=== PATIENT | female | born 1995 | race Caucasian/White ===

== ENCOUNTER 2019-10-07 15:45 | Emergency (ER) | payer OTHER, SELFPAY ==
[2019-10-07 15:57] VITALS: BP 123/67; PULSE 62; RESP 16; TEMP 37.3; O2SAT 100
--- NOTE | 2019-10-07 16:44 | ED.URI ---
HPI - URI/Sore Throat General Chief Complaint: Upper Respiratory Infection Stated Complaint: white spots on tonsils Time Seen by Provider: 10/07/19 16:44 Source: patient and RN notes reviewed Mode of arrival: ambulatory Limitations: no limitations History of Present Illness HPI Narrative: 24-year-old female who presents to [facility] care with 2-day history of sore throat, neck glands painful and swollen, with white patches noted to tonsils today with painful swallowing.Patient states that coworker had strep about 10 days ago so has had exposure to strep. Patient states that she has had low grade fever,some bilateral ear pain, denies any cough or congestion. Patient states that her throat pain is sharp and is aggravated by swallowing, has been using [place] [employer] for her discomfort. MD elicited complaint: sore throat Onset (ago): day(s) (2) Consistency: progressively worsening Severity: moderate Pain scale (0-10): 6 Able to tolerate fluids by mouth: Yes Exacerbating factors: swallowing Relieving factors: nothing Context: sick contacts Associated symptoms: fever (low grade), sore throat and ear pain Treatments prior to arrival: other ([place] [employer]) Related Data Home Medications Medication Instructions Recorded Confirmed norgestimate-ethinyl estradiol 1 tablet PO DAILY 10/07/19 10/07/19 [[id number]] spironolactone 100 mg PO QAM 10/07/19 10/07/19 Allergies Allergy/AdvReac Type Severity Reaction Status Date / Time No Known Allergies Allergy Verified 10/07/19 16:16 Review of Systems Review of Systems: Narrative: CONSTITUTIONAL: Positive low grade fever, no chills, or sweats. EYES: Denies visual changes, redness, or discharge. ENT: Denies rhinorrhea, congestion, positive sore throat, and otalgia. CARDIOVASCULAR: Denies chest pain, palpitations, or edema. RESPIRATORY: Denies cough or dyspnea. GASTROINTESTINAL: Denies abdominal pain, nausea, vomiting, or diarrhea. GENITOURINARY: Denies dysuria or hematuria. SKIN: Denies rash or itching. MUSCULOSKELETAL: Denies back pain, joint pain, or myalgia. NEUROLOGIC: Denies headache, numbness, or weakness. PSYCHIATRIC: Denies anxiety or depression. All systems reviewed & are unremarkable except as noted in HPI and below [facility] Past Medical History Medical History (Updated 10/08/19 @ 00:00 by Carol Larson) Acne Surgical History Surgical History (Updated 10/07/19 @ 17:04 by Susanne Rodriguez NP) Hx of appendectomy Social History Social History (Updated 10/07/19 @ 17:04 by Susanne Rodriguez NP) Smoking status: Never smoker Alcohol intake: current Living arrangements: with family Gender identity (if verbalized by the patient): Female Comments At time of signature, agree with nursing past medical, surgical, social history. There is no relevant family history pertinent to the presenting complaint Exam Narrative: Exam Narrative: GENERAL: Ill-appearing, well-nourished, and in no acute distress. HEAD: Normocephalic, atraumatic. EYES: PERRLA and EOMI. ENT: Nares clear, no rhinorrhea or epistaxis. Mucous membranes moist. TMs normal with good light reflex throat red with white lesions on tonsils, tonsils red and swollen NECK: Supple. Lymphadenopathy CHEST: Clear to auscultation. No respiratory distress. SaO2 100% on room air HEART: Regular rate and rhythm. No murmur heard. Normal peripheral pulses. ABDOMEN: Soft, nontender, nondistended, normal active bowel sounds. EXTREMITIES: Normal range of motion. No edema. SKIN: Warm, dry, no rash. NEURO: No focal deficits. Alert and oriented x3. Course Vital Signs Vital signs: Vital Signs Temperature 37.3 C 10/07/19 15:57 Pulse Rate 62 10/07/19 15:57 Respiratory Rate 16 10/07/19 15:57 Blood Pressure 123/67 10/07/19 15:57 Pulse Oximetry 100 10/07/19 15:57 Temperature 37.3 C 10/07/19 15:57 Pulse Rate 62 10/07/19 15:57 Respiratory Rate 16 10/07/19 15:57 Blood Pressure 123/67 03
== END 2019-10-07 17:00 | disposition home or self-care (01) ==
PROVIDERS: Emergency Provider Registered Nurse; PCP Family Medicine
DX: J02.0 Streptococcal pharyngitis (principal)
CPT/HCPCS: 87880; 99203; G0463

== ENCOUNTER 2021-06-09 14:38 | Emergency (ER) | payer OTHER, SELFPAY ==
[2021-06-09 14:45] VITALS: BP 127/67; PULSE 73; RESP 18; TEMP 37.1; O2SAT 100
--- NOTE | 2021-06-09 14:46 | ED.URI ---
HPI - URI/Sore Throat General Chief Complaint: Upper Respiratory Infection Stated Complaint: drainage headaches ear pain Time Seen by Provider: 06/09/21 14:47 Source: patient and RN notes reviewed History of Present Illness HPI Narrative: Patient is a 25-year-old female who presents the urgent care with complaints of bilateral ear pain, drainage and headache. Patient states that her symptoms started approximately 4 days ago and denies of any fever, chills, nausea, vomiting. Patient has been Covid vaccinated and denies any recent exposures to any upper respiratory viruses. States that she has been using DayQuil and NyQuil with very mild symptom relief. No other acute complaints. No acute distress noted. Patient read the plan of care. Some parts of this dictation were generated by voice recognition software and may contain typographical and/or grammatical inaccuracies. Related Data Home Medications Medication Instructions Recorded Confirmed escitalopram oxalate 10 mg PO DAILY 06/09/21 06/09/21 norgestimate-ethinyl estradiol 1 tablet PO DAILY 06/09/21 06/09/21 [Sue] spironolactone 75 mg PO DAILY 06/09/21 06/09/21 Allergies Allergy/AdvReac Type Severity Reaction Status Date / Time No Known Allergies Allergy Verified 06/09/21 14:39 Review of Systems Review of Systems: CONSTITUTIONAL: Denies fever, chills, or sweats. EYES: Denies visual changes, redness, or discharge. ENT: Reports of postnasal drainage, sinus congestion, rhinorrhea and bilateral otalgia CARDIOVASCULAR: Denies chest pain, palpitations, or edema. RESPIRATORY: Denies cough or dyspnea. GASTROINTESTINAL: Denies abdominal pain, nausea, vomiting, or diarrhea. GENITOURINARY: Denies dysuria or hematuria. SKIN: Denies rash or itching. MUSCULOSKELETAL: Denies back pain, joint pain, or myalgia. NEUROLOGIC: Reports of headache All other systems reviewed are negative, except as documented in HPI. [facility] Past Medical History Medical History (Updated 06/09/21 @ 15:04 by CHAI Buenrostro) Acne Surgical History Surgical History (Updated 10/07/19 @ 17:04 by Susanne Rodriguez NP) Hx of appendectomy Social History Social History (Updated 10/07/19 @ 17:04 by Susanne Rodriguez NP) Smoking status: Never smoker Alcohol intake: current Gender identity (if verbalized by the patient): Female Comments At the time of my signature, I reviewed and agree with the nursing past medical, surgical, social, and family history. There is no relevant family history pertinent to the patient complaint. Exam Narrative: GENERAL: This is a well-nourished, well-developed patient, in no apparent distress. HEAD: normocephalic, atraumatic. EYES: PERRL. Sclera clear/white. Vision is grossly intact. EARS: External ears normal, auditory canals clear and without drainage, TMs normal without perforation. Hearing grossly intact. NOSE: External nose normal with no obvious nasal discharge, mild erythema noted bilateral nares with clear rhinorrhea. THROAT: Mucous membranes moist, posterior pharynx clear. Moderate postnasal drainage and slightly hoarse NECK: Neck supple, non-tender without lymphadenopathy, masses or thyromegaly. CARDIOVASCULAR: Regular rate and rhythm without murmurs, gallops, or rubs. RESPIRATORY: Clear to auscultation. Breath sounds equal bilaterally. No wheezes, rales, or rhonchi. SKIN: warm, intact with no suspicious lesions or rash, good texture and turgor. NEURO: awake, alert, and oriented to person, place and time. There were no obvious focal neurologic abnormalities. EXTREMITIES: No clubbing, cyanosis, or edema. Course Vital Signs Vital signs: Vital Signs Temperature 98.7 F 06/09/21 14:45 Pulse Rate 73 06/09/21 14:45 Respiratory Rate 18 06/09/21 14:45 Blood Pressure 127/67 06/09/21 14:45 Pulse Oximetry 100 06/09/21 14:45 Temperature 98.7 F 06/09/21 14:45 Pulse Rate 73 06/09/21 14:45 Respiratory Rate 18 06/09/21 14:4
== END 2021-06-09 15:05 | disposition home or self-care (01) ==
PROVIDERS: Emergency Provider Nurse Practitioner Family; PCP Family Medicine
DX: J00 Acute nasopharyngitis [common cold] (principal)
CPT/HCPCS: 99211; G0463

== ENCOUNTER 2022-07-12 21:20 | Emergency (ER) | payer OTHER, SELFPAY ==
--- NOTE | ~2022-07-12 | CT_ITS ---
EXAMINATION: CT brain wo con DATE: 07/12/2022 22:39 INDICATION: dizziness . TECHNIQUE: Computed tomography (CT) of the head was performed without intravenous contrast. The mA wa s adjusted according to patient size. Iterative reconstruction technique was employed. The dose-lengt h product was 605.33 mGy-cm. COMPARISON: None. FINDINGS: No acute intracranial hemorrhage or extra-axial fluid collection. No hydrocephalus, mass, or herniation. No acute ischemic infarct. Unremarkable dural venous sinus attenuation. No acute osseous abnormality. Air-fluid levels in the bilateral maxillary ethmoid and sphenoid sinuses, the remaining aerated space s are clear. IMPRESSION: No acute intracranial process. Paranasal sinus findings may represent acute sinusitis in the appropri ate clinical setting. Reviewed, dictated and finalized at location K. L[employer] OPERATOR IMPRESSION: No acute intracranial process. Paranasal sinus findings may represent acute sin usitis in the appropriate clinical setting.
--- NOTE | ~2022-07-12 | XR_ITS ---
EXAMINATION: XR chest 1V portable Exam Date/Time: 07/12/2022 21:50 BUNG REMOVER HISTORY: covid +, dizziness Comparison: None available. RESULT: Lines, tubes, and devices: None. Lungs and pleura: Clear. Cardiomediastinal silhouette: Normal. Other: No acute osseous or upper abdominal finding. IMPRESSION: No acute cardiopulmonary process. Reviewed, dictated and finalized at location K. REMOVER
[2022-07-12 21:23] VITALS: BP 135/83; PULSE 80; RESP 16; TEMP 36.3; O2SAT 100
--- NOTE | 2022-07-12 21:43 | ECG_ITS ---
Measurements Intervals [place] Rate: 69 P: 48 CA: 125 QRS: 61 QRSD: 86 T: 19 QT: 366 QTc: 392 Interpretive Statements SINUS RHYTHM POSSIBLE RIGHT VENTRICULAR CONDUCTION DELAY [RSR (QR) IN V1/V2] NO PREVIOUS ECG AVAILABLE FOR COMPARISON Electronically Signed On 07-13-2022 13:17:49 DRAMATIC COACH by Dee Dee Godoy M.D.
[2022-07-12 22:01] LABS: Add Urine Microscopic? YES; Appearance Urine Clear (Clear); Bilirubin Urine Negative (Negative); Blood Urine Negative (Negative); Color Urine Light Yellow (Yellow); Glucose Urine UA Negative (Negative); Ketones Urine Trace mg/dL (Negative); Leukocyte Esterase Ur 1+ LEU/UL (Negative); Nitrate Urine Negative (Negative); Protein Urine Negative (Negative); Specific Grav Ur 1.015 (1.001-1.035); Urobilinogen Urine 0.2 mg/dL (<2.0); pH Urine 6.5 (5.0-9.0)
[2022-07-12 22:02] VITALS: BP 125/72; PULSE 70
[2022-07-12 22:03] VITALS: BP 118/79; PULSE 69
[2022-07-12 22:04] VITALS: BP 113/81; PULSE 97
[2022-07-12 22:08] LABS: Bacteria Urine 4+ /hpf; Mucus Urine Few /lpf; Squamous Epithelial Cell Urine Many /hpf (Few); WBC Urine 16-20 /hpf
--- NOTE | 2022-07-12 22:09 | ED.DIZZY ---
HPI - Dizziness General Chief Complaint: Dizziness Stated Complaint: +COVID 07/09/22 dizziness Time Seen by Provider: 07/12/22 21:42 Source: patient Mode of arrival: ambulatory Limitations: no limitations History of Present Illness HPI Narrative: This is a 27 year old female that presents to the ER for dizziness ongoing since yesterday. Reports she feels like the room is spinning when she closes her eyes. Reports lightheadedness upon standing. She was diagnosed with COVID 3 days ago. Reports fever, cough, congestion, sore throat. Denies shortness of breath, vomiting, or diarrhea. Related Data Home Medications Medication Instructions Recorded Confirmed escitalopram oxalate 10 mg tablet 10 mg PO DAILY 06/09/21 06/09/21 norgestimate 0.25 mg-ethinyl 1 tablet PO DAILY 06/09/21 06/09/21 estradiol 35 mcg tablet (Sue) spironolactone 50 mg tablet 75 mg PO DAILY 06/09/21 06/09/21 Allergies Allergy/AdvReac Type Severity Reaction Status Date / Time No Known Allergies Allergy Verified 07/12/22 21:44 Review of Systems Review of Systems: CONSTITUTIONAL: Reports fever EYES: Denies redness, or discharge. ENT: Reports rhinorrhea, congestion, sore throat, and otalgia. CARDIOVASCULAR: Denies chest pain, or edema. RESPIRATORY: Reports cough. Denies dyspnea. GASTROINTESTINAL: Denies nausea, vomiting, or diarrhea. NEUROLOGIC: Denies headache, numbness, or weakness. All systems reviewed & are unremarkable except as noted in HPI and below PMFSH Past Medical History Medical History (Updated 07/12/22 @ 23:43 by Angi Felipe PA-C) Acne Surgical History Surgical History (Updated 10/07/19 @ 17:04 by Susanne Rodriguez NP) Hx of appendectomy Social History Social History (Updated 10/07/19 @ 17:04 by Susanne Rodriguez NP) Smoking status: Never smoker Alcohol intake: current Gender identity (if verbalized by the patient): Female Exam Narrative: GENERAL: Well-appearing, well-nourished, and in no acute distress. HEAD: Normocephalic, atraumatic. EYES: PERRLA and EOMI. ENT: Nares clear, no rhinorrhea or epistaxis. Mucous membranes moist. Oropharynx without tonsillar hypertrophy exudate or other lesions. Bilateral TMs pearly magana non-bulging NECK: Supple. No adenopathy or masses. CHEST: Clear to auscultation. No respiratory distress. No wheezes rales or rhonchi HEART: Regular rate and rhythm. No murmur heard. Normal peripheral pulses. EXTREMITIES: Normal range of motion. No edema. Strength equal in bilateral upper and lower extremities (5/5) SKIN: Warm, dry, no rash. NEURO: No focal deficits. Alert and oriented x3. CN II-XII grossly intact. Normal heel to prado PSYCH: Normal mood and affect Course Course Emergency Course: Patient updated on workup. Resting comfortably. Reports improvement in her symptoms Vital Signs Vital signs: Vital Signs Temperature 97.4 F L 07/12/22 21:23 Pulse Rate 80 07/12/22 21:23 Respiratory Rate 16 07/12/22 21:23 Blood Pressure 135/83 07/12/22 21:23 Pulse Oximetry 100 07/12/22 21:23 Temperature 98.2 F 07/12/22 23:21 Pulse Rate 60 07/12/22 23:21 Respiratory Rate 16 07/12/22 23:21 Blood Pressure 109/71 07/12/22 23:21 Pulse Oximetry 100 07/12/22 23:21 MDM - Dizziness MDM Narrative Medical decision making narrative: Patient presents to the ER for dizziness ongoing over the last couple of days patient is currently COVID-positive. She is afebrile and nontoxic-appearing. She is neurologically intact. She was orthostatic upon arrival. She reports improvement in her symptoms after a liter of IV fluids. CBC metabolic panel without concerning findings. UA with evidence of dehydration. Her bedside test was negative. She does have some white blood cells, but also appeared to be a contamination. This will be sent for culture. She does not have any symptoms currently. Chest x-ray without acute cardiopulmonary abnormality. CT scan of the br
[2022-07-12] MEDS: MECLIZINE HCL 25 MG TABLET PO (22:20)
[2022-07-12] MEDS: ONDANSETRON INJ 4 MG/2 ML VIAL IV PUSH (22:20)
[2022-07-12] MEDS: SODIUM CHLORIDE 0.9% IV 1,000 ML 999 ML IV CONT (22:20)
[2022-07-12 22:21] LABS: Basophils Absolute Auto 0.1 K/mm3 (0.0-0.1); Basophils Percent Auto 0.6 % (0.2-1.2); Eosinophils Absolute Auto 0.4 K/mm3 (0-0.3); Eosinophils Percent Auto 4.3 % (0-4.4); Hematocrit 41.9 % (37.0-47.0); Hemoglobin 13.7 g/dL (12.0-15.0); Immature Granulocyte Absolute 0.02 K/mm3 (0.00-0.031); Immature Granulocyte Percent A 0.2 % (0-0.5); Lymphocytes Absolute Auto 2.52 K/mm3 (0.9-3.2); Lymphocytes Percent Auto 27.9 % (18.3-44.2); Mean Corpuscular HGB Conc 32.7 g/dl (32-36); Mean Corpuscular Hemoglobin 29.1 pg (26-34); Mean Corpuscular Volume 89.1 fl (80-100); Mean Platelet Volume 10.5 fl (7.4-10.4); Monocytes Absolute Auto 1.1 K/mm3 (0.1-0.6); Monocytes Percent Auto 11.6 % (2.6-8.5); Neutrophils Percent Auto 55.4 % (45.5-73.1); Platelet Count Result 281 k/mm3 (150-375); Red Cell Distribution Width 12.5 % (11.5-14.5)
[2022-07-12 22:32] LABS: Alanine Aminotransferase 21 U/L (6-35); Albumin Level 4.5 g/dL (3.5-5.1); Alkaline Phosphatase 90 U/L (38-126); Anion Gap 9 mmol/L (8-16); Aspartate Amino Transferase 23 U/L (14-36); Bilirubin,Total 0.3 mg/dL (0.2-1.3); Blood Urea Nitrogen 5 mg/dL (7-17); Carbon Dioxide 27 mmol/L (22-30); Chloride 102 mmol/L (98-107); Estimated CRCL calculation 112 ml/min; Estimated Glomerular Filt Rate > 60; Glucose 113 mg/dL (65-110); Potassium 3.7 mmol/L (3.4-5.0); Sodium 138 mmol/L (137-145)
[2022-07-12 23:21] VITALS: BP 109/71; PULSE 60; RESP 16; TEMP 36.8; O2SAT 100
[2022-07-13 00:16] VITALS: BP 115/72; PULSE 68; RESP 16; TEMP 36.7; O2SAT 98
== END 2022-07-13 00:18 | disposition home or self-care (01) ==
PROVIDERS: Emergency Provider Physician Assistant; PCP Family Medicine
DX: U07.1 COVID-19 (principal); I95.1 Orthostatic hypotension; R42 Dizziness and giddiness; E86.0 Dehydration
CPT/HCPCS: 36415; 70450; 71045; 80053; 81001; 81025; 85025; 87086; 93005; 96361; 96374; 99284; A9270; J2405; J7030

== ENCOUNTER 2024-07-06 15:01 | Emergency (ER) | payer OTHER, SELFPAY ==
--- NOTE | 2024-07-06 15:09 | ED_ITS ---
HPI - URI/Sore Throat General Chief Complaint: Upper Respiratory Infection Stated Complaint: Congestion/Cough Time Seen by Provider: 07/06/24 15:46 Source: patient and RN notes reviewed Mode of arrival: ambulatory Limitations: no limitations History of Present Illness HPI Narrative: 28-year-old female presents concern for 4 day history of nasal congestion, cough, chest congestion, sinus pressure in pain. She is using Flonase and nasal rinses. She reports chronic sinus problems MD elicited complaint: cough and nasal congestion Related Data Home Medications ?Medication ?Instructions ?Recorded ?Confirmed ?Last Taken ?Type escitalopram oxalate 10 mg tablet 10 mg PO DAILY 06/09/21 06/09/21 Unknown History norgestimate 0.25 mg-ethinyl 1 tablet PO DAILY 06/09/21 06/09/21 Unknown History estradiol 35 mcg tablet (Use) spironolactone 50 mg tablet 75 mg PO DAILY 06/09/21 06/09/21 Unknown History Allergies Allergy/AdvReac Type Severity Reaction Status Date / Time No Known Allergies Allergy Verified 07/12/22 21:44 Review of Systems Review of Systems: CONSTITUTIONAL: Denies malaise, chills, sweats, or fever. EYES: Denies visual changes, redness, or discharge. ENT: Reports rhinorrhea, congestion, sinus pain, otalgia and sore throat. CARDIOVASCULAR: Denies chest pain, palpitations, or edema. RESPIRATORY: Reports cough and chest congestion. Denies dyspnea. GASTROINTESTINAL: Denies abdominal pain, nausea, vomiting, diarrhea SKIN: Denies rash or itching. MUSCULOSKELETAL: Reports myalgia. NEUROLOGIC: Denies headache. All systems reviewed & are unremarkable except as noted in HPI and below PMFSH Past Medical History Medical History (Updated 07/06/24 @ 15:56 by Gwen Johnson NP) Acne Surgical History Surgical History (Updated 10/07/19 @ 17:04 by Susanne Rodriguez NP) Hx of appendectomy Social History Social History (Updated 10/07/19 @ 17:04 by Susanne Rodriguez NP) Smoking status: Never smoker Alcohol intake: current Living arrangements: with family Gender identity (if verbalized by the patient): Female Comments At time of signature, agree with nursing past medical, surgical, social and family history. There is no relevant family history pertinent to the presenting complaint Exam Narrative: GENERAL: Well-appearing, well-nourished, and in no acute distress. HEAD: Normocephalic EYES: PERRLA, conjunctivae clear ENT: Nares clear, turbinates edematous and erythematous, clear discharge. Mucous membranes moist. TM pearly magana with dull light reflex bilaterally; no tragal tenderness. Oropharynx not erythematous without lesions. Tonsils not enlarged and without exudate, no drooling, no hoarseness, no trismus, uvula midline. NECK: Supple. No lymphadenopathy CHEST: Clear to auscultation, breath sounds equal. No wheezing, rhonchi, rales, or stridor. No respiratory distress, speaks in full sentences. HEART: Regular rate and rhythm. No murmur heard. SKIN: Warm, dry, no rash. NEURO: Alert and oriented x3. PSYCH: Normal mood and affect Course Course Emergency Course: Patient is aware of diagnosis, understands and agrees to treatment plan. Anticipatory guidance given. Patient agrees to follow-up as directed and is aware of reasons to seek care at the emergency department. Portions of this record may have been created with voice recognition software Level of Care: Express Care Visit Vital Signs Vital signs: Reviewed. MDM - URI/Sore Throat MDM Narrative Medical decision making narrative: Differential diagnosis considered: Heard virus, strep pharyngitis, allergic rhinitis, upper respiratory tract infection, sinusitis, rhinosinusitis, nasopharyngitis. viral pharyngitis, otitis media, otitis externa, pneumonia, bronchitis, viral cough syndrome, viral syndrome, and influenza. Exam findings show no acute concerns or changes; patient is non-toxic appearing and is in no distress. Patient is appropriate for outpatient treatment and follow-up. Lab Data Attestation: I reviewed the patient's lab results. Critical Care Time Critical Care Time Critical Care Time: No Discharge Plan Discharge Clinical Impression: Upper respiratory infection Patient Disposition: Home, Self-Care Condition: Stable Instructions: Upper Respiratory Infection (ED) Additional Instructions: Your COVID and flu tests are negative Viral illness may last between 7-21 days; antibiotics do not cure viral illness and are NOT recommended at this time. Recommend antihistamine such as Benadryl at night time and Zyrtec or Grisel during the day Also, recommend symptomatic treatment includes: rest, fluids, and increase humidity of the air at home. Recommend Acetaminophen as directed on the bottle to reduce fever, pain, headache. Avoid smoking/second-hand smoke. Please schedule a follow-up visit with your personal physician for further evaluation and treatment within 3-5days. Including recheck and discussion of your blood pressure. If your symptoms persist, change or worsen significantly before you can contact your personal physician then please, without delay, go to the emergency department for further evaluation. Patient Language: Luxembourger Prescriptions: No Action norgestimate-ethinyl estradiol [Sue] 0.25-35 mg-mcg tablet 1 tablet PO DAILY spironolactone 50 mg tablet 75 mg PO DAILY escitalopram oxalate 10 mg tablet 10 mg PO DAILY methylprednisolone [Medrol (Carlos)] 4 mg tablets,dose pack See Rx Instructions .ROUTE .COMPLEX Qty: 21 0RF Rx Instructions: orally per package directions fluticasone propionate [Flonase Allergy Relief] 50 mcg/actuation spray,suspension 2 spray NASAL DAILY Qty: 15.8 0RF Rx Instructions: administer into each nostril meclizine 25 mg tablet 25 mg PO BID PRN (Reason: dizziness) Qty: 10 0RF Follow-up/Referrals: Kalia,CHAI Segundo [Primary Care Provider] - Time of Disposition: 15:56
[2024-07-06 15:29] VITALS: BP 120/74; PULSE 90; RESP 16; TEMP 36.6; O2SAT 100
[2024-07-06 15:51] LABS: EDCOVIDSCREEN Negative (Negative); EDINFLUASCREEN Negative (Negative); EDINFLUBSCREEN Negative (Negative)
== END 2024-07-06 15:58 | disposition home or self-care (01) ==
PROVIDERS: Emergency Provider Nurse Practitioner; PCP Nurse Practitioner Family
DX: J06.9 Acute upper respiratory infection, unspecified (principal); Z20.822 Contact with and (suspected) exposure to COVID-19
CPT/HCPCS: 87426; 87804; 99212; G0463

== ENCOUNTER 2024-07-22 18:48 | Emergency (ER) | payer OTHER, SELFPAY ==
[2024-07-22 19:29] VITALS: BP 107/64; PULSE 99; RESP 17; TEMP 37.1; O2SAT 98
--- NOTE | 2024-07-22 22:04 | ED_ITS ---
HPI - URI/Sore Throat General Chief Complaint: Upper Respiratory Infection Stated Complaint: INFLUENZA B+ Time Seen by Provider: 07/22/24 21:47 Source: patient Mode of arrival: ambulatory Limitations: no limitations History of Present Illness HPI Narrative: This is a 29-year-old female who presents to the ED for chief complaint of cough, congestion and body aches after being diagnosed with flu 2 days ago. Patient states that she has had some chest pressure today which is why she came to the ER. Denies nausea, vomiting, diarrhea, urinary symptoms or shortness of breath. Related Data Home Medications ?Medication ?Instructions ?Recorded ?Confirmed ?Last Taken ?Type escitalopram oxalate 10 mg tablet 10 mg PO DAILY 06/09/21 06/09/21 Unknown History norgestimate 0.25 mg-ethinyl 1 tablet PO DAILY 06/09/21 06/09/21 Unknown History estradiol 35 mcg tablet (Sue) spironolactone 50 mg tablet 75 mg PO DAILY 06/09/21 06/09/21 Unknown History clonazepam 0.5 mg tablet mg 07/06/24 Unknown History levonorgestrel-ethinyl estradiol tablet 07/06/24 Unknown History 0.1 mg-20 mcg tablet (Vienva) phentermine 37.5 mg capsule mg 07/06/24 Unknown History Allergies Allergy/AdvReac Type Severity Reaction Status Date / Time No Known Allergies Allergy Verified 07/22/24 18:49 Review of Systems Review of Systems: All systems as dictated in HPI [facility] Past Medical History Medical History (Updated 07/23/24 @ 00:00 by Carol Larson) Acne Surgical History Surgical History (Updated 10/07/19 @ 17:04 by Susanne Rodriguez NP) Hx of appendectomy Social History Social History (Updated 10/07/19 @ 17:04 by Susanne Rodriguez NP) Smoking status: Never smoker Alcohol intake: current Living arrangements: with family Gender identity (if verbalized by the patient): Female Exam Narrative: GENERAL: Well-appearing, well-nourished, and in no acute distress. HEAD: Normocephalic, atraumatic. EYES: PERRLA and EOMI. ENT: Nares clear, no rhinorrhea or epistaxis. Mucous membranes moist. Oropharynx without tonsillar hypertrophy exudate or other lesions. NECK: Supple. No adenopathy or masses. CHEST: No respiratory distress. Clear to auscultation. No wheezes rales or rhonchi HEART: Regular rate and rhythm. No murmur heard. Normal peripheral pulses. ABDOMEN: Soft, nontender, nondistended, normal active bowel sounds. MSK: Normal range of motion. No edema. SKIN: Warm, dry, no rash. NEURO: Alert and oriented x4. No focal deficits. PSYCH: Normal mood and affect. Course Vital Signs Vital signs: Vital Signs Temperature 98.7 F 07/22/24 19:29 Pulse Rate 99 07/22/24 19:29 Respiratory Rate 17 07/22/24 19:29 Blood Pressure 107/64 07/22/24 19:29 Pulse Oximetry 98 07/22/24 19:29 Temperature 98.7 F 07/22/24 22:21 Pulse Rate 86 07/22/24 22:21 Respiratory Rate 16 07/22/24 22:21 Blood Pressure 120/76 07/22/24 22:21 Pulse Oximetry 98 07/22/24 22:21 MDM - URI/Sore Throat MDM Narrative Medical decision making narrative: This is a 29-year-old female who presents for chief complaint of flu-like symptoms after being diagnosed with flu 2 days ago. Vitals are normal. Exam remarkable for the above. No respiratory distress Offered EKG and chest x-ray for the patient's complaint of chest pressure but she is declining. She states that she feels well enough to go home at this point. Presentation consistent with flu-like symptoms with previous diagnosis of FLU B. Patient will be discharged in stable condition. Supportive measures discussed and return precautions given. Patient is understanding and agreeable with plan for discharge with PCP follow-up. Discharge Plan Discharge Clinical Impression: Upper respiratory infection Patient Disposition: Home, Self-Care Condition: Stable Instructions: Antibiotic Form Additional Instructions: Exam today is consistent with upper respiratory infection due to influenza. Please stay hydrated at home and use regular NSAIDs for fevers and pain. If you have any new or worsening symptoms please return to the ER for further evaluation. Patient Language: Japanese Prescriptions: No Action norgestimate-ethinyl estradiol [Sue] 0.25-35 mg-mcg tablet 1 tablet PO DAILY spironolactone 50 mg tablet 75 mg PO DAILY escitalopram oxalate 10 mg tablet 10 mg PO DAILY fluticasone propionate [Flonase Allergy Relief] 50 mcg/actuation spray,suspension 2 spray NASAL DAILY Qty: 15.8 0RF Rx Instructions: administer into each nostril levonorgestrel-ethinyl estrad [Vienva] 0.1-20 mg-mcg tablet clonazepam 0.5 mg tablet phentermine 37.5 mg capsule methylprednisolone [Medrol (Carlos)] 4 mg tablets,dose pack See Rx Instructions .ROUTE .COMPLEX Qty: 21 0RF Rx Instructions: orally per package directions meclizine 25 mg tablet 25 mg PO BID PRN (Reason: dizziness) Qty: 10 0RF Follow-up/Referrals: Kalia,CHAI Segundo [Primary Care Provider] - Time of Disposition: 22:16
[2024-07-22 22:21] VITALS: BP 120/76; PULSE 86; RESP 16; TEMP 37.1; O2SAT 98
--- OUTSIDE RECORDS SUMMARY | 2024-07-29 05:43 | XMS_ITS | Clinical Summary ---
Author Organization [facility] Office Building [address] Address [address] [place] [address] Care Team Providers Care Director Biostatistics Name Role Phone [place], Stuart BOONE Unavailable [phone] Patricia Bowden MD Unavailable [phone] Alison Syed MD Unavailable [phone] Christopher Cadet MD Unavailable Eboni Motta NP Primary Care Provider [phone] Allergies No known active allergies Medications spironolactone (ALDACTONE) 50 mg tablet Take 1 tablet (50 mg total) by mouth every morning 1 Active Aviane 0.1-20 mg-mcg per tablet Take 1 tablet by mouth every morning 3 Active fluticasone propionate (FLONASE) 50 mcg/actuation nasal spray Administer 1 spray into each nostril as needed for rhinitis Active budesonide (PULMICORT) 0.5 mg/2 mL nebulizer solutionIndica tions:MY USE UP TO TWO TIMES PER DAY IF HAVING A FLAIR UP, USE WITH MAYTE MED OR EQUIVALENT SALINE RINSE Administer 2 mL (0.5 mg total) into each nostril daily Rinse mouth with water after use. Do not swallow. 12 mL 3 4 Active cetirizine (ZyrTEC) 10 mg tablet Take 1 tablet (10 mg total) by mouth daily Active PARoxetine (PAXIL) 20 mg tablet Take 1 tablet (20 mg total) by mouth every morning 90 tablet 2 4 02/16/20 25 Active temazepam (RESTORIL) 15 mg capsuleIndicat ions:Insomnia Take 1 capsule (15 mg total) by mouth nightly as needed for sleep 30 capsule 1 4 09/15/19 25 Active phentermine 37.5 mg capsule Take 1 capsule (37.5 mg total) by mouth every morning 30 capsule 2 4 09/15/19 25 Active acetaminophen- codeine (TYLENOL with CODEINE #3) 300-30 mg per tabletIndicati ons:Pain Take 1 tablet by mouth every 6 (six) hours as needed (cough/ body aches) 15 tablet 5 10/23/19 25 Active levocetirizine (XYZAL) 5 mg tablet Take 1 tablet (5 mg total) by mouth every evening 07/16/20 24 Discontinu ed(Therapy completed) riboflavin, vitamin B2, 400 mg tabletIndicati ons:migraines Take 400 mg by mouth daily 90 tablet 4 07/16/20 24 Discontinu ed(Therapy completed) phentermine 37.5 mg capsule Take 1 capsule (37.5 mg total) by mouth every morning 30 capsule 1 4 07/16/20 24 Discontinu ed(Reorder ) clonazePAM (KlonoPIN) 0.5 mg tabletIndicati ons:Panic attacks Take 1 tablet (0.5 mg total) by mouth nightly as needed for anxiety 30 tablet 1 4 07/16/20 24 Discontinu ed(Alterna te therapy) phentermine 37.5 mg capsule Take 1 capsule (37.5 mg total) by mouth every morning 30 capsule 1 4 07/16/20 24 Discontinu ed(Reorder ) methylPREDNISo lone (MEDROL DOSEPACK) 4 mg DosepackIndica tions:Influenz a B Take as directed on package. 21 tablet 5 07/26/19 25 Active Problems Problem Noted Date Diagnosed Date Influenza 07/27/2024 Assessment & Plan (07/27/2024 12:46 PM AUTOMOTIVE WHOLESALE PARTS ADVISOR): Flu: Positive for influenza at . Chest x-ray reviewed and was negative for pneumonia. Discussed home care including rest, increasing fluids and Tylenol/motrin for fever. Illness should resolve within 5-7 days or sooner. If it does not, then pt is to return or call at that time for further guidance. Otherwise, f/u prn Allergic rhinitis 07/16/2024 Allergic rhinitis due to animal hair and dander 07/16/2024 Allergic rhinitis due to pollen 07/16/2024 Chronic allergic conjunctivitis 07/16/2024 Vitamin D deficiency 07/16/2024 Insomnia due to other mental disorder 07/16/2024 Assessment & Plan (07/16/2024 8:05 AM AUTOMOTIVE WHOLESALE PARTS ADVISOR): Has difficulty falling asleep. Feels restless has trouble shutting off her mind. Clonazepam is no longer working for her. Will try switching to temazepam 15 mg at bedtime as needed. Chronic maxillary sinusitis 10/30/2023 Chronic ethmoidal sinusitis 10/30/2023 Hypertrophy of nasal turbinates 10/30/2023 Sleep disorder 06/16/2023 Assessment & Plan (06/26/2023 8:27 PM AUTOMOTIVE WHOLESALE PARTS ADVISOR): Referred to Sleep medicine for further evaluation. Panic attacks 10/29/2021 Assessment & Plan (05/21/2024 8:19 AM AUTOMOTIVE WHOLESALE PARTS ADVISOR): Improved. Continue Paxil. Continue clonazepam p.r.n.. May follow up in 6 months Assessment & Plan (03/01/2024 11:07 AM CDT): Stable on current medication. Continue clonazepam as ordered. May follow up in 6 months Assessment & Plan (06/26/2023 8:27 PM AUTOMOTIVE WHOLESALE PARTS ADVISOR): Improved on clonazepam, continue. Assessment & Plan (10/29/2021 9:29 AM CDT): Trial of clonazepam. Use as directed. Short follow-up recommended. Hirsutism 03/29/2021 Assessment & Plan (04/13/2022 11:42 AM CDT): Stable on ocp and hirsutism. Assessment & Plan (06/29/2021 11:49 AM AUTOMOTIVE WHOLESALE PARTS ADVISOR): No change after the 3m of ocn and sprinolactone To talk to derm about increasing to bid. Assessment & Plan (03/29/2021 4:11 PM CDT): The patient is mildly distressed by her hirsutism she has not noticed a difference with her current contraception. She has not been on spironolactone for long enough for it to make a difference. We discussed that it can take up to 6 months for her to notice a change with it. She is only on once daily dosing and was encouraged to call her practice physician to see if she could be increased to twice daily dosing. We discussed the effects of estrogen on sex hormone binding globulin and because of this she is going to be increased to a 35 mcg pill. She is asked to follow-up in 3 months. Use was reviewed. We discussed the use of Vaniqa. She will decide if she wants to pick the prescription up or not. We discussed that for the cares that have already turned coarsened dark that spironolactone oral contraceptives and the vaniqa will not cause the coarse hair to return to normal and she make have to consider electrolyte losses, other forms of permanent hair removal, or intermittent hair removal treatments. She will go for free and total testosterone and TSH. I will hold on ultrasound at this time. Contraceptive management 03/29/2021 Assessment & Plan (03/29/2021 4:12 PM CDT): The patient was changed to Ortho Cyclen. 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 See the above. Episodic tension-type headache, not intractable 03/24/2021 Assessment & Plan (03/24/2021 7:17 PM CDT): Trial of muscle relaxer at night. May use OTC pain reliever of choice. Myalgia 03/24/2021 Assessment & Plan (03/24/2021 7:18 PM CDT): Recommended heating pads prn, also, prescribed a trial of muscle relaxers. Generalized anxiety disorder 02/22/2021 Assessment & Plan (03/01/2024 11:09 AM CDT): Concerned about generalized weight gain. We did talk about diet and exercise in changes in metabolism we age. Although she is doing well on Lexapro concerned about weight gain related with Lexapro. Will try changing her to Paxil. Will decrease Lexapro to 10 mg and start Paxil 10 mg and the following week discontinue Lexapro and start Paxil 20 mg once daily. I would like her to follow-up in 6 weeks for med check. She may message me in the interim for any problems or concerns with medication changes Assessment & Plan (06/26/2023 8:27 PM AUTOMOTIVE WHOLESALE PARTS ADVISOR): Clinically improved, continue current prescription medications, Escitalopram. Assessment & Plan (10/07/2022 11:13 AM CDT): -chronic, stable -continue on lexapro 20 mg daily -discussed with patient that episodes of sweating may be due to this medication. advised her to alert the office if this becomes bothersome. Assessment & Plan (12/10/2021 9:39 AM CDT): Clinically improved, continue current prescription medications. Assessment & Plan (10/29/2021 9:28 AM CDT): Increase lexapro 10 mg Up to 20 mg daily. Assessment & Plan (07/02/2021 4:36 PM AUTOMOTIVE WHOLESALE PARTS ADVISOR): Stable. Cont. Current prescription medications. Assessment & Plan (03/24/2021 7:17 PM CDT): Recommended decreasing Lexapro since she's been having headaches, patient would like to remain on the 10 mg daily at this time. Anxiety is improving. Assessment & Plan (02/22/2021 2:29 PM CDT): New start on Lexapro 10 mg once a day. Encouraged counseling. Will follow. Go to nearest emergency room if you feel you will be a harm to herself or to others. Eczema 06/26/2020 Dysmenorrhea 08/16/2019 History of appendectomy 07/25/2019 Assessment & Plan (07/25/2019 11:22 AM AUTOMOTIVE WHOLESALE PARTS ADVISOR): Diet as tolerated. Okay to return to work with light duty. No heavy lifting greater than 20 lb for 4 weeks. No submerging incisions for 4 weeks. Please call for any further questions or concerns. Encounter for control pills maintenance Assessment & Plan (04/13/2022 11:42 AM CDT): Doing well on pills Will stay on for now I dont think it is responsible for the weight gain as she has been on it for so long I dont think changing to kale would benefit her hirsutism as she is already on spironolactone. Assessment & Plan (06/29/2021 11:47 AM AUTOMOTIVE WHOLESALE PARTS ADVISOR): Doing well. Will continue on with ocn Overweight with body mass in dex (BMI) of 28 to 28.9 in adult 06/25/2019 Assessment & Plan (07/16/2024 8:06 AM AUTOMOTIVE WHOLESALE PARTS ADVISOR): BMI has dropped from 32-28. She is having success with phentermine. Will continue it with refills for another 3 months and have her follow-up in 3 months Assessment & Plan (05/21/2024 8:19 AM AUTOMOTIVE WHOLESALE PARTS ADVISOR): I discussed the risks and benefits of starting phentermine for weight loss. I discussed the short-term use of 3-4, up to 6 months of phentermine with patient. I discussed this is an aide to use in conjunction with diet changes and exercise. I discussed possible side effects. I will have patient follow-up in 1 month for recheck on blood pressure and weight patient was agreeable and voiced understanding of plan of care and follow-up Assessment & Plan (03/01/2024 11:07 AM CDT): BMI Follow-up includes: nutrition counseling and exercise counseling. Assessment & Plan (10/07/2022 7:11 AM CDT): HPI: Condition is stable goal BMI <30 A&P: Healthy, high-protein, lower carbohydrate, lower fat lifestyle and exercise for 150min/week recommended Resolved Problems Problem Noted Date Diagnosed Date Resolved Date Acute recurrent frontal sinusitis 03/14/2023 06/16/2023 Assessment & Plan (03/14/2023 1:22 PM CDT): Rxs given, increase water intake. May use OTC cough and cold medications of choice prn symptoms. Abnormal weight gain 04/10/2022 023 Assessment & Plan (04/13/2022 11:43 AM CDT): She is exercising. To do food diary I recommend 3957-6795 calories I suspect with the hirsutism she will benefit from a low carb diet. Assessment & Plan (04/10/2022 6:08 PM CDT): Recommended lowering her Lexapro from 20 mg every day down to 10 mg daily. Patient declined. She states that her symptoms are much better on the 20 mg. Also, encouraged her to discuss OCPs and potential weight gain with her BOTTLE TESTER. Patient stated that she will. Well woman exam 03/29/2021 06/16/2023 Assessment & Plan (04/13/2022 11:42 AM CDT): Pap done. RTO 12m. I will send the results to the portal. If she has not heard in a week, to call the office. Assessment & Plan (03/29/2021 4:13 PM CDT): Pap smear was done today, The patient was asked to come back for repeat in 1 year. Gardasil was discussed she will think about it. Multivitamin use was encouraged. Thyroid disorder screening 03/29/2021 1 08/17/2022 Assessment & Plan (03/29/2021 4:13 PM CDT): See hirsutism Acute nonintractable headache 08/16/2019 06/26/2020 Assessment & Plan (08/16/2019 6:03 PM AUTOMOTIVE WHOLESALE PARTS ADVISOR): Ibuprofen 600mg qid prn pain. Consider nasal saline rinses for possible sinusitis. Encounters Date Type Department Care Team Description 07/24/2024 8:00 PM AUTOMOTIVE WHOLESALE PARTS ADVISOR - 07/24/2024 11:59 PM AUTOMOTIVE WHOLESALE PARTS ADVISOR Hospital Encounter [address] [address] Influenza B Discharge Disposition: Discharge to home or self care 07/24/2024 4:00 PM AUTOMOTIVE WHOLESALE PARTS ADVISOR Office Visit [facility] at [address] [phone] Eboni Motta NP Influenza (Primary Dx) 07/24/2024 3:30 PM AUTOMOTIVE WHOLESALE PARTS ADVISOR Lab [facility] Outpatient Lab at [address] [phone] Overweight with body mass index (BMI) of 28 to 28.9 in adult (Primary Dx) 07/24/2024 3:30 PM AUTOMOTIVE WHOLESALE PARTS ADVISOR Ancillary Procedure [facility] Imaging at [address] [phone] Influenza B 07/24/2024 Orders Only [facility] at [address] [phone] Eboni Motta NP Influenza B (Primary Dx) 07/20/2024 7:15 PM AUTOMOTIVE WHOLESALE PARTS ADVISOR Office Visit [facility] at [address] [phone] Jennifer Michael NP Cough, unspecified type (Primary Dx); Influenza B 07/19/2024 Telephone [facility] [address] [facility] [address] [place] [phone] Bhavin Dominguez MD 07/16/2024 7:30 AM AUTOMOTIVE WHOLESALE PARTS ADVISOR Office Visit [facility] at [address] [phone] Eboni Motta NP Overweight with body mass index (BMI) of 28 to 28.9 in adult (Primary Dx); Insomnia due to other mental disorder; Sleep disorder 05/21/2024 7:30 AM AUTOMOTIVE WHOLESALE PARTS ADVISOR Office Visit [facility] Primary Care at [address] [phone] Eboni Motta NP Class 1 obesity due to excess calories without serious comorbidity with body mass index (BMI) of 31.0 to 31.9 in adult (Primary Dx); Panic attacks from Last 3 Months Immunizations Name Administration Dates Next Due DTaP, Unspecified 02/27/2003, 9,01/07/1998,1997 ,1997 Hep B Vaccine 01/19/2022,12/22/2021 Hep B, Unspecified 07/03/1998,1997, 997 HiB 10/02/1998,01/07/1998,1997 ,1997 IPV 02/27/2003 Influenza, Unspecified 03/01/2024(Deferr ed: Patient Refused),06/16/2023(Deferred: Patient Refused),10/07/2022(Deferred: Patient Refused),06/16/2022(Deferred: Patient Refused),04/16/2022(Deferred: Patient Refused),06/25/2019(Deferred: Patient Refused),04/16/2018(Deferred: Patient Refused) MMR 04/24/2002,04/24/2002,10/02/1998 Meningococcal Conjugate (Menveo) 10/20/2014,08/0 08/2011 OPV 01/08/1999,1997,1997 Tdap 05/18/2018,04/30/2008 Surgical History Surgery Date Site/Laterality Comments APPENDECTOMY 07/17/2019 SINUS SURGERY 11/29/2023 Medical History Medical History Date Comments Allergic seasonal Anxiety 2019 Family History Medical History Relation Name Comments Hypertension Father Branden Jansen Hypertension Maternal Grandfather Cancer Paternal Grandfather Tigre Hypertension Paternal Grandfather Tigre Liver cancer Paternal Grandfather Tigre Hypertension Paternal Grandmother Relation Name Status Comments Father Branden Jansen Maternal Grandfather Paternal Grandfather Tigre Paternal Grandmother Social History Tobacco Use Types Packs/Day Years Used Date Smoking Tobacco: Never Passive Smoke Exposure: Past Smokeless Tobacco: Never Comments:Mother smoke growin g up Passive Exposure Comments:mother smoker Alcohol Use Standard Drinks/Week Comments Yes 0 (1 standard drink = 0.6 oz pur e alcohol) Humiliation, Afraid, Rape, and Kick questionnair e Answer Date Recorded Within the last year, have y ou been afraid of your partner or ex-partner? No 04/13/2022 Within the last year, have y ou been humiliated or emotionally abused in other ways by your partner or ex-partner? No Within the last year, have y ou been kicked, hit, slapped, or otherwise physically hurt by your partner or ex-partner? No 04/13/2022 Within the last year, have y ou been raped or forced to have any kind of sexual activity by your partner or ex-partner? No 04/13/2022 AUDIT-C Answer Date Recorded Q1: How often do you have a drink containing alc ohol? 2-4 times a month 04/05/2024 Q2: How many drinks containi ng alcohol do you have on a typical day when you are drinking? 1 or 2 04/05/2024 Q3: How often do you have si x or more drinks on one occasion? Never 04/05/2024 PHQ-2 Answer Date Recorded PHQ-2 Total Score (If total score is 3 or more points, staff should administer the PHQ-9) 0 05/21/2024 Personal Safety Answer Date Recorded Have you ever been in or are you currently in a harmful physical or emotional relationship or is someone making you feel afraid or unsafe? Denies 11/29/2023 Comments No Sex and Gender Information Value Date Recorded Sex Assigned at Not on file 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 AUTOMOTIVE WHOLESALE PARTS ADVISOR Gender Identity Not on file Sexual Orientation Not on file Obstetrics History Last Filed Vital Signs Vital Sign Reading Time Taken Comments Blood Pressure 96/76 07/24/2024 3:56 PM AUTOMOTIVE WHOLESALE PARTS ADVISOR Pulse 94 07/24/2024 3:56 PM AUTOMOTIVE WHOLESALE PARTS ADVISOR Temperature 36.6 ??C (97.8 ??F) 07/24/2024 3:56 PM CS T Respiratory Rate 16 07/24/2024 3:56 PM AUTOMOTIVE WHOLESALE PARTS ADVISOR Oxygen Saturation 97% 07/24/2024 3:56 PM AUTOMOTIVE WHOLESALE PARTS ADVISOR Inhaled Oxygen Concentration - - Weight 69.9 kg (154 lb 3.2 oz) 07/24/2024 3:56 P M AUTOMOTIVE WHOLESALE PARTS ADVISOR Height 157.5 cm (5' 2 ) 07/24/2024 3:56 PM AUTOMOTIVE WHOLESALE PARTS ADVISOR Body Mass Index 28.2 07/24/2024 3:56 PM AUTOMOTIVE WHOLESALE PARTS ADVISOR Plan of Treatment Health Maintenance Due Date Last Done Comments Covid-19 Vaccine ( season) 2024 06/02/2021, 11/03/2020, 10/13/2020 Regular Well Visit/Exam 18-64 06/16/2024 06/16/2023, 04/13/2022, 04/08/2022, Additional history exists Influenza Vaccine (#1) 2025 Postp oned from 03/17/2024 (Patient declined, but will receive in the future) Depression Screening 05/21/2025 05/21/2024, 03/01/2024, 06/16/2023, Additional history exists Cervical Cancer Screening 04/13/2027 04/13/2022, DTaP/Tdap/Td Vaccine (8 - Td or Tdap) 05/18/2028 05/18/2018, 04/30/2008, 02/27/2003, Additional history exists Hepatitis C Screening Completed 06/26/2020 HPV Vaccines Aged Out No longer eligi ble based on patient's age to complete this topic Pneumococcal vaccine <65 Aged Out No longer eligible based on patient's age to complete this topic Varicella Vaccines Discontinued Procedures Procedure Name Priority Date/Time Associated Diagnosis Comments XR CHEST PA LATERAL 2 VIEWS Schedule GALDINO, Read GALDINO (Appt Today, Awaiting Results) 07/24/2024 3:25 PM AUTOMOTIVE WHOLESALE PARTS ADVISOR Influenza B EGFR Routine 07/24/2024 12:00 PM AUTOMOTIVE WHOLESALE PARTS ADVISOR Influenza B DIFFERENTIAL AUTO Routine 07/24/2024 12: 00 PM AUTOMOTIVE WHOLESALE PARTS ADVISOR Influenza B COMPREHENSIVE METABOLIC PANEL Routine 07/24/2024 12:00 PM AUTOMOTIVE WHOLESALE PARTS ADVISOR Influenza B CBC WITH AUTO DIFFERENTIAL Routine 07/24/2024 12:00 PM AUTOMOTIVE WHOLESALE PARTS ADVISOR Influenza B POC INFLUENZA A/B, COVID-19 ANTIGEN Routine 07/20/2024 7:36 PM AUTOMOTIVE WHOLESALE PARTS ADVISOR Cough, unspecified type PAP WITH REFLEX TO HIGH RISK HPV Routine 04/13/2022 11:57 AM CDT Well woman exam HEPATITIS C ANTIBODY Routine 06/26/2020 12:37 PM AUTOMOTIVE WHOLESALE PARTS ADVISOR Encounter for hepatitis C screening test for low risk patient from Last 3 Months or Most Recently Relevant to Health Maintenance Results * XR Chest Pa Lateral 2 Views (07/24/2024 3:25 PM AUTOMOTIVE WHOLESALE PARTS ADVISOR) Anatomical Region Laterality Modality Body, Chest N/A Digital Radiogra phy 07/24/2024 3:38 PM AUTOMOTIVE WHOLESALE PARTS ADVISOR Narrative 07/24/2024 3:39 PM AUTOMOTIVE WHOLESALE PARTS ADVISOR EXAM DESCRIPTION: XR CHEST PA LATERAL 2 VIEWS REASON FOR STUDY: ?? Pt complains of cough x 4 days. No asthma,copd,cancer,heart disease. No smoking or chest surgery. Pt unable to remove piercings. ? TECHNIQUE: 2 ??radiographic view(s) of the chest. COMPARISON: None FINDINGS: LUNGS: ??No focal opacity, pleural effusion, or pneumothorax. ?? HEART/MEDIASTINUM: ??Cardiac silhouette normal in size. Mediastinal and hilar contours appear normal. LINES/TUBES: ??None. BONES: ??No acute osseous abnormality. IMPRESSION: No acute cardiopulmonary abnormality. THIS IS AN ELECTRONICALLY VERIFIED FINAL REPORT 07/24/2024 3:39 PM - Electronically signed by ??Wesley Marks M.D. KT D: ??07/24/2024 3:39 PM T: Report ID: [id number] Reading Location: ??[id number] Procedure Note Wesley Marks MD - 07/24/2024 EXAM DESCRIPTION: XR CHEST PA LATERAL 2 VIEWS REASON FOR STUDY: Pt complains of cough x 4 days. No asthma,copd,cancer,heart disease. No smoking or chest surgery. Pt unable to remove piercings. TECHNIQUE: 2 radiographic view(s) of the chest. COMPARISON: None FINDINGS: LUNGS: No focal opacity, pleural effusion, or pneumothorax. HEART/MEDIASTINUM: Cardiac silhouette normal in size. Mediastinal andhilar contours appear normal. LINES/TUBES: None. BONES: No acute osseous abnormality. IMPRESSION: No acute cardiopulmonary abnormality. THIS IS AN ELECTRONICALLY VERIFIED FINAL REPORT 07/24/2024 3:39 PM - Electronically signed by Wesley Marks M.D. KT T: Report ID: [id number] Reading Location: [place] [id number] Eboni Motta PROPRIETARY TRADER IMG XR PROCEDURES Final Result * eGFR (07/24/2024 12:00 PM AUTOMOTIVE WHOLESALE PARTS ADVISOR) eGFR >90 >=60 mL/min/1. 73 m2 Comment: Interpretive Data Reference Interval Normal ?>/= 90 mL/min/1.73m2 Mildly decreased* ? 60 - 89 mL/min/1.73m2 Mildly to moderately decreased ?45 - 59 mL/min/1.73m2 Moderately to severely decreased ??30 - 44 mL/min/1.73m2 Severely decreased ?15 - 29 mL/min/1.73m2 Kidney Failure ?< 15 ??mL/min/1.73m2 *Relative to young adult level Estimated glomerular filtration rate is determined by the 2020 CKD-EPI equation recommended by the National Kid[employer] Foundation (A Unifying Approach to GFR Estimation: Recommendations of the NKF-ASK Task Force on Reassessing the Inclusion of Race in Diagnosing Kidney Disease, JASN 2020). The CKD-EPI equation should not be used for patients with unstable renal function and has not been validated in children and those over 70. Current interpretive data was last reviewed 2021. Blood 07/24/2024 12:0 0 PM AUTOMOTIVE WHOLESALE PARTS ADVISOR 07/24/2024 8:49 PM AUTOMOTIVE WHOLESALE PARTS ADVISOR us Eboni Motta NP LAB BLOOD ORDERABLES Final Resul t [facility] [id number] [place] [address] * Differential, auto (07/24/2024 12:00 PM AUTOMOTIVE WHOLESALE PARTS ADVISOR) Neutrophil abs 3.9 1.5 - 6.5 K/cumm Imm gran abs 0.0 0.0 - 0.1 K/cumm [facility] Lymphocyte abs 1.5 0.8 - 3.3 K/cumm [facility] Monocyte abs 0.6 0.2 - 0.8 K/cumm [facility] Eosinophil abs 0.0 0.0 - 0.5 K/cumm [facility] Basophil abs 0.0 0.0 - 0.1 K/cumm [facility] Neutrophil pct 64.8 % [facility] Comment: Interpretive Data Percent cell count reference ranges are not reported, since discordance with absolute values may lead to misinterpretation of CBC data. Current Interpretive Data was last revised on 2017. Imm gran pct 0.2 % [facility] Comment: Interpretive Data Percent cell count reference ranges are not reported, since discordance with absolute values may lead to misinterpretation of CBC data. Current Interpretive Data was last revised on 2017. Lymphocyte pct 24.3 % [facility] Comment: Interpretive Data Percent cell count reference ranges are not reported, since discordance with absolute values may lead to misinterpretation of CBC data. Current Interpretive Data was last revised on 2017. Monocyte pct 9.7 % [facility] Comment: Interpretive Data Percent cell count reference ranges are not reported, since discordance with absolute values may lead to misinterpretation of CBC data. Current Interpretive Data was last revised on 2017. Eosinophil pct 0.7 % [facility] Comment: Interpretive Data Percent cell count reference ranges are not reported, since discordance with absolute values may lead to misinterpretation of CBC data. Current Interpretive Data was last revised on 2017. Basophil pct 0.3 % [facility] Comment: Interpretive Data Percent cell count reference ranges are not reported, since discordance with absolute values may lead to misinterpretation of CBC data. Current Interpretive Data was last revised on 2017. Blood 07/24/2024 12:0 0 PM AUTOMOTIVE WHOLESALE PARTS ADVISOR 07/24/2024 8:33 PM AUTOMOTIVE WHOLESALE PARTS ADVISOR Eboni Motta NP LAB BLOOD ORDERABLES Final Resul t Performing Organization Address City/[facility] Co de Phone Number NIXON [address] [place] [address] * (ABNORMAL) CBC with auto differential (07/24/2024 12:00 PM AUTOMOTIVE WHOLESALE PARTS ADVISOR) WBC 6.1 3.8 - 9.9 K/cumm Hgb 13.8 11.9 - 15.5 g/dL [facility] Hct 44.2 35.6 - 45.5 % [facility] Plt 255 150 - 400 K/cumm [facility] CH MPV 11.9 9.1 - 12.3 fL CERNER RBC 4.97 3.90 - 5.20 M/cumm [facility] MCV 88.9 81.3 - 96.4 fL [facility] CH MCH 27.8 27.1 - 33.3 pg [facility] CH MCHC 31.2(L) 32.3 - 35.7 g/dL [facility] CH RDW CV 12.9 11.1 - 14.9 % [facility] CH RDW SD 42.4 35.7 - 48.1 fL [facility] NRBC abs 0.00 0.00 - 0.01 K/cumm [facility] Blood 07/24/2024 12:0 0 PM AUTOMOTIVE WHOLESALE PARTS ADVISOR 07/24/2024 8:33 PM AUTOMOTIVE WHOLESALE PARTS ADVISOR us Eboni Motta NP LAB BLOOD ORDERABLES Final Resul t Performing Organization Address City/[facility]/ZIP Co de Phone Number NIXON [address] Department [place], [place] [id number] * (ABNORMAL) Comprehensive metabolic panel (07/24/2024 12:00 PM AUTOMOTIVE WHOLESALE PARTS ADVISOR) Sodium 134(L) 135 - 145 mmol/L Potassium, pl 3.9 3.3 - 4.9 mmol/L [facility] Chloride 94(L) 97 - 110 mmol/L [facility] CO2 26 22 - 32 mmol/L [facility] Anion gap 14 2 - 15 mmol/L [facility] BUN 3(L) 6 - 25 mg/dL [facility] Creatinine 0.74 0.60 - 1.10 mg/dL [facility] Glucose 118 70 - 199 mg/dL [facility] Comment: Interpretive Data Fasting glucose >/= 126 mg/dl is diagnostic for diabetes. ?? Fasting is defined as no caloric intake for at least 8 hours. Fasting glucose between 100 mg/dl to 125 mg/dl is diagnostic of prediabetes. In a patient with classic symptoms of hyperglycemia or hyperglycemic crisis, a random glucose >/= 200 mg/dl is diagnostic for diabetes. In the absence of unequivocal hyperglycemia, results should be confirmed by repeat testing. The classification and Diagnosis of Diabetes Diabetes Care 2021; 46: S19-S40. Current interpretive data was last revised 2022. Calcium 9.5 8.5 - 10.3 mg/dL [facility] Bilirubin, total 0.3 0.1 - 1.2 mg/dL [facility] Protein, pl 7.9 6.5 - 8.5 g/dL [facility] Albumin 4.3 3.5 - 5.0 g/dL [facility] Alk phos 100 40 - 130 Units/L [facility] ALT 26 7 - 45 Units/L [facility] AST 36 10 - 45 Units/L [facility] Blood 07/24/2024 12:0 0 PM AUTOMOTIVE WHOLESALE PARTS ADVISOR 07/24/2024 8:33 PM AUTOMOTIVE WHOLESALE PARTS ADVISOR us Eboni Motta NP LAB BLOOD ORDERABLES Final Resul t [facility] [address] [address] [place] [address] * (ABNORMAL) POC Influenza A/B, COVID-19 antigen (07/20/2024 7:36 PM AUTOMOTIVE WHOLESALE PARTS ADVISOR) Influenza A Ag, POC Negative Negative [facility] EDW Influenza B Ag, POC Positive(A) Negative [facility] COVID-19 Ag POC Presumptive Negative Presumptive Negative, Invalid [facility] ED[facility] Nasal 07/20/2024 7:36 PM AUTOMOTIVE WHOLESALE PARTS ADVISOR Jennifer Michael PROPRIETARY TRADER POINT OF CARE TEST ORDERAB LES Final Result [facility] CC EDW [address] * Pap with reflex to High Risk HPV (04/13/2022 11:57 AM CDT) Clinical indication Comment [facility] - 01 Comment: NEGATIVE FOR INTRAEPITHELIAL LESION OR MALIGNANCY. CELLULAR CHANGES ASSOCIATED WITH INFLAMMATION ARE PRESENT. Specimen adequacy: Comment [facility] - 01 Comment: Satisfactory for evaluation. ??Endocervical and/or squamous metaplastic cells (endocervical component) are present. Clinician provided ICD10 Comment [facility] - 01 Comment:Z01.419 Performed by Comment [facility] - 01 Comment:Daniel Smart [facility] Area Operations Director (ASCP) . . [facility] - 01 Note: Comment [facility] - 01 Comment: The Pap smear is a screening test designed to aid in the detection of premalignant and malignant conditions of the uterine cervix. ??It is not a diagnostic procedure and should not be used as the sole means of detecting cervical cancer. ??Both false-positive and false-negative reports do occur. Test methodology Comment [facility] - 01 Comment: This liquid based ThinPrep(R) pap test was screened with the use of an image guided system. . Comment [facility] - 01 Comment: The HPV DNA reflex criteria were not met with this specimen result therefore, no HPV testing was performed. Thin prep 04/13/2022 11:5 7 AM CDT 04/15/2022 Narrative [facility] - 04/20/2022 9:12 AM CDT Performed at: ??01 - [facility] ??[id number] Social Media Sr Strategy Manager: Alison Faith MD, Phone: ??[phone] Specimen Comment: No. of containers..01 ThinPrep Vial us Alison Syed MD LAB CYTOLOGY ORDERA BLES Final Result [facility] - 01 * Hepatitis C antibody (06/26/2020 12:37 PM AUTOMOTIVE WHOLESALE PARTS ADVISOR) Hep C Ab Nonreactive Nonreactive [facility] (PORTAL) Comment: Interpretive Data Nonreactive: Antibodies to HCV not detected. Does NOT exclude the possibility of recent exposure to HCV. Equivocal: Equivocal for HCV antibodies. Supplemental molecular testing will be automatically performed to determine infection status in accordance with current CDC screening recommendations. ?? Reactive: Positive for HCV antibodies. ??This may represent current or past HCV infection. Supplemental molecular testing will be automatically performed to determine ??current infection status in accordance with current CDC screening recommendations. Interpretive data was last revised on 2019. Testing performed by: [facility], [address] [place] [address]., [id number] Blood specimen (specimen) 06/26/2020 12:37 PM AUTOMOTIVE WHOLESALE PARTS ADVISOR 06/26/2020 3:57 PM AUTOMOTIVE WHOLESALE PARTS ADVISOR us Shari Coley DO LAB MICROBIOLOGY - GENERAL ORDERABLES Final Result Performing Organization Address City/[facility] Co de Phone Number NIXON [facility] (PORTAL) [facility] Department [place] [address] from Last 3 Months or Most Recently Relevant [place] [address] [facility] CHO[facility] PLUS [facility] PL[facility] Advance Directives For more information, please contact: [phone] * Full Code (Latest Code Status on File) Date Activated Date Inactivated Comments 07/17/2019 5:31 PM 07/18/2019 12:16 AM Care Teams Director Biostatistics Relationship Specialty Start Date End Date Eboni Motta NP [address] [place] [address] PCP - General Family Medicine 03/01/24 Stuart Li PA Physician Senior Clinical Sas Programmer Physician Senior Clinical Sas Programmer 06/25/19 Patricia Bowden MD [address] [place] [address] Referring Physician Dermatology 06/26/20 Alison Syed MD [address] [place] [address] Consulting Physician Obstetrics and Gynecology 07/02/21 Christopher Cadet MD [address] [place] [address] Consulting Physician General Surgery 07/02/21
--- OUTSIDE RECORDS SUMMARY | 2024-07-29 05:43 | XMS_ITS | Encounter Summary ---
Author Organization [facility] Healthcare Address [address] [place] [address] Care Team Providers Care Staffing Director Name Role Phone Stuart Li Unavailable [phone] Patricia Bowden MD Unavailable [phone] Alison Syed MD Unavailable [phone] Christopher Cadet MD Unavailable Eboni Motta NP Primary Care Provider [phone] Reason for Visit * Reason Comments Establish Care Pt is here to est ca re. Encounter Details Date Type Department Care Team (Late st Contact Info) Description 03/01/2024 10:30 AM CDT Office Visit [facility] Medical [facility] Primary Care at [address] [address] Eboni Motta NP [address] [place] [address] [address] [place] [address] Generalized anxiety disorder (Primary Dx); Class 1 obesity due to excess calories without serious comorbidity with body mass index (BMI) of 30.0 to 30.9 in adult; Panic attacks; Weight gain; Lipid screening; Screening for deficiency anemia Social History Tobacco Use Types Packs/Day Years Used Date Smoking Tobacco: Never Passive Smoke Exposure: Past Smokeless Tobacco: Never Comments:None Passive Exposure Comments:mother smoker Alcohol Use Standard [...] containing alc ohol? 2-4 times a month 12/15/2023 Q2: How many drinks containi ng alcohol do you have on a typical day when you are drinking? 1 or 2 12/15/2023 Q3: How often do you have si x or more drinks on one occasion? Never 12/15/2023 PHQ-2 Answer Date Recorded PHQ-2 Total Score (If total score is 3 or more points, staff should administer the PHQ-9) 0 03/01/2024 Personal Safety Answer Date Recorded Have you ever been in or are you currently in a harmful physical or emotional relationship or is someone making you feel afraid or unsafe? 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 Gender Identity Not on file Sexual Orientation Not on file documented as of this encounter Last Filed Vital Signs Vital Sign Reading Time Taken Comments Blood Pressure 124/78 03/01/2024 10:26 AM CDT Pulse 80 03/01/2024 10:26 AM CDT Temperature 36.8 ??C (98.2 ??F) 03/01/2024 10:26 AM C DT Respiratory Rate - - Oxygen Saturation 98% 03/01/2024 10:26 AM CDT Inhaled Oxygen Concentration - - Weight 76.7 kg (169 lb 3.2 oz) 03/01/2024 10:26 AM CDT Height 157.5 cm (5' 2 ) 03/01/2024 10:26 AM CDT Body Mass Index 30.95 03/01/2024 10:26 AM CDT documented in this encounter Patient Instructions * Patient Instructions* Eboni Motta NP - 03/01/2024 10:30 AM CDT My medical imaging director and I are thankful you have trusted us with your care, and hope that you received EXCELLENT care ! Please do not hesitate to call if you have any questions or concerns at documented in this encounter Ordered Prescriptions Prescription Sig Dispense Quantity Refills Last Filled Start Date End Date clonazePAM (KlonoPIN) 0.5 mg tabletIndications: Panic attacks Take 1 tablet (0.5 mg total) by mouth nightly as needed for anxiety 30 tablet 03/01/2024 4 PARoxetine (PAXIL) 20 mg tablet Take 0.5 tablets (10 mg total) by mouth every morning for 7 days, THEN 1 tablet (20 mg total) every morning. While decreasing lexapro to 10mg daily, then stop lexapro while increasing paroxetine to 20mg daily. 30 tablet 2 03/01/2024 4 documented in this encounter Progress Notes * Eboni Motta NP - 03/01/2024 10:30 AM CDT Images from the original note were not included. Chief Complaint Patient presents with [facility] Care Pt is here to est care. Assessment/Plan Diagnoses and all orders for this visit: Generalized anxiety disorder (Primary) Assessment & Plan: Concerned about generalized weight gain. We did [...] any problems or concerns with medication changes Class 1 obesity due to excess calories without serious comorbidity with body mass index (BMI) of 30.0 to 30.9 in adult Assessment & Plan: BMI Follow-up includes: nutrition counseling and exercise counseling. Panic attacks Assessment & Plan: Stable on current medication. Continue clonazepam as ordered. May follow up in 6 months Orders: - clonazePAM (KlonoPIN) 0.5 mg tablet; Take 1 tablet (0.5 mg total) by mouth nightly as needed for anxiety - CBC with auto differential; Future - Thyroid Function [place]; Future Weight gain - Hemoglobin A1c; Future - CBC with auto differential; Future - Comprehensive metabolic panel; Future Lipid screening - Lipid panel; Future Screening for deficiency anemia - CBC with auto differential; Future Other orders - PARoxetine (PAXIL) 20 mg tablet; Take 0.5 tablets (10 mg total) by mouth every morning for 7 days, THEN 1 tablet (20 mg total) every morning. While decreasing lexapro to 10mg daily, then stop lexapro while increasing paroxetine to 20mg daily. Return in about 6 weeks (around 04/12/2024) for Recheck. History of Presenting Illness HPI Subjective: Wendy Jansen is a 28 y.o. female. Patient is being seen today for [facility] Care ([facility] ) . Hx anxiety/ depression: she has been on lexapro for 2-3 years. She had not been on anything before that. She was having chest discomfort, neck pain. She started lexapro after that. Taking clonazepam as needed. Takes about 5 times/week. Dermatology - treats for facial hair - on spironolactone Concerned about weight gain - she thinks it just keeps going on. Doesn't think that she eats any different. Wt Readings from Last 12 Encounters: 03/01/24 76.7 kg (169 lb 3.2 oz) 12/25/23 73 kg (161 lb) 12/16/23 73 kg (161 lb) 12/15/23 74.8 kg (165 lb) 11/29/23 75.2 kg (165 lb 12.6 oz) 11/24/23 74.8 kg (165 lb) 10/20/23 74.8 kg (165 lb) 09/07/23 74.8 kg (165 lb) 09/01/23 75.3 kg (166 lb 0.1 oz) 06/16/23 75.3 kg (166 lb 1.6 oz) 03/14/23 72.6 kg (160 lb) 12/02/22 70.5 kg (155 lb 6.4 oz) Review of Systems Constitutional: Positive for unexpected weight change. Negative for activity change, fatigue and fever. HENT: Negative for congestion, ear pain, postnasal drip, sinus pressure, sore throat and trouble swallowing. Eyes: Negative for redness and visual disturbance. Respiratory: Negative for cough, chest tightness, shortness of breath and wheezing. Cardiovascular: Negative for chest pain, palpitations and leg swelling. Gastrointestinal: Negative for abdominal pain, constipation, diarrhea, nausea and vomiting. Genitourinary: Negative. Musculoskeletal: Negative for back pain and myalgias. Skin: Negative for rash and wound. Neurological: Negative for syncope and headaches. Psychiatric/Behavioral: Negative. Physical Exam Constitutional: General: She is not in acute distress. Appearance: She is well-developed. HENT: Head: Normocephalic. Right Ear: Tympanic membrane, ear canal and external ear normal. Left Ear: Tympanic membrane, ear canal and external ear normal. Mouth/Throat: Pharynx: No oropharyngeal exudate or posterior oropharyngeal erythema. Eyes: Conjunctiva/sclera: Conjunctivae normal. Neck: Thyroid: No thyromegaly. Trachea: No tracheal deviation. Cardiovascular: Rate and Rhythm: Normal rate and regular rhythm. Heart sounds: Normal heart sounds. No murmur heard. No friction rub. Pulmonary: Effort: Pulmonary effort is normal. No respiratory distress. Breath sounds: Normal breath sounds. No wheezing or rales. Musculoskeletal: Cervical back: Neck supple. Right lower leg: No edema. Left lower leg: No edema. Lymphadenopathy: Cervical: No cervical adenopathy. Skin: General: Skin is warm and dry. Neurological: Mental Status: She is alert and oriented to person, place, and time. Psychiatric: Mood and Affect: Mood normal. Behavior: Behavior normal. Thought Content: Thought content normal. Judgment: Judgment normal. Current Outpatient Medications: Aviane 0.1-20 mg-mcg per tablet, Take 1 tablet by mouth every morning, Disp: , Rfl: fluticasone propionate (FLONASE) 50 mcg/actuation nasal spray, Administer 1 spray into each nostrilas needed for rhinitis, Disp: , Rfl: levocetirizine (XYZAL) 5 mg tablet, Take 1 tablet (5 mg total) by mouth every evening, Disp: , Rfl: spironolactone (ALDACTONE) 50 mg tablet, Take 1 tablet (50 mg total) by mouth every morning, Disp: , Rfl: clonazePAM (KlonoPIN) 0.5 mg tablet, Take 1 tablet (0.5 mg total) by mouth nightly as needed for anxiety, Disp: 30 tablet, Rfl: 0 PARoxetine (PAXIL) 20 mg tablet, Take 0.5 tablets (10 mg total) by mouth every morning for 7 days, THEN 1 tablet (20 mg total) every morning. While decreasing lexapro to 10mg daily, then stop lexaprowhile increasing paroxetine to 20mg daily., Disp: 30 tablet, Rfl: 2 BP 124/78 (BP Location: Right arm, Patient Position: Sitting) Pulse 80 Temp 36.8 ??C (98.2 ??F)(Oral) Ht 157.5 cm (5' 2 ) Wt 76.7 kg (169 lb 3.2 oz) SpO2 98% BMI 30.95 kg/m?? Eboni Motta NP documented in this encounter Miscellaneous Notes * Assessment & Plan Note - Eboni Motta NP - 03/01/2024 11:09 AM CDTAssociated Problem(s): Generalized anxiety disorder Concerned about generalized weight gain. We did [...] any problems or concerns with medication changes * Assessment & Plan Note - Eboni Motta NP - 03/01/2024 11:07 AM CDTAssociated Problem(s): Panic attacks Stable on current medication. Continue clonazepam as ordered. May follow up in 6 months * Assessment & Plan Note - Eboni Motta NP - 03/01/2024 11:07 AM CDTAssociated Problem(s): Overweight with body mass index (BMI) of 28 to 28.9 in adult BMI Follow-up includes: nutrition counseling and exercise counseling. documented in this encounter Plan of Treatment Scheduled Orders Name Type Priority Associated Diagnoses Orde r Schedule Hemoglobin A1c Lab Routine Weight gain Expected: 03/01/2024, Expires: 03/01/2025 CBC with auto differential Lab Routine Panic attacks Weight gain Screening for deficiency anemia Expected: 03/01/2024, Expires: 03/01/2025 Comprehensive metabolic panel Lab Routine Weight gain Expected: 03/01/2024, Expires: 03/01/2025 Lipid panel Lab Routine Lipid screening Expected: 03/01/2024, Expires: 03/01/2025 Thyroid Function [place] Lab Routine Panic attacks Expected: 03/01/2024, Expires: 03/01/2025 documented as of this encounter Visit Diagnoses Diagnosis Generalized anxiety disorder- Primary Class 1 obesity due to excess calories without serious comorbidity with body mass index (BMI) of 30.0 to 30.9 in adult Panic attacks Panic disorder without agoraphobia Weight gain Other symptoms concerning nutrition, metabolism, and development Lipid screening Screening for lipoid disorders Screening for deficiency anemia Screening for other and unspecified deficiency anemia documented in this encounter Discontinued Medications Medication Sig Discontinue Reason Start Date End Da te cetirizine (ZyrTEC) 10 mg tablet Take 1 tablet (10 mg total) by mouth daily Therapy completed 12/15/2023 03/01/2024 escitalopram (LEXAPRO) 20 mg tabletIndications:Panic attacks,Generalized anxiety disorder Take 1 tablet (20 mg total) by mouth every morning 02/20/2024 03/01/2024 clonazePAM (KlonoPIN) 0.5 mg tabletIndications:Panic attacks Take 1 tablet (0.5 mg total) by mouth nightly as needed for anxiety Reorder 02/20/2024 03/01/2024 documented as of this encounter Historical Medications * This list may reflect changes made after this encounter. levocetirizine (XYZAL) 5 mg tablet Take 1 tablet (5 mg total) by mouth every evening 07/16/2024 added in this encounter Care Teams Staffing Director Relationship Specialty Start Date End Date Eboni Motta NP [address] [place] [address] PCP - General Family Medicine 03/01/24 Stuart Li PA Physician Baseball Glove Shaper Physician Baseball Glove Shaper 06/25/19 Patricia Bowden MD [address] [place] [address] Referring Physician Dermatology 06/26/20 Alison Syed MD [address] [place] [address] Consulting Physician Obstetrics and Gynecology 07/02/21 Christopher Cadet MD [address] [place] [address] Consulting Physician General Surgery 07/02/21 documented as of this encounter
--- OUTSIDE RECORDS SUMMARY | 2024-07-29 05:43 | XMS_ITS | Encounter Summary ---
Author Organization [facility] Healthcare Address [address] [place] [address] Care Team Providers Care Schedule Hanger Name Role Phone Brijesh Shari Woody DO Primary Care Provider [phone] Stuart Li Unavailable [phone] Patricia Bowden MD Unavailable [phone] Alison Syed MD Unavailable [phone] Christopher Cadet MD Unavailable Reason for Visit * Reason Onset Date Comments appt request 02/21/2024 Encounter Details Date Type Department Care Team (Late st Contact Info) Description 02/21/2024 Telephone [facility] Medical Group Primary Care at [address] [address] Seymour Dior appt request Social History Tobacco Use Types Packs/Day Years [...] points, staff should administer the PHQ-9) 0 06/16/2023 Personal Safety Answer Date Recorded Have you ever been in or are you currently in a harmful physical or emotional relationship or is someone making you feel afraid or unsafe? 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 Please transfer to Seymour Ramirez. Thank you documented in this encounter Plan of Treatment Not on file documented as of this encounter Visit Diagnoses Not on filedocumented in this encounter Care Teams Schedule Hanger Relationship Specialty Start Date End Date Shari Coley DO PCP - General Family Medicine 06/25/19 02/29/24 Stuart Li PA Physician Chief Of Pediatric Urology Physician Chief Of Pediatric Urology 06/25/19 Patricia Bowden MD [address] [place] [address] Referring Physician Dermatology 06/26/20 Alison Syed MD [address] [place] [address] Consulting Physician Obstetrics and Gynecology 07/02/21 Christopher Cadet MD [address] [place] [address] Consulting Physician General Surgery 07/02/21 documented as of this encounter
--- OUTSIDE RECORDS SUMMARY | 2024-07-29 05:43 | XMS_ITS | Clinical Summary ---
Author Organization [facility] Address [address] [facility] [place] [address] Care Team Providers Care Chartered Accountant Name Role Phone Yari Grove MD Primary Care Provider [phone] Source Comments [facility],non-owned Affiliates and Associated Physician Practices is amultiple site organization consisting of ambulatory clinics and hospital sitesin [place], [place], [place] and [place]. This disclosure is being madepursuant to the Care Everywhere program and may not contain all information available regarding this patient. Last updated 18.[facility] Allergies No known active allergies Medications Be aware that medications may not be up to date on this document. Always verify current medications with the patient. No known medications Active Problems Problem Noted Date Diagnosed Date Seasonal allergies 05/08/2016 Social History Tobacco Use Types Packs/Day Years Used Date Smoking Tobacco: Never Assessed Sex and Gender Information Value Date Recorded Sex Assigned at Not on file Gender Identity Not on file Sexual Orientation Not on file Last Filed Vital Signs Vital Sign Reading Time Taken Comments Blood Pressure 104/62 05/08/2016 3:14 PM CDT Pulse 64 05/08/2016 3:14 PM CDT Temperature 37 ??C (98.6 ??F) 05/08/2016 3:14 PM CDT Respiratory Rate 18 05/08/2016 3:14 PM CDT Oxygen Saturation 99% 05/08/2016 3:14 PM CDT Inhaled Oxygen Concentration - - Weight 63.5 kg (140 lb) 05/08/2016 3:14 PM CDT Height 158.8 cm (5' 2.5 ) 05/08/2016 3:14 PM CDT Body Mass Index 25.2 05/08/2016 3:14 PM CDT Plan of Treatment Health Maintenance Due Date Last Done Comments PAP SMEAR 1997 HIV SCREENING 2012 HEPATITIS C SCREENING 07/03/2015 DTAP/TDAP/TD VACCINES (1 - Tdap) 2016 HEPATITIS B VACCINE (1 of 3 - 19+ 3-dose series) 2016 COVID-19 VACCINE (1 - 2023-2 5 season) 2024 INFLUENZA VACCINE (#1) 2024 DEPRESSION SCREENING 07/17/2024 ZOSTER VACCINE (1 of 2) 2047 HIB VACCINE Aged Out No longer eligi ble based on patient's age to complete this topic HPV VACCINE Aged Out No longer eligi ble based on patient's age to complete this topic MENINGOCOCCAL (Group B) VACCINE Aged Out No longer eligible based on patient's age to complete this topic MENINGOCOCCAL VACCINE Aged Out No phil ping eligible based on patient's age to complete this topic PNEUMOCOCCAL VACCINE Aged Out No long er eligible based on patient's age to complete this topic Care Teams Chartered Accountant Relationship Specialty Start Date End Date Yari Grove MD [address] [id number] PCP - General Pediatrics 05/08/16
--- OUTSIDE RECORDS SUMMARY | 2024-07-29 05:43 | XMS_ITS | Encounter Summary ---
Author Organization [facility] Healthcare Address [address] [place] [address] Care Team Providers Care Supervisor Dock Name Role Phone [place], Stuart BOONE Unavailable [phone] Patricia Bowden MD Unavailable [phone] Alison Syed MD Unavailable [phone] Christopher Cadet MD Unavailable Eboni Motta NP Primary Care Provider [phone] Encounter Details Date Type Department Care Team (Late st Contact Info) Description 03/22/2024 Telephone [facility] - [facility] [address] [phone] Bhavin Dominguez MD [address] [address] Social History Tobacco Use Types Packs/Day Years [...] on file 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 Gender Identity Not on file Sexual Orientation Not on file documented as of this encounter Miscellaneous Notes * Telephone Encounter - Anastacia Jansen RN - 03/26/2024 8:22 AM CDT See prior note documented in this encounter Plan of Treatment Not on file documented as of this encounter Visit Diagnoses Not on filedocumented in this encounter Care Teams Supervisor Dock Relationship Specialty Start Date End Date Eboni Motta NP [address] [place] [address] PCP - General Family Medicine 03/01/24 Stuart Li PA Physician District [address] Justice Physician [address] Court Justice 06/25/19 Patricia Bowden MD [address] [place] [address] Referring Physician Dermatology 06/26/20 Alison Syed MD [address] [place] [address] Consulting Physician Obstetrics and Gynecology 07/02/21 Christopher Cadet MD [address] [place] [address] Consulting Physician General Surgery 07/02/21 documented as of this encounter
--- OUTSIDE RECORDS SUMMARY | 2024-07-29 05:43 | XMS_ITS | Encounter Summary ---
Author Organization [facility] Healthcare Address [address] [place] [address] Care Team Providers Care Process Supervisor Name Role Phone Shari Coley Primary Care Provider [phone] Stuart Li Unavailable [phone] Patricia Bowden MD Unavailable [phone] Alison Syed MD Unavailable [phone] Christopher Cadet MD Unavailable Encounter Details Date Type Department Care Team (Late st Contact Info) Description 12/29/2023 Orders Only [facility] - [facility] [address] [facility] [address] [place] [phone] Bhavin Dominguez MD [address] [address] Social History Tobacco Use Types [...] on file 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 Gender Identity Not on file Sexual Orientation Not on file documented as of this encounter Ordered Prescriptions Prescription Sig Dispense Quantity Refills Last Filled Start Date End Date azelastine (ASTELIN) 137 mcg (0.1 %) nasal spray Administer 1 spray into each nostril 2 (two) times a day Use in each nostril as directed 30 mL 2 12/29/2023 documented in this encounter Plan of Treatment Not on file documented as of this encounter Visit Diagnoses Not on filedocumented in this encounter Care Teams Process Supervisor Relationship Specialty Start Date End Date Shari Coley DO PCP - General Family Medicine 06/25/19 02/29/24 Stuart Li PA Physician Crimper Assembler Physician Crimper Assembler 06/25/19 Patricia Bowden MD [address] [place] [address] Referring Physician Dermatology 06/26/20 Alison Syed MD [address] [place] [address] Consulting Physician Obstetrics and Gynecology 07/02/21 Christopher Cadet MD [address] [place] [address] Consulting Physician General Surgery 07/02/21 documented as of this encounter
--- OUTSIDE RECORDS SUMMARY | 2024-07-29 05:43 | XMS_ITS | Encounter Summary ---
Author Organization [facility] Healthcare Address [address] [place] [address] Care Team Providers Care Immigration Consultant Name Role Phone [place], Stuart BOONE Unavailable [phone] Patricia Bowden MD Unavailable [phone] Alison Syed MD Unavailable [phone] Christopher Cadet MD Unavailable Eboni Motta NP Primary Care Provider [phone] Encounter Details Date Type Department Care Team (Late st Contact Info) Description 03/26/2024 Orders Only [facility] Medical Group ENT Specialists - [facility] [address] [facility] [address] [place] [phone] Bhavin Dominguez MD [address] [facility] [address], [place] [address] Social History Tobacco Use Types Packs/Day [...] on file 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 Gender Identity Not on file Sexual Orientation Not on file documented as of this encounter Ordered Prescriptions Prescription Sig Dispense Quantity Refills Last Filled Start Date End Date methylPREDNISolone (MEDROL DOSEPACK) 4 mg Dosepack Take as directed on package 1 packet 03/26/2024 4 documented in this encounter Plan of Treatment Not on file documented as of this encounter Visit Diagnoses Not on filedocumented in this encounter Care Teams Immigration Consultant Relationship Specialty Start Date End Date Eboni Motta NP [address] [place] [address] PCP - General Family Medicine 03/01/24 Stuart Li PA Physician Pigment Weigher Physician Pigment Weigher 06/25/19 Patricia Bowden MD [address] [email or web address] [address] Referring Physician Dermatology 06/26/20 Alison Syed MD [address] [place] [address] Consulting Physician Obstetrics and Gynecology 07/02/21 Christopher Cadet MD [address] [place] [address] Consulting Physician General Surgery 07/02/21 documented as of this encounter
--- OUTSIDE RECORDS SUMMARY | 2024-07-29 05:43 | XMS_ITS | Encounter Summary ---
Author Organization [facility] Address [address] [place] [address] Care Team Providers Care Dictating Machine Transcriber Name Role Phone Yari Grove MD Primary Care Provider [phone] Reason for Visit * Reason Comments Sore Throat Fever CHILLS LOSS OF APPET ITE Ear Pain Encounter Details Date Type Department Care Team (Late st Contact Info) Description 05/08/2016 2:45 PM CDT Office Visit [facility] AT [address] [address] Acute pharyngitis, unspecified etiology (Primary Dx) Social History Tobacco Use Types Packs/Day Years [...] Mass Index 25.2 05/08/2016 3:14 PM CDT Body Mass Index Percentile 81.43% 05/08/2016 3:1 4 PM CDT Growth Chart: [facility] (Girls, 2- 20 Years) documented in this encounter Patient Instructions * Patient Instructions* Jeni Man, FASHION CONSULTANT-CAR CLEANER - 05/08/2016 3:35 PM CDT Pharyngitis in Children WHAT YOU NEED TO KNOW: Pharyngitis is swelling or infection of the tissues and structures in your child's pharynx (throat). It is also called sore throat. DISCHARGE INSTRUCTIONS: Seek care immediately if: ?? Your child suddenly has trouble breathing or turns blue. ?? Your child has swelling or pain in his jaw. ?? Your child has voice changes, or it is hard to understand his speech. ?? Your child has a stiff neck. ?? Your child is urinating less than usual or has fewer diapers than usual. ?? Your child has increased weakness or fatigue. ?? Your child has pain on one side of his throat that is much worse than the other side. Contact your child's healthcare provider if: ?? Your child has throat pain, trouble swallowing, fever, or other symptoms that are not getting better or are getting worse. ?? Your child has a rash on his body. He may also have reddish cheeks and a red, swollen tongue. ?? Your child has new ear pain, headaches, or pain around his eyes. ?? Your child pauses in his breathing when he sleeps. ?? You have questions or concerns about your child's condition or care. Follow up with your child's healthcare provider as directed: Write down your questions so you remember to ask them during your visits. Manage your child's pharyngitis: ?? Have your child rest as much as possible. ?? Give your child plenty of liquids so he does not get dehydrated. Give him liquids that are easy to swallow and will soothe his throat. ?? Soothe your child's throat. If your child can gargle, give him ?? of a teaspoon of salt mixed with 1 cup of warm water to gargle. If your child is 12 years or older, give him throat lozenges to help decrease his throat pain. ?? Use a cool mist humidifier to increase air moisture in your home. This may make it easier for your child to breathe and help decrease his cough. Help prevent the spread of pharyngitis: Wash your hands and your child's hands often. Keep your child away from other people while he is still contagious. Ask your child's healthcare provider how long your child is contagious. Do not let your child share food or drinks. Do not let your child share toys or pacifiers. Wash these items with soap and hot water. When to return to school or daycare: Your child may return to daycare or school when his symptoms go away. ?? 2016 [employer]. Information is for End User's use only and may not be sold, redistributed or otherwise used for commercial purposes. All illustrations and images included in CareNotes?? are the copyrighted property of [employer] or [employer]. The above information is an forestry fire aid only. It is not intended as medical advice for individual conditions or treatments. Talk to your doctor, nurse or pharmacist before following any medical regimen to see if it is safe and effective for you. documented in this encounter Progress Notes * Jeni Man APRN-CNP - 05/12/2016 2:28 PM CDTSpoke with Father- made aware of results. Father reported new symptoms. Instructed to have her return to clinic or f/u with PCP for further evaluation. * Jeni Man APRN-CNP - 05/08/2016 3:25 PM CDT Office Visit, Established Patient, [id number] HISTORY: (1-3 elements) CC & HPI: Wendy Jansen is a 20 y.o. female established patient, here for: Chief Complaint Patient presents with ??? Sore Throat ??? Fever CHILLS LOSS OF APPETITE ??? Ear Pain General The history is provided by the patient. This is a new problem. The current episode started 2 days ago. The problem occurs constantly. The pain is at a severity of 7/10. The pain is moderate. Body Location: throat.Associated symptoms include headaches. Associated symptoms comments: Fever Chills Loss of appetite Body aches Ear pain- with yawning and chewing. The symptoms are aggravated by coughing, sneezing and swallowing. The symptoms are relieved by NSAIDs. The treatment provided mild relief. I have reviewed the medications listed in the patient's chart. Review of Systems (1 required) Review of Systems Constitutional: Positive for chills, fever and malaise/fatigue. HENT: Positive for ear pain and sore throat. Respiratory: Negative. Cardiovascular: Negative. Neurological: Positive for headaches. PFSH, other pertinent history: No past medical history on file. I have reviewed the allergies listed in the patient's chart. EXAM (6 elements from any single system exam or 6 or more elements from a multisystem exam) BP 104/62 (BP SITE: LEFT ARM, BP POSITION: SITTING, BP CUFF SIZE: Adult) Pulse 64 Temp 98.6 ??F (Oral) Resp 18 Wt 63.5 kg (140 lb) SpO2 99% BMI 25.2 kg/m2 FiO2: Physical Exam Constitutional: She is oriented to person, place, and time and well-developed, well-nourished, and in no distress. Vital signs are normal. HENT: Right Ear: Tympanic membrane and ear canal normal. Left Ear: Tympanic membrane and ear canal normal. Nose: Nose normal. Mouth/Throat: Uvula is midline. Posterior oropharyngeal erythema present. No oropharyngeal exudate or posterior oropharyngeal edema. Cardiovascular: Normal rate, regular rhythm and normal heart sounds. Pulmonary/Chest: Effort normal and breath sounds normal. Cough noted Lymphadenopathy: Head (right side): No submental and no submandibular adenopathy present. Head (left side): No submental and no submandibular adenopathy present. She has no cervical adenopathy. Neurological: She is oriented to person, place, and time. ASSESSMENT: 1. Acute pharyngitis, unspecified etiology PLAN: Orders Placed This Encounter ??? CULTURE STREP GROUP A ??? STREP A SCREEN - POINT OF CARE (AMB) STL Instructed warm salt water gargles, chloraseptic throat spray, cepachol lozenges. Ibuprofen or tylenol for fever and or pain as instructed on package. Will call when throat culture results are received typically takes 3 days to result. Return to office in PRN. Patient instructed to call with any concerns or problems. documented in this encounter Plan of Treatment Not on file documented as of this encounter Procedures Procedure Name Priority Date/Time Associated Diagnosis Comments CULTURE STREP GROUP A Routine 05/08/2016 3:30 PM CDT Acute pharyngitis, unspecified etiology STREP A SCREEN - POINT OF CARE (AMB) STL Routine 05/08/2016 Acute pharyngitis, unspecified etiology documented in this encounter Results * CULTURE STREP GROUP A (05/08/2016 3:30 PM CDT) Beta-Strep Culture, Group A Only Negative [facility] INSURANCE BILL Microbiology ENTIRE THROAT (SURFACE REGION OF NECK) / Unknown 05/08/2016 3:30 PM CDT 05/09/2016 10:55 PM CDT Narrative Resulting Agency Comment [facility] [address] [facility] ??[facility] [id number] [facility] - MICROBIOL OGY ORDERABLES [facility] INSURANCE BILL [address] [place] [address] * STREP A SCREEN - POINT OF CARE (AMB) STL (05/08/2016) Strep A Rapid POCT Negative Negative Strep A Internal Control Present Lot # [id number] Expiration Date [id number] Throat ENTIRE THROAT (SURFACE REGION OF NECK) / Unknown 05/08/2016 [facility] - POINT OF CARE ORDERABLES documented in this encounter Visit Diagnoses Diagnosis Acute pharyngitis, unspecified etiology- Primary documented in this encounter Care Teams Dictating Machine Transcriber Relationship Specialty Start Date End Date Yari Grove MD [address] [place] [phone] PCP - General Pediatrics 05/08/16 documented as of this encounter
--- OUTSIDE RECORDS SUMMARY | 2024-07-29 05:43 | XMS_ITS | Encounter Summary ---
Author Organization [facility] Address [address] [place] [address] Care Team Providers Care Workers Compensation Claims Examiner Name Role Phone Yari Grove MD Primary Care Provider [phone] Reason for Visit * Reason Onset Date Comments Follow-up 05/10/2016 Encounter Details Date Type Department Care Team (Late st Contact Info) Description 05/10/2016 Telephone [facility] AT [address] [phone] [facility] Follow-up Social History Tobacco Use Types Packs/Day Years Used Date Smoking Tobacco: Never Assessed Sex and Gender Information Value Date Recorded Sex Assigned at Not on file Gender Identity Not on file Sexual Orientation Not on file documented as of this encounter Plan of Treatment Not on file documented as of this encounter Visit Diagnoses Not on filedocumented in this encounter Care Teams Workers Compensation Claims Examiner Relationship Specialty Start Date End Date Yari Grove MD [address] [facility] [address] [place] [phone] PCP - General Pediatrics 05/08/16 documented as of this encounter
--- OUTSIDE RECORDS SUMMARY | 2024-07-29 05:43 | XMS_ITS | Patient Health Record ---
Author Organization [facility] Address [address] [place] [id number] Care Team Providers Care Operation Agent Name Role Phone Kalia Eboni Primary Care Provider Marga Maurer Unavailable [phone] Allergies No Known Allergies Reason For Referral No Information Medications Medication SIG (Take, Route, Frequency, Duration) Notes Start Date End Date Status Azelastine HCl 137 MCG/SPRAY 2 sprays in each nostril Nasally Twice a day for 30 days 05/28/2024 Active Nasal Washes N/A as directed intranasally 05/28/20 24 Active Vienva 0.1-20 MG-MCG TAKE 1 TABLET BY MO UTH EVERY DAY Oral for 84 Days Active clonazePAM 0.5 MG TAKE 1 TABLET BY CELE TH NIGHTLY NEEDED FOR ANXIETY Oral for 30 Days Active Phentermine HCl 37.5 MG TAKE 1 CAPSULE B Y MOUTH EVERY MORNING Oral for 30 Days Active ZyrTEC Allergy 10 MG 1 tablet Orally Onc e a day Active PARoxetine HCl 20 MG TAKE 1 TABLET BY MO UTH EVERY DAY IN THE MORNING Oral for 90 Days Active Flonase Allergy Relief 50 MCG/ACT 1 spray in each nostril Nasally Twice a day Active Montelukast Sodium 10 MG 1 tablet Orally Once a day for 30 days 05/28/2024 Active Spironolactone 50 MG TAKE 3 TABLETS BY M OUTH EVERY DAY Oral for 30 Days Active Social History Tobacco Use: Social History Observation Description Date Details (start date - stop date) Never Smoker NA - NA Smoking Smart Form: Question Answer Notes Are you a: never smoker Problems Problem Type SNOMED Code ICD Code Onset Dates Problem Status W/U Status Risk Notes Problem Vitamin D deficiency (90324048) Vitamin D deficiency, unspecified (E55.9) Active confirmed Problem Chronic allergic conjunctivitis (85802348) Other chronic allergic conjunctivitis (H10.45) Active confirmed Problem Allergic rhinitis caused by pollen (disorder) (74251220) Allergic rhinitis due to pollen (J30.1) Active confirmed Problem Allergic rhinitis (56467935) Other allergic rhinitis (J30.89) Active confirmed Problem Chronic sinusitis (03503542) Chronic sinusitis, unspecified (J32.9) Active confirmed Problem Allergic rhinitis caused by animal hair and dander (533985507931584) Allergic rhinitis due to animal (cat) (dog) hair and dander (J30.81) Active confirmed Vital Signs Oximetry 99 % 05/28/2024 Blood pressure diastolic 80 mm Hg 05/28/2024 Height 63 in 05/28/2024 Blood pressure systolic 128 mm Hg 05/28/2024 Weight 148.9 lbs 05/28/2024 BMI 26.37 kg/m2 05/28/2024 Encounters Encounter Location Date Provider Diagnosis [facility] [address] [address] 05/28/2024 Marga Singleton Allergic rhinitis du e to pollen J30.1 ; Allergic rhinitis due to animal (cat) (dog) hair and dander J30.81 ; Other allergic rhinitis J30.89 ; Other chronic allergic conjunctivitis H10.45 ; Dermatitis due to ingested food L27.2 ; Chronic sinusitis, unspecified J32.9 ; Vitamin D deficiency, unspecified E55.9 and Elevated blood-pressure reading, without diagnosis of hypertension R03.0 Assessments Encounter Date Diagnosis (ICD Code) Assessment Notes Treatment Notes Treatment Clinical Notes Section Notes 05/28/2024 Allergic rhinitis due to pollen (ICD-10 - J30.1) Given the history and symptoms, skin testing was performed to common aeroallergens to determine atopic status. Wendy clearly suffers from atopic disease based upon our skin testing and clinical history. Accordingly, we have introduced a new, aggressive medication regimen, discussed nasal washes and allergy-specific avoidance measures. We also discussed adjunctive therapies including subcutaneous, specific allergen immunotherapy as relates to the treatment and prevention of atopic disease. She is currently considering the risks, benefits and alternatives to this care. Risks: bleeding, infection, allergic reaction, anaphylaxis; Benefits: reduced need for medications, improved symptoms, disease modification. Alternatives: watch/wait, change medication regimen, improve allergy avoidance measures. - Intradermal testing deferred by Wendy today. Consider ImmunoCaps, however Wendy would like to hold off at this time. - Wendy is interested in trial of LTRA, BBW discussed. - Follow-up in 1 month for interval evaluation and management 05/28/2024 Allergic rhinitis due to animal (cat) (dog) hair and dander (ICD-10 - J30.81) Follow allergen avoidance, meds and consider SCIT as an adjunctive treatment to current regimen 05/28/2024 Other allergic rhinitis (ICD-10 - J30.89) Follow allergen avoidance, meds and consider SCIT as an adjunctive treatment to current regimen 05/28/2024 Other chronic allergic conjunctivitis (ICD-10 - H10.45) Given ocular signs and symptoms I encouraged allergy avoidance measures and meds as above. 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 Only in rare cases does OAS evolve into food anaphylaxis, so carrying EAI device generally not necessary. - As in her case, the cooked, extensively peeled/washed and/or processed forms of these foods can be eaten without symptoms. There are numerous case reports of improvement in OAS symptoms in patients undergoing immunotherapy to the cross-reactive pollens. 05/28/2024 Chronic sinusitis, unspecified (ICD-10 - J32.9) Wendy reports > 8 sinus infections in the last 12 months requiring antibiotics meeting JMF criteria for modified PIDD work-up. - Discussed obtaining work-up today, however Wendy would like to hold off at this time. 05/28/2024 Vitamin D deficiency, unspecified (ICD-10 - E55.9) Consider if modified PIDD work-up is obtained 05/28/2024 Elevated blood-pressure reading, without diagnosis of hypertension (ICD-10 - R03.0) BP elevated today without symptoms of urgency or emergency. Continue serial checks and follow-up with PCP Plan Of Treatment No Information Insurance Providers Payer Name Payer Address Payer Phone Subscriber Number Group Number Insured Name Patient Relationship to Insured Coverage Start Date Coverage End Date [facility] [address] [place] [address] [id number] Wendy Jansen Self - patient is the insured 4 Medical (General) History Medical History History ICD Code Anxiety disorder, unspecified F41.9 Acne, unspecified L70.9 Chronic sinusitis, unspecified J32.9 Surgical History Surgery Date(Month/Year) Sinus surgery 12/04/2023 Appendectomy 07/17/2019
--- OUTSIDE RECORDS SUMMARY | 2024-07-29 05:43 | XMS_ITS | Encounter Summary ---
Author Organization [facility] Healthcare Address [address] [place] [address] Care Team Providers Care Ham Rolling Machine Operator Name Role Phone Stuart Li Unavailable [phone]- [phone] Patricia Bowden MD Unavailable [phone] Alison Syed MD Unavailable [phone] Christopher Cadet MD Unavailable Eboni Motta NP Primary Care Provider [phone] Reason for Visit * Reason Comments Health Maintenance 6 wk f/u on medicati on for anxiety, rescheduled from 04/12/24.Paroxetine- Patient is having weight gain with it. Encounter Details Date Type Department Care Team (Late st Contact Info) Description 05/21/2024 7:30 AM BARREL FILLER Office Visit [facility] Primary Care at [address] [address] Eboni Motta NP [address] [place] [address] [address] [place], [place] [id number] Class 1 obesity due to excess calories without serious comorbidity with body mass index (BMI) of 31.0 to 31.9 in adult (Primary Dx); Panic attacks Social History Tobacco Use Types Packs/Day Years [...] on file 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 BARREL FILLER Gender Identity Not on file Sexual Orientation Not on file documented as of this encounter Last Filed Vital Signs Vital Sign Reading Time Taken Comments Blood Pressure 110/70 05/21/2024 7:35 AM BARREL FILLER Pulse 94 05/21/2024 7:35 AM BARREL FILLER Temperature 36.6 ??C (97.9 ??F) 05/21/2024 7:35 AM CS T Respiratory Rate 16 05/21/2024 7:35 AM BARREL FILLER Oxygen Saturation 96% 05/21/2024 7:35 AM BARREL FILLER Inhaled Oxygen Concentration - - Weight 78.2 kg (172 lb 8 oz) 05/21/2024 7:35 AM BARREL FILLER Height 157.5 cm (5' 2 ) 05/21/2024 7:35 AM BARREL FILLER Body Mass Index 31.55 05/21/2024 7:35 AM BARREL FILLER documented in this encounter Patient Instructions * Patient Instructions* Eboni Motta NP - 05/21/2024 7:30 AM BARREL FILLER My emergency medicine medical director and I are thankful you have trusted us with your care, and hope that you received EXCELLENT care ! Please do not hesitate to call if you have any questions or concerns at [facility] documented in this encounter Ordered Prescriptions Prescription Sig Dispense Quantity Refills Last Filled Start Date End Date PARoxetine (PAXIL) 20 mg tablet Take 1 tablet (20 mg total) by mouth every morning 90 tablet 2 05/21/2024 5 clonazePAM (KlonoPIN) 0.5 mg tabletIndications: Panic attacks Take 1 tablet (0.5 mg total) by mouth nightly as needed for anxiety 30 tablet 1 05/21/2024 4 phentermine 37.5 mg capsule Take 1 capsule (37.5 mg total) by mouth every morning 30 capsule 1 05/21/2024 4 documented in this encounter Progress Notes * Eboni Motta NP - 05/21/2024 7:30 AM CST Images from the original note were not included. Chief Complaint Patient presents with Health Maintenance 6 wk f/u on medication for anxiety, rescheduled from 04/12/24. Paroxetine- Patient is having weight gain with it. Assessment/Plan Diagnoses and all orders for this visit: Class 1 obesity due to excess calories without serious comorbidity with body mass index (BMI) of 31.0 to 31.9 in adult (Primary) Assessment & Plan: I discussed the risks and benefits of [...] understanding of plan of care and follow-up Panic attacks Assessment & Plan: Improved. Continue Paxil. Continue clonazepam p.r.n.. May follow up in 6 months Orders: - clonazePAM (KlonoPIN) 0.5 mg tablet; Take 1 tablet (0.5 mg total) by mouth nightly as needed for anxiety Other orders - PARoxetine (PAXIL) 20 mg tablet; Take 1 tablet (20 mg total) by mouth every morning - phentermine 37.5 mg capsule; Take 1 capsule (37.5 mg total) by mouth every morning Return 1-2 weight check phentermine. History of Presenting Illness HPI Subjective: Wendy Jansen is a 28 y.o. female. Patient is being seen today for Health Maintenance (6 wk f/u on medication for anxiety, rescheduled from 04/12/24./Paroxetine- Patient is having weight gain withit. ) . States that mood carreon she is feeling better. Doing well with it. Not having as many sweats. She is still concerned about weight gain. She is eating well. She exercises regularly. She is using the clonazepam. Has used it about 4 times/week. Review of Systems Constitutional: Negative for activity change, fatigue and fever. [...] She is not in acute distress. Appearance: Normal appearance. She is well-developed. Cardiovascular: Rate and Rhythm: Normal rate and regular rhythm. Heart sounds: No murmur heard. Pulmonary: Effort: Pulmonary effort is normal. No respiratory distress. Breath sounds: Normal breath sounds. No wheezing. Skin: General: Skin is warm and dry. Neurological: Mental Status: She is alert and oriented to person, place, and time. Psychiatric: Mood and Affect: Mood normal. Behavior: Behavior normal. Thought Content: Thought content normal. Judgment: Judgment normal. Current Outpatient Medications: Aviane 0.1-20 mg-mcg per tablet, Take 1 tablet by mouth every morning, Disp: , Rfl: budesonide (PULMICORT) 0.5 mg/2 mL nebulizer solution, Administer 2 mL (0.5 mg total) into each nostril daily Rinse mouth with water after use. Do not swallow., Disp: 12 mL, Rfl: 3 cetirizine (ZyrTEC) 10 mg tablet, Take 1 tablet (10 mg total) by mouth daily, Disp: , Rfl: fluticasone propionate (FLONASE) 50 mcg/actuation nasal spray, Administer 1 spray into each nostrilas needed for rhinitis, Disp: , Rfl: levocetirizine (XYZAL) 5 mg tablet, Take 1 tablet (5 mg total) by mouth every evening, Disp: , Rfl: riboflavin, vitamin B2, 400 mg tablet, Take 400 mg by mouth daily, Disp: 90 tablet, Rfl: 0 spironolactone (ALDACTONE) 50 mg tablet, Take 1 tablet (50 mg total) by mouth every morning, Disp: , Rfl: clonazePAM (KlonoPIN) 0.5 mg tablet, Take 1 tablet (0.5 mg total) by mouth nightly as needed for anxiety, Disp: 30 tablet, Rfl: 1 PARoxetine (PAXIL) 20 mg tablet, Take 1 tablet (20 mg total) by mouth every morning, Disp: 90 tablet, Rfl: 2 phentermine 37.5 mg capsule, Take 1 capsule (37.5 mg total) by mouth every morning, Disp: 30 capsule, Rfl: 1 BP 110/70 (BP Location: Right arm, Patient Position: Sitting) Pulse 94 Temp 36.6 ??C (97.9 ??F)(Temporal) Resp 16 Ht 157.5 cm (5' 2 ) Wt 78.2 kg (172 lb 8 oz) SpO2 96% BMI 31.55 kg/m?? Eboni Motta NP [facility] documented in this encounter Miscellaneous Notes * Assessment & Plan Note - Eboni Motta NP - 05/21/2024 8:19 AM CSTAssociated Problem(s): Overweight with body mass index (BMI) of 28 to 28.9 in adult I discussed the risks and benefits of [...] understanding of plan of care and follow-up [facility] * Assessment & Plan Note - Eboni Motta NP - 05/21/2024 8:19 AM CSTAssociated Problem(s): Panic attacks Improved. Continue Paxil. Continue clonazepam p.r.n.. May follow up in 6 months [facility] documented in this encounter Plan of Treatment Not on file documented as of this encounter Visit Diagnoses Diagnosis Class 1 obesity due to excess calories without serious comorbidity with body mass index (BMI) of 31.0 to 31.9 in adult- Primary Panic attacks Panic disorder without agoraphobia documented in this encounter Discontinued Medications Medication Sig Discontinue Reason Start Date End Da te PARoxetine (PAXIL) 20 mg tablet Take 0.5 tablets (10 mg total) by mouth every morning for 7 days, THEN 1 tablet (20 mg total) every morning. While decreasing lexapro to 10mg daily, then stop lexapro while increasing paroxetine to 20mg daily. Reorder 04/12/2024 05/21/2024 clonazePAM (KlonoPIN) 0.5 mg tabletIndications:Farheen c attacks Take 1 tablet (0.5 mg total) by mouth nightly as needed for anxiety Reorder 04/12/2024 05/21/2024 documented as of this encounter Historical Medications * This list may reflect changes made after this encounter. cetirizine (ZyrTEC) 10 mg tablet Take 1 tablet (10 mg total) by mouth daily added in this encounter Care Teams Ham Rolling Machine Operator Relationship Specialty Start Date End Date Eboni Motta NP [address] [place] [address] PCP - General Family Medicine 03/01/24 Stuart Li PA Physician Fleet Administrator Physician Fleet Administrator 06/25/19 Patricia Bowden MD [address] [place] [address] Referring Physician Dermatology 06/26/20 Alison Syed MD [address] [place] [address] Consulting Physician Obstetrics and Gynecology 07/02/21 Christopher Cadet MD [address] [place] [address] Consulting Physician General Surgery 07/02/21 documented as of this encounter
--- OUTSIDE RECORDS SUMMARY | 2024-07-29 05:43 | XMS_ITS | Referral Summary ---
Author Organization [email or web address] Address [address] [facility] [place] [address] Care Team Providers Care Detective Homicide Squad Name Role Phone Yari Grove MD Primary Care Provider [phone] Source Comments [facility],non-owned Affiliates and Associated Physician Practices is amultiple site organization consisting of ambulatory clinics and hospital sitesin [place], [place], [place] and [place]. This disclosure is being madepursuant to the Care Everywhere program and may not contain all information available regarding this patient. Last updated 18.[email or web address] Allergies No known active allergies Medications Be [...] 05/08/2016 3:14 PM CDT Plan of Treatment Not on file Care Teams Detective Homicide Squad Relationship Specialty Start Date End Date Yari Grove MD [address] [id number] PCP - General Pediatrics 05/08/16
--- OUTSIDE RECORDS SUMMARY | 2024-07-29 05:43 | XMS_ITS | Patient Health Summary ---
Author Organization [facility] Address [address] [facility] [place] [address] Care Team Providers Care Professional Employer Consultant Name Role Phone Yari Grove MD Primary Care Provider [phone] Note from [facility],non-owned Affiliates and Associated Physician Practices is amultiple site organization consisting of ambulatory clinics and hospital sitesin [place], [place], [place] and [place]. This disclosure is being madepursuant to the Care Everywhere program and may not contain all information available regarding this patient. Last updated 18.[facility] Allergies No known active allergies Medications Be [...] Mass Index 25.2 05/08/2016 3:14 PM CDT Procedures * CULTURE STREP GROUP A(Performed 05/08/2016) Performed for Acute pharyngitis, unspecified etiology * STREP A SCREEN - POINT OF CARE (AMB) STL(Performed 05/08/2016) Performed for Acute pharyngitis, unspecified etiology Results * CULTURE STREP GROUP A (05/08/2016 3:30 PM CDT) Beta-Strep Culture, Group A Only Negative [facility] INSURANCE BILL Microbiology ENTIRE THROAT (SURFACE REGION OF NECK) / Unknown 05/08/2016 3:30 PM CDT 05/09/2016 10:55 PM CDT Narrative Resulting Agency Comment [facility] [address] [facility] [id number] Jeni Emiiocchi CLASSIFICATION CONTROL CLERK-LACE AND TEXTILES RESTORER LAB - MICROBIOL OGY ORDERABLES [facility] INSURANCE BILL [address] [place] [address] * STREP A SCREEN - POINT OF CARE (AMB) STL (05/08/2016) Strep A Rapid POCT Negative Negative Strep A Internal Control Present Lot # [id number] Expiration Date [id number] Throat ENTIRE THROAT (SURFACE REGION OF NECK) / Unknown 05/08/2016 Jeni Biciocchi CLASSIFICATION CONTROL CLERK-LACE AND TEXTILES RESTORER LAB - POINT OF CARE ORDERABLES Care Teams Professional Employer Consultant Relationship Specialty Start Date End Date Yari Grove MD [address] [place] [id number] PCP - General Pediatrics 05/08/16
--- OUTSIDE RECORDS SUMMARY | 2024-07-29 05:43 | XMS_ITS | Encounter Summary ---
Author Organization [facility] Healthcare Address [address] [place] [address] Care Team Providers Care Credit Or Loans Officer Name Role Phone ColeyShari Primary Care Provider [phone] Stuart Li Unavailable [phone] Patricia Bowden MD Unavailable [phone] Alison Syed MD Unavailable + [phone] Christopher Cadet MD Unavailable Encounter Details Date Type Department Care Team (Late st Contact Info) Description 02/20/2024 Orders Only [facility] Primary Care at [place] [address] [place] [address] Eboni Motta NP [address] [facility] [address] [place] [address] Panic attacks; Generalized anxiety disorder Social History Tobacco Use Types Packs/Day Years [...] on file 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 OTOLARYNGOLOGIST Gender Identity Not on file Sexual Orientation Not on file documented as of this encounter Ordered Prescriptions Prescription Sig Dispense Quantity Refills Last Filled Start Date End Date escitalopram (LEXAPRO) 20 mg tabletIndications: Panic attacks,Generalize d anxiety disorder Take 1 tablet (20 mg total) by mouth every morning 30 tablet 02/20/2024 4 clonazePAM (KlonoPIN) 0.5 mg tabletIndications: Panic attacks Take 1 tablet (0.5 mg total) by mouth nightly as needed for anxiety 30 tablet 02/20/2024 4 documented in this encounter Plan of Treatment Not on file documented as of this encounter Visit Diagnoses Diagnosis Panic attacks Panic disorder without agoraphobia Generalized anxiety disorder documented in this encounter Discontinued Medications Medication Sig Discontinue Reason Start Date End Da te acetaminophen (TYLENOL) 500 mg tabletIndications:Pain Take 2 tablets (1,000 mg total) by mouth every 6 (six) hours as needed for pain 11/29/2023 02/20/2024 azelastine (ASTELIN) 137 mcg (0.1 %) nasal spray Administer 1 spray into each nostril 2 (two) times a day Use in each nostril as directed 12/29/2023 02/20/2024 oxyCODONE (ROXICODONE) 5 mg immediate release tabletIndications:Pain Take 1 tablet (5 mg total) by mouth every 4 (four) hours as needed for pain 11/29/2023 02/20/2024 ibuprofen (ADVIL,MOTRIN) 400 mg tablet Take 1 tablet (400 mg total) by mouth every 6 (six) hours as needed for pain 11/29/2023 02/20/2024 escitalopram (LEXAPRO) 20 mg tabletIndications:Gene ralized anxiety disorder,Panic attacks Take 1 tablet (20 mg total) by mouth every morning Reorder 06/16/2023 02/20/2024 clonazePAM (KlonoPIN) 0.5 mg tabletIndications:Farheen c attacks Take 1 tablet (0.5 mg total) by mouth nightly as needed for anxiety Reorder 06/16/2023 02/20/2024 documented as of this encounter Care Teams Credit Or Loans Officer Relationship Specialty Start Date End Date Vibha Coleye DO Bong PCP - General Family Medicine 06/25/19 02/29/24 Stuart Li PA Physician Digital Content Manager Physician Digital Content Manager 06/25/19 Patricia Bowden MD [address] [place] [address] Referring Physician Dermatology 06/26/20 Alison Syed MD [address] [place] [address] Consulting Physician Obstetrics and Gynecology 07/02/21 Christopher Cadet MD [address] [place] [address] Consulting Physician General Surgery 07/02/21 documented as of this encounter
--- OUTSIDE RECORDS SUMMARY | 2024-07-29 05:43 | XMS_ITS | Encounter Summary ---
Author Organization [facility] Healthcare Address [address] [place] [address] Care Team Providers Care Lockstitch Waistline Joiner Name Role Phone CornishStuart Unavailable [phone]- [phone] Patricia Bowden MD Unavailable [phone] Alison Syed MD Unavailable [phone] Christopher Cadet MD Unavailable Eboni Motta NP Primary Care Provider [phone] Reason for Visit * Reason Comments Follow-up Weight check Encounter Details Date Type Department Care Team (Late st Contact Info) Description 07/16/2024 7:30 AM INSTRUMENT MECHANIC WE[employer] SYSTEM Office Visit [facility] Group Primary Care at [place] [id number] [place] [address] Eboni Motta NP [address] [place] [address] [address] [place] [address] Overweight with body mass index (BMI) of 28 to 28.9 in adult (Primary Dx); Insomnia due to other mental disorder; Sleep disorder Social History Tobacco Use Types Packs/Day [...] on file 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 [employer]UMENT [employer] Gender Identity Not on file Sexual Orientation Not on file documented as of this encounter Last Filed Vital Signs Vital Sign Reading Time Taken Comments Blood Pressure 110/72 07/16/2024 7:31 AM INSTRUMENT MECH[employer]IC [employer] Pulse 80 07/16/2024 7:31 AM IN[employer]UMENT MECH[employer]IC [employer] SYSTEM Temperature 36.3 ??C (97.4 ??F) 07/16/2024 7:31 AM CS T Respiratory Rate 16 07/16/2024 7:31 AM INSTRUMENT [employer]CH[employer]IC [employer] Oxygen Saturation 98% 07/16/2024 7:31 AM IN[employer]UMENT [employer] Inhaled Oxygen Concentration - - Weight 71.1 kg (156 lb 11.2 oz) 07/16/2024 7:31 AM IN[employer]UMENT MECH[employer]IC [employer] SYSTEM Height 157.5 cm (5' 2 ) 07/16/2024 7:31 AM IN[employer]UMENT MECH[employer] Body Mass Index 28.66 07/16/2024 7:31 AM IN[employer]UMENT MECH[employer]IC [employer] documented in this encounter Patient Instructions * Patient Instructions* Eboni Motta NP - 07/16/2024 7:30 AM INSTRUMENT MECH[employer]IC [employer] SYSTEM My medical operations supervisor and I are thankful you have trusted us with your care, and hope that you received EXCELLENT care ! Please do not hesitate to call if you have any questions or concerns at [employer] documented in this encounter Ordered Prescriptions Prescription Sig Dispense Quantity Refills Last Filled Start Date End Date phentermine 37.5 mg capsule Take 1 capsule (37.5 mg total) by mouth every morning 30 capsule 2 07/16/2024 5 temazepam (RESTORIL) 15 mg capsuleIndications :Insomnia Take 1 capsule (15 mg total) by mouth nightly as needed for sleep 30 capsule 1 07/16/2024 5 phentermine 37.5 mg capsule Take 1 capsule (37.5 mg total) by mouth every morning 30 capsule 1 07/16/2024 4 documented in this encounter Progress Notes * Eboni Motta NP - 07/16/2024 7:30 AM CST Images from the original note were not included. Chief Complaint Patient presents with Follow-up Weight check HPI Patient presents for weight loss education. Today we discussed the diet plan they chose and evaluated how successful they have been so far. If applicable they will either change or continue their current diet plan. Success so far: she has noticed not eating as much, she has been down in her weight overall, she feels she is doing well on it. Challenges so far: holidays are tempting with baking and cookies, she feels like she is up a couplepounds Goals for going forward: wants to try to push through holiday season. BP 110/72 (BP Location: Right arm, Patient Position: Sitting) Pulse 80 Temp 36.3 ??C (97.4 ??F)(Temporal) Resp 16 Ht 157.5 cm (5' 2 ) Wt 71.1 kg (156 lb 11.2 oz) SpO2 98% BMI 28.66 kg/m?? Wt Readings from Last 3 Encounters: 07/16/24 71.1 kg (156 lb 11.2 oz) 05/21/24 78.2 kg (172 lb 8 oz) 04/05/24 76.7 kg (169 lb) Weight Change: Weight loss: 16 pounds Diet: decreased portions, less sweets , Medication: phentermine , and Activity: works two jobs, doesn't regularly exercise No side effects Concerns: Continues to have trouble sleeping. She had been put on clonazepam by previous provider. She takes up to 2 at night and still having trouble sleeping. This is not changed since she has started phentermine. This was still a problem prior to starting phentermine. Diagnoses and all orders for this visit: Overweight with body mass index (BMI) of 28 to 28.9 in adult (Primary) Assessment & Plan: BMI has dropped from 32-28. She is having success with phentermine. Will continue it with refills for another 3 months and have her follow-up in 3 months Insomnia due to other mental disorder Assessment & Plan: Has difficulty falling asleep. Feels restless has trouble shutting off her mind. Clonazepam is no longer working for her. Will try switching to temazepam 15 mg at bedtime as needed. Sleep disorder Other orders - temazepam (RESTORIL) 15 mg capsule; Take 1 capsule (15 mg total) by mouth nightly as needed for sleep - phentermine 37.5 mg capsule; Take 1 capsule (37.5 mg total) by mouth every morning Eboni Motta NP [employer] documented in this encounter Miscellaneous Notes * Assessment & Plan Note - Eboni Motta NP - 07/16/2024 8:06 AM CSTAssociated Problem(s): Overweight with body mass index (BMI) of 28 to 28.9 in adult BMI has dropped from 32-28. She is having success with phentermine. Will continue it with refills for another 3 months and have her follow-up in 3 months [employer] * Assessment & Plan Note - Eboni Motta NP - 07/16/2024 8:05 AM CSTAssociated Problem(s): Insomnia due to other mental disorder Has difficulty falling asleep. Feels restless has trouble shutting off her mind. Clonazepam is no longer working for her. Will try switching to temazepam 15 mg at bedtime as needed. [employer] documented in this encounter Plan of Treatment Not on file documented as of this encounter Visit Diagnoses Diagnosis Overweight with body mass index (BMI) of 28 to 28.9 in adult- Primary Insomnia due to other mental disorder Sleep disorder Unspecified sleep disturbance documented in this encounter Discontinued Medications Medication Sig Discontinue Reason Start Date End Da te levocetirizine (XYZAL) 5 mg tablet Take 1 tablet (5 mg total) by mouth every evening Therapy completed 07/16/2024 riboflavin, vitamin B2, 400 mg tabletIndications:migrai mamie Take 400 mg by mouth daily Therapy completed 05/15/2024 07/16/2024 clonazePAM (KlonoPIN) 0.5 mg tabletIndications:Panic attacks Take 1 tablet (0.5 mg total) by mouth nightly as needed for anxiety Alternate therapy 05/21/2024 07/16/2024 phentermine 37.5 mg capsule Take 1 capsule (37.5 mg total) by mouth every morning Reorder 05/21/2024 07/16/2024 phentermine 37.5 mg capsule Take 1 capsule (37.5 mg total) by mouth every morning Reorder 07/16/2024 07/16/2024 documented as of this encounter Care Teams Lockstitch Waistline Joiner Relationship Specialty Start Date End Date Eboni Motta NP [address] [place] [address] PCP - General Family Medicine 03/01/24 Stuart Li PA Physician Specimen Accessioner Physician Specimen Accessioner 06/25/19 Patricia Bowden MD [address] [place] [address] Referring Physician Dermatology 06/26/20 Alison Syed MD [address] [place] [address] Consulting Physician Obstetrics and Gynecology 07/02/21 Christopher Cadet MD [address] [place] [address] Consulting Physician General Surgery 07/02/21 documented as of this encounter
--- OUTSIDE RECORDS SUMMARY | 2024-07-29 05:43 | XMS_ITS | Referral Summary ---
Author Organization [facility] Medical Office Building B Address [address] [place] [address] Care Team Providers Care Freelance Web Designer Name Role Phone Rush, Stuart BOONE Unavailable [phone]- [phone] Patricia Bowden MD Unavailable [phone] Alison Syed MD Unavailable [phone] Christopher Cadet MD Unavailable Eboni Motta NP Primary Care Provider [phone] Encounters Date Type Department Care Team Description 07/24/2024 8:00 PM CLINICAL REHAB SPECIALIST - 07/24/2024 11:59 PM CLINICAL REHAB SPECIALIST Hospital Encounter [address] [address] Influenza B Discharge Disposition: Discharge to home or self care 07/24/2024 3:30 PM CLINICAL REHAB SPECIALIST Lab [facility] Outpatient Lab at [address] [address] Overweight with body mass index (BMI) of 28 to 28.9 in adult (Primary Dx) 07/24/2024 3:30 PM CLINICAL REHAB SPECIALIST Ancillary Procedure [facility] Imaging at [address] [address] Influenza B 07/24/2024 4:00 PM CLINICAL REHAB SPECIALIST Office Visit [facility] Group Primary Care at [address] [address] Eboni Motta NP Influenza (Primary Dx) 07/24/2024 Orders Only [facility] Primary Care at [address] [phone] Eboni Motta NP Influenza B (Primary Dx) 07/20/2024 7:15 PM CLINICAL REHAB SPECIALIST Office Visit [facility] Care at [address] [phone] Jennifer Michael NP Cough, unspecified type (Primary Dx); Influenza B 07/19/2024 Telephone [facility] - [address] [address] Bhavin Dominguez MD 07/16/2024 7:30 AM CLINICAL REHAB SPECIALIST Office Visit [facility] Primary Care at [address] [phone] Eboni Motta NP Overweight with body mass index (BMI) of 28 to 28.9 in adult (Primary Dx); Insomnia due to other mental disorder; Sleep disorder 05/21/2024 7:30 AM CLINICAL REHAB SPECIALIST Office Visit [facility] Care at [address] [phone] Eboni Motta NP Class 1 obesity due to excess calories without serious comorbidity with body mass index (BMI) of 31.0 to 31.9 in adult (Primary Dx); Panic attacks from Last 3 Months Allergies No known active allergies Medications spironolactone [...] 07/27/2024 Assessment & Plan (07/27/2024 12:46 PM CLINICAL REHAB SPECIALIST): Flu: Positive for influenza at . Chest [...] 07/16/2024 Assessment & Plan (07/16/2024 8:05 AM CLINICAL REHAB SPECIALIST): Has difficulty falling asleep. Feels restless has trouble shutting off her mind. Clonazepam is no longer working for her. Will try switching to temazepam 15 mg at bedtime as needed. Chronic maxillary sinusitis 10/30/2023 Chronic ethmoidal sinusitis 10/30/2023 Hypertrophy of nasal turbinates 10/30/2023 Sleep disorder 06/16/2023 Assessment & Plan (06/26/2023 8:27 PM CLINICAL REHAB SPECIALIST): Referred to Sleep medicine for further evaluation. Panic attacks 10/29/2021 Assessment & Plan (05/21/2024 8:19 AM CLINICAL REHAB SPECIALIST): Improved. Continue Paxil. Continue clonazepam p.r.n.. May follow up in 6 months Assessment & Plan (03/01/2024 11:07 AM CDT): Stable on current medication. Continue clonazepam as ordered. May follow up in 6 months Assessment & Plan (06/26/2023 8:27 PM CLINICAL REHAB SPECIALIST): Improved on clonazepam, continue. Assessment & Plan (10/29/2021 9:29 AM CDT): Trial of clonazepam. Use as directed. Short follow-up recommended. Hirsutism 03/29/2021 Assessment & Plan (04/13/2022 11:42 AM CDT): Stable on ocp and hirsutism. Assessment & Plan (06/29/2021 11:49 AM CLINICAL REHAB SPECIALIST): No change after the 3m of ocn [...] dosing and was encouraged to call her industrial engineer to see if she could be increased [...] finish out her current pills and then chart changer use was reviewed. See the above. Episodic [...] changes Assessment & Plan (06/26/2023 8:27 PM CLINICAL REHAB SPECIALIST): Clinically improved, continue current prescription medications, Escitalopram. [...] daily. Assessment & Plan (07/02/2021 4:36 PM CLINICAL REHAB SPECIALIST): Stable. Cont. Current prescription medications. Assessment & [...] 07/25/2019 Assessment & Plan (07/25/2019 11:22 AM CLINICAL REHAB SPECIALIST): Diet as tolerated. Okay to return to [...] spironolactone. Assessment & Plan (06/29/2021 11:47 AM CLINICAL REHAB SPECIALIST): Doing well. Will continue on with ocn Overweight with body mass in dex (BMI) of 28 to 28.9 in adult 06/25/2019 Assessment & Plan (07/16/2024 8:06 AM CLINICAL REHAB SPECIALIST): BMI has dropped from 32-28. She is having success with phentermine. Will continue it with refills for another 3 months and have her follow-up in 3 months Assessment & Plan (05/21/2024 8:19 AM CLINICAL REHAB SPECIALIST): I discussed the risks and benefits of [...] exercising. To do food diary I recommend 2295-5615 calories I suspect with the hirsutism she will benefit from a low carb diet. Assessment & Plan (04/10/2022 6:08 PM CDT): Recommended lowering her Lexapro from 20 mg every day down to 10 mg daily. Patient declined. She states that her symptoms are much better on the 20 mg. Also, encouraged her to discuss OCPs and potential weight gain with her RETORT FURNACE OPERATOR. Patient stated that she will. Well woman [...] 06/26/2020 Assessment & Plan (08/16/2019 6:03 PM CLINICAL REHAB SPECIALIST): Ibuprofen 600mg qid prn pain. Consider nasal saline rinses for possible sinusitis. Immunizations Name Administration Dates Next Due DTaP, Unspecified 02/27/2003, 9,01/07/1998,1997 ,1997 Hep B Vaccine 01/19/2022,12/22/2021 Hep B, Unspecified 07/03/1998,1997, 997 HiB 10/02/1998,01/07/1998,1997 ,1997 IPV 02/27/2003 Influenza, Unspecified 03/01/2024(Deferr ed: Patient Refused),06/16/2023(Deferred: Patient Refused),10/07/2022(Deferred: Patient Refused),06/16/2022(Deferred: Patient Refused),04/16/2022(Deferred: Patient Refused),06/25/2019(Deferred: Patient Refused),04/16/2018(Deferred: Patient Refused) MMR 04/24/2002,04/24/2002,10/02/1998 Meningococcal Conjugate (Menveo) 10/20/2014,0808/2011 OPV 01/08/1999,1997,1997 Tdap 05/18/2018,04/30/2008 Social History Tobacco Use Types Packs/Day Years [...] on file 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 CLINICAL REHAB SPECIALIST Gender Identity Not on file Sexual Orientation Not on file Last Filed Vital Signs Vital Sign Reading Time Taken Comments Blood Pressure 96/76 07/24/2024 3:56 PM CLINICAL REHAB SPECIALIST Pulse 94 07/24/2024 3:56 PM CLINICAL REHAB SPECIALIST Temperature 36.6 ??C (97.8 ??F) 07/24/2024 3:56 PM CS T Respiratory Rate 16 07/24/2024 3:56 PM CLINICAL REHAB SPECIALIST Oxygen Saturation 97% 07/24/2024 3:56 PM CLINICAL REHAB SPECIALIST Inhaled Oxygen Concentration - - Weight 69.9 kg (154 lb 3.2 oz) 07/24/2024 3:56 P M CLINICAL REHAB SPECIALIST Height 157.5 cm (5' 2 ) 07/24/2024 3:56 PM CLINICAL REHAB SPECIALIST Body Mass Index 28.2 07/24/2024 3:56 PM CLINICAL REHAB SPECIALIST Plan of Treatment Not on file Procedures Procedure Name Priority Date/Time Associated Diagnosis Comments XR CHEST PA LATERAL 2 VIEWS Schedule GALDINO, Read GALDINO (Appt Today, Awaiting Results) 07/24/2024 3:25 PM CLINICAL REHAB SPECIALIST Influenza B EGFR Routine 07/24/2024 12:00 PM CLINICAL REHAB SPECIALIST Influenza B DIFFERENTIAL AUTO Routine 07/24/2024 12: 00 PM CLINICAL REHAB SPECIALIST Influenza B COMPREHENSIVE METABOLIC PANEL Routine 07/24/2024 12:00 PM CLINICAL REHAB SPECIALIST Influenza B CBC WITH AUTO DIFFERENTIAL Routine 07/24/2024 12:00 PM CLINICAL REHAB SPECIALIST Influenza B POC INFLUENZA A/B, COVID-19 ANTIGEN Routine 07/20/2024 7:36 PM CLINICAL REHAB SPECIALIST Cough, unspecified type PAP WITH REFLEX TO HIGH RISK HPV Routine 04/13/2022 11:57 AM CDT Well woman exam HEPATITIS C ANTIBODY Routine 06/26/2020 12:37 PM CLINICAL REHAB SPECIALIST Encounter for hepatitis C screening test for low risk patient from Last 3 Months or Most Recently Relevant to Health Maintenance Results * XR Chest Pa Lateral 2 Views (07/24/2024 3:25 PM CLINICAL REHAB SPECIALIST) Anatomical Region Laterality Modality Body, Chest N/A Digital Radiogra phy 07/24/2024 3:38 PM CLINICAL REHAB SPECIALIST Narrative 07/24/2024 3:39 PM CLINICAL REHAB SPECIALIST EXAM DESCRIPTION: XR CHEST PA LATERAL 2 [...] D: ??07/24/2024 3:39 PM T: Report ID: [id number] Reading Location: ??[id number] Procedure Note Wesley Marks MD - 07/24/2024 [...] Wesley Marks M.D. KT T: Report ID: [id number] Reading Location: [place] [address] Eboni Motta NP IM XR PROCEDURES Final Result * eGFR (07/24/2024 12:00 PM CLINICAL REHAB SPECIALIST) eGFR >90 >=60 mL/min/1. 73 m2 Comment: [...] reviewed 2021. Blood 07/24/2024 12:0 0 PM CLINICAL REHAB SPECIALIST 07/24/2024 8:49 PM CLINICAL REHAB SPECIALIST Eboni Motta NP LAB BLOOD ORDERABLES Final Resul t [facility] [address] [address] Department [place] [address] * Differential, auto (07/24/2024 12:00 PM CLINICAL REHAB SPECIALIST) Neutrophil abs 3.9 1.5 - 6.5 K/cumm Imm gran abs 0.0 0.0 - 0.1 K/cumm [facility] Lymphocyte abs 1.5 0.8 - 3.3 K/cumm [facility] Monocyte abs 0.6 0.2 - 0.8 K/cumm [facility] Eosinophil abs 0.0 0.0 - 0.5 K/cumm [facility] Basophil abs 0.0 0.0 - 0.1 K/cumm [facility] Neutrophil pct 64.8 % [facility] Comment: Interpretive Data Percent cell count reference ranges are not reported, since discordance with absolute values may lead to misinterpretation of CBC data. Current Interpretive Data was last revised on 2017. Imm gran pct 0.2 % [facility] Comment: Interpretive Data Percent cell count reference ranges are not reported, since discordance with absolute values may lead to misinterpretation of CBC data. Current Interpretive Data was last revised on 2017. Lymphocyte pct 24.3 % [facility] Comment: Interpretive Data Percent cell count reference ranges are not reported, since discordance with absolute values may lead to misinterpretation of CBC data. Current Interpretive Data was last revised on 2017. Monocyte pct 9.7 % [facility] Comment: Interpretive Data Percent cell count reference ranges are not reported, since discordance with absolute values may lead to misinterpretation of CBC data. Current Interpretive Data was last revised on 2017. Eosinophil pct 0.7 % [facility] Comment: Interpretive Data Percent cell count reference ranges are not reported, since discordance with absolute values may lead to misinterpretation of CBC data. Current Interpretive Data was last revised on 2017. Basophil pct 0.3 % [facility] Comment: Interpretive Data Percent cell count reference ranges are not reported, since discordance with absolute values may lead to misinterpretation of CBC data. Current Interpretive Data was last revised on 2017. Blood 07/24/2024 12:0 0 PM CLINICAL REHAB SPECIALIST 07/24/2024 8:33 PM CLINICAL REHAB SPECIALIST Eboni Motta NP LAB BLOOD ORDERABLES Final Resul t [facility] [address] [address] Department [place] [address] * (ABNORMAL) CBC with auto differential (07/24/2024 12:00 PM CLINICAL REHAB SPECIALIST) WBC 6.1 3.8 - 9.9 K/cumm Hgb 13.8 11.9 - 15.5 g/dL [facility] Hct 44.2 35.6 - 45.5 % [facility] Plt 255 150 - 400 K/cumm [facility] MPV 11.9 9.1 - 12.3 fL [facility] RBC 4.97 3.90 - 5.20 M/cumm [facility] MCV 88.9 81.3 - 96.4 fL [facility] MCH 27.8 27.1 - 33.3 pg [facility] MCHC 31.2(L) 32.3 - 35.7 g/dL [facility] RDW CV 12.9 11.1 - 14.9 % [facility] RDW SD 42.4 35.7 - 48.1 fL [facility] NRBC abs 0.00 0.00 - 0.01 K/cumm [facility] Blood 07/24/2024 12:0 0 PM CLINICAL REHAB SPECIALIST 07/24/2024 8:33 PM CLINICAL REHAB SPECIALIST us Eboni Motta NP LAB [place]LOOD [place] [address] [address] Department [place] [address] * (ABNORMAL) Comprehensive metabolic panel (07/24/2024 12:00 PM CLINICAL REHAB SPECIALIST) Sodium 134(L) 135 - 145 mmol/L Potassium, [...] [facility] Blood 07/24/2024 12:0 0 PM CLINICAL REHAB SPECIALIST 07/24/2024 8:33 PM CLINICAL REHAB SPECIALIST Eboni Motta BUILDING CONSTRUCTION IRONWORKER LAB BLOOD ORDERABLES Final Resul t Performing Organization Address City/[facility]/ZIP Co de Phone Number [facility] [address] Department [place] [address] * (ABNORMAL) POC Influenza A/B, COVID-19 antigen (07/20/2024 7:36 PM CLINICAL REHAB SPECIALIST) Influenza A Ag, POC Negative Negative [facility] [place] [facility] Influenza B Ag, POC Positive(A) Negative [facility] [place] [facility] COVID-19 Ag POC Presumptive Negative Presumptive Negative, Invalid [facility] [place] [facility] Nasal 07/20/2024 7:36 PM CLINICAL REHAB SPECIALIST Jennifer Michael NP POINT OF CARE TEST ORDERAB LES Final Result Performing Organization Address [facility] Co de Phone Number [facility] [address] [place] [address] * Pap with reflex to High Risk [...] by Comment [facility] - 01 Comment:Daniel Smart [facility] Warp Dyeing Tender (ASCP) . . [facility] - 01 Note: [...] 9:12 AM CDT Performed at: ??01 - [facility] [address] ??[id number] [employer] Supervisor: Alison Faith MD, Phone: ??[phone] Specimen Comment: No. of containers..01 ThinPrep Vial us Alison Syed MD LAB CYTOLOGY ORDERA BLES Final Result [facility] - 01 * Hepatitis C antibody (06/26/2020 12:37 PM CLINICAL REHAB SPECIALIST) Hep C Ab Nonreactive Nonreactive [facility] ([place]) Comment: Interpretive Data Nonreactive: Antibodies to HCV [...] last revised on 2019. Testing performed by: [facility], [address] [place] [address]., [id number] Blood specimen (specimen) 06/26/2020 12:37 PM CLINICAL REHAB SPECIALIST 06/26/2020 3:57 PM CLINICAL REHAB SPECIALIST us Shari Coley DO LAB MICROBIOLOGY - GENERAL ORDERABLES Final Result [facility] ([place]) 1 [facility] Department [place] [address] from Last 3 Months or Most Recently Relevant to Health Maintenance Insurance [facility] CHOICE PLUS [facility] CHOICE PLUS Advance Directives For more information, please contact: [phone] * Full Code (Latest Code Status on File) Date Activated Date Inactivated Comments 07/17/2019 5:31 PM 07/18/2019 12:16 AM Care Teams Freelance Web Designer Relationship Specialty Start Date End Date Eboni Motta NP [address] [place] [address] PCP - General Family Medicine 03/01/24 Stuart Li PA Physician Towel Weaver Physician Towel Weaver 06/25/19 Patricia Bowden MD [address] [place] [address] Referring Physician Dermatology 06/26/20 Alison Syed MD [address] [facility] [address] [place] [address] Consulting Physician Obstetrics and Gynecology 07/02/21 Christopher Cadet MD [address] [facility] [address] [place] [address] Consulting Physician General Surgery 07/02/21
--- OUTSIDE RECORDS SUMMARY | 2024-07-29 05:43 | XMS_ITS | Encounter Summary ---
Author Organization [facility] Healthcare Address [address] [place] [address] Care Team Providers Care Brooch Maker Novelty Name Role Phone [place], Stuart BOONE Unavailable [phone] Patricia Bowden MD Unavailable Alison Syed MD Unavailable [phone] Christopher Cadet MD Unavailable Eboni Motta NP Primary Care Provider [phone] Encounter Details Date Type Department Care Team (Late st Contact Info) Description 07/19/2024 Telephone [facility] - [facility] [address] [id number] Bhavin Dominguez MD [address] [address] Social History Tobacco Use Types [...] on file 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 CONCRETE TILE MACHINE OPERATOR Gender Identity Not on file Sexual Orientation Not on file documented as of this encounter Miscellaneous Notes * Telephone Encounter - Anastacia Jansen RN - 07/19/2024 4:11 PM CONCRETE TILE MACHINE OPERATOR Call from patient with chest heaviness and cough and feels mucus but can't bring it up . Dr Dominguez notified and recommends PCP or urgent care to evaluate for bronchitis. RETE TILE MACHINE OPERATOR documented in this encounter Plan of Treatment Not on file documented as of this encounter Visit Diagnoses Not on filedocumented in this encounter Care Teams Brooch Maker Novelty Relationship Specialty Start Date End Date Eboni Motta NP [address] [place] [address] PCP - General Family Medicine 03/01/24 Stuart Li PA Physician Supervisor Abattoir Physician Supervisor Abattoir 06/25/19 Patricia Bowden MD [address] [place] [id number] Referring Physician Dermatology 06/26/20 Alison Syed MD [address] [place] [address] Consulting Physician Obstetrics and Gynecology 07/02/21 Christopher Cadet MD [address] [place] [address] Consulting Physician General Surgery 07/02/21 documented as of this encounter
--- OUTSIDE RECORDS SUMMARY | 2024-07-29 05:43 | XMS_ITS | Encounter Summary ---
Author Organization [facility] Healthcare Address [address] [place] [address] Care Team Providers Care Manager It Security Name Role Phone [place], Stuart BOONE Unavailable [phone] Patricia Bowden MD Unavailable [phone] Alison Syed MD Unavailable [phone] Christopher Cadet MD Unavailable Eboni Motta NP Primary Care Provider [phone] Reason for Visit * Reason Comments Sinusitis Encounter Details Date Type Department Care Team (Late st Contact Info) Description 04/05/2024 11:40 AM CDT Office Visit [facility] - [facility] [address] [facility] [address] [place] [phone] Bhavin Dominguez MD [address] [address] Chronic maxillary sinusitis (Primary Dx); Chronic ethmoidal sinusitis Social History Tobacco Use Types Packs/Day Years [...] on file 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 [facility] Gender Identity Not on file Sexual Orientation Not on file documented as of this encounter Last Filed Vital Signs Vital Sign Reading Time Taken Comments Blood Pressure - - Pulse - - Temperature - - Respiratory Rate - - Oxygen Saturation - - Inhaled Oxygen Concentration - - Weight 76.7 kg (169 lb) 04/05/2024 11:43 AM CDT Height 157.5 cm (5' 2 ) 04/05/2024 11:43 AM CDT Body Mass Index 30.91 04/05/2024 11:43 AM CDT documented in this encounter Patient Instructions * Patient Instructions* Bhavin Dominguez MD - 04/05/2024 11:40 AM CDT - stop flonase - start budesonide saline rinses - can consider magnesium and B2 (400mg/day each) if migraines persist documented in this encounter Ordered Prescriptions Prescription Sig Dispense Quantity Refills Last Filled Start Date End Date budesonide (PULMICORT) 0.5 mg/2 mL nebulizer solutionIndication s:MY USE UP TO TWO TIMES PER DAY IF HAVING A FLAIR UP, USE WITH MAYTE MED OR EQUIVALENT SALINE RINSE Administer 2 mL (0.5 mg total) into each nostril daily Rinse mouth with water after use. Do not swallow. 12 mL 3 04/05/2024 documented in this encounter Progress Notes * Bhavin Dominguez MD - 04/05/2024 11:40 AM CDT Images from the original note were not included. Otolaryngology - Head & Neck Surgery Clinic Note Subjective/Objective Patient ID: Wendy Jansen is a 28 y.o. female. Consultation requested by Eboni Motta NP, for evaluation of Sinusitis Chief Complaint Sinusitis Interval (04/05/2024) Wendy Jansen returns in follow-up. Since her last visit, she had two sinus flares, one treated with augmentin and more recently with a Medrol dosepak. Symptoms were green drainage and frontal headache. Symptoms currently much improved, still some mild headache. Using flonase and saline rinses. Interval (12/15/2023) Wendy Jansen returns in follow-up. Since her last visit, she is recovering well. Minimal pain, no bleeding. She is using rinses. Interval (10/20/2023) Wendy Jansen returns in follow-up. Since her last visit, she completed a course of Augmentin. Has been using saline irrigation, Flonase, Astelin. Still having sinus symptoms although somewhat better since antibiotics. History of Present Illness (09/01/2023) Wendy Jansen is a 28 y.o. female with history of hay fever who presents with chronic sinonasal symptoms. Symptoms have been present since she developed COVID in 2021. Reports congestion, sneezing, nasal drainage, dry nose, ear pressure with nose blowing, sinus headache. Some bloody noise with sneezing. She is having sinus infections treated with antibiotics 3 to 4 times a year. Things improvewhen she is on the antibiotics but never fully go away and then symptoms return. Symptoms are worsein the spring and fall. She is using Zyrtec and Flonase as needed, NeilMed Sinus Rinse a few times a week. Past Medical History: Diagnosis Date Allergic seasonal Anxiety 2019 Past Surgical History: Procedure Laterality Date APPENDECTOMY 07/17/2019 SINUS SURGERY 11/29/2023 Current Outpatient Medications: Aviane 0.1-20 mg-mcg per tablet, Take 1 tablet by mouth every morning, Disp: , Rfl: budesonide (PULMICORT) 0.5 mg/2 mL nebulizer solution, Administer 2 mL (0.5 mg total) into each nostril daily Rinse mouth with water after use. Do not swallow., Disp: 12 mL, Rfl: 3 clonazePAM (KlonoPIN) 0.5 mg tablet, Take 1 tablet (0.5 mg total) by mouth nightly as needed for anxiety, Disp: 30 tablet, Rfl: 0 fluticasone propionate (FLONASE) 50 mcg/actuation nasal spray, Administer 1 spray into each nostrilas needed for rhinitis, Disp: , Rfl: levocetirizine (XYZAL) 5 mg tablet, Take 1 tablet (5 mg total) by mouth every evening, Disp: , Rfl: PARoxetine (PAXIL) 20 mg tablet, Take 0.5 tablets (10 mg total) by mouth every morning for 7 days, THEN 1 tablet (20 mg total) every morning. While decreasing lexapro to 10mg daily, then stop lexaprowhile increasing paroxetine to 20mg daily., Disp: 30 tablet, Rfl: 2 spironolactone (ALDACTONE) 50 mg tablet, Take 1 tablet (50 mg total) by mouth every morning, Disp: , Rfl: No Known Allergies Social History Tobacco Use Smoking status: Never Passive exposure: Past (mother smoker) Smokeless tobacco: Never Tobacco comments: Mother smoke growing up Substance and Sexual Activity Drug use: Yes Types: Alcohol Sexual activity: Yes Partners: Male control/protection: Other Alcohol Use: Not At Risk (04/05/2024) AUDIT-C Frequency of Alcohol Consumption: 2-4 times a month Average Number of Drinks: 1 or 2 Frequency of Binge Drinking: Never Physical Exam: Vitals: 04/05/24 1143 Weight: 76.7 kg (169 lb) Height: 157.5 cm (5' 2 ) Appearance: The patient is well-developed, well-nourished in no acute distress. The patient is alert and oriented to time, person, and place with appropriate mood and affect. Ears: Auricles well formed, mastoids soft and nontender without erythema bilaterally. Head and face: No obvious scars or lesions, no sinus tenderness to palpation Skin: without obvious lesions Eyes: EOMI, vision grossly intact, no nystagmus Nose: No external deformity. Clear to anterior rhinoscopy. Septum midline. Oral Cavity: Normal dentition, no mucosal lesions of the lip, tongue, buccal surfaces, or floor of mouth. Tongue protrudes midline. Oropharynx: Normal mucosa of the oropharynx, hard and soft palates, posterior oropharynx. Tonsils non-obstructing Neck: Trachea midline. No thyromegaly or lymphadenopathy. Salivary glands are normal to palpation. Cardiovascular: No extremity edema. Respiratory: Breathing comfortably on room air without audible stridor or wheeze. Normal chest symmetry, excursion, and respiratory effort. Neurologic: CN 2-12 intact including normal facial movement and sensation. Relevant labs reviewed: Lab Results Component Value Date WBC 11.3 (H) 06/16/2023 HGB 13.5 06/16/2023 HCT 41.0 06/16/2023 MCV 88.0 06/16/2023 LABPLAT 317 06/16/2023 Chemistry Lab Results Component Value Date SODIUM 138 11/24/2023 POTASSIUM 3.8 11/24/2023 CHLORIDE 100 11/24/2023 CO2 25 11/24/2023 ANIONGAP 13 11/24/2023 BUNSER 7 11/24/2023 CREATININE 0.63 11/24/2023 GLUCOSE 112 11/24/2023 CALCIUM 9.8 11/24/2023 BILITOT 0.4 06/16/2023 ALBUMIN 4.3 06/16/2023 GFRNAA >90 11/24/2023 ALKPHOS 88 06/16/2023 AST 25 06/16/2023 ALT 10 06/16/2023 Lab Results Component Value Date TSH 0.71 06/16/2023 External records reviewed: Reviewed outside records documenting PCP note Imaging independently interpreted by me: Audiologic testing independently interpreted by me: Procedure: Nasal Endoscopy (CPT 43861): Indications: Due to inadequate visualization on anterior rhinoscopy, rigid nasal endoscopy was undertaken. Description: Topical nasal decongestant and anesthesia was applied, a 30 degree 4mm rigid nasal endoscope was introduced into the right and left nasal cavity. The nasal valve areas were examined for abnormalities or collapse. The inferior and middle turbinates were evaluated. The middle and superior meatuses, the sphenoethmoid recesses, and the nasopharynx wereand inspected for mucopurulence and polyps. Findings: Nasal mucosa is normal Intranasal mucous is thin and clear. Nasal septum is midline. Inferior turbinates are normal. Bilateral middle meatus clear with patent maxillary antrostomies and anterior ethmoidectomies, normal mucosa Spheno-ethmoid recess clear . Nasopharynx is widely patent The endoscope was removed and the patient tolerated the procedure well. Assessment/Plan Diagnoses and all orders for this visit: Chronic maxillary sinusitis (Primary) Chronic ethmoidal sinusitis Other orders - budesonide (PULMICORT) 0.5 mg/2 mL nebulizer solution; Administer 2 mL (0.5 mg total) into each nostril daily Rinse mouth with water after use. Do not swallow. In summary, this is a 28 y.o. female with chronic chronic sinusitis and recurrent sinus infections s/p bilateral functional endoscopic sinus surgery with maxillary antrostomy, anterior ethmoidectomy,Stealth navigation guidance, and turbinate reduction on 11/29/23. Has recovered well but has had two sinus exacerbations since surgery, treated with augmentin and most recently Medrol dosepack. Currently doing better and endoscopy today is clear with appropriate healing and patent sinuses. Will transition from flonase and plain saline rinses to budesonide irrigations to hopefully achieve fewer sinus flares. Follow up 6 months Patient Instructions - stop flonase - start budesonide saline rinses - can consider magnesium and B2 (400mg/day each) if migraines persist Return in about 6 months (around 10/03/2024). Bhavin Dominguez MD Division of Otolaryngology, [facility] Office: documented in this encounter Plan of Treatment Not on file documented as of this encounter Visit Diagnoses Diagnosis Chronic maxillary sinusitis- Primary Chronic ethmoidal sinusitis documented in this encounter Care Teams Manager It Security Relationship Specialty Start Date End Date Eboni Motta NP [address] [place] [address] PCP - General Family Medicine 03/01/24 Stuart Li PA Physician Gym Attendant Physician Gym Attendant 06/25/19 Patricia Bowden MD [address] [place] [address] Referring Physician Dermatology 06/26/20 Alison Syed MD [address] [place] [address] Consulting Physician Obstetrics and Gynecology 07/02/21 Christopher Cadet MD [address] [place] [address] Consulting Physician General Surgery 07/02/21 documented as of this encounter
--- OUTSIDE RECORDS SUMMARY | 2024-07-29 05:43 | XMS_ITS | Encounter Summary ---
Author Organization [facility] Address [address] [place] [address] Care Team Providers Care Hedge Trimmer Name Role Phone [place], Stuart BOONE Unavailable [phone] Patricia Bowden MD Unavailable [phone] Alison Syed MD Unavailable [phone] Christopher Cadet MD Unavailable Eboni Motta NP Primary Care Provider [phone] Reason for Visit * Reason Comments Cough Started a couple day s ago. Jai 07/06/24 for URI Azamk.Green/yellow mucus. Congestion Vertigo Encounter Details Date Type Department Care Team (Late st Contact Info) Description 07/20/2024 7:15 PM KERSEY DEPARTMENT SUPERVISOR Office Visit [facility] at [address] [address] Jennifer Michael NP [address] [place] [address] [address] [place] [address] Cough, unspecified type (Primary Dx); Influenza B Social History Tobacco Use Types Packs/Day Years [...] on file 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 KERSEY DEPARTMENT SUPERVISOR Gender Identity Not on file Sexual Orientation Not on file documented as of this encounter Last Filed Vital Signs Vital Sign Reading Time Taken Comments Blood Pressure 116/80 07/20/2024 7:24 PM KERSEY DEPARTMENT SUPERVISOR Pulse 82 07/20/2024 7:24 PM KERSEY DEPARTMENT SUPERVISOR Temperature 36.8 ??C (98.3 ??F) 07/20/2024 7:24 PM CS T Respiratory Rate 20 07/20/2024 7:24 PM KERSEY DEPARTMENT SUPERVISOR Oxygen Saturation 98% 07/20/2024 7:24 PM KERSEY DEPARTMENT SUPERVISOR Inhaled Oxygen Concentration - - Weight 70.8 kg (156 lb) 07/20/2024 7:24 PM KERSEY DEPARTMENT SUPERVISOR Height 157.5 cm (5' 2 ) 07/20/2024 7:24 PM KERSEY DEPARTMENT SUPERVISOR Body Mass Index 28.53 07/20/2024 7:24 PM KERSEY DEPARTMENT SUPERVISOR documented in this encounter Patient Instructions * Patient Instructions* Jennifer Michael, HEALTH CENTER ASSOCIATE - 07/20/2024 7:15 PM KERSEY DEPARTMENT SUPERVISOR If you have no improvement or worsening of your symptoms, please follow up with your Primary Care Provider, Convenient Care and or Emergency Room. I strive to provide you with EXCELLENT service. You may receive a survey after your visit today. If you cannot rate your experience as EXCELLENT, please let us know how we can improve and better meet your needs. Thank you for choosing [facility]! It was my pleasure to see you today, I hope you feel better soon! Jennifer Michael BANK VAULT ATTENDANT Influenza ?? Supportive care is the focus of care with influenza-make sure to stay well- hydrated and treat symptoms with over the counter medications for symptom relief. ?? Take guaifenesin expectorants, i.e. Maximum Strength Mucinex, Robitussin, or store brand for chest congestion. ?? For cough, dextromethorphan (Delsym syrup, Robitussin cough capsules or store brand). Dextromethorphan is considered safe for and breast feeding women. ?? Antihistamine, i.e. Claritin, Zyrtec or Benadryl for nasal drainage, per package directions. ?? Increase oral fluids to at least 2 liters (2 quarts) of non-caffeinated, non- alcoholic beveragesdaily ?? Increase rest, monitor temperature ?? May alternate acetaminophen (Tylenol) and ibuprofen (Motrin or Advil) with food every 4-6 hours for fever, body aches, headache or sore throat. Do not exceed maximum daily dose per package instructions ?? May use hard candy, throat lozenges, Chloraseptic spray or warm salt water gargles to soothe throat ?? Activity as tolerated, Avoid crowds and large groups ?? Avoid spreading germs by washing hands frequently and covering mouth when coughing ?? People with influenza are contagious 1 day before symptoms begin and up to 7 days after getting sick Influenza Follow-up ?? Follow up with the clinic, primary care provider(Eboni Motta, HEALTH CENTER ASSOCIATE) or urgent care if symptoms become more severe. ?? If you begin to feel better, then feel significantly worse, see your primary care provider or [facility] urgent care / ER ?? Call 911 or have someone take you to ER/Urgent Care if any difficulty with breathing or shortness of breath, if you develop high fevers that do not respond to ibuprofen (Advil / Motrin) or acetaminophen (Tylenol) , if you have a hard time awakening or staying awake or become lethargic or confused, or if you develop new stiffness in your neck. If you need to be excused from more than 3 days off from work, please follow-up with your PCP. EY DEPARTMENT SUPERVISOR * Attachments The following attachments cannot be sent through Care Everywhere. * Influenza (AfterCare(R) Instructions(ER/ED)) (Prydeinig) documented in this encounter Ordered Prescriptions Prescription Sig Dispense Quantity Refills Last Filled Start Date End Date methylPREDNISolone (MEDROL DOSEPACK) 4 mg DosepackIndication s:Influenza B Take as directed on package. 21 tablet 07/20/2024 documented in this encounter Progress Notes * Jennifer Michael NP - 07/20/2024 7:15 PM CST Images from the original note were not included. Subjective/Objective Patient ID: Wendy Jansen is a 29 y.o. female. Chief Complaint Cough (Started a couple days ago. /[facility] 07/06/24 for URI Zpak./Green/yellow mucus. ), Congestion, and Vertigo 29-year-old female patient presents today with complaints of cough, congestion, vertigo times 2-3 days. Patient reports that she also had similar symptoms on 07/06 and was treated with azithromycin due to a URI at [place] urgent care. Reports she believes it worsened on Monday. Denies shortness ofbreath. Cough Review of Systems Respiratory: Positive for cough. All other systems reviewed and are negative. Physical Exam Vitals reviewed. Constitutional: Appearance: Normal appearance. She is normal weight. She is not ill-appearing. HENT: Head: Normocephalic. Right Ear: Tympanic membrane, ear canal and external ear normal. No middle ear effusion. Tympanic membrane is not erythematous. Left Ear: Ear canal and external ear normal. A middle ear effusion (serous) is present. Tympanic membrane is not erythematous. Nose: Nose normal. Mouth/Throat: Mouth: Mucous membranes are moist. Pharynx: Oropharynx is clear. Eyes: Pupils: Pupils are equal, round, and reactive to light. Cardiovascular: Rate and Rhythm: Normal rate and regular rhythm. Pulses: Normal pulses. Heart sounds: Normal heart sounds. Pulmonary: Effort: Pulmonary effort is normal. Breath sounds: Normal breath sounds. No rhonchi. Musculoskeletal: General: Normal range of motion. Cervical back: Normal range of motion. Skin: General: Skin is warm and dry. Capillary Refill: Capillary refill takes less than 2 seconds. Neurological: General: No focal deficit present. Mental Status: She is alert and oriented to person, place, and time. Mental status is at baseline. Psychiatric: Mood and Affect: Mood normal. Behavior: Behavior normal. Thought Content: Thought content normal. Judgment: Judgment normal. Vitals: 07/20/241923 BP: 116/80 Pulse: 82 Resp: 20 Temp: 36.8 ??C (98.3 ??F) TempSrc: Oral SpO2: 98% Weight: 70.8 kg (156 lb) Height: 157.5 cm (5' 2 ) No results found. Past Medical History: Diagnosis Date ??? Allergic seasonal ??? Anxiety 2020 Current Outpatient Medications: ??? Aviane 0.1-20 mg-mcg per tablet, Take 1 tablet by mouth every morning, Disp: , Rfl: ??? budesonide (PULMICORT) 0.5 mg/2 mL nebulizer solution, Administer 2 mL (0.5 mg total) into eachnostril daily Rinse mouth with water after use. Do not swallow., Disp: 12 mL, Rfl: 3 ??? cetirizine (ZyrTEC) 10 mg tablet, Take 1 tablet (10 mg total) by mouth daily, Disp: , Rfl: ??? fluticasone propionate (FLONASE) 50 mcg/actuation nasal spray, Administer 1 spray into each nostril as needed for rhinitis, Disp: , Rfl: ??? PARoxetine (PAXIL) 20 mg tablet, Take 1 tablet (20 mg total) by mouth every morning, Disp: 90 tablet, Rfl: 2 ??? phentermine 37.5 mg capsule, Take 1 capsule (37.5 mg total) by mouth every morning, Disp: 30 capsule, Rfl: 2 ??? spironolactone (ALDACTONE) 50 mg tablet, Take 1 tablet (50 mg total) by mouth every morning, Disp: , Rfl: ??? temazepam (RESTORIL) 15 mg capsule, Take 1 capsule (15 mg total) by mouth nightly as needed paulineleep, Disp: 30 capsule, Rfl: 1 ??? methylPREDNISolone (MEDROL DOSEPACK) 4 mg Dosepack, Take as directed on package., Disp: 21 tablet, Rfl: 0 No Known Allergies Social History Tobacco Use ??? Smoking status: Never Passive exposure: Past (mother smoker) ??? Smokeless tobacco: Never ??? Tobacco comments: Mother smoke growing up Substance and Sexual Activity ??? Drug use: Yes Types: Alcohol ??? Sexual activity: Yes Partners: Male control/protection: Other Alcohol Use: Not At Risk (04/05/2024) AUDIT-C ??? Frequency of Alcohol Consumption: 2-4 times a month ??? Average Number of Drinks: 1 or 2 ??? Frequency of Binge Drinking: Never Past Surgical History: Procedure Laterality Date ??? APPENDECTOMY 07/17/2019 ??? SINUS SURGERY 11/29/2023 Procedures Assessment/Plan Recent Results (from the past 4 hours) POC Influenza A/B, COVID-19 antigen Collection Time: 07/20/24 7:36 PM Result Value Ref Range Influenza A Ag, POC Negative Negative Influenza B Ag, POC Positive (A) Negative COVID-19 Ag POC Presumptive Negative Presumptive Negative, Invalid Diagnoses and all orders for this visit: Cough, unspecified type (Primary) - POC Influenza A/B, COVID-19 antigen Influenza B - XR Chest Pa Lateral 2 Views; Future - methylPREDNISolone (MEDROL DOSEPACK) 4 mg Dosepack; Take as directed on package. Plan: Patient's lung sounds are clear. Patient does have a moderate amount of serous fluid to the left TM, right TM is within normal limits. Neither of her ears are infected upon physical exam. We will prescribe patient Medrol Dosepak for both the fluid on her ears along with chest congestion. Discussed with patient suspect that her cough and worsening of symptoms is likely related to her influenza B positive results today. Patient declined Tessalon Perles. Discussed with patient if she is having continued symptoms, recommend x-rays an outpatient on Monday. Patient's lung sounds are clear. No obvious pneumonia upon physical exam. Disposition Treatment plan including expectations, follow up, and return precautions discussed with patient/parent, verbalizes understanding. Medication dosage, use, and potential adverse reactions discussed with patient/parent. Advised to follow up with PCP if symptoms do not resolve as expected or sooner if condition worsens. Signs/symptoms warranting ER evaluation reviewed. Patient and/or guardian was given an opportunity to ask questions, questions answered. Jennifer Michael NP EY DEPARTMENT SUPERVISOR documented in this encounter Plan of Treatment Not on file documented as of this encounter Procedures Procedure Name Priority Date/Time Associated Diagnosis Comments POC INFLUENZA A/B, COVID-19 ANTIGEN Routine 07/20/2024 7:36 PM KERSEY DEPARTMENT SUPERVISOR Cough, unspecified type documented in this encounter Results * (ABNORMAL) POC Influenza A/B, COVID-19 antigen (07/20/2024 7:36 PM KERSEY DEPARTMENT SUPERVISOR) Influenza A Ag, POC Negative Negative [facility] [place] [facility] Influenza B Ag, POC Positive(A) Negative [facility] [place] [facility] COVID-19 Ag POC Presumptive Negative Presumptive Negative, Invalid [facility] [place] [facility] Nasal 07/20/2024 7:36 PM KERSEY DEPARTMENT SUPERVISOR Jennifer Michael HEALTH CENTER ASSOCIATE POINT OF CARE TEST ORDERAB LES Final Result Performing Organization Address City/State/[facility] Co de Phone Number [facility] [address] [place] [address] documented in this encounter Visit Diagnoses Diagnosis Cough, unspecified type- Primary Influenza B Influenza with other respiratory manifestations documented in this encounter Additional Health Concerns Infection Onset Date Last Indicated Resolved Time COVID: Suspected 07/20/2024 07/20/2024 07/20/2024 7:38 PM KERSEY DEPARTMENT SUPERVISOR documented as of this encounter Care Teams Hedge Trimmer Relationship Specialty Start Date End Date Eboni Motta NP [address] [place] [address] PCP - General Family Medicine 03/01/24 Stuart Li PA Physician Industrial Hygiene Engineer Physician Industrial Hygiene Engineer 06/25/19 Patricia Bowden MD [address] [place], [place] [id number] Referring Physician Dermatology 06/26/20 Alison Syed MD [address] [place] [address] Consulting Physician Obstetrics and Gynecology 07/02/21 Christopher Cadet MD [address] [place] [address] Consulting Physician General Surgery 07/02/21 documented as of this encounter
--- OUTSIDE RECORDS SUMMARY | 2024-07-29 05:44 | XMS_ITS | Encounter Summary ---
Author Organization [facility] Address [address] [place] [address] Care Team Providers Care Automation Test Developer Name Role Phone Shari Coley Primary Care Provider [phone] Stuart Li Unavailable [phone] Patricia Bowden MD Unavailable [phone] Alison Syed MD Unavailable [phone] Christopher Cadet MD Unavailable Encounter Details Date Type Department Care Team (Late st Contact Info) Description 09/12/[address] [facility] [address] [address] Bhavin Dominguez MD [address] [address] Social History Tobacco Use Types Packs/Day Years Used Date Smoking Tobacco: Never Smokeless Tobacco: Never Comments:None Alcohol Use Standard Drinks/Week Comments Yes 0 [...] by your partner or ex-partner? 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 Gender Identity Not on file Sexual Orientation Not on file documented as of this encounter Plan of Treatment Not on file documented as of this encounter Visit Diagnoses Not on filedocumented in this encounter Additional Health Concerns Infection Onset Date Last Indicated Resolved Time COVID19 09/07/2023 09/07/2023 09/17/2023 3:05 AM HADOOP INFRASTRUCTURE ARCHITECT documented as of this encounter Care Teams Automation Test Developer Relationship Specialty Start Date End Date Shari Coley DO PCP - General Family Medicine 06/25/19 02/29/24 Stuart Li PA Physician Substitute Nurse Physician Substitute Nurse 06/25/19 Patricia Bowden MD [address] [place] [address] Referring Physician Dermatology 06/26/20 Alison Syed MD [address] [place] [address] Consulting Physician Obstetrics and Gynecology 07/02/21 Christopher Cadet MD [address] [place] [address] Consulting Physician General Surgery 07/02/21 documented as of this encounter
--- OUTSIDE RECORDS SUMMARY | 2024-07-29 05:44 | XMS_ITS | Encounter Summary ---
Author Organization [facility] Healthcare Address [address] [place] [address] Care Team Providers Care Financial Reporting Director Name Role Phone Shari Coley Primary Care Provider [phone] Stuart Li Unavailable [phone] Patricia Bowden MD Unavailable [phone] Alison Syed MD Unavailable [phone] Christopher Cadet MD Unavailable Reason for Visit * Reason Comments Sinusitis Encounter Details Date Type Department Care Team (Late st Contact Info) Description 10/20/2023 11:40 AM CDT Office Visit [facility] - [facility] [address] [facility] [address] [place] [phone] Bhavin Dominguez MD [address] [address] Chronic maxillary sinusitis (Primary Dx); Chronic ethmoidal sinusitis; Hypertrophy of nasal turbinates Social History Tobacco Use Types Packs/Day Years [...] you have a drink containing alc ohol? Monthly or less 10/20/2023 Q2: How many drinks containi ng alcohol do you have on a typical day when you are drinking? 1 or 2 10/20/2023 Q3: How often do you have si x or more drinks on one occasion? 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 Gender Identity Not on file Sexual Orientation Not on file documented as of this encounter Last Filed Vital Signs Vital Sign Reading Time Taken Comments Blood Pressure - - Pulse - - Temperature - - Respiratory Rate - - Oxygen Saturation - - Inhaled Oxygen Concentration - - Weight 74.8 kg (165 lb) 10/20/2023 11:18 AM CDT Height 157.5 cm (5' 2.01 ) 10/20/2023 11:18 AM C DT Body Mass Index 30.17 10/20/2023 11:18 AM CDT documented in this encounter Patient Instructions * Patient Instructions* Anastacia Jansen RN - 10/20/2023 11:40 AM CDT - continue nasal saline rinses, flonase, azelastine - recommend sinus surgery (maxillary antrostomy, anterior ethmoidectomy, turbinate reduction) - call when you are ready to schedule, otherwise follow up in 3 months. Sinus Surgery Reasons for Sinus Surgery: This procedure is done when you have either chronic sinusitis or recurrent acute sinus infections and medications are not helping. Sinus surgery may also be done for a mass or growth in the sinuses such as polyps. There are a total of eight sinuses (four on each side). The Procedure Itself: The procedure is done under general anesthesia. The natural openings of the affected sinuses are found with a camera and enlarged. If any abnormal tissue is found in the sinuses, it is removed. The procedure can vary in length from one to three hours, depending on how much work needs to be done. What to expect after surgery: Most patients need pain medications for the first three to four days. You may feel congested, like you have a sinus infection, during your recovery. Nasal bleeding is expected for the first 24 hours. You need to keep your head elevated during this time including sleeping with your head elevated. You need to use an ice pack on and off your nose for the first 24 hours. You also should use ice chips, popsicles or ice cream along the roof of your mouth. Both of these techniques will keep the blood vessels to the nose constricted and minimize bleeding. If you are having bleeding, you will use afrin nasal spray (provided on day of surgery) as needed up to every thirty minutes until the bleeding has stopped. You will need to begin using a sinus rinse to wash out any blood clots and prevent crusting from occurring. This is also to rinse away the dissolvable packing material in the sinuses. Start this the day after surgery and use it twice daily for the next month. You should avoid blowing your nose or doing any heavy lifting for at least one week after surgery. During your second postoperative visit (3 weeks after surgery), I will debride your sinuses of any residual crusting or sinus packing that has not dissolved. Risks of Surgery: - Because the sinuses are from the eyes and brain by only a thin sheet of bone, damage toeither structure is possible. The risk of damaging the eyes and vision, or creating a leak of fluidfrom around the brain (a cerebrospinal fluid, or CSF, leak) is small. If a fluid leak occurs, it will be repaired to decrease the chance of someday developing meningitis. - The risks of anesthesia are small, but will be explained to you by an anesthesiologist on the dayof surgery. I acknowledge having received and read this information and having the opportunity to have my questions answered. documented in this encounter Progress Notes * Bhavin Dominguez MD - 10/20/2023 11:40 AM CDT Images from the original note were not included. Otolaryngology - Head & Neck Surgery Clinic Note Subjective/Objective Patient ID: Wendy Jansen is a 28 y.o. female. Consultation requested by Bhavin Dominguez MD, for evaluation of Sinusitis Chief Complaint Sinusitis Interval (10/20/2023) Wendy Jansen returns in follow-up. [...] Surgical History: Procedure Laterality Date APPENDECTOMY 07/17/2019 Current Outpatient Medications: amoxicillin-clavulanate (Augmentin) 875-125 mg per tablet, Take by mouth 2 (two) times a day for 10days, Disp: 20 tablet, Rfl: 0 Aviane 0.1-20 mg-mcg per tablet, Take 1 tablet by mouth daily, Disp: , Rfl: azelastine (ASTELIN) 137 mcg (0.1 %) nasal spray, Administer 2 sprays into each nostril 2 (two) times a day Use in each nostril as directed, Disp: 30 mL, Rfl: 3 cetirizine (ZyrTEC) 10 mg tablet, Take 1 tablet (10 mg total) by mouth daily, Disp: , Rfl: clonazePAM (KlonoPIN) 0.5 mg tablet, Take 1 tablet (0.5 mg total) by mouth nightly as needed for anxiety, Disp: 30 tablet, Rfl: 5 escitalopram (LEXAPRO) 20 mg tablet, Take 1 tablet (20 mg total) by mouth every morning, Disp: 90 tablet, Rfl: 3 fluticasone propionate (FLONASE) 50 mcg/actuation nasal spray, Administer 1 spray into each nostrildaily, Disp: , Rfl: fluticasone propionate (FLONASE) 50 mcg/actuation nasal spray, Administer 2 sprays into each nostril daily, Disp: 1 each, Rfl: 3 spironolactone (ALDACTONE) 50 mg tablet, , Disp: , Rfl: sod nkuhx-[id number]-vpxcvy bottle 2,300-700 mg kit, Administer 2 sprays into each nostril 2 (two) times a day, Disp: 1 kit, Rfl: 2 No Known Allergies Social History Tobacco Use Smoking status: Never Passive exposure: Past (mother smoker) Smokeless tobacco: Never Tobacco comments: None Substance and Sexual Activity Drug use: Never Sexual activity: Yes Partners: Male control/protection: Other Comment: Pill Alcohol Use: Not At Risk (10/20/2023) AUDIT-C Frequency of Alcohol Consumption: Monthly or less Average Number of Drinks: 1 or 2 Frequency of Binge Drinking: Never Physical Exam: Vitals: 10/20/23 1118 Weight: 74.8 kg (165 lb) Height: 157.5 cm (5' 2.01 ) Appearance: The patient is well-developed, well-nourished in no acute distress. The patient is alert and oriented to time, person, and place with appropriate mood and affect. Ears: Auricles well formed, mastoids soft and nontender without erythema bilaterally. Otoscopic and/or microscope reveals: Right: External auditory canal: patent without cerumen Tympanic Membrane: intact, translucent Middle ear: aerated Left: External auditory canal: patent without cerumen Tympanic Membrane: intact, translucent Middle ear: aerated Head and face: No obvious scars or [...] Lab Results Component Value Date SODIUM 138 06/16/2023 POTASSIUM 4.1 06/16/2023 CHLORIDE 101 06/16/2023 CO2 25 06/16/2023 ANIONGAP 12 06/16/2023 BUNSER 6 06/16/2023 CREATININE 0.68 06/16/2023 GLUCOSE 89 06/16/2023 CALCIUM 9.9 06/16/2023 BILITOT 0.4 06/16/2023 ALBUMIN 4.3 06/16/2023 GFRNAA 124 06/16/2023 ALKPHOS 88 06/16/2023 AST 25 06/16/2023 ALT 10 06/16/2023 Lab Results Component Value Date TSH 0.71 06/16/2023 External records reviewed: Reviewed outside records documenting PCP note Imaging independently interpreted by me: CT Sinus 10/14/23 - Moderate opacification of the bilateral maxillary sinuses with some left sided frothy Secretions. Opacification of right frontal and bilateral anterior ethmoidal air cells Audiologic testing independently interpreted by me: Procedure: Nasal Endoscopy (from prior 09/01/23): Indications: Due to inadequate visualization on anterior rhinoscopy, flexible nasal endoscopy was undertaken. Description: Topical nasal decongestant and anesthesia was applied, a flexible endoscope was introduced into the right and left nasal cavity. The nasal valve areas were examined for abnormalities or collapse. The inferior and middle turbinates were evaluated. The middle and superior meatuses, the sphenoethmoid recesses, and the nasopharynx wereand inspected for mucopurulence and polyps. Findings: Nasal mucosa is edematous. Intranasal mucous is clear and thick. Nasal septum is midline. Inferior turbinates are swollen. Bilateral middle meatus clear Spheno-ethmoid recess clear . Nasopharynx is widely patent The endoscope was removed and the patient tolerated the procedure well. Assessment/Plan Diagnoses and all orders for this visit: Chronic maxillary sinusitis (Primary) Chronic ethmoidal sinusitis Hypertrophy of nasal turbinates In summary, this is a 28 y.o. female with chronic chronic sinusitis and recurrent sinus infections. Symptoms have been refractory nasal regimen with saline irrigation, Flonase, Astelin as well as oral antibiotics. Sinus CT demonstrates opacification of the bilateral maxillary and anterior ethmoid s inuses. We discussed surgery which would comprise bilateral functional endoscopic sinus surgery with maxillary antrostomy, anterior ethmoidectomy, Stealth navigation guidance, and turbinate reduction vs further medical management. All risks benefits and alternatives were discussed with risks including but not limited to CSF leak, double vision, blindness, loss of smell, bleeding, tooth numbness, septal perforation, and 'empty nose syndrome.' She would like to take some time to consider options and will call when she is ready to schedule surgery. Otherwise plan to continue nasal regimen and follow up in 3 months. Patient Instructions - continue nasal saline rinses, flonase, azelastine - recommend sinus surgery (maxillary antrostomy, anterior ethmoidectomy, turbinate reduction) - call when you are ready to schedule, otherwise follow up in 3 months Return in about 3 months (around 01/19/2024). Bhavin Dominguez MD Division of Otolaryngology, [facility] Office: documented in this encounter Plan of Treatment Not on file documented as of this encounter Visit Diagnoses Diagnosis Chronic maxillary sinusitis- Primary Chronic ethmoidal sinusitis Hypertrophy of nasal turbinates documented in this encounter Additional Health Concerns Infection Onset Date Last Indicated Resolved Time COVID: Recovered Comment:Added based on recent COVID infection. 09/17/2023 10/12/2023 12/16/2023 3:05 AM C DT documented as of this encounter Care Teams Financial Reporting Director Relationship Specialty Start Date End Date Shari Coley DO PCP - General Family Medicine 06/25/19 02/29/24 Stuart Li PA Physician Computer Salesperson Retail Physician Computer Salesperson Retail 06/25/19 Patricia Bowden MD [address] [place] [address] Referring Physician Dermatology 06/26/20 Alison Syed MD [address] [place] [address] Consulting Physician Obstetrics and Gynecology 07/02/21 Christopher Cadet MD [address] [place] [address] Consulting Physician General Surgery 07/02/21 documented as of this encounter
--- OUTSIDE RECORDS SUMMARY | 2024-07-29 05:44 | XMS_ITS | Encounter Summary ---
Author Organization [facility] Healthcare Address [address] [place] [address] Care Team Providers Care Lithographers Printer Name Role Phone Shari Coley DO Primary Care Provider [phone] Stuart Li Unavailable [phone] Patricia Bowden MD Unavailable [phone] Alison Syed MD Unavailable [phone] Christopher Cadet MD Unavailable Reason for Visit * Reason Onset Date Comments Referral Request 08/28/2023 Encounter Details Date Type Department Care Team (Late st Contact Info) Description 08/28/2023 Telephone [facility] Primary Care at [address] [place] [address] Shari Coley DO [address] [address] Referral Request Social History Tobacco Use Types Packs/Day Years Used Date Smoking Tobacco: Never Smokeless Tobacco: Never Alcohol Use Standard Drinks/Week Comments Yes 0 [...] on file 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 ING BALL GRADER * Telephone Encounter - Myrna Winn - 08/28/2023 1:54 PM CST Referral Provider Name (if patient is seeing a nurse practitioner or physician dental laboratory assistant, list the LINOLEUM LAYER HELPER/PA, but also their collaborating doctor): Bhavin Dominguez M.D Specialty: PATTI/Otolaryngology Address: [address], Zip: [place] [address] Diagnosis Code/Symptom/Reason Patient is being seen: Sinus issues- Date of Appointment: to be determined NPI#: [id number] Tax ID#: [id number] Is insurance in chart up to date? No Additional Comments: Patient called and state doctor referred her to an ENT- patient found listed doctor and prefers to see listed doctor. Patient insurance is incorrect but she does not have insurance information available currently. Does message need to be routed? Yes-Action Needed ING BALL GRADER documented in this encounter Plan of Treatment Not on file documented as of this encounter Visit Diagnoses Not on filedocumented in this encounter Care Teams Lithographers Printer Relationship Specialty Start Date End Date Shari Coley PCP - General Family Medicine 06/25/19 02/29/24 Stuart Li PA Physician Dietetic Intern Physician Dietetic Intern 06/25/19 Patricia Bowden MD [address] [place] [address] Referring Physician Dermatology 06/26/20 Alison Syed MD [address] [place] [address] Consulting Physician Obstetrics and Gynecology 07/02/21 Christopher Cadet MD [address] [place] [address] Consulting Physician General Surgery 07/02/21 documented as of this encounter
--- OUTSIDE RECORDS SUMMARY | 2024-07-29 05:44 | XMS_ITS | Encounter Summary ---
Author Organization [facility] Address [address] [place] [address] Care Team Providers Care Machine Operator Transplanter Name Role Phone Shari Coley Primary Care Provider [phone]- [phone] Stuart Li Unavailable [phone]- [phone] Patricia Bowden MD Unavailable [phone] Alison Syed MD Unavailable [phone] Christopher Cadet MD Unavailable Encounter Details Date Type Department Care Team (Latest Contact Info) Description 11/24/2023 1:45 PM CDT Pre-Admission Testing [facility] Pre Anesthesia Testing [facility] [place] [address] Preoperative examination (Primary Dx) Anesthesia Record Procedure Summary Procedure Name Responsible Anesthesiologist Anesthesia Start Time Anesthesia Stop Time STEALTH Guided Endoscopoic Bilateral Maxillary Antrostomy, Anterior Ethmoidectomy (Face) Justyn Isaac MD 11/29/23 0840 11/29/23 0958 Events Date Time Event Comment 11/29/2023 0726 0840 An Start 0840 In Room 0840 An Start Data 0844 An Induction The patient was reevaluated immediately before moderate or deep sedation use and before anesthesia induction. 0845 An LMA 0846 Anesthesia Ready 0847 Proc Start 0931 Local injected by surgeon 0940 Local injected by surgeon 0942 Local injected by surgeon 0947 Proc Fin 0951 Airway Removed 0951 an stop data 0952 Out of Room 0958 An Stop 0958 Handoff to RN I completed my handoff to the receiving nurse during which we: 1. Patient identified 2. Responsible provider identified 3. Pertinent medical history reviewed 4. Procedure type and surgical course discussed 5. Intraoperative anesthetic management and any significant issues discussed 6. Expectations and concerns for postop period discussed 7. Questions solicited from receiving nurse 8. Patient disposition at the time of handoff: PACU 1241 Release from care Meds * Agents No agents on file. * Blood No blood administrations on file. Lines, Drains, and Airways Type Details Placement Removal Peripheral IV Placement Date: 11/29/23; Placement Time: 737; Catheter Size: 20 G; Orientation: Left, Posterior; Location: Hand; Site Prep: Chlorhexidine; Technique: Anatomical landmarks; Inserted by: austin; Insertion Attempts: 1; Patient Tolerance: Tolerated well; Removal Date: 11/29/23; Removal Time: 12111/29/[address] RN 11/29/23 1214 by Shay Ojeda RN RETIRED Surgical Site 11/29/23; 0939; Bilateral; Nose; 06/18/24 (Retired LDA, Removed/Completed by [employer] with LDA Utility); 1213 (Retired LDA, Removed/Completed by [employer] with LDA Utility) 11/29/23 0939 by Luisana Mike RN 06/18/24 1213 by Discharge Provider, Automatic documented in this encounter Social History Tobacco Use Types Packs/Day Years [...] containing alc ohol? 2-4 times a month 11/24/2023 Q2: How many drinks containi ng alcohol do you have on a typical day when you are drinking? 1 or 2 11/24/2023 Q3: How often do you have si x or more drinks on one occasion? Never 11/24/2023 PHQ-2 Answer Date Recorded PHQ-2 Total Score (If total score is 3 or more points, staff should administer the PHQ-9) 0 06/16/2023 Personal Safety Answer Date Recorded Have you ever been in or are you currently in a harmful physical or emotional relationship or is someone making you feel afraid or unsafe? 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 Gender Identity Not on file Sexual Orientation Not on file documented as of this encounter Last Filed Vital Signs Vital Sign Reading Time Taken Comments Blood Pressure 118/71 11/24/2023 1:45 PM CDT Pulse 62 11/24/2023 1:45 PM CDT Temperature - - Respiratory Rate - - Oxygen Saturation 100% 11/24/2023 1:45 PM CDT Inhaled Oxygen Concentration - - Weight 74.8 kg (165 lb) 11/24/2023 1:40 PM CDT Height 157.5 cm (5' 2 ) 11/24/2023 1:40 PM CDT Body Mass Index 30.18 11/24/2023 1:40 PM CDT documented in this encounter Miscellaneous Notes * Perioperative Nursing Note - Maggie Obregon RN - 11/24/2023 1:45 PM CDT Reviewed current visitor policy of only two visitors in pre-op/surgical waiting room with patient. Visiting restrictions when patient is inpatient is up to nurse's discretion on the floor. Patient verbalized understanding. Patient informed of the need for a ride home by someone they know, as well as someone to stay with them for 24 hours after surgery. EPIc medications were verbalized and reviewed with patient. * Pre-Procedure Instructions - Tika Richardson NP - 11/24/2023 1:45 PM CDT PREOPERATIVE FASTING GUIDELINES: LIQUIDS ONLY: (Gatorade, Powerade and H2O) Surgery Date: 11/29/2023 The above time is a tentative surgery time. You will receive a phone call the day prior to surgery with instructions and exact time of surgery. ? The day before surgery YOU MAY NOT EAT ANYTHING AFTER MIDNIGHT ? You may continue to drink only these liquids (Gatorade/Powerade, and water) until 3 hours prior to surgery. No tea, no coffee or milk products. ? Drink a 16 oz Gatorade or Powerade 3 hours prior to surgery (not G2 or Powerade Zero). After thisdrink DO NOT DRINK ANYTHING ELSE. ? STOP DRINKING LIQUIDS 3 HOURS PRIOR TO SURGERY. ? I will take these medications the morning of surgery: has a current medication list which includes the following prescription(s): clonazepam, escitalopram Hold your Spironolactone day of surgery. ? Blood Thinners: My surgeon will tell me if I need to change these medications before surgery. If I haven???t been told what to do with these, I will call my surgeon to find out: Coumadin/Jantoven (warfarin), Pradaxa (dabigatran), Xarelto (rivaroxaban), Plavix (clopidogrel), Effient (prasugrel), Ticlid (ticlopidine), Pletal (cilostazol), Eliquis and Aspirin. ? IF I AM taking a DIURETIC (hydrochlorothiazide/HCTZ, chlorthalidone, hydrodiuril, bumetanide, furosemide, spironolactone): I will NOT take it on the morning of surgery. ? STOP these medications 7 days before surgery: - Excedrin, Motrin/Advil (ibuprofen), Aleve (naproxen), Celebrex (celecoxib), lndocin (indomethacin), and Mobic (meloxicam). - Vitamin E, fish oil, herbal medicines, and diet pills. ? It is ok to continue: Tylenol (Acetaminophen), Vit D, vit C, vit B12, calcium, zinc, iron, magnesium, potassium. ? IF I AM A DIABETIC: I will only take Metformin in the morning of surgery. If I have an insulin pump, I will continue the pump at the basal rate. ? If I use inhalers or have a CPAP machine I will bring them with me to the hospital. ? NO: Jewelry (including body piercings), make up, hair pins, or contact lenses will be brought with me. I will also leave valuables and money at home or with family. ? I WILL BRING: Photo ID card, health insurance card, advance directive, or durable power of trust and estates attorney (if I have one) with me. I will also bring glasses with case, dentures, hearing aids, and comfortable clothes to go home in. ? FOR OUTPATIENT SURGERY: I know I cannot have my surgery if I do not have someone to drive me homeand stay with me for 24 hours. I cannot take a cab or bus home, and cannot stay at a hotel alone after surgery. ? I WILL FOLLOW: bowel prep if directed by my surgeon and preoperative skin preparation as directed. ? I WILL CONTACT: my surgeon if there are any changes in my medical condition, infections, or new medications are started before my surgery. ? Enter the Main Entrance of the hospital and take the first right turn for the [facility]. Go to the 2nd floor and report to the surgery area. NO SMOKING after midnight the night before surgery. IMPORTANT: If there is any questions, please call Tika [phone], documented in this encounter Plan of Treatment Not on file documented as of this encounter Procedures Procedure Name Priority Date/Time Associated Diagnosis Comments EGFR Routine 11/24/2023 2:17 PM CDT Preoperative examination BASIC METABOLIC PANEL Routine 11/24/2023 2:17 PM CDT Preoperative examination documented in this encounter Results * eGFR (11/24/2023 2:17 PM CDT) eGFR >90 >=60 mL/min/1. 73 m2 Comment: [...] interpretive data was last reviewed 2021. Blood 11/24/2023 2:17 PM CDT 11/24/2023 2:17 PM CDT Tika Richardson NP LAB BLOOD ORDERABLES Fin al Result [facility] [address] [place] [address] * Basic metabolic panel (11/24/2023 2:17 PM CDT) Sodium 138 135 - 145 mmol/L Potassium, pl 3.8 3.3 - 4.9 mmol/L [facility] Chloride 100 97 - 110 mmol/L [facility] CO2 25 22 - 32 mmol/L [facility] Anion gap 13 2 - 15 mmol/L [facility] BUN 7 6 - 25 mg/dL [facility] Creatinine 0.63 0.60 - 1.10 mg/dL [facility] Glucose 112 70 - 199 mg/dL [facility] Comment: Interpretive Data Fasting glucose >/= 126 [...] classification and Diagnosis of Diabetes Diabetes Care 202; 46: S19-S40. Current interpretive data was last revised 2022. Calcium 9.8 8.5 - 10.3 mg/dL [facility] Blood 11/24/2023 2:17 PM CDT 11/24/2023 2:17 PM CDT us Tika Richardson NP LAB BLOOD ORDERABLES Fin al Result [facility] [address] [place] [address] documented in this encounter Visit Diagnoses Diagnosis Preoperative examination- Primary Unspecified pre-operative examination documented in this encounter Discontinued Medications Medication Sig Discontinue Reason Start Date End Da te fluticasone propionate (FLONASE) 50 mcg/actuation nasal spray Administer 1 spray into each nostril daily Error 11/24/2023 azelastine (ASTELIN) 137 mcg (0.1 %) nasal spray Administer 2 sprays into each nostril 2 (two) times a day Use in each nostril as directed Error 09/01/2023 11/24/2023 sod ovden-qqsimw-okxobl bottle 2,300-700 mg kit Administer 2 sprays into each nostril 2 (two) times a day Error 09/13/2023 11/24/2023 fluticasone propionate (FLONASE) 50 mcg/actuation nasal spray Administer 2 sprays into each nostril daily Error 09/01/2023 11/24/2023 documented as of this encounter Historical Medications * This list may reflect changes made after this encounter. fluticasone propionate (FLONASE) 50 mcg/actuation nasal spray Administer 1 spray into each nostril as needed for rhinitis added in this encounter Additional Health Concerns Infection Onset Date Last Indicated Resolved Time COVID: Recovered Comment:Added based on recent COVID infection. 09/17/2023 10/12/2023 12/16/2023 3:05 AM C DT documented as of this encounter Care Teams Machine Operator Transplanter Relationship Specialty Start Date End Date Shari Coley DO PCP - General Family Medicine 06/25/19 02/29/24 Stuart Li PA Physician Svp Digital Ad Sales Physician Svp Digital Ad Sales 06/25/19 Patricia Bowden MD [address] [place] [address] Referring Physician Dermatology 06/26/20 Alison Syed MD [address] [place] [address] Consulting Physician Obstetrics and Gynecology 07/02/21 Christopher Cadet MD [address] [place] [address] Consulting Physician General Surgery 07/02/21 documented as of this encounter
--- OUTSIDE RECORDS SUMMARY | 2024-07-29 05:44 | XMS_ITS | Encounter Summary ---
Author Organization [facility] Healthcare Address [address] [place] [address] Care Team Providers Care Grab Operator Name Role Phone Shari Coley Primary Care Provider [phone]- [phone] Stuart Li Unavailable [phone]- [phone] Patricia Bowden MD Unavailable [phone] Alison Syed MD Unavailable [phone] Christopher Cadet MD Unavailable Encounter Details Date Type Department Care Team (Late st Contact Info) Description 09/13/2023 Orders Only [facility] Medical Group ENT Specialists - [facility] [address] [address] Bhavin Dominguez MD [address] [address] Social History Tobacco Use Types [...] on file 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 Gender Identity Not on file Sexual Orientation Not on file documented as of this encounter Ordered Prescriptions Prescription Sig Dispense Quantity Refills Last Filled Start Date End Date sod kooux-sjkegi-jcxes z bottle 2,300-700 mg kit Administer 2 sprays into each nostril 2 (two) times a day 1 kit 2 09/13/2023 4 documented in this encounter Plan of Treatment Not on file documented as of this encounter Visit Diagnoses Not on filedocumented in this encounter Additional Health Concerns Infection Onset Date Last Indicated Resolved Time COVID19 09/07/2023 09/07/2023 09/17/2023 3:05 AM EXCELLENCE SPECIALIST documented as of this encounter Care Teams Grab Operator Relationship Specialty Start Date End Date Shari Coley DO PCP - General Family Medicine 06/25/19 02/29/24 Stuart Li PA Physician Shot Peening Operator Physician Shot Peening Operator 06/25/19 Patricia Bowden MD [address] [place] [address] Referring Physician Dermatology 06/26/20 Alison Syed MD [address] [place] [address] Consulting Physician Obstetrics and Gynecology 07/02/21 Christopher Cadet MD [address] [place] [address] Consulting Physician General Surgery 07/02/21 documented as of this encounter
--- OUTSIDE RECORDS SUMMARY | 2024-07-29 05:44 | XMS_ITS | Encounter Summary ---
Author Organization [facility] Healthcare Address [address] [place] [address] Care Team Providers Care Sports Journalist Name Role Phone Shari Coley Primary Care Provider +1- [phone] Stuart Li Unavailable [phone]- [phone] Patricia Bowden MD Unavailable [phone] Alison Syed MD Unavailable [phone] Christopher Cadet MD Unavailable Encounter Details Date Type Department Care Team (Late st Contact Info) Description 10/12/2023 Orders Only [facility] Medical Group [facility] Specialists - [facility] [address] [address] Bhavin Dominguez MD [address] [address] Social History Tobacco Use Types [...] on file 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 Gender Identity Not on file Sexual Orientation Not on file documented as of this encounter Ordered Prescriptions Prescription Sig Dispense Quantity Refills Last Filled Start Date End Date amoxicillin-clavula yovanny (Augmentin) 875-125 mg per tablet Take by mouth 2 (two) times a day for 10 days 20 tablet 10/12/2023 10/22/2023 documented in this encounter Plan of Treatment Not on file documented as of this encounter Visit Diagnoses Not on filedocumented in this encounter Additional Health Concerns Infection Onset Date Last Indicated Resolved Time COVID: Recovered Comment:Added based on recent COVID infection. 09/17/2023 10/12/2023 12/16/2023 3:05 AM C DT documented as of this encounter Care Teams Sports Journalist Relationship Specialty Start Date End Date Shari Coley DO PCP - General Family Medicine 06/25/19 02/29/24 Stuart Li PA Physician Net Coordinator Physician Net Coordinator 06/25/19 Patricia Bowden MD [address] [place] [address] Referring Physician Dermatology 06/26/20 Alison Syed MD [address] [place] [address] Consulting Physician Obstetrics and Gynecology 07/02/21 Christopher Cadet MD [address] [place] [address] Consulting Physician General Surgery 07/02/21 documented as of this encounter
--- OUTSIDE RECORDS SUMMARY | 2024-07-29 05:44 | XMS_ITS | Encounter Summary ---
Author Organization [facility] Healthcare Address [address] [place] [address] Care Team Providers Care Automation Control Technician Name Role Phone Shari Coley DO Primary Care Provider [phone]- [phone] Stuart Li Unavailable [phone]- [phone] Patricia Bowden MD Unavailable [phone] Alison Syed MD Unavailable [phone] Christopher Cadet MD Unavailable Reason for Referral * Consultation (Routine) - Authorized Specialty Diagnoses / Procedures Referred By Contneisha t Referred To Contact Otolaryngology Diagnoses Acute sinusitis, recurrence not specified, unspecified location Shari Coley DO Phone: tel: fax: Tonya Pandey MD [address] [address] Phone: tel: fax: Referral ID Status Reason Start Date Expiration Date Visits Requested Visits Authorized [id number] Authorized Specialty Services Required 08/29/2023 09/27/2024 1 4 Question Answer Please select the performing region: [facility] Medical Group [[id number]] Please select the performing department: [id number] [[id number]] To provider: TONYA PANDEY [[id number]] # of visits: 1 [place] Encounter Details Date Type Department Care Team (Late st Contact Info) Description 08/29/2023 Orders Only [facility] Medical Group Primary Care at [address] [place] [address] Shari Coley DO [address] [place] [address] Acute sinusitis, recurrence not specified, unspecified location (Primary Dx) Social History Tobacco Use Types [...] on file 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 Gender Identity Not on file Sexual Orientation Not on file documented as of this encounter Plan of Treatment Scheduled Referrals Name Type Priority Associated Diagnoses Orde r Schedule Ambulatory referral to ENT Outpatient Referral Routine Acute sinusitis, recurrence not specified, unspecified location Expected: 08/29/2023 (Approximate), Expires: 08/29/2024 documented as of this encounter Visit Diagnoses Diagnosis Acute sinusitis, recurrence not specified, unspecified location- Primary documented in this encounter Care Teams Automation Control Technician Relationship Specialty Start Date End Date Shari Coley DO PCP - General Family Medicine 06/25/19 02/29/24 Stuart Li PA Physician Cigarette Making Machine Hopper Feeder Physician Cigarette Making Machine Hopper Feeder 06/25/19 Patricia Bowden MD [address] [place] [address] Referring Physician Dermatology 06/26/20 Alison Syed MD [address] [place] [address] Consulting Physician Obstetrics and Gynecology 07/02/21 Christopher Cadet MD [address] [place] [address] Consulting Physician General Surgery 07/02/21 documented as of this encounter
--- OUTSIDE RECORDS SUMMARY | 2024-07-29 05:44 | XMS_ITS | Encounter Summary ---
Author Organization [facility] Group Address [address] [place] [address] Care Team Providers Care Instrument Adjuster Name Role Phone Shari Coley DO Primary Care Provider [phone]- [phone] Stuart Li Unavailable [phone] Patricia Bowden MD Unavailable [phone] Alison Syed MD Unavailable [phone] Christopher Cadet MD Unavailable Encounter Details Date Type Department Care Team (Late st Contact Info) Description 03/22/2023 Telephone [facility] Medical Group Primary Care at [address] [place] [address] Shari Coley DO [address] [address] Social History Tobacco Use Types Packs/Day Years [...] points, staff should administer the PHQ-9) 0 03/14/2023 Comments No Sex and Gender Information Value Date Recorded Sex Assigned at Not on file 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 documented in this encounter Plan of Treatment Not on file documented as of this encounter Visit Diagnoses Not on filedocumented in this encounter Care Teams Instrument Adjuster Relationship Specialty Start Date End Date Shari Coley DO PCP - General Family Medicine 06/25/19 02/29/24 Stuart Li PA Physician Assortment Planner Physician Assortment Planner 06/25/19 Patricia Bowden MD [address] [place] [address] Referring Physician Dermatology 06/26/20 Alison Syed MD [address] [place] [address] Consulting Physician Obstetrics and Gynecology 07/02/21 Christopher Cadet MD [address] [place] [address] Consulting Physician General Surgery 07/02/21 documented as of this encounter
--- OUTSIDE RECORDS SUMMARY | 2024-07-29 05:44 | XMS_ITS | Encounter Summary ---
Author Organization [facility] Healthcare Address [address] [place] [address] Care Team Providers Care Diesel Dinkey Operator Name Role Phone Shari Coley DO Primary Care Provider +1- [phone] Stuart Li Unavailable [phone]- [phone] Patricia Bowden MD Unavailable [phone] Alison Syed MD Unavailable [phone] Christopher Cadet MD Unavailable Encounter Details Date Type Department Care Team (Late st Contact Info) Description 06/16/2023 Telephone [facility] Medical Group Primary Care at [address] [place] [address] Shari Coley DO [address] [facility] [address] [address] Social History Tobacco Use Types [...] staff should administer the PHQ-9) 0 06/16/2023 Comments No Sex and Gender Information Value Date Recorded Sex Assigned at Not on file 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 Pt should be contacted to schedule. OARD TEACHER * Telephone Encounter - Aisha Cheek - 06/16/2023 2:14 PM CST Provider Referral Request Requesting Provider: dr coley Specialty: sleep medicine Specialty Provider/ desired region: [facility] Diagnosis/Reason for referral: sleep disorder Additional information: OARD TEACHER documented in this encounter Plan of Treatment Not on file documented as of this encounter Visit Diagnoses Not on filedocumented in this encounter Care Teams Diesel Dinkey Operator Relationship Specialty Start Date End Date Shari Coley DO PCP - General Family Medicine 06/25/19 02/29/24 Stuart Li PA Physician Field Observer Physician Field Observer 06/25/19 Patricia Bowden MD [address] [place] [address] Referring Physician Dermatology 06/26/20 Alison Syed MD [address] [place] [address] Consulting Physician Obstetrics and Gynecology 07/02/21 Christopher Cadet MD [address] [place] [address] Consulting Physician General Surgery 07/02/21 documented as of this encounter
--- OUTSIDE RECORDS SUMMARY | 2024-07-29 05:44 | XMS_ITS | Encounter Summary ---
Author Organization [facility] Healthcare Address [address] [place] [address] Care Team Providers Care Equal Opportunity Specialist Name Role Phone BrijeshShari Primary Care Provider [phone] Stuart Li Unavailable [phone]- [phone] Patricia Bowden MD Unavailable [phone] Alison Syed MD Unavailable [phone] Christopher Cadet MD Unavailable Encounter Details Date Type Department Care Team (Late st Contact Info) Description 11/09/2023 Telephone [facility] Pre Anesthesia Testing [address] [place] [address] Darlin Javier Social History Tobacco Use Types Packs/Day Years [...] on file 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 09/17/2023 10/12/2023 12/16/2023 3:05 AM C DT documented as of this encounter Care Teams Equal Opportunity Specialist Relationship Specialty Start Date End Date Shari Coley DO PCP - General Family Medicine 06/25/19 02/29/24 Stuart Li PA Physician Building Code Administrator Physician Building Code Administrator 06/25/19 Patricia Bowden MD [address] [place] [address] Referring Physician Dermatology 06/26/20 Alison Syed MD [address] [place] [address] Consulting Physician Obstetrics and Gynecology 07/02/21 Christopher Cadet MD [address] [place] [address] Consulting Physician General Surgery 07/02/21 documented as of this encounter
--- OUTSIDE RECORDS SUMMARY | 2024-07-29 05:44 | XMS_ITS | Encounter Summary ---
Author Organization [facility] Address [address] [place] [address] Care Team Providers Care Fourth Hand Name Role Phone BrijeshShari Woody Primary Care Provider [phone] Stuart Li Unavailable [phone] Patricia Bowden MD Unavailable Alison Syed MD Unavailable [phone] Christopher Cadet MD Unavailable Encounter Details Date Type Department Care Team (Late st Contact Info) Description 06/16/2023 1:40 PM OPTOMETRIST PRESIDENT/PRACTICE OWNER Lab [address] Annual physical exam; Screening for blood or protein in urine; Screening for thyroid disorder; Encounter for lipid screening for cardiovascular disease; Encounter for screening examination for impaired glucose regulation and diabetes mellitus; Encounter for screening for other digestive system disorders; Screening for deficiency anemia Social History Tobacco [...] on file 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 OPTOMETRIST PRESIDENT/PRACTICE OWNER Gender Identity Not on file Sexual Orientation Not on file documented as of this encounter Plan of Treatment Not on file documented as of this encounter Procedures Procedure Name Priority Date/Time Associated Diagnosis Comments EGFR Routine 06/16/2023 1:40 PM OPTOMETRIST PRESIDENT/PRACTICE OWNER Annual physical exam Encounter for screening for other digestive system disorders DIFFERENTIAL AUTO Routine 06/16/2023 1:4 0 PM OPTOMETRIST PRESIDENT/PRACTICE OWNER Annual physical exam Screening for deficiency anemia THYROID FUNCTION CASCADE Routine 06/16/2023 1:40 PM OPTOMETRIST PRESIDENT/PRACTICE OWNER Annual physical exam Screening for thyroid disorder URINALYSIS AND REFLEX TO MICROSCOPIC AND CULTURE Routine 06/16/2023 1:40 PM OPTOMETRIST PRESIDENT/PRACTICE OWNER Annual physical exam Screening for blood or protein in urine CBC WITH AUTO DIFFERENTIAL Routine 06/16/2023 1:40 PM OPTOMETRIST PRESIDENT/PRACTICE OWNER Annual physical exam Screening for deficiency anemia HEMOGLOBIN A1C Routine 06/16/2023 1:40 PM OPTOMETRIST PRESIDENT/PRACTICE OWNER Annual physical exam Encounter for screening examination for impaired glucose regulation and diabetes mellitus LIPID PANEL Routine 06/16/2023 1:40 PM OPTOMETRIST PRESIDENT/PRACTICE OWNER Annual physical exam Encounter for lipid screening for cardiovascular disease COMPREHENSIVE METABOLIC PANEL Routine 06/16/2023 1:40 PM OPTOMETRIST PRESIDENT/PRACTICE OWNER Annual physical exam Encounter for screening for other digestive system disorders documented in this encounter Results * eGFR (06/16/2023 1:40 PM OPTOMETRIST PRESIDENT/PRACTICE OWNER) eGFR 124 mL/min/1. 73 m2 [facility]ON GUTIERRE[facility] ([place]) Comment: Interpretive Data Reference Interval Normal ?>/= [...] interpretive data was last reviewed 2021. Blood 06/16/2023 1:40 PM OPTOMETRIST PRESIDENT/PRACTICE OWNER 06/16/2023 3:46 PM OPTOMETRIST PRESIDENT/PRACTICE OWNER us Shari Coley DO LAB BLOOD ORDERABLES Final Result [facility] ([place]) 1 [facility] Department of Laboratories [place], [place] [id number] * (ABNORMAL) Differential, auto (06/16/2023 1:40 PM OPTOMETRIST PRESIDENT/PRACTICE OWNER) Neutrophil abs 7.9(H) 1.7 - 6.5 K/cumm [facility] ([place]) Imm gran abs 0.0 0.0 - 0.1 K/cumm [facility] ([place]) Lymphocyte abs 2.4 0.8 - 3.3 K/cumm [facility] ([place]) Monocyte abs 0.6 0.2 - 0.8 K/cumm [facility] ([place]) Eosinophil abs 0.3 0.0 - 0.5 K/cumm [facility] ([place]) Basophil abs 0.1 0.0 - 0.1 K/cumm [facility] ([place]) Neutrophil pct 69.9 % [facility] ([place]) Comment: Interpretive Data Percent cell count reference ranges are not reported, since discordance with absolute values may lead to misinterpretation of CBC data. Current Interpretive Data was last revised on 2017. Imm gran pct 0.4 % [facility] ([place]) Comment: Interpretive Data Percent cell count reference ranges are not reported, since discordance with absolute values may lead to misinterpretation of CBC data. Current Interpretive Data was last revised on 2017. Lymphocyte pct 21.1 % [facility] ([place]) Comment: Interpretive Data Percent cell count reference ranges are not reported, since discordance with absolute values may lead to misinterpretation of CBC data. Current Interpretive Data was last revised on 2017. Monocyte pct 5.3 % [facility] ([place]) Comment: Interpretive Data Percent cell count reference ranges are not reported, since discordance with absolute values may lead to misinterpretation of CBC data. Current Interpretive Data was last revised on 2017. Eosinophil pct 2.5 % [facility] ([place]) Comment: Interpretive Data Percent cell count reference ranges are not reported, since discordance with absolute values may lead to misinterpretation of CBC data. Current Interpretive Data was last revised on 2017. Basophil pct 0.8 % [facility] ([place]) Comment: Interpretive Data Percent cell count reference ranges are not reported, since discordance with absolute values may lead to misinterpretation of CBC data. Current Interpretive Data was last revised on 2017. Blood 06/16/2023 1:40 PM OPTOMETRIST PRESIDENT/PRACTICE OWNER 06/16/2023 3:46 PM OPTOMETRIST PRESIDENT/PRACTICE OWNER us Shari Coley DO LAB BLOOD ORDERABLES Final Result [facility] ([place]) 1 [facility] Department [place] [address] * (ABNORMAL) CBC with auto differential (06/16/2023 1:40 PM OPTOMETRIST PRESIDENT/PRACTICE OWNER) WBC 11.3(H) 3.8 - 9.9 K/cumm [facility] ([place]) Hgb 13.5 11.9 - 15.5 g/dL [facility] ([place]) Comment: Interpretive Data A reference range for this assay has not been established for patients with an unknown legal sex. Please refer to the laboratory test catalog for established sex-specific reference intervals. Current interpretive data was last revised on 2023. Hct 41.0 35.6 - 45.5 % [facility] ([place]) Comment: Interpretive Data A reference range for this assay has not been established for patients with an unknown legal sex. Please refer to the laboratory test catalog for established sex-specific reference intervals. Current interpretive data was last revised on 2023. Plt 317 150 - 400 K/cumm [facility] ([place]) MPV 11.5 9.1 - 12.3 fL [facility] ([place]) RBC 4.66 3.90 - 5.20 M/cumm [facility] ([place]) Comment: Interpretive Data A reference range for this assay has not been established for patients with an unknown legal sex. Please refer to the laboratory test catalog for established sex-specific reference intervals. Current interpretive data was last revised on 2023. MCV 88.0 81.3 - 96.4 fL [facility] ([place]) MCH 29.0 27.1 - 33.3 pg [facility] ([place]) MCHC 32.9 32.3 - 35.7 g/dL [facility] ([place]) RDW CV 12.2 11.1 - 14.9 % [facility] ([place]) RDW SD 39.7 35.7 - 48.1 fL [facility] ([place]) NRBC abs 0.00 0.00 - 0.01 K/cumm [facility] ([place]) Blood 06/16/2023 1:40 PM OPTOMETRIST PRESIDENT/PRACTICE OWNER 06/16/2023 3:46 PM OPTOMETRIST PRESIDENT/PRACTICE OWNER us Shari Coley DO LAB BLOOD ORDERABLES Final Result [facility] ([place]) 1 [facility] Department [place] [address] * Comprehensive metabolic panel (06/16/2023 1:40 PM OPTOMETRIST PRESIDENT/PRACTICE OWNER) Sodium 138 135 - 145 mmol/L [facility] ([place]) Potassium, pl 4.1 3.3 - 4.9 mmol/L [facility] ([place]) Chloride 101 97 - 110 mmol/L [facility] ([place]) CO2 25 22 - 32 mmol/L [facility] ([place]) Anion gap 12 2 - 15 mmol/L [facility] ([place]) BUN 6 6 - 25 mg/dL [facility] ([place]) Creatinine 0.68 0.60 - 1.10 mg/dL [facility] ([place]) Glucose 89 70 - 199 mg/dL [facility] ([place]) Comment: Interpretive Data Fasting glucose >/= 126 [...] interpretive data was last revised 2022. Calcium 9.9 8.5 - 10.3 mg/dL [facility] ([place]) Bilirubin, total 0.4 0.1 - 1.2 mg/dL [facility] ([place]) Protein, pl 7.5 6.5 - 8.5 g/dL [facility] ([place]) Albumin 4.3 3.5 - 5.0 g/dL [facility] ([place]) Alk phos 88 40 - 130 Units/L [facility] ([place]) ALT 10 7 - 45 Units/L [facility] ([place]) AST 25 10 - 45 Units/L [facility] ([place]) Blood 06/16/2023 1:40 PM OPTOMETRIST PRESIDENT/PRACTICE OWNER 06/16/2023 3:46 PM OPTOMETRIST PRESIDENT/PRACTICE OWNER us Shari Coley DO LAB BLOOD ORDERABLES Final Result Performing Organization Address [facility] Co de Phone Number N[facility]ON GUTIERREZ ([place]) 1 [facility] [employer] [place] [address] * Hemoglobin A1c (06/16/2023 1:40 PM OPTOMETRIST PRESIDENT/PRACTICE OWNER) Hgb A1C 5.4 4.0 - 5.6 % [facility] ([place]) Estimated Average Glucose 108 mg/dL [facility] ([place]) Comment: The ADA recommends reporting an estimated Average Glucose (eAG) with all Hemoglobin A1c results using the equation derived from a study of 507 normal and diabetic adults. ??Minority populations were underrepresented and children were not included. ?? (Diabetes Care 31:5930-6353, 2008). ??The eAG is not equivalent to a fasting glucose. Blood 06/16/2023 1:40 PM OPTOMETRIST PRESIDENT/PRACTICE OWNER 06/16/2023 3:46 PM OPTOMETRIST PRESIDENT/PRACTICE OWNER Shari Woody Brijesh DO LAB BLOOD ORDERABLES Final Result Performing Organization Address [facility] Co de Phone Number N[facility]ON GUT[facility]RE[facility] ([place]) 1 [facility] [place] [address] * (ABNORMAL) Lipid panel (06/16/2023 1:40 PM OPTOMETRIST PRESIDENT/PRACTICE OWNER) Pathologist [facility] Cholesterol 199 30 - 199 mg/dL [facility] ([place]) Comment: Interpretive Data Ages < or = 19 years ??Acceptable: ? <170 mg/dL ??Borderline high: ??170-199 mg/dL ??High: ? >or= 200 mg/dL Ages > or = 20 years ??Desirable: ?<200 mg/dL ??Borderline high: ??200-239 mg/dL ??High: ? >or= 240 mg/dL Literature References: 1. Expert Panel on Integrated Guidelines for Cardiovascular Health and Risk Reduction in Children and Adolescents. Pediatrics 2011;128:S213 2. NCEP Expert Panel. Circulation 2004;110:227 Current Interpretive Data was last revised on 2018. Triglycerides 182(H) <=149 mg/dL [facility] ([place]) Comment: Interpretive Data Ages < or = 9 years ??Acceptable: ? <75 mg/dL ??Borderline high: ??75-99 mg/dL ??High: ? >or= 100 mg/dL Ages 10 to 20 years ??Acceptable: ? <90 mg/dL ??Borderline high: ??90-129 mg/dL ??High: ? >or= 130 mg/dL Ages > or = 20 years ??Desirable: ?<150 mg/dL ??Borderline high: ??150-199 mg/dL ??High: ? 200-499 mg/dL ?Very high: ?? >or= 499 mg/dL Literature References: 1. Expert Panel on Integrated Guidelines for Cardiovascular Health and Risk Reduction in Children and Adolescents. Pediatrics 2011;128:S213 2. NCEP Expert Panel. Circulation 2004;110:227 Current Interpretive Data was last revised on 2018. HDL 46 >=40 mg/dL [facility] GUT[facility] ([place]) Comment: Interpretive Data Ages < or = 19 years ??Acceptable: ? >45 mg/dL ??Borderline low: ?? 40-45 mg/dL ??Low: ? <40 mg/dL Ages > or = 20 years ??Desirable: ?>or= 60 mg/dL ??Low: ? <40 mg/dL Literature References: 1. Expert Panel on Integrated Guidelines for Cardiovascular Health and Risk Reduction in Children and Adolescents. Pediatrics 2011;128:S213 2. NCEP Expert Panel. Circulation 2004;110:227 Current Interpretive Data was last revised on 2018. LDL, calculated 117 <=129 mg/dL [facility] ([place]) Comment: Interpretive Data Ages < or = 19 years ??Acceptable: ? <110 mg/dL ??Borderline high: ??110-129 mg/dL ??High: ?>or= 130 mg/dL Ages > or = 20 years ??Optimal: ? <100 mg/dL ??Near optimal: ?100-129 mg/dL ??Borderline high: ?? 130-159 mg/dL ??High: ?>160 mg/dL Literature References: 1. Expert Panel on Integrated Guidelines for Cardiovascular Health and Risk Reduction in Children and Adolescents. Pediatrics 2011;128:S213 2. NCEP Expert Panel. Circulation 2004;110:227 Current Interpretive Data was last revised on 2018. Non-HDL Cholesterol 153 mg/dL NIXON CALLES) Comment: Interpretive Data Ages < or = 19 years ??Acceptable: ?<120 mg/dL ??Borderline high: ??120-144 mg/dL ??High: ?>145 mg/dL Ages > or = 20 years ??When triglycerides are >200 mg/dL, Non-HDL cholesterol is a secondary target of ? therapy with treatment goals that are 30 mg/dL greater than the LDL cholesterol target. ? Literature References: 1. Expert Panel on Integrated Guidelines for Cardiovascular Health and Risk Reduction in Children and Adolescents. Pediatrics 2011;128:S213 2. NCEP Expert Panel. Circulation 2004;110:227 Current Interpretive Data was last revised on 2018. Chol/HDL ratio 4 EMILE[facility] GUT[facility] ([place]) Blood 06/16/2023 1:40 PM OPTOMETRIST PRESIDENT/PRACTICE OWNER 06/16/2023 3:46 PM OPTOMETRIST PRESIDENT/PRACTICE OWNER us Shari Coley DO LAB BLOOD ORDERABLES Final Result NIXON CALLES) 1 [facility] Department of Laboratories [place], [place] [address] * TSH reflex to free T4 (06/16/2023 1:40 PM OPTOMETRIST PRESIDENT/PRACTICE OWNER) TSH 0.71 0.30 - 4.20 mcIUnit/mL [facility] ([place]) Blood 06/16/2023 1:40 PM OPTOMETRIST PRESIDENT/PRACTICE OWNER 06/16/2023 3:46 PM OPTOMETRIST PRESIDENT/PRACTICE OWNER us Shari Coley DO LAB BLOOD ORDERABLES Final Result Performing Organization Address [facility]/ZIP Co de Phone Number [facility] ([place]) 1 [facility] Department [place] [address] * (ABNORMAL) Urinalysis reflex to microscopic and culture Urine, clean voided (06/16/2023 1:40 PM OPTOMETRIST PRESIDENT/PRACTICE OWNER) Color, ur Yellow Yellow [facility] ([place]) Clarity, ur Clear Clear [facility] ([place]) Specific gravity, ur 1.026 1.003 - 1.030 [facility] ([place]) pH, urine 5.5 [facility] ([place]) Comment: Interpretive Data ? Urine pH is affected by diet, medications, systemic acid-base disturbances, and renal tubular function. ??pH may affect urinary stone formation. ??For example, urine pH below 6.0 may help reduce the tendency for calcium phosphate stones and pH greater than 6.0 may reduce the tendency for uric acid stone formation. Source: [facility] [employer] Current Interpretive Data was last revised on 2017 Protein, ur ql Trace Negative [facility] ([place]) Glucose, ur ql Negative Negative [facility] ([place]) Ketones, ur 1+(A) Negative [facility] ([place]) Bilirubin, ur Negative Negative [facility] ([place]) Blood, ur Negative Negative [facility] ([place]) Urobilinogen, ur <2.0 <2.0 mg/dL [facility] ([place]) Nitrite, ur Negative Negative [facility] ([place]) Leukocyte esterase, ur Negative Negative [facility] ([place]) UA reflex comment Reflex conditions for microscopic UA and culture not met. [facility] ([place]) Urine, clean voided 06/16/2023 1:40 PM OPTOMETRIST PRESIDENT/PRACTICE OWNER 06/16/2023 3:48 PM OPTOMETRIST PRESIDENT/PRACTICE OWNER us Shari Coley DO LAB MICROBIOLOGY - GENERAL ORDERABLES Final Result [facility] ([place]) 1 [facility] Department [place] [address] documented in this encounter Visit Diagnoses Diagnosis Annual physical exam Routine general medical examination at a health care facility Screening for blood or protein in urine Screening for unspecified condition Screening for thyroid disorder Encounter for lipid screening for cardiovascular disease Encounter for screening examination for impaired glucose regulation and diabetes mellitus Encounter for screening for other digestive system disorders Screening for deficiency anemia Screening for other and unspecified deficiency anemia documented in this encounter Care Teams Fourth Hand Relationship Specialty Start Date End Date Brijesh Shari DO Bong PCP - General Family Medicine 06/25/19 02/29/24 Stuart Li PA Physician Master Esthetician Physician Master Esthetician 06/25/19 Patricia Bowden MD [address] [place] [address] Referring Physician Dermatology 06/26/20 Alison Syed MD [address] [place] [address] Consulting Physician Obstetrics and Gynecology 07/02/21 Christopher Cadet MD [address] [place] [address] Consulting Physician General Surgery 07/02/21 documented as of this encounter
--- OUTSIDE RECORDS SUMMARY | 2024-07-29 05:44 | XMS_ITS | Encounter Summary ---
Author Organization [facility] Healthcare Address [address] [place] [address] Care Team Providers Care Purchase Order Checker Name Role Phone Shari Coley Primary Care Provider [phone] Stuart Li Unavailable [phone] Patricia Bowden MD Unavailable [phone] Alison Syed MD Unavailable [phone] Christopher Cadet MD Unavailable Reason for Visit * Reason Comments Urinary Symptom Pt c/o urine odor an d burning with urination that started today. Recently finished ABX tx for UTI. 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 Gender Identity Not on file Sexual Orientation Not on file documented as of this encounter Last Filed Vital Signs Vital Sign Reading Time Taken Comments Blood Pressure 110/70 12/25/2023 6:04 PM CDT Pulse 62 12/25/2023 6:04 PM CDT Temperature 36.9 ??C (98.5 ??F) 12/25/2023 6:04 PM CD T Respiratory Rate 18 12/25/2023 6:04 PM CDT Oxygen Saturation 96% 12/25/2023 6:04 PM CDT Inhaled Oxygen Concentration - - Weight 73 kg (161 lb) 12/25/2023 6:04 PM CDT Height 157.5 cm (5' 2 ) 12/25/2023 6:04 PM CDT Body Mass Index 29.45 12/25/2023 6:04 PM CDT documented in this encounter Progress Notes * Vianney Lomeli NP - 12/25/2023 6:15 PM CDT Images from the original note were not included. Subjective/Objective Patient ID: Wendy Jansen is a 28 y.o. female. Chief Complaint Urinary Symptom (Pt c/o urine odor and burning with urination that started today. Recently finishedABX tx for UTI. She was swimming recently and took a tub bath yesterday) Pt presents to [facility] UTI This is a recurrent problem. The current episode started today. The problem occurs every urination.The problem has been unchanged. The quality of the pain is described as burning. The pain is mild. There has been no fever. She is Sexually active. Pertinent negatives include no chills, flank pain, frequency, hematuria, nausea, urgency or vomiting. Patient was seen in convenient care on December 16, 2023 for acute cystitis and started on Macrobid. Culture was positive for Proteus mirabilis and was resistant to Macrobid- patient switched on December 17 to cephalexin b.i.d. for 5 days which she did complete as ordered. Patient declines any concern for STIs. Patient denies any vaginal symptoms Review of Systems Constitutional: Negative for chills, diaphoresis, fatigue and fever. Respiratory: Negative. Cardiovascular: Negative. Gastrointestinal: Negative for abdominal pain, constipation, diarrhea, nausea and vomiting. Genitourinary: Positive for dysuria. Negative for difficulty urinating, flank pain, frequency, hematuria, urgency, vaginal bleeding and vaginal discharge. Musculoskeletal: Negative for back pain. Neurological: Negative for dizziness and headaches. Physical Exam Vitals and nursing note reviewed. Constitutional: General: She is awake. She is not in acute distress. Appearance: Normal appearance. She is not ill-appearing. HENT: Head: Normocephalic and atraumatic. Cardiovascular: Rate and Rhythm: Normal rate and regular rhythm. Heart sounds: Normal heart sounds. Pulmonary: Effort: Pulmonary effort is normal. Breath sounds: Normal breath sounds. Abdominal: General: Bowel sounds are normal. Palpations: Abdomen is soft. Tenderness: There is no abdominal tenderness. There is no right CVA tenderness, left CVA tenderness, guarding or rebound. Neurological: Mental Status: She is alert and oriented to person, place, and time. Gait: Gait is intact. Gait normal. Psychiatric: Mood and Affect: Mood normal. Behavior: Behavior normal. Behavior is cooperative. Vitals: 12/25/23 1804 BP: 110/70 Pulse: 62 Resp: 18 Temp: 36.9 ??C (98.5 ??F) SpO2: 96% Weight: 73 kg (161 lb) Height: 157.5 cm (5' 2 ) No results found. Past Medical History: Diagnosis Date Allergic seasonal Anxiety 2019 Patient Active Problem List Diagnosis Encounter for control pills maintenance Class 1 obesity due to excess calories without serious comorbidity with body mass index (BMI) of 30.0 to 30.9 in adult History of appendectomy Dysmenorrhea Eczema Generalized anxiety disorder Episodic tension-type headache, not intractable Myalgia Hirsutism Contraceptive management Panic attacks Sleep disorder Chronic maxillary sinusitis Chronic ethmoidal sinusitis Hypertrophy of nasal turbinates Current Outpatient Medications: acetaminophen (TYLENOL) 500 mg tablet, Take 2 tablets (1,000 mg total) by mouth every 6 (six) hoursas needed for pain, Disp: 30 tablet, Rfl: 0 Aviane 0.1-20 mg-mcg per tablet, Take 1 tablet by mouth every morning, Disp: , Rfl: cetirizine (ZyrTEC) 10 mg tablet, Take 1 tablet (10 mg total) by mouth daily, Disp: 90 tablet, Rfl:0 clonazePAM (KlonoPIN) 0.5 mg tablet, Take 1 tablet (0.5 mg total) by mouth nightly as needed for anxiety, Disp: 30 tablet, Rfl: 5 escitalopram (LEXAPRO) 20 mg tablet, Take 1 tablet (20 mg total) by mouth every morning, Disp: 90 tablet, Rfl: 3 spironolactone (ALDACTONE) 50 mg tablet, Take 1 tablet (50 mg total) by mouth every morning, Disp: , Rfl: fluticasone propionate (FLONASE) 50 mcg/actuation nasal spray, Administer 1 spray into each nostrilas needed for rhinitis (Patient not taking: Reported on 12/16/2023), Disp: , Rfl: ibuprofen (ADVIL,MOTRIN) 400 mg tablet, Take 1 tablet (400 mg total) by mouth every 6 (six) hours as needed for pain (Patient not taking: Reported on 12/16/2023), Disp: 30 tablet, Rfl: 0 oxyCODONE (ROXICODONE) 5 mg immediate release tablet, Take 1 tablet (5 mg total) by mouth every 4 (four) hours as needed for pain (Patient not taking: Reported on 12/15/2023), Disp: 15 tablet, Rfl: 0 No Known Allergies Social History Tobacco Use Smoking status: Never Passive exposure: Past (mother smoker) Smokeless tobacco: Never Tobacco comments: None Substance and Sexual Activity Drug use: Yes Types: Alcohol Sexual activity: Yes Partners: Male control/protection: Other Alcohol Use: Not At Risk (12/15/2023) AUDIT-C Frequency of Alcohol Consumption: 2-4 times a month Average Number of Drinks: 1 or 2 Frequency of Binge Drinking: Never Past Surgical History: Procedure Laterality Date APPENDECTOMY 07/17/2019 SINUS SURGERY 11/29/2023 Assessment/Plan Diagnoses and all orders for this visit: Dysuria (Primary) - POCT urinalysis dipstick - Urine culture Urine, clean voided; Future Recent Results (from the past 4 hour(s)) POCT urinalysis dipstick Collection Time: 12/25/23 6:15 PM Result Value Ref Range Color, Urine, POC Yellow Clarity, ur, POC Cloudy (A) Clear Glucose, ur, POC Negative Negative MG/DL Bilirubin, ur, POC Negative Negative, Small, Moderate, Large Ketones, ur, POC Negative Negative Specific [place], POC 1.030 1.003 - 1.030 Blood, ur, POC Negative Negative pH, ur, POC 6.0 5.0 - 8.0 Protein, ur, POC Negative Negative Urobilinogen, urine, POC 0.2 0.2 - 1.0 mg/dL Nitrite, ur, POC Negative Negative Leukocytes, ur, POC Trace (A) Negative Lot Number 0 -discussed with patient that we will wait to start on antibiotics until we obtain culture results. Due to patient being on Macrobid and cephalexin within the past 2 weeks. Patient states understanding and agrees to plan of care. Patient to increase water throughout the day avoid caffeine and alcohol. Patient Education: -We will notify you of urine culture results -Push fluids, especially water. This also helps prevent future infections. -Urinate when you feel the urge. Do not hold your urine. Urinate as soon as you feel you have to. -Cranberry juice has been shown to promote healing, use at your discretion. -Make sure to always wipe from front to back after urinating. -If you are sexually active make sure to urinate Before AND after sex to help prevent bladder infections. -Avoid intercourse until your symptoms are resolved for one week. -Do not drink alcohol, caffeine, and citrus juices. These can irritate your bladder and increase your symptoms. Seek care (go to Urgent Care or ER) immediately if: ?? You are urinating very little or not at all. ?? You are vomiting. ?? You have a high fever with shaking chills. ?? You have side or back pain that gets worse. ??Contact your primary care doctor or WORLD RENOWNED CHEF AND RESTAURANT OWNER if: ?? You have a fever. ?? You have white or yellow discharge from your vagina. Disposition Treatment plan including expectations, follow up, and return precautions discussed with patient/parent, verbalizes understanding. Medication dosage, use, and potential adverse reactions discussed with patient/parent. Advised to follow up with PCP if symptoms do not resolve as expected or sooner if condition worsens. Signs/symptoms warranting ER evaluation reviewed. Patient and/or guardian was given an opportunity to ask questions, questions answered. Vianney Lomeli NP This office note has been partially dictated using [employer] software, and as a result portions of the record may have been created with this software. Occasional wrong-word or '[id number]' substitutions may have occurred due to the inherent limitations of voice recognition software. Read the chartcarefully and recognize, using context, where substitutions have occurred. documented in this encounter Plan of Treatment Not on file documented as of this encounter Procedures Procedure Name Priority Date/Time Associated Diagnosis Comments POCT URINALYSIS DIPSTICK Routine 12/25/2023 6:15 PM CDT Dysuria documented in this encounter Results * (ABNORMAL) Urine culture Urine, clean voided (12/25/2023 6:16 PM CDT) Report Final Report: Greater than or equal to 100,000 colonies/mL of Proteus mirabilis Plus growth of clinically insignificant bacterial lonnie. (.) Comment:Testing performed by : [facility], [address] [facility] [place]., [address] Organism PROTEUS MIRABILIS [place] Organism PLUS GROWTH OF CLINICALLY INSIGNIFICANT LONNIE. [place] Urine, clean voided 12/25/2023 6:16 PM CDT 12/26/2023 4:48 AM CDT Narrative [facility] HERNANDEZ - 12/28/2023 5:57 PM CDT Testing performed by [facility] ([phone]) Organism Antibiotic Method Susceptibility Proteus mirabilis Ampicillin INTERPRETATION Susceptible Proteus mirabilis Cefazolin INTERPRETATION Susceptible Proteus mirabilis Nitrofurantoin INTERPRETATION Resistant Proteus mirabilis Gentamicin INTERPRETATION Susceptible Proteus mirabilis Trimethoprim with Sulfamethoxazole I NTERPRETATION Susceptible Proteus mirabilis Meropenem INTERPRETATION Susceptible Proteus mirabilis Cefepime INTERPRETATION Susceptible Proteus mirabilis Ciprofloxacin INTERPRETATION Susceptible Proteus mirabilis Ceftazidime INTERPRETATION Susceptible Proteus mirabilis Ceftriaxone INTERPRETATION Susceptible Proteus mirabilis Piperacillin/Tazobactam INTERPRETATI ON Susceptible Proteus mirabilis Cephalexin INTERPRETATION Susceptible Proteus mirabilis Cefuroxime-axetil INTERPRETATION Susceptible Proteus mirabilis Cefdinir INTERPRETATION Susceptible us Vianney Lomeli NP LAB MICROBIOLOGY - [facility] Final Result [place] [address] [address] [place] [address] * (ABNORMAL) POCT urinalysis dipstick (12/25/2023 6:15 PM CDT) Color, Urine, POC Yellow Clarity, ur, POC Cloudy(A) Clear Glucose, ur, POC Negative Negative MG/DL Bilirubin, ur, POC Negative Negative, Small, Moderate, Large Ketones, ur, POC Negative Negative Specific [place], POC 1.030 1.003 - 1.030 Blood, ur, POC Negative Negative pH, ur, POC 6.0 5.0 - 8.0 Protein, ur, POC Negative Negative Urobilinogen, urine, POC 0.2 0.2 - 1.0 mg/dL Nitrite, ur, POC Negative Negative Leukocytes, ur, POC Trace(A) Negative Lot Number 0 Urine 12/25/2023 6:15 PM CDT us Vianney Lomeli SALESFORCE BUSINESS ANALYST POINT OF CARE TEST ORDERABLES F inal Result documented in this encounter Visit Diagnoses Diagnosis Dysuria- Primary Dysuria documented in this encounter Care Teams Purchase Order Checker Relationship Specialty Start Date End Date Shari Coley PCP - General Family Medicine 06/25/19 02/29/24 Stuart Li PA Physician External Relations Manager Physician External Relations Manager 06/25/19 Patricia Bowden MD [address] [place] [address] Referring Physician Dermatology 06/26/20 Alison Syed MD [address] [place] [address] Consulting Physician Obstetrics and Gynecology 07/02/21 Christopher Cadet MD [address] [place] [address] Consulting Physician General Surgery 07/02/21 documented as of this encounter
--- OUTSIDE RECORDS SUMMARY | 2024-07-29 05:44 | XMS_ITS | Encounter Summary ---
Author Organization [facility] Healthcare Address [address] [place] [address] Care Team Providers Care Director Ship Name Role Phone Shari Coley Primary Care Provider [phone] Stuart Li Unavailable [phone] Patricia Bowden MD Unavailable [phone] Alison Syed MD Unavailable [phone] Christopher Cadet MD Unavailable Reason for Referral * MRI/CAT/PET Scan (Routine) - Closed Specialty Diagnoses / Procedures Referred By Contac t Referred To Contact Radiology Diagnoses Acute sinusitis, recurrence not specified, unspecified location Procedures CT Sinus Stealth WO Contrast Bhavin Dominguez MD [address] [address] Phone: tel: fax: [address] [address] Referral ID Status Reason Start Date Expiration Date Visits Re quested Visits Authorized [id number] Closed 10/12/2023 11/10/2024 1 1 Encounter Details Date Type Department Care Team (Late st Contact Info) Description 10/12/2023 Orders Only [facility] - [address] [address] Bhavin Dominguez MD [address] [address] Acute sinusitis, recurrence not specified, unspecified location [...] on file 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 CT SINUS STEALTH WO CONTRAST REASON FOR STUDY: Chronic sinus infections and congestion for several months ?? Currently with an infection and on antibiotics. ??No prior surgeries ?? TECHNIQUE: Noncontrast scanning through the paranasal sinuses using bone algorithm. ??Reconstructed MPR images reviewed. ??All images stored on PACS. ?? Automated exposure control was used as a dose optimization technique for this examination. COMPARISON: ??No prior studies are available for comparison at time of this dictation. FINDINGS: SINUSES: ?? Frontal sinus: ??Mild opacification of the right frontal sinus near the infundibulum. ??At least partial opacification of the ostium and frontal recess . ??A right Agger Nasi cell narrows the right frontal outflow tract. ??No significant opacification of the left frontal sinus noting partial opacification of the left recess and prominent ethmoid bulla narrowing the left outflow tract. Ethmoid sinus: ??Moderate opacification of kvdms-emwsaiu-ztoj-left anterior ethmoidal air cells. ??Mild mucosal thickening of posterior ethmoid air cells. Maxillary sinus: ??Moderate opacification of the right maxillary sinus with frothy secretions. ??Mild opacification of the left maxillary sinus with frothy secretions. ??Mild polypoid thickening along the floor of the bilateral maxillary sinuses are nonspecific but may represent small mucous retention cysts. The bilateral maxillary sinus ostium and infundibulum appear patent with kjqf-jwkzkye-rqqx-right narrowing. ??Partial opacification of the left hiatus semilunaris. ??Prominent bulla ethmoidalis. ??Uncinate process is unremarkable. ?? Unremarkable middle turbinates. ??Hypertrophy of the inferior turbinates. Sphenoid sinus: ??Trace mucosal thickening of the right sphenoid sinus. ??The left sphenoid is clear. ??Pneumatization of the bilateral anterior clinoid. ?? Sellar type of pneumatization. Noted cribriform plate asymmetry with type 3 ??Keros on the right and type 2 on the left. ??There ??is bilateral ??pneumatized supraorbital anterior ethmoid air cells superior to the anterior ethmoidal notch. No evidence of significant lamina papyracea dehiscence. No evidence of a andrei bullosa. No evidence of an Onodi air cell. No evidence of a significant Iris cell. The sphenoid septum does not insert on the carotid canals. Thinned osseous covering of the inferior aspect of the right optic canal. No evidence of hyperdense secretions, or osseous remodeling to suggest chronic fungal sinusitis. NASAL CAVITY: ?? Midline nasal septum. BONES: ?? No fracture or bone lesion. ORBITS: ?? Unremarkable with no mass or inflammatory changes. TMJS: ?? Normal. MASTOIDS: ?? Well-aerated. ??IACs symmetric, grossly normal. BRAIN: ?? Limited view. No acute findings. OTHER: ?? No other significant finding. ?? IMPRESSION: Moderate opacification of the bilateral maxillary sinuses with frothy secretions which may represent acute sinusitis in the appropriate clinical setting. Opacification of right frontal and bilateral anterior ethmoidal air cells as described above. Anatomic variants as described above. THIS IS AN ELECTRONICALLY VERIFIED FINAL REPORT 10/16/2023 10:35 AM - Electronically signed by ??Donnell Nogueira M.D. MM: MM D: ??10/16/2023 10:35 AM T: ??10/16/2023 10:35 AM Report ID: [id number] Reading Location: ??[id number] Procedure Note Donnell Nogueira MD - 10/16/2023 EXAM DESCRIPTION: CT SINUS STEALTH WO CONTRAST REASON FOR STUDY: Chronic sinus infections and congestion for severalmonths Currently with an infection and on antibiotics. No prior surgeries TECHNIQUE: Noncontrast scanning through the paranasal sinuses using bone algorithm. Reconstructed MPR images reviewed. All images stored on PACS. Automated exposure control was used as a dose optimization technique forthis examination. COMPARISON: No prior studies are available for comparison at time of this dictation. FINDINGS: SINUSES: Frontal sinus: Mild opacification of the right frontal sinus near the infundibulum. At least partial opacification of the ostium and frontalrecess . A right Agger Nasi cell narrows the right frontal outflow tract. No significant opacification of the left frontal sinus noting partial opacification of the left recess and prominent ethmoid bulla narrowing the left outflow tract. Ethmoid sinus: Moderate opacification of mcscj-zvmrtol-yavb-left anterior ethmoidal air cells. Mild mucosal thickening of posterior ethmoid aircells. Maxillary sinus: Moderate opacification of the right maxillary sinus with frothy secretions. Mild opacification of the left maxillary sinus withfrothy secretions. Mild polypoid thickening along the floor of the bilateral maxillary sinuses are nonspecific but may represent small mucous retention cysts. The bilateral maxillary sinus ostium and infundibulum appear patent with kmhd-yohicid-dlbz-right narrowing. Partial opacification of the lefthiatus semilunaris. Prominent bulla ethmoidalis. Uncinate process isunremarkable. Unremarkable middle turbinates. Hypertrophy of the inferior turbinates. Sphenoid sinus: Trace mucosal thickening of the right sphenoid sinus.The left sphenoid is clear. Pneumatization of the bilateral anterior clinoid. Sellar type of pneumatization. Noted cribriform plate asymmetry with type 3 Keros on the right and type2 on the left. There is bilateral pneumatized supraorbital anterior ethmoidair cells superior to the anterior ethmoidal notch. No evidence of significant lamina papyracea dehiscence. No evidence of a andrei bullosa. No evidence of an Onodi air cell. No evidence of a significant Iris cell. The sphenoid septum does not insert on the carotid canals. Thinned osseous covering of the inferior aspect of the right opticcanal. No evidence of hyperdense secretions, or osseous remodeling to suggestchronic fungal sinusitis. NASAL CAVITY: Midline nasal septum. BONES: No fracture or bone lesion. ORBITS: Unremarkable with no mass or inflammatory changes. TMJS: Normal. MASTOIDS: Well-aerated. IACs symmetric, grossly normal. BRAIN: Limited view. No acute findings. OTHER: No other significant finding. IMPRESSION: Moderate opacification of the bilateral maxillary sinuses with frothy secretions which may represent acute sinusitis in the appropriate clinical setting. Opacification of right frontal and bilateral anterior ethmoidal air cellsas described above. Anatomic variants as described above. THIS IS AN ELECTRONICALLY VERIFIED FINAL REPORT 10/16/2023 10:35 AM - Electronically signed by Donnell Nogueira M.D. MM: MM Report ID: [id number] Reading Location: [id number] Bhavin Dominguez MD IM CT PROCEDURES Final Result documented in this encounter Visit Diagnoses Diagnosis Acute sinusitis, recurrence not specified, unspecified location- Primary Acute sinusitis, recurrence not specified, unspecified location documented in this encounter Additional Health Concerns Infection Onset Date Last Indicated Resolved Time COVID: Recovered Comment:Added based on recent COVID infection. 09/17/2023 10/12/202312/1512/16/2023 3:05 AM C DT documented as of this encounter Care Teams Director Ship Relationship Specialty Start Date End Date Shari Coley DO PCP - General Family Medicine 06/25/19 02/29/24 Stuart Li PA Physician Pillar Worker Physician Pillar Worker 06/25/19 Patricia Bowden MD [address] [place] [address] Referring Physician Dermatology 06/26/20 Alison Syed MD [address] [place] [address] Consulting Physician Obstetrics and Gynecology 07/02/21 Christopher Cadet MD [address] [place] [address] Consulting Physician General Surgery 07/02/21 documented as of this encounter
--- OUTSIDE RECORDS SUMMARY | 2024-07-29 05:44 | XMS_ITS | Encounter Summary ---
Author Organization [facility] Healthcare Address [address] [place] [address] Care Team Providers Care Copper Plater Name Role Phone BrijeshShari Primary Care Provider [phone] Stuart Li Unavailable [phone]- [phone] Patricia Bowden MD Unavailable [phone] Alison Syed MD Unavailable [phone] Christopher Cadet MD Unavailable Reason for Referral * MRI/CAT/PET Scan (Routine) - Closed Specialty Diagnoses / Procedures Referred By Tuanac t Referred To Contact Radiology Diagnoses Acute sinusitis, recurrence not specified, unspecified location Procedures CT Sinus Stealth WO Contrast Bhavin Dominguez MD [address] [address] Phone: tel: fax: [address] [phone] Referral ID Status Reason Start Date Expiration Date Visits Re quested Visits Authorized [id number] Closed 10/12/2023 11/10/2024 1 1 Reason for Visit * MRI/CAT/PET Scan (Routine) - Closed Specialty Diagnoses / Procedures Referred By Verenice t Referred To Contact Radiology Diagnoses Acute sinusitis, recurrence not specified, unspecified location Procedures CT Sinus Stealth WO Contrast Bhavin Dominguez MD [address] [address] Phone: tel: fax: [address] [phone] Referral ID Status Reason Start Date Expiration Date Visits Re quested Visits Authorized [id number] Closed 10/12/2023 11/10/2024 1 1 Encounter Details Date Type Department Care Team (Latest Contact Info) Description 10/14/2023 11:56 AM CDT - 10/14/2023 11:59 PM CDT Hospital Encounter 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 Gender Identity Not on file Sexual Orientation Not on file documented as of this encounter Medications at Time of Discharge Aviane 0.1-20 mg-mcg per tablet Take 1 tablet by mouth every morning 11/06/2022 spironolactone (ALDACTONE) 50 mg tablet Take 1 tablet (50 mg total) by mouth every morning 06/09/2021 amoxicillin-clav ulanate (Augmentin) 875-125 mg per tablet Take by mouth 2 (two) times a day for 10 days 20 tablet 10/12/2023 4 azelastine (ASTELIN) 137 mcg (0.1 %) nasal spray Administer 2 sprays into each nostril 2 (two) times a day Use in each nostril as directed 30 mL 3 09/01/2023 4 cetirizine (ZyrTEC) 10 mg tablet Take 1 tablet (10 mg total) by mouth as needed 4 clonazePAM (KlonoPIN) 0.5 mg tabletIndication s:Panic attacks Take 1 tablet (0.5 mg total) by mouth nightly as needed for anxiety 30 tablet 5 06/16/2023 4 escitalopram (LEXAPRO) 20 mg tabletIndication s:Generalized anxiety disorder,Panic attacks Take 1 tablet (20 mg total) by mouth every morning 90 tablet 3 06/16/2023 4 fluticasone propionate (FLONASE) 50 mcg/actuation nasal spray Administer 1 spray into each nostril daily 4 fluticasone propionate (FLONASE) 50 mcg/actuation nasal spray Administer 2 sprays into each nostril daily 1 each 3 09/01/2023 4 sod hcxng-juipzk-hnd eez bottle 2,300-700 mg kit Administer 2 sprays into each nostril 2 (two) times a day 1 kit 2 09/13/2023 4 documented as of this encounter Discharge Disposition Disposition Code Departure Means Destination Discharge to home or self care documented in this encounter Plan of Treatment Not on file documented as of this encounter Procedures Procedure Name Priority Date/Time Associated Diagnosis Comments CT SINUS STEALTH WO CONTRAST Schedule Routine, Read Routine (OP Routine) 10/14/2023 12:26 PM CDT Acute sinusitis, recurrence not specified, unspecified location documented in this encounter Results * CT Sinus Stealth [...] outflow tract. Ethmoid sinus: ??Moderate opacification of mwtyj-ufrkeqv-uaer-left anterior ethmoidal air cells. ??Mild mucosal thickening [...] sinus ostium and infundibulum appear patent with vedj-hsvwmeu-ddpy-right narrowing. ??Partial opacification of the left hiatus [...] AM T: ??10/16/2023 10:35 AM Report ID: [id number] Reading Location: ??[id number] Procedure Note Donnell Nogueira MD - 10/16/2023 [...] outflow tract. Ethmoid sinus: Moderate opacification of lejhs-mzqidep-fdeo-left anterior ethmoidal air cells. Mild mucosal thickening of posterior ethmoid aircells. Maxillary sinus: Moderate opacification of the right maxillary sinus with frothy secretions. Mild opacification of the left maxillary sinus withfrothy secretions. Mild polypoid thickening along the floor of the bilateral maxillary sinuses are nonspecific but may represent small mucous retention cysts. The bilateral maxillary sinus ostium and infundibulum appear patent with lnvx-lwdubja-ybgt-right narrowing. Partial opacification of the lefthiatus semilunaris. [...] Electronically signed by Donnell Nogueira M.D. MM: [id number] Report ID: [id number] Reading Location: [id number] Bhavin Dominguez MD IMG CT PROCEDURES Final Result documented in this encounter Visit Diagnoses Diagnosis Acute sinusitis, recurrence not specified, unspecified location documented in this encounter Additional Health Concerns Infection Onset Date Last Indicated Resolved Time COVID: Recovered Comment:Added based on recent COVID infection. 09/17/2023 10/12/2023 12/16/2023 3:05 AM C DT documented as of this encounter Care Teams Copper Plater Relationship Specialty Start Date End Date Shari Coley DO PCP - General Family Medicine 06/25/19 02/29/24 Stuart Li PA Physician Glue Maker Physician Glue Maker 06/25/19 Patricia Bowden MD [address] [place] [address] Referring Physician Dermatology 06/26/20 Alison Syed MD [address] [place] [address] Consulting Physician Obstetrics and Gynecology 07/02/21 Christopher Cadet MD [address] [place] [address] Consulting Physician General Surgery 07/02/21 documented as of this encounter
--- OUTSIDE RECORDS SUMMARY | 2024-07-29 05:44 | XMS_ITS | Encounter Summary ---
Author Organization [facility] Healthcare Address [address] [place] [address] Care Team Providers Care Cruise Agent Name Role Phone BrijeshShari Primary Care Provider [phone] Stuart Li Unavailable [phone] Patricia Bowden MD Unavailable [phone] Alison Syed MD Unavailable [phone] Christopher Cadet MD Unavailable Encounter Details Date Type Department Care Team (Late st Contact Info) Description 12/18/2023 Orders Only [facility] [place] [address] [place] [address] Vianney Lomeli NP [address] [facility] [address] [place] [address] Social History Tobacco Use Types Packs/Day Years [...] on file 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 Gender Identity Not on file Sexual Orientation Not on file documented as of this encounter Ordered Prescriptions Prescription Sig Dispense Quantity Refills Last Filled Start Date End Date cephalexin (KEFLEX) 500 mg capsule Take 1 capsule (500 mg total) by mouth 2 (two) times a day for 5 days 10 capsule 12/18/2023 documented in this encounter Plan of Treatment Not on file documented as of this encounter Visit Diagnoses Not on filedocumented in this encounter Discontinued Medications Medication Sig Discontinue Reason Start Date End Da te nitrofurantoin monohydrate (MACROBID) 100 mg capsuleIndications:Acute cystitis with hematuria Take 1 capsule (100 mg total) by mouth 2 (two) times a day for 5 days Take with food Other 12/16/2023 12/18/2023 documented as of this encounter Care Teams Cruise Agent Relationship Specialty Start Date End Date Shari Coley DO PCP - General Family Medicine 06/25/19 02/29/24 Stuart Li PA Physician Website Project Manager Physician Website Project Manager 06/25/19 Patricia Bowden MD [address] [place] [address] Referring Physician Dermatology 06/26/20 Alison Syed MD [address] [place] [address] Consulting Physician Obstetrics and Gynecology 07/02/21 Christopher Cadet MD [address] [place] [address] Consulting Physician General Surgery 07/02/21 documented as of this encounter
--- OUTSIDE RECORDS SUMMARY | 2024-07-29 05:44 | XMS_ITS | Encounter Summary ---
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 09/17/2023 10/12/2023 12/16/2023 3:05 AM C DT documented as of this encounter Care Teams Typing Secretary Relationship Specialty Start Date End Date Shari Coley DO PCP - General Family Medicine 06/25/19 02/29/24 Stuart Li PA Physician Baseball Winder Physician Baseball Winder 06/25/19 Patricia Bowden MD [address] [place] [address] Referring Physician Dermatology 06/26/20 Alison Syed MD [address] [place] [address] Consulting Physician Obstetrics and Gynecology 07/02/21 Christopher Cadet MD [address] [place] [address] Consulting Physician General Surgery 07/02/21 documented as of this encounter
--- OUTSIDE RECORDS SUMMARY | 2024-07-29 05:44 | XMS_ITS | Encounter Summary ---
Author Organization [facility] Healthcare Address [address] [place] [address] Care Team Providers Care Dietary Worker Name Role Phone ColeyShari Primary Care Provider [phone]- [phone] Stuart Li Unavailable [phone]- [phone] Patricia Bowden MD Unavailable [phone] Alison Syed MD Unavailable [phone] Christopher Cadet MD Unavailable Encounter Details Date Type Department Care Team (Late st Contact Info) Description 12/28/2023 Orders Only [facility] Medical Group [facility] [place] [address] [place] [address] Melanie Winchester, AIR DEODORIZER SERVICER [address] [facility] [address] [place] [address] Acute cystitis without hematuria (Primary Dx) Social History Tobacco Use Types [...] on file 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 Gender Identity Not on file Sexual Orientation Not on file documented as of this encounter Ordered Prescriptions Prescription Sig Dispense Quantity Refills Last Filled Start Date End Date cefdinir (OMNICEF) 300 mg capsuleIndications :Acute cystitis without hematuria Take 1 capsule (300 mg total) by mouth 2 (two) times a day for 5 days 10 capsule 12/28/2023 documented in this encounter Plan of Treatment Not on file documented as of this encounter Visit Diagnoses Diagnosis Acute cystitis without hematuria- Primary documented in this encounter Care Teams Dietary Worker Relationship Specialty Start Date End Date Shari Coley DO PCP - General Family Medicine 06/25/19 02/29/24 Stuart Li PA Physician Tonsorial Artist Physician Tonsorial Artist 06/25/19 Patricia Bowden MD [address] [place] [address] Referring Physician Dermatology 06/26/20 Alison Syed MD [address] [place] [address] Consulting Physician Obstetrics and Gynecology 07/02/21 Christopher Cadet MD [address] [place] [address] Consulting Physician General Surgery 07/02/21 documented as of this encounter
--- OUTSIDE RECORDS SUMMARY | 2024-07-29 05:44 | XMS_ITS | Encounter Summary ---
Author Organization [facility] Healthcare Address [address] [place] [address] Care Team Providers Care Logging Worker Name Role Phone BrijeshShari Primary Care Provider [phone] Stuart Li Unavailable [phone] Patricia Bowden MD Unavailable [phone] Alison Syed MD Unavailable [phone] Christopher Cadet MD Unavailable Reason for Visit * Auth/Cert (Routine) Specialty Diagnoses / Procedures Referred By Verenice t Referred To Contact Diagnoses Chronic maxillary sinusitis Chronic ethmoidal sinusitis Hypertrophy of nasal turbinates Chronic maxillary sinusitis [J32.0] Chronic ethmoidal sinusitis [J32.2] Hypertrophy of nasal turbinates [J34.3] Procedures CO NASAL/SINUS ENDOSCOPY W/MAXILLARY ANTROSTOMY CO NSL/SINUS NDSC MAX ANTROST W/RMVL TISS MAX SINUS CO NASAL/SINUS NDSC W/PARTIAL ETHMOIDECTOMY CO STRTCTC CPTR ASSTD PX EXTRADURAL CRANIAL CO SUBMUCOUS RESCJ INFERIOR TURBINATE PRTL/COMPL CO NASAL/SINUS NDSC SURG W/BX POLYPC/DBRDMT SPX STEALTH Guided Endoscopoic Bilateral Maxillary Antrostomy, Anterior Ethmoidectomy Bilateral Inferior Turbinate Reductions Referral ID Status Reason Start Date Expiration Date Visits Re quested Visits Authorized [id number] 1 1 Encounter Details Date Type Department Care Team (Latest Contact Info) Description 11/29/2023 6:22 AM CDT - 11/29/2023 12:57 PM CDT Hospital Encounter [facility] Operating Room [address] [place] [address] Bhavin Dominguez MD [address] [facility] [address] [place] [address] Chronic maxillary sinusitis; Chronic ethmoidal sinusitis; Hypertrophy of nasal turbinates Discharge Disposition: Discharge to home or self [...] on file 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 Gender Identity Not on file Sexual Orientation Not on file documented as of this encounter Last Filed Vital Signs Vital Sign Reading Time Taken Comments Blood Pressure 118/67 11/29/2023 12:10 PM CDT Pulse 87 11/29/2023 12:10 PM CDT Temperature 36.8 ??C (98.2 ??F) 11/29/2023 9:55 AM CD T Respiratory Rate 21 11/29/2023 12:1 0 PM CDT Oxygen Saturation 97% 11/29/2023 12: 10 PM CDT Inhaled Oxygen Concentration - - Weight 75.2 kg (165 lb 12.6 oz) 11/29/2023 7:36 AM CDT Height 157.5 cm (5' 2 ) 11/29/2023 7:36 AM CDT Body Mass Index 30.32 11/29/2023 7:36 AM CDT documented in this encounter Discharge Instructions * Discharge Instructions* Bhavin Dominguez MD - 11/29/2023 9:48 AM CDT AFTER SURGERY INSTRUCTIONS Sinus Surgery PAIN: Mild to moderate pain is expected and should improve over the next few days. For significant pain, use the prescribed pain medicines, but if only light pain use Tylenol. DO NOT use Aspirin, Pedro, Ecotrin, or other aspirin products. Throat discomfort from intubation is common after general anesthesia and should resolve within a few days. Ice, throat lozenges or gargles may soothe this discomfort. DIET: Regular diet as tolerated. Drink plenty of fluids. ACTIVITY: Light activity (rest at home, watch TV, read books, etc) for the first few days. Mild nose bleeding for 3-5 days is expected and therefore school / work is usually avoided for about one week. Do NOT perform heavy activity, contact sports, or lift heavy objects (over 10 lbs) for the coupleweeks after surgery. These activities may result in nose bleeding. Plane travel is usually allowed after your first post-op visit. NASAL: Start nasal irrigations after surgery using: NeilMed Sinus Rinse??? 4-6 rinses per day for the next few weeks. Your nose may feel congested due to blood, crust, and mucus. Do NOT blow your nose, instead use the rinses to clean the nose. Sinus Rinse is [id number] and available in most stores ([employer] / [employer], etc). Mild nose bleeding (or blood to the throat) for the first few days is to be expected. Numbness of the palate and upper teeth is typical and will improve in days to weeks. You may resume prior nasal sprays. POST-OP VISIT: The first visit is usually 7-10 days after surgery. At this time, Dr. Dominguez will clean your nasal cavity by removing dried blood and mucus crusting (called endoscopic debridement) topromote healing, prevent bacterial infection, and relieve congestion. It is suggested to take your pain pills 30 minutes before the procedure. The more you used the Sinus Rinse irrigations, the less debridement will be needed in the clinic. Contact the office ([phone]) if . . . Fever over 102o F orally (<102 is frequent for the first few days after the surgery) Persistent nausea and vomiting (or blood in the vomit) Inability to take fluids or excessive weakness Severe pain not relieved by prescribed pain medicines Difficulty breathing, shortness of breath, or severe bleeding, call 911 or go to the ER Instructions for sinus irrigation Purpose is to clean the lining of the nose and sinuses, to wash out thick mucus, allergens and microorganisms, which helps decrease inflammation. It can help with postnasal drainage. The [employer] kit is available OTC at the drugstore, with a reusable bottle and packets of salt. Usewith distilled or bottled water. Instructions: 1. Make 240cc of saline in the [employer] bottle using the salt packets and distilled water 2. While in the shower or over the sink, tilt your head forward to a comfortable level. Put the tipof the sinus rinse bottle in your nostril and aim it towards the crown or top of your head. Breathethrough your mouth. Gently squeeze the bottle to flush out your nose. The fluid will circulate in through one nostril and come out the other nostril, or out of your mouth. Try not to swallow large quantities and spit it out instead. 3. Perform 2 times daily. Use prior to any medicated sprays There are also instructions in the kit, and helpful videos on the [employer] website. [employer] video: https://www.[employer].com/watch?v=DYZDeiOVJx0 documented in this encounter Medications at Time of Discharge Aviane 0.1-20 mg-mcg per tablet Take 1 tablet by mouth every morning 11/06/2022 fluticasone propionate (FLONASE) 50 mcg/actuation nasal spray Administer 1 spray into each nostril as needed for rhinitis spironolactone (ALDACTONE) 50 mg tablet Take 1 tablet (50 mg total) by mouth every morning 06/09/2021 acetaminophen (TYLENOL) 500 mg tabletIndication s:Pain Take 2 tablets (1,000 mg total) by mouth every 6 (six) hours as needed for pain 30 tablet 11/29/2023 4 cetirizine (ZyrTEC) 10 mg tablet Take [...] every morning 90 tablet 3 06/16/2023 4 ibuprofen (ADVIL,MOTRIN) 400 mg tablet Take 1 tablet (400 mg total) by mouth every 6 (six) hours as needed for pain 30 tablet 11/29/2023 4 oxyCODONE (ROXICODONE) 5 mg immediate release tabletIndication s:Pain Take 1 tablet (5 mg total) by mouth every 4 (four) hours as needed for pain 15 tablet 11/29/2023 4 documented as of this encounter Ordered Prescriptions Prescription Sig Dispense Quantity Refills Last Filled Start Date End Date oxyCODONE (ROXICODONE) 5 mg immediate release tabletIndications: Pain Take 1 tablet (5 mg total) by mouth every 4 (four) hours as needed for pain 15 tablet 11/29/2023 4 ibuprofen (ADVIL,MOTRIN) 400 mg tablet Take 1 tablet (400 mg total) by mouth every 6 (six) hours as needed for pain 30 tablet 11/29/2023 4 acetaminophen (TYLENOL) 500 mg tabletIndications: Pain Take 2 tablets (1,000 mg total) by mouth every 6 (six) hours as needed for pain 30 tablet 11/29/2023 4 documented in this encounter Discharge Disposition Disposition Code Departure Means Destination Comment s Discharge to home or self care documented in this encounter H&P Notes * Bhavin Dominguez MD - 11/29/2023 8:02 AM CDT I have reviewed the H&P, examined the patient, and endorse the findings as written. Plan of Care : Based on the above findings, I consider Wendy Chacon to be an acceptable risk for : Procedure(s): STEALTH Guided Endoscopoic Bilateral Maxillary Antrostomy, Anterior Ethmoidectomy Bilateral Inferior Turbinate Reductions Source Note - Justyn Isaac MD - 11/24/2023 2:54 PM CDT Images from the original note were not included. Anesthesia Evaluation Wendy Chacon is a 28 y.o. female who presents today for pre surgical evaluation of STEALTH Guided Endoscopoic Bilateral Maxillary Antrostomy, Anterior Ethmoidectomy, Bilateral Inferior Turbinate Reductions by Bhavin Dominguez MD STEALTH Guided Endoscopoic Bilateral Maxillary Antrostomy, Anterior Ethmoidectomy (Face) Bilateral Inferior Turbinate Reductions (Bilateral: Nose) Pre-Op Diagnosis Codes: * Chronic maxillary sinusitis [J32.0] * Chronic ethmoidal sinusitis [J32.2] * Hypertrophy of nasal turbinates [J34.3] HISTORY Past Medical History Information obtained from: patient and chart. Information obtained during: In Person Neurological + Psychiatric history - anxiety Cardiovascular Cardiac system: negative Respiratory Respiratory system: negative Hepatic / Heme Hepatic/Heme system: negative Gastrointestinal GI system: negative Renal / Renal/ system: negative Musculoskeletal/Pain Musculoskeletal/Pain system: negative Endocrine / Other + Obesity (BMI >30) Pertinent negatives: diabetes mellitus and thyroid disease Functional Capacity Functional capacity: 6-10 METs Review of Systems Pertinent negatives: SOB; recent cold/flu; fever; chest pain; palpitations and chipped/loose teeth Comments: Has piercing's in nose, ears, belly button and nipples. Patient Active Problem List Diagnosis Date Noted Chronic maxillary sinusitis 10/30/2023 Chronic ethmoidal sinusitis 10/30/2023 Hypertrophy of nasal turbinates 10/30/2023 Sleep disorder 06/16/2023 Panic attacks 10/29/2021 Hirsutism 03/29/2021 Contraceptive management 03/29/2021 Episodic tension-type headache, not intractable 03/24/2021 Myalgia 03/24/2021 Generalized anxiety disorder 02/22/2021 Eczema 06/26/2020 Dysmenorrhea 08/16/2019 History of appendectomy 07/25/2019 Encounter for control pills maintenance 06/25/2019 Class 1 obesity due to excess calories without serious comorbidity with body mass index (BMI) of 30.0 to 30.9 in adult 06/25/2019 Past Medical History: Diagnosis Date Allergic seasonal Anxiety 2019 Past Surgical History: Procedure Laterality Date APPENDECTOMY 07/17/2019 OB History No obstetric history on file. No Known Allergies Med List Status: Nurse Complete Set By: Maggie Obregon RN at 11/24/2023 1:43 PM Taking? Last Dose Start Date End Date Nixon Cummings 0.1-20 mg-mcg per tablet 11/24/2023 11/06/22 -- Lenora Alicea MD cetirizine (ZyrTEC) 10 mg tablet Past Week -- -- Lenora Alicea MD clonazePAM (KlonoPIN) 0.5 mg tablet Past Week 06/16/23 -- Shari Coley, DO Take 1 tablet (0.5 mg total) by mouth nightly as needed for anxiety escitalopram (LEXAPRO) 20 mg tablet 11/24/2023 06/16/23 06/15/24 Shari Coley, DO Take 1 tablet (20 mg total) by mouth every morning fluticasone propionate (FLONASE) 50 mcg/actuation nasal spray Past Week -- -- Lenora Alicea MD spironolactone (ALDACTONE) 50 mg tablet 11/24/2023 06/09/21 -- Lenora Alicea, MD -- Patient taking differently: -- Current Outpatient Medications: Aviane 0.1-20 mg-mcg per tablet cetirizine (ZyrTEC) 10 mg tablet clonazePAM (KlonoPIN) 0.5 mg tablet escitalopram (LEXAPRO) 20 mg tablet fluticasone propionate (FLONASE) 50 mcg/actuation nasal spray spironolactone (ALDACTONE) 50 mg tablet Social History Tobacco Use Smoking Status Never Passive exposure: Past (mother smoker) Smokeless Tobacco Never Tobacco Comments None Alcohol Use: Not At Risk (11/24/2023) AUDIT-C Frequency of Alcohol Consumption: 2-4 times a month Average Number of Drinks: 1 or 2 Frequency of Binge Drinking: Never Substance and Sexual Activity Drug Use Yes Types: Alcohol Family History Problem Relation Age of Onset Hypertension Father Hypertension Maternal Grandfather Hypertension Paternal Grandmother Liver cancer Paternal Grandfather Cancer Paternal Grandfather Hypertension Paternal Grandfather PAT Physical Exam Airway Exam: Mallampati: II Cervical ROM: FROM TM distance: >4 Cardiovascular Exam: Rate: regular Rhythm: regular Pulmonary Exam: LCTA, bilat EENT Exam: trachea midline Dental Exam: Appears intact Skin Exam: Skin is warm. Abdominal exam: Abdomen is soft. Bowel sounds are present. Current state: Patient's current state is cooperative. Vitals: 11/24/23 1345 BP: 118/71 Pulse: 62 SpO2: 100% PT: No results found for requested labs within last 30 days. INR: No results found for requested labs within last 30 days. APTT: No results found for requested labs within last 30 days. Hgb A1C: No results found for requested labs within last 30 days. CBC RBC: No results found for requested labs within last 30 days. RDW: No results found for requested labs within last 30 days. MCHC: No results found for requested labs within last 30 days. MCH: No results found for requested labs within last 30 days. MCV: No results found for requested labs within last 30 days. Hct: No results found for requested labs within last 30 days. Hgb: No results found for requested labs within last 30 days. WBC: No results found for requested labs within last 30 days. MPV: No results found for requested labs within last 30 days. Platelets: No results found for requested labs within last 30 days. RDW CV: No results found for requested labs within last 30 days. RDW Sd: No results found for requested labs within last 30 days. BMP Glucose: 11/24/2023: 112 mg/dL Calcium: 11/24/2023: 9.8 mg/dL Sodium: 11/24/2023: 138 mmol/L Potassium: 11/24/2023: 3.8 mmol/L CO2: 11/24/2023: 25 mmol/L Chloride: 11/24/2023: 100 mmol/L BUN: 11/24/2023: 7 mg/dL Creatinine: 11/24/2023: 0.63 mg/dL STOP-Bang Total Score: 0 Ribeiro Activity Status Index Score: 39.5 CBC Lab Results Component Value Date WBC 11.3 (H) 06/16/2023 RBC 4.66 06/16/2023 HGB 13.5 06/16/2023 HCT 41.0 06/16/2023 LABPLAT 317 06/16/2023 MCV 88.0 06/16/2023 MCH 29.0 06/16/2023 MCHC 32.9 06/16/2023 MPV 11.5 06/16/2023 hgbA1C Lab Results Component Value Date HGBA1C 5.4 06/16/2023 Type&Screen No results found for: ABORH , IDCOOMB , ABID BMP Lab Results Component Value Date SODIUM 138 11/24/2023 POTASSIUM 3.8 11/24/2023 CHLORIDE 100 11/24/2023 CO2 25 11/24/2023 ANIONGAP 13 11/24/2023 BUNSER 7 11/24/2023 CREATININE 0.63 11/24/2023 GFRNAA >90 11/24/2023 CALCIUM 9.8 11/24/2023 CMP Lab Results Component Value Date SODIUM 138 11/24/2023 POTASSIUM 3.8 11/24/2023 CHLORIDE 100 11/24/2023 CO2 25 11/24/2023 BUNSER 7 11/24/2023 CREATININE 0.63 11/24/2023 ALBUMIN 4.3 06/16/2023 ALKPHOS 88 06/16/2023 AST 25 06/16/2023 ALT 10 06/16/2023 CALCIUM 9.8 11/24/2023 Coagulation and platelet No results found for: PT , INR , APTT Labs reviewed and results within anesthesia guidelines This is a 28 y.o. female with no clinical risk factors per ACC/AHA guidelines with moderate functional capacity presents for a(n) low risk procedure. DOS instructions reviewed with patient. Nutritional screening normal, no prescription for supplements given. Patient was offered second provider in room during exam, patient declined. SEC evaluation complete. DOS Physical Exam Medical history, medications, and allergies reviewed. Attestation: This PAT evaluation 11/29/2023. Airway Exam: Mallampati: II Cervical ROM: FROM TM distance: >4 Cardiovascular Exam: Rate: regular Rhythm: regular Pulmonary Exam: (Non-labored breathing) EENT Exam: trachea midline Dental Exam: Otherwise appears intact Anesthesia Plan ASA 2 My patient is approved for the Anesthesia Controlled Medication protocol when under care of a FUNNEL COATER Planned anesthesia: General Team communication plan: LMA Induction: Induction: intravenous. Postoperative Plan: No postoperative mechanical ventilation intended. Patient's planned disposition post procedure is Outpatient. Informed Consent: Discussed plan with FUNNEL COATER. Anesthesia plan and risks discussed with patient. Consent and Attending signature: I and/or my designee have discussed the anesthesia plan, benefits, possible alternatives, parental presence at time of induction (if indicated), and clinically relevant risks that may include dental injury, unintentional awareness, and/or other complications. The patient and/or parent/legal guardian understand, and agree to proceed. All questions answered. documented in this encounter Miscellaneous Notes * Op Note - Bhavin Dominguez MD - 11/29/2023 8:30 AM CDT [facility] Operative Report SURGEON: Bhavin Dominguez MD ART DIRECTOR: N/a DATE OF SURGERY : 11/29/2023 PREOPERATIVE DIAGNOSIS: Pre-op Diagnosis * Chronic maxillary sinusitis [J32.0] * Chronic ethmoidal sinusitis [J32.2] * Hypertrophy of nasal turbinates [J34.3] POSTOPERATIVE DIAGNOSIS: Post-op Diagnosis * Chronic maxillary sinusitis [J32.0] * Chronic ethmoidal sinusitis [J32.2] * Hypertrophy of nasal turbinates [J34.3] PROCEDURE: STEALTH Guided Endoscopoic Bilateral Maxillary Antrostomy, Anterior Ethmoidectomy, Bilateral Inferior Turbinate Reductions (B) ANESTHESIA: GENERAL, Anesthesiologist: Justyn Isaac MD FUNNEL COATER: Wendy Modi CRNA; Rebeca Olmos CRNA INTRAOPERATIVE FINDINGS: Mucosal edema, narrowed/obstructed outflow tracts, no purulence or polyps JUSTIFICATION FOR PROCEDURE: Wendy Chacon is a 28 y.o. female with a history and exam consistent with chronic sinusitis. We extensively discussed her medical conditions and multiple treatment options, including the risks, benefits, and alternatives of surgery. After answering all the questions, consent was signed. There was an understanding of the potential issues and risks involved with surgery, which include: All risks benefits and alternatives were discussed with risks including but not limited to CSF leak, double vision, blindness, loss of smell, bleeding, tooth numbness, septal perforation, and 'empty nose syndrome.' Patient elects to proceed. DESCRIPTION OF PROCEDURE: The patient was brought to the operating room, transferred to the OR table, and identified by name [Wendy Chacon] and ID tag [[id number]; :1995]. Anesthesia was induced without apparent complication. Her eyes and pressure points were protected in the standard fashion. The table and patient were positioned for the surgery. The surgical site was prepared and draped in the standard fashion. Prior to incision, time out was performed and all present were in agreement. I applied topical epinephrine-soaked pledgets into each nasal cavity. STEALTH navigation: I began by setting up the [employer] navigation system. The correct patient and imaging was confirmed. Accuracy confirmed to be better than 2mm and the position of known bony landmarks was confirmed. Navigation was used throughout the case to confirm position of the skull base and orbital wall. Inferior turbinate reduction with outfracture, bilateral: The head of the right inferior turbinate was infiltrated with local anesthetic and then a stab incision was made. Blunt dissection was performed submucosally to the tail of the inferior turbinate with a Gonzales elevator. The inferior turbinate microdebrider blade was then used to debride tissue submucosally from within the inferior turbinate. The inferior turbinate was out-fractured and lateralized with a [place] elevator and Afrin pledgets were placed after hemostasis was confirmed. The identicalprocedure was repeated on the left side. RIGHT maxillary sinusotomy without tissue removal. Uncinate was completely resected. The maxillary sinus was entered through the maxillary natural os. A wide maxillary antrostomy was performed which included the natural os. Findings as described above. LEFT maxillary sinusotomy without tissue removal. Uncinate was completely resected. The maxillary sinus was entered through the maxillary natural os. A wide maxillary antrostomy was performed which included the natural os. RIGHT anterior ethmoidectomy. The ethmoid sinuses were entered through the ethmoid bulla. We removed septations of the ethmoid air cells. Care was taken to not disrupt the lamina papyracea (laterally), fovea ethmoidalis (superiorly), or middle/superior turbinate attachment to skull base (medially) during the dissection. Inferior portion of the middle turbinate was excised and stump was cauterized. LEFT anterior ethmoidectomy. The ethmoid sinuses were entered through the ethmoid bulla. We removedseptations of the ethmoid air cells. Care was taken to not disrupt the lamina papyracea (laterally), fovea ethmoidalis (superiorly), or middle/superior turbinate attachment to skull base (medially) during the dissection. Inferior portion of the middle turbinate was excised and stump was cauterized. Hemostasis was confirmed. Disposition: The patient was turned over to the anesthesiology team to emerge from anesthesia. She was transferred out of the operating room in stable condition. Estimated Blood Loss: No blood loss documented. Specimens: Order Name Source Comment Collection Info Order Time BASIC METABOLIC PANEL 11/24/2023 2:00 PM SURGICAL PATHOLOGY Sinus contents Placed in formalin in the pathology room Collected By: Bhavin Dominguez MD 11/29/2023 9:10 AM Sponge, instrument, needle counts: Correct at end of procedure Complications: None Bhavin Dominguez MD Date: 11/29/2023 Time: 9:45 AM documented in this encounter Plan of Treatment Not on file documented as of this encounter Procedures Procedure Name Priority Date/Time Associated Diagnosis Comments SURGICAL PATHOLOGY Routine 11/29/2023 9: 54 AM CDT Chronic maxillary sinusitis Chronic ethmoidal sinusitis Hypertrophy of nasal turbinates TURBINECTOMY 11/29/2023 8:40 AM CDT Chronic maxillary sinusitis Chronic ethmoidal sinusitis Hypertrophy of nasal turbinates ENDOSCOPIC SINUS SURGERY WITH NAVIGATION 11/29/2023 8:40 AM CDT Chronic maxillary sinusitis Chronic ethmoidal sinusitis Hypertrophy of nasal turbinates POCT HCG, URINE Routine 11/29/2023 7:59 AM CDT documented in this encounter Results * Surgical pathology (11/29/2023 9:54 AM CDT) Tissue (Sinus contents) 11/29/2023 9:09 AM CDT Comment:Placed in formalin i n the pathology room Narrative PATHOLOGY [facility] - 11/30/2023 10:45 AM CDT [address] ??[id number] Tele: ?? Padmini Wayne MD - Barrel Driller Note to Patients: This report may contain a detailed description of human tissue sent by a health care provider to the laboratory for pathologic evaluation. The content of this report is essential for diagnosis and may provide important critical findings. This information may be unfamiliar to patients to review without a medical professional present. It is advised that the patient review this report in the presence of a health care provider who can answer questions and explain the details. SURGICAL PATHOLOGY REPORT Patient Name: ??WENDY CHACON Address: ??[address] [place] [address][birth year] Gender: ??F : ??1995 (Age: 28) Service: ??Surgery Location: ??[facility] [place], ?? Hospital #: ??[id number] Patient Type: ??[facility] SAME DAY SURGERY Accession #: ? [id number] Taken: ? 11/29/2023 Received ? 11/29/2023 Reported: ? 11/30/2023 Physician(s): ? Bhavin Dominguez M.D. Shari Coley D.O. DIAGNOSIS: Facial sinuses, removal of contents: ? - Chronic sinusitis 11/30/2023 10:45 Examining Pathologist: Sukhwinder Parker M.D. Report Reviewed and Electronically Signed By ??Sukhwinder Parker M.D. SPECIMEN TYPE: A: SINUS CONTENTS CLINICAL IMPRESSION AND HISTORY: Chronic maxillary sinusitis, chronic ethmoidal sinusitis, hypertrophy of nasal turbinates GROSS DESCRIPTION: Received in formalin labeled WENDY CHACON and sinus contents is a suction sock containing multiple devlin tissue fragments, 1.5 x 1 x 0.3 cm in aggregate. ??Liner Inserter sections are submitted in A1. ?? jxi/11/29/2023 11:00 ? LKB,JXI MICROSCOPIC DESCRIPTION: Microscopic examination supports the above captioned diagnosis. Clerical Data Follows A; [id number] REPORT IMAGES AND/OR SCANNED DOCUMENTS ONLY VIEWABLE IN PDF FORMAT The immunohistochemical test(s) cited in this report, if any, was developed and its performance characteristics determined by [facility] Pathology Department. ??It has not been cleared or approved by the U.S. Food and Drug Administration. ??The FDA has determined that such clearance or approval is not necessary. ??This test is used for clinical purposes. ??It should not be regarded as investigational or for research. ??[facility] is certified under the Clinical Laboratory Improvement Amendments of 1988 (CLIA) as qualified to perform high complexity testing. ??Immunostains were performed on formalin-fixed paraffin embedded tissue using a polymer diaminobenzidine chromogen detection system. Antibodies used may include clone SP1 (rabbit monoclonal, estrogen receptor), clone 1E2 (rabbit monoclonal progesterone receptor), Ki-67 (rabbit monoclonal, 30-9), CD117 (rabbit polyclonal, c-kit), and anti-Her-2/jonathan (4B5) (rabbit monoclonal primary antibody). Bhavin Dominguez MD LAB PATHOLOGY ORDERABLES Final Result PATHOLOGY [facility] Receiving [address] [place] [address] * POCT hCG, urine (11/29/2023 7:59 AM CDT) HCG, ur, POC Negative Negative Lot Number [id number] QC Backgroud Clear Acceptable QC Control Line Acceptable Urine 11/29/2023 7:59 AM CDT Tika Richardson NP POINT OF CARE TEST ORDER CHEIKH Final Result documented in this encounter Visit Diagnoses Diagnosis Chronic maxillary sinusitis Chronic ethmoidal sinusitis Hypertrophy of nasal turbinates documented in this encounter Admitting Diagnoses Diagnosis Chronic maxillary sinusitis Chronic ethmoidal sinusitis Hypertrophy of nasal turbinates documented in this encounter Administered Medications Inactive Administered Medications - up to 3 most recent administrations Medication Order MAR Action Action Date Dose Rate Site acetaminophen (TYLENOL) tablet 1,000 mg 1,000 mg, oral, Once, On Mon11/29/23 at 0745, For 1 dose, Pre-Op, Indications: Pre-Emptive AnalgesiaIndications:Pre-Emptive Analgesia Given 11/29/2023 7:49 AM CDT 1,000 mg Carrier Fluids for Secondary Infusion - 0.9% Sodium Chloride 30 mL, intravenous, As needed, For priming tubing and/or flushing, Starting on Mon11/29/23 at 0708, Pre-Op, 0-250 ml/hr to flush line after IV infusions when no maintenance IV ordered. Infuse 30mL at the same rate as the secondary infusion. Run as primary IV, not intended for KVO. dextrose (D10W) 10% bolus 250 mL 250 mL, intravenous, at 1,000 mL/hr, Administer over 15 Minutes, Every 15 min PRN, blood glucose less than 70 mg/dL and UNABLE to swallow/take PO glucose/juice., Starting on Mon11/29/23 at 1000, Phase I, After treatment for hypoglycemia, recheck BG followed by treatment every 15 minutes until the BG is greater than 100 mg/dL. Then check BG 1 hour post treatment. If BG is less than 100 mg/dL, repeat Q15 minute BG checks and treatment. Call MD for each episode of hypoglycemia., Indications: hypoglycemic disorderIndications:hypoglycemic disorder dextrose (GLUTOSE) 40 % gel 15 g 15 g, oral, Every 15 min PRN, low blood sugar, blood glucose less than 70 mg/dL, Starting on Mon11/29/23 at 1000, Phase I, If patient is alert and able to eat/drink, give 15 gm glucose or one juice (4 fluid ounces) NOT ORANGE JUICE. After treatment for hypoglycemia, recheck BG followed by treatment every 15 minutes until the BG is greater than 100 mg/dL. Then check BG 1 hour post-treatment. If BG is less than 100 mg/dL, repeat Q15 minute BG checks and treatment. Call MD for each episode of hypoglycemia. FILLER SHREDDER STATES GLUTOSE-15 CONTAINS GLUCOSE 40% W/W (50% W/V), Indications: hypoglycemic disorderIndications:hypoglycemic disorder dimenhyDRINATE (DRAMAMINE) tablet 25 mg 25 mg, oral, Once, On Mon11/29/23 at 0745, For 1 dose, Pre-Op, Indications: Prevention of Nausea and VomitingIndications:Prevention of Nausea and Vomiting Given 11/29/2023 7:50 AM CDT 25 mg gabapentin (NEURONTIN) capsule 300 mg 300 mg, oral, Once, On Mon11/29/23 at 0745, For 1 dose, Pre-Op, Indications: Pre-Emptive AnalgesiaIndications:Pre-Emptive Analgesia Given 11/29/2023 7:49 AM CDT 300 mg Lactated Ringer's (LR) infusion 30 mL/hr, intravenous, Continuous, Starting on Mon11/29/23 at 0745, Pre-Op Restarted 11/29/2023 9:51 AM CDT Rate/Dose Verify 11/29/2023 8:40 AM CDT 30 mL/h r New Bag 11/29/2023 7:49 AM CDT 30 mL/hr 30 mL/hr lidocaine (PF) (XYLOCAINE) 10 mg/mL (1 %) preservative free injection 2-10 mg 2-10 mg (0.2-1 mL), other, Once as needed, pain with IV placement, Starting on Mon11/29/23 at 0708, For 1 dose, Pre-Op, Administer volume needed to infiltrate IV site. oxymetazoline (AFRIN) 0.05 % nasal spray 2 spray 2 spray, each nostril, Once, On Mon11/29/23 at 0745, For 1 dose, Pre-Op, Indications: in pre-op areaIndications:in pre-op area Given 11/29/2023 7:50 AM CDT 2 sprays scopolamine patch 72 hour 1 patch 1 patch, transdermal, Administer over 72 Hours, Once, On Mon11/29/23 at 0830, For 1 dose, Pre-Op Medication Applied 11/29/2023 7:55 AM CDT 1 patch Behind Right Ear sodium chloride 0.9% flush 0.5-20 mL 0.5-20 mL, intra-catheter, As needed, line care, Starting on Mon11/29/23 at 0708, Pre-Op, Flush volume based on line type and size. Flush before and after each use. documented in this encounter Active and Recently Administered Medications Times are shown in CDT. Scheduled Medication Order 11/27/2023 11/28/2023 11/29/2023 acetaminophen (TYLENOL) tablet 1,000 mg (COMPLETED) 1,000 mg, oral, Once, On Mon11/29/23 at 0745, For 1 dose, Pre-Op, Indications: Pre-Emptive Analgesia 0749 (Given - Provid er: Ave Raymond RN) ceFAZolin (ANCEF) 2,000 mg/20 mL in sterile water (premix) 2,000 mg (COMPLETED) 2,000 mg, intravenous, at 400 mL/hr, Administer over 3 Minutes, Once, On Mon11/29/23 at 0745, For 1 dose, Pre-Op, Indications: Prophylaxis, Surgical 0846 (Given - Provid er: Rebeca Olmos CRNA) dimenhyDRINATE (DRAMAMINE) tablet 25 mg (COMPLETED) 25 mg, oral, Once, On Mon11/29/23 at 0745, For 1 dose, Pre-Op, Indications: Prevention of Nausea and Vomiting 0750 (Given - Provid er: Ave Raymond RN) gabapentin (NEURONTIN) capsule 300 mg (COMPLETED) 300 mg, oral, Once, On Mon11/29/23 at 0745, For 1 dose, Pre-Op, Indications: Pre-Emptive Analgesia 0749 (Given - Provid er: Ave Raymond RN) oxymetazoline (AFRIN) 0.05 % nasal spray 2 spray (COMPLETED) 2 spray, each nostril, Once, On Mon11/29/23 at 0745, For 1 dose, Pre-Op, Indications: in pre-op area 0750 (Given - Provid er: Ave Raymond RN) scopolamine patch 72 hour 1 patch 1 patch, transdermal, Administer over 72 Hours, Once, On Mon11/29/23 at 0830, For 1 dose, Pre-Op 0755 (Medication Prema lied - Provider: Ave Raymond RN)1257 (Due: Medication Removed - Provider: Automatic Discharge Provider - Comment: Time automatically adjusted from order being discontinued) Continuous Medication Order 11/27/2023 11/28/2023 11/29/2023 Lactated Ringer's (LR) infusion 30 mL/hr, intravenous, Continuous, Starting on Mon11/29/23 at 0745, Pre-Op 0749 (New Bag - Prov ider: Ave Raymond RN)0840 (Rate/Dose Verify - Provider: Rebeca Olmos CRNA)0950 (Paused - Provider: Rebeca Olmos CRNA - Comment: Switch to gravity)0951 (Restarted - Provider: Rebeca Olmos CRNA)1657 (Due: Stopped) PRN Medication Order 11/27/2023 11/28/2023 11/29/2023 albuterol 2.5 mg /3 mL (0.083 %) nebulizer solution 2.5 mg 2.5 mg, nebulization, As needed, wheezing, Starting on Mon11/29/23 at 1000, For 2 doses, Phase I, Notify Anesthesiologist. , Indications: Bronchospastic Pulmonary Disease Carrier Fluids for Secondary Infusion - 0.9% Sodium Chloride 30 mL, intravenous, As needed, For priming tubing and/or flushing, Starting on Mon11/29/23 at 0708, Pre-Op, 0-250 ml/hr to flush line after IV infusions when no maintenance IV ordered. Infuse 30mL at the same rate as the secondary infusion. Run as primary IV, not intended for KVO. dextrose (D10W) 10% bolus 250 mL 250 mL, intravenous, at 1,000 mL/hr, Administer over 15 Minutes, Once as needed, blood glucose less than 70 mg/dL, Starting on Mon11/29/23 at 0727, Pre-Op, Indications: Hypoglycemia dextrose (D10W) 10% bolus 250 mL(Linked Group 1) 250 mL, intravenous, at 1,000 mL/hr, Administer over 15 Minutes, Every 15 min PRN, blood glucose less than 70 mg/dL and UNABLE to swallow/take PO glucose/juice., Starting on Mon11/29/23 at 1000, Phase I, After treatment for hypoglycemia, recheck BG followed by treatment every 15 minutes until the BG is greater than 100 mg/dL. Then check BG 1 hour post treatment. If BG is less than 100 mg/dL, repeat Q15 minute BG checks and treatment. Call MD for each episode of hypoglycemia., Indications: hypoglycemic disorder dextrose (GLUTOSE) 40 % gel 15 g(Linked Group 1) 15 g, oral, Every 15 min PRN, low blood sugar, blood glucose less than 70 mg/dL, Starting on Mon11/29/23 at 1000, Phase I, If patient is alert and able to eat/drink, give 15 gm glucose or one juice (4 fluid ounces) NOT ORANGE JUICE. After treatment for hypoglycemia, recheck BG followed by treatment every 15 minutes until the BG is greater than 100 mg/dL. Then check BG 1 hour post-treatment. If BG is less than 100 mg/dL, repeat Q15 minute BG checks and treatment. Call MD for each episode of hypoglycemia. FILLER SHREDDER STATES GLUTOSE-15 CONTAINS GLUCOSE 40% W/W (50% W/V), Indications: hypoglycemic disorder diphenhydrAMINE (BENADRYL) 50 mg/mL injection 12.5 mg 12.5 mg, intravenous, Every 15 min PRN, itching, Starting on Mon11/29/23 at 1000, For 2 doses, Phase I, Max cumulative dose 50 mg., Indications: Itching EPINEPHrine (ADRENALIN) 1 mg/mL nasal solution (CANCELED) As needed, Starting on Mon11/29/23 at 0907, Intra-Op, Indications: Nasal Congestion 0907 (Given - Provid er: Bhavin Dominguez MD - Comment: Applied to cotttonoids PRN) fentaNYL (SUBLIMAZE) preservative free injection 25 mcg 25 mcg, intravenous, Every 5 min PRN, Within 15 minutes of arrival to the PACU, maximum dose of 50 mcg total., Starting on Mon11/29/23 at 1000, For 2 doses, Phase I, Within 15 minutes of arrival to the PACU. Maximum dose of 50 mcg total, then proceed to PACU 1st line analgesic or notify the anesthesiologist if needed., Indications: Pain fentaNYL (SUBLIMAZE) preservative free injection 50 mcg 50 mcg, intravenous, Once as needed, breakthrough pain, Starting on Mon11/29/23 at 1000, For 1 dose, Phase I, Administer for uncontrolled or increasing pain while in PACU only. fluorescein 1 mg ophthalmic strip (CANCELED) As needed, Starting on Mon11/29/23 at 0907, Intra-Op 0907 (Given - Provid er: Bhavin Dominguez MD) glucagon injection 1 mg 1 mg, intramuscular, Every 30 min PRN, low blood sugar, blood glucose less than 70 mg/dL AND no IV access AND unable to take PO glucose/juice., Starting on Mon11/29/23 at 1000, Phase I, After Glucagon is administered, position patient on side if possible to avoid aspiration. Obtain IV access. Follow glucagon treatment with glucose treatment or IV dextrose. After treatment for hypoglycemia, recheck BG followed by treatment every 15 minutes until the BG is greater than 100 mg/dL. Then check BG 1 hour post treatment. If BG is less than 100 mg/dL, repeat Q15 minute BG checks and treatment. Call MD for each episode of hypoglycemia. Reconstitute 1 mg vial with 1 mL SWFI. Use immediately following reconstitution. haloperidol (HALDOL) injection 1 mg 1 mg, intravenous, Administer over 5 Minutes, Once as needed, nausea, vomiting, Starting on Mon11/29/23 at 1000, For 1 dose, Phase I, If post-operative nausea and/or vomiting is not relieved by ondansetron within 30 minutes or if more than 8mg of ondansetron have been given within the last 6 hours. HYDROmorphone (DILAUDID) injection 0.2 mg 0.2 mg, intravenous, Administer over 2 Minutes, Every 10 min PRN, 1st line for pain, Starting on Mon11/29/23 at 1000, For 10 doses, Phase I, Switch to 2nd line analgesic order if pain is uncontrolled or increasing after 1 dose. Notify Anesthesiologist if total PACU dose reaches 2 mg and pain score 5/10 or more., Indications: Pain HYDROmorphone (DILAUDID) injection 0.4 mg 0.4 mg, intravenous, Administer over 2 Minutes, Every 10 min PRN, 2nd line for pain, Starting on Mon11/29/23 at 1000, For 5 doses, Phase I, May administer 10 mintes after 1st dose of 1st line analgesic agent for uncontrolled or increasing pain. Revert to 1st line dose if POSS of 3. Notify Anesthesiologist if total PACU dose reaches 2 mg and pain score 5/10 or more., Indications: Pain insulin lispro (HumaLOG, ADMELOG) 100 unit/mL injection 0-5 Units 0-5 Units, subcutaneous, Once as needed, high blood sugar, Starting on Mon11/29/23 at 1000, For 1 dose, Phase I, Blood glucose mg/dL: 149 or less: No insulin 150-199: add 1 unit 200-249: add 2 units 250-299: add 3 units 300-349: add 4 units and notify physician for adjustment of insulin orders. 350-399: add 5 units and notify physician for adjustment of insulin orders. Over 400: Notify physician for adjustment of insulin orders. Do NOT hold for NPO Status, Indications: Stress Hyperglycemia labetaloL (NORMODYNE,TRANDATE) injection 5 mg 5 mg, intravenous, at 30 mL/hr, Administer over 2 Minutes, Every 10 min PRN, high blood pressure, Starting on Mon11/29/23 at 1000, For 4 doses, Phase I, Max cumulative dose 20 mg. Dose if systolic blood pressure greater than 180 AND heart rate greater than 70. lidocaine (PF) (XYLOCAINE) 10 mg/mL (1 %) preservative free injection 2-10 mg 2-10 mg (0.2-1 mL), other, Once as needed, pain with IV placement, Starting on Mon11/29/23 at 0708, For 1 dose, Pre-Op, Administer volume needed to infiltrate IV site. lidocaine-EPINEPHrine (XYLOCAINE with EPI) 1 %-1:100,000 injection (CANCELED) As needed, Starting on Mon11/29/23 at 0944, Intra-Op, Indications: Administration of Local Anesthesia 0944 (Given - Provid er: Bhavin Dominguez MD) meperidine (DEMEROL) preservative free injection 12.5 mg 12.5 mg, intravenous, Administer over 5 Minutes, Every 10 min PRN, shivering, Starting on Mon11/29/23 at 1000, For 2 doses, Phase I, Max cumulative dose 25 mg., Indications: Shivering naloxone (NARCAN) 0.4 mg/mL injection 0.04-0.4 mg 0.04-0.4 mg, intravenous, Once as needed, other, excessive sedation/respiratory depression, Starting on Mon11/29/23 at 1000, For 1 dose, Phase I, BEFORE ADMINISTERING - call anesthesiologist to verify administration. Then, dilute 0.4 mg with 9 mL NS (final concentration 0.04 mg/mL). For respiratory depression (respiratory rate less than 6), administer 0.4 mg IVP over 30 seconds. For excessive sedation administer 0.04 mg (1 mL) every 1 minute until desired level of alertness. For IV, administer over 30 seconds., Indications: Opioid Toxicity ondansetron (ZOFRAN) injection 4 mg 4 mg, intravenous, Administer over 2 Minutes, Once as needed, nausea, vomiting, Starting on Mon11/29/23 at 1000, For 1 dose, Phase I, Proceed to haloperidol if more than 8 mg of ondansetron have been given within the last 6 hours., Indications: Prevention of Post-Operative Nausea and Vomiting oxyCODONE (ROXICODONE) tablet 5 mg 5 mg, oral, As needed, 1st line for pain, Starting on Mon11/29/23 at 1000, For 2 doses, Phase I, 1st ORAL choice for pain, when the patient is able to tolerate PO medications. May repeat in 1 hour if pain is uncontrolled or increasing after 1st dose., Indications: Pain racepinephrine (ASTHMANEFRIN) 2.25 % nebulizer solution 0.5 mL 0.5 mL, nebulization, As needed, other, stridor, Starting on Mon11/29/23 at 1000, For 2 doses, Phase I, Notify Anesthesiologist. , Indications: Wheezing sodium chloride 0.9% flush 0.5-20 mL 0.5-20 mL, intra-catheter, As needed, line care, Starting on Mon11/29/23 at 0708, Pre-Op, Flush volume based on line type and size. Flush before and after each use. sodium chloride 0.9% irrigation (CANCELED) As needed, Starting on Mon11/29/23 at 0905, Intra-Op 0905 (Given - Provid er: Bhavin Dominguez MD - Comment: PRN on the sterile field for irrigaiton)0906 (Given - Provider: Bhavin Dominguez MD - Comment: Off the field for irrigation for the microdebrieder) Linked Groups Order Group 1: dextrose (GLUTOSE) 40 % gel 15 gJump to med 15 g, oral, Every 15 min PRN, low blood sugar, blood glucose less than 70 mg/dL, Starting on Mon11/29/23 at 1000, Phase I, If patient is alert and able to eat/drink, give 15 gm glucose or one juice (4 fluid ounces) NOT ORANGE JUICE. After treatment for hypoglycemia, recheck BG followed by treatment every 15 minutes until the BG is greater than 100 mg/dL. Then check BG 1 hour post-treatment. If BG is less than 100 mg/dL, repeat Q15 minute BG checks and treatment. Call MD for each episode of hypoglycemia. FILLER SHREDDER STATES GLUTOSE-15 CONTAINS GLUCOSE 40% W/W (50% W/V), Indications: hypoglycemic disorder Or dextrose (D10W) 10% bolus 250 mLJump to med 250 mL, intravenous, at 1,000 mL/hr, Administer over 15 Minutes, Every 15 min PRN, blood glucose less than 70 mg/dL and UNABLE to swallow/take PO glucose/juice., Starting on Mon11/29/23 at 1000, Phase I, After treatment for hypoglycemia, recheck BG followed by treatment every 15 minutes until the BG is greater than 100 mg/dL. Then check BG 1 hour post treatment. If BG is less than 100 mg/dL, repeat Q15 minute BG checks and treatment. Call MD for each episode of hypoglycemia., Indications: hypoglycemic disorder documented in this encounter Orders Medications Ordered That Augustien ht Not Have Been Administered Count Last Ordered Date First Ordered Date albuterol 2.5 mg /3 mL (0.08 3 %) nebulizer solution 2.5 mg 1 11/29/2023 Carrier Fluids for Secondary Infusion - 0.9% Sodium Chloride 1 11/29/2023 ceFAZolin (ANCEF) 2,000 mg/2 0 mL in sterile water (premix) 2,000 mg 1 11/29/2023 dextrose (D10W) 10% bolus 250 mL 2 11/29/19 dextrose (GLUTOSE) 40 % gel 15 g 1 11/29/19 24 diphenhydrAMINE (BENADRYL) 5 0 mg/mL injection 12.5 mg 1 11/29/2023 EPINEPHrine (ADRENALIN) 1 mg /mL nasal solution 11/29/2023 fentaNYL (SUBLIMAZE) preserv ative free injection 25 mcg 1 11/29/2023 fentaNYL (SUBLIMAZE) preserv ative free injection 50 mcg 1 11/29/2023 fluorescein 1 mg ophthalmic strip 1 024 glucagon injection 1 mg 1 11/29/2023 haloperidol (HALDOL) injection 1 mg 1 11/28 HYDROmorphone (DILAUDID) injection 0.2 mg 1 11/29/2023 HYDROmorphone (DILAUDID) injection 0.4 mg 1 11/29/2023 insulin lispro (HumaLOG, ADM ELOG) 100 unit/mL injection 0-5 Units 1 11/29/2023 labetaloL (NORMODYNE,TRANDAT E) injection 5 mg 11/29/2023 lidocaine (PF) (XYLOCAINE) 1 0 mg/mL (1 %) preservative free injection 2-10 mg 1 11/29/2023 lidocaine-EPINEPHrine (XYLOC ROXANNE with EPI) 1 %-1:100,000 injection 1 11/29/2023 meperidine (DEMEROL) preserv ative free injection 12.5 mg 1 11/29/2023 naloxone (NARCAN) 0.4 mg/mL injection 0.04-0.4 mg 1 11/29/2023 ondansetron (ZOFRAN) injection 4 mg 11/28 oxyCODONE (ROXICODONE) tablet 5 mg 1 2023 racepinephrine (ASTHMANEFRIN ) 2.25 % nebulizer solution 0.5 mL 1 11/29/2023 scopolamine patch 72 hour 1 patch 024 sodium chloride 0.9% flush 0.5-20 mL 11/14 sodium chloride 0.9% irrigation 1 4 Discharge Count Last Ordered Date First Orde red Date DISCHARGE PATIENT 1 11/29/2023 documented in this encounter Additional Health Concerns Infection Onset Date Last Indicated Resolved Time COVID: Recovered Comment:Added based on recent COVID infection. 09/17/2023 10/12/2023 12/16/2023 3:05 AM C DT documented as of this encounter Care Teams Logging Worker Relationship Specialty Start Date End Date Shari Coley DO PCP - General Family Medicine 06/25/19 02/29/24 Stuart Li PA Physician Naval Architect Specialist Physician Naval Architect Specialist 06/25/19 Patricia Bowden MD [address] [place] [address] Referring Physician Dermatology 06/26/20 Alison Syed MD [address] [place] [address] Consulting Physician Obstetrics and Gynecology 07/02/21 Christopher Cadet MD [address] [place] [address] Consulting Physician General Surgery 07/02/21 documented as of this encounter
--- OUTSIDE RECORDS SUMMARY | 2024-07-29 05:44 | XMS_ITS | Encounter Summary ---
Author Organization [facility] Healthcare Address [address] [place] [address] Care Team Providers Care Repair Electric Motor Assembler Name Role Phone ColeyShari Primary Care Provider [phone] Stuart Li Unavailable [phone] Patricia Bowden MD Unavailable [phone] Alison Syed MD Unavailable [phone] Christopher Cadet MD Unavailable Encounter Details Date Type Department Care Team (Latest Contact Info) Description 12/25/2023 6:16 PM CDT - 12/25/2023 11:59 PM CDT Hospital Encounter 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 Organism susceptible to cefdinir, I will call this out to her pharmacy on file. Please have her go to pharmacy, parts picker this medication, and started. She should f/u with PCP if s/s persist. * Result Encounter Note - Cata Graves MA - 12/25/2023 11:59 PM CDT Patient aware. documented in this encounter Plan of Treatment Not on file documented as of this encounter Procedures Procedure Name Priority Date/Time Associated Diagnosis Comments URINE CULTURE Routine 12/25/2023 6:16 PM CDT Dysuria documented in this encounter Results * (ABNORMAL) Urine culture Urine, clean voided (12/25/2023 6:16 PM CDT) Report Final Report: Greater than or equal to 100,000 colonies/mL of Proteus mirabilis Plus growth of clinically insignificant bacterial lonnie. (.) Comment:Testing performed by : [facility], [address] [place] [address] Organism PROTEUS MIRABILIS NIXON Organism PLUS GROWTH OF CLINICALLY INSIGNIFICANT LONNIE. NIXON HERNANDEZ Urine, clean voided 12/25/2023 6:16 PM CDT 12/26/2023 4:48 AM CDT Narrative NIXON HERNANDEZ - 12/28/2023 5:57 PM CDT Testing performed by [facility] ([phone]) Organism Antibiotic Method Susceptibility Proteus mirabilis Ampicillin [...] mirabilis Cefdinir INTERPRETATION Susceptible us Vianney Lomeli AUTO BODY REPAIRER [facility] - [facility] DENNYS PEREZ Final Result NIXON HERNANDEZ [id number] [facility] [place] [address] documented in this encounter Visit Diagnoses Diagnosis Dysuria documented in this encounter Care Teams Repair Electric Motor Assembler Relationship Specialty Start Date End Date Shari Coley DO PCP - General Family Medicine 06/25/19 02/29/24 Stuart Li PA Physician Livestock Broker Physician Livestock Broker 06/25/19 Patricia Bowden MD [address] [place] [address] Referring Physician Dermatology 06/26/20 Alison Syed MD [address] [place] [address] Consulting Physician Obstetrics and Gynecology 07/02/21 Christopher Cadet MD [address] [place] [address] Consulting Physician General Surgery 07/02/21 documented as of this encounter
--- OUTSIDE RECORDS SUMMARY | 2024-07-29 05:44 | XMS_ITS | Encounter Summary ---
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 09/17/2023 10/12/2023 12/16/2023 3:05 AM C DT documented as of this encounter Care Teams River Rat Relationship Specialty Start Date End Date Shari Coley DO PCP - General Family Medicine 06/25/19 02/29/24 Stuart Li PA Physician Product Planner Physician Product Planner 06/25/19 Patricia Bowden MD [address] [place] [address] Referring Physician Dermatology 06/26/20 Alison Syed MD [address] [place] [address] Consulting Physician Obstetrics and Gynecology 07/02/21 Christopher Cadet MD [address] [place] [address] Consulting Physician General Surgery 07/02/21 documented as of this encounter
--- OUTSIDE RECORDS SUMMARY | 2024-07-29 05:44 | XMS_ITS | Encounter Summary ---
Author Organization [facility] Address [address] [place] [address] Care Team Providers Care Pedicurist Name Role Phone hSari Coley DO Primary Care Provider [phone]- [phone] Stuart Li Unavailable + [phone] Patricia Bowden MD Unavailable [phone] Alison Syed MD Unavailable + [phone] Christopher Cadet MD Unavailable Encounter Details Date Type Department Care Team (Late st Contact Info) Description 03/14/2023 Orders Only [facility] Primary Care at [address] [place] [address] Shari Coley DO [address] [address] Acute maxillary sinusitis, recurrence not specified (Primary Dx) Social History Tobacco Use Types [...] on file 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 Gender Identity Not on file Sexual Orientation Not on file documented as of this encounter Plan of Treatment Not on file documented as of this encounter Visit Diagnoses Diagnosis Acute maxillary sinusitis, recurrence not specified- Primary documented in this encounter Care Teams Pedicurist Relationship Specialty Start Date End Date Shari Coley DO PCP - General Family Medicine 06/25/19 02/29/24 Stuart Li PA Physician Farm Agent Physician Farm Agent 06/25/19 Patricia Bowden MD [address] [place] [address] Referring Physician Dermatology 06/26/20 Alison Syed MD [address] [place] [address] Consulting Physician Obstetrics and Gynecology 07/02/21 Christopher Cadet MD [address] [place] [address] Consulting Physician General Surgery 07/02/21 documented as of this encounter
--- OUTSIDE RECORDS SUMMARY | 2024-07-29 05:44 | XMS_ITS | Encounter Summary ---
Author Organization [facility] Healthcare Address [address] [place] [address] Care Team Providers Care Hand Slitter Name Role Phone ColeyShari Primary Care Provider +1- [phone] Stuart Li Unavailable [phone]- [phone] Patricia Bowden MD Unavailable [phone] Alison Syed MD Unavailable [phone] Christopher Cadet MD Unavailable Reason for Visit * Reason Comments Sore Throat Sore throat, loss of taste and smell, ear pain, headache, cough, chest heaviness, nasal drainage, body aches and fevers started yesterday Encounter Details Date Type Department Care Team (Late st Contact Info) Description 09/07/2023 9:30 AM SUPERVISOR ERECTION SHOP Office Visit [facility] Convenient Care at [address] [address] Kelley Higgins PA [address] [place] [address] [address] [place], [place] [id number] COVID (Primary Dx) Social History Tobacco Use Types [...] on file 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 Gender Identity Not on file Sexual Orientation Not on file documented as of this encounter Last Filed Vital Signs Vital Sign Reading Time Taken Comments Blood Pressure 120/72 09/07/2023 9:24 AM SUPERVISOR ERECTION SHOP Pulse 71 09/07/2023 9:24 AM SUPERVISOR ERECTION SHOP Temperature 36.7 ??C (98.1 ??F) 09/07/2023 9:24 AM CS T Respiratory Rate 12 09/07/2023 9:24 AM SUPERVISOR ERECTION SHOP Oxygen Saturation 99% 09/07/2023 9:24 AM SUPERVISOR ERECTION SHOP Inhaled Oxygen Concentration - - Weight 74.8 kg (165 lb) 09/07/2023 9:24 AM SUPERVISOR ERECTION SHOP Height - - Body Mass Index 30.17 09/01/2023 12:03 PM SUPERVISOR ERECTION SHOP documented in this encounter Patient Instructions * Patient Instructions* Kelley Higgins PA - 09/07/2023 9:30 AM SUPERVISOR ERECTION SHOP While waiting for your COVID-19 test result or if your COVID-19 test is positive: ISOLATE: Stay home except to get medical care! Separate yourself from other people and pets in yourhome: Do not go to work, school, or public areas, such as stores or social gatherings. Do not use public transportation. If available, stay in a separate bedroom and use a separate bathroom. Ask others to care for your pets. (If possible) Wear a facemask when around other people or pets. Cover your mouth and nose with a tissue when you cough or sneeze. If a tissue is not available, cough or sneeze into your upper sleeve (not your hands). Throw tissues away in trash-can that has a bag in it. Empty your trash daily. Always wash your hands after you throw away the tissue or garbage. QUARANTINE CAN BE COMPLETE ONCE THERE HAS BEEN MINIMUM OF 5 DAYS SINCE SYMPTOM ONSET, FEVER FREE X 24 HOURS AND HAVING SYMPTOM IMPROVEMENT. Self-care: Rest as much as possible. Slowly start to do more each day. Take the medicines recommended by your doctor for fever, body aches, cough, or headaches. (Tylenol or Ibuprofen for aches/pains/fever as needed) (Antihistamines like Claritin or Benadryl as needed for drainage) (Delsym and cough drops/throat lozenges as needed for cough) Drink more liquids as directed to help thin and loosen mucus so it is easier to cough up. Liquids such as water, fruit juice, and broth also help keep you hydrated. Soothe a sore throat by gargling with warm salt water. Make salt water by dissolving ?? teaspoon salt in 1 cup warm water (8 ounces). Older children and adults can also use throat lozenges, ice chips, or sore throat spray. Use a humidifier or vaporizer to increase air moisture in your home. This may make it easier to breathe and help decrease coughing. Use saline nasal drops as directed to relieve congestion. Apply petroleum-based jelly around the outside of nostrils to decrease irritation from blowing yournose. DO NOT smoke or vape. Nicotine and other chemicals in cigarettes and cigars can make your symptoms worse. Monitor your symptoms: Seek medical attention right away if your symptoms get worse, such as if you are having difficulty breathing, shortness of breath, new confusion or inability to arouse, or bluish lips or face. If indicated a pulse ox will be soon delivered to your home - monitor your oxygen saturations with this device. If you find your Oxygen Saturation is falling 92% or below please notify your PCP rightaway or seek medical attention. If you have a medical emergency, call 911 and notify the EMS personnel that you have or are being evaluated for COVID-19. Put on a facemask before emergency medical services arrive [employer]ISOR ERECTION SHOP * Attachments The following attachments cannot be sent through Care Everywhere. * Upper Respiratory Infection (AfterCare(R) Instructions(ER/ED)) (Tajik) documented in this encounter Progress Notes * Kelley Higgins PA - 09/07/2023 9:30 AM CST Images from the original note were not included. Subjective/Objective Patient ID: Wendy Jansen is a 28 y.o. female. Chief Complaint Sore Throat (Sore throat, loss of taste and smell, ear pain, headache, cough, chest heaviness, nasal drainage, body aches and fevers started yesterday) Pt presents w/ sore throat x 1 day. Also c/o ear pain, JONES, cough, nasal congestion, rhinorrhea, tactile fever, BA, chills. No N/V/D, sob. Taking tylenol and ibuprofen w/ mild improvement. Mom has covid currently. Review of Systems All systems reviewed and are negative or non contributory for this patient's presentation today other than as stated in the HPI . Physical Exam Constitutional: General: She is not in acute distress. Appearance: She is not ill-appearing or toxic-appearing. HENT: Head: Normocephalic and atraumatic. Right Ear: Tympanic membrane, ear canal and external ear normal. Left Ear: Tympanic membrane, ear canal and external ear normal. Nose: Congestion and rhinorrhea present. Mouth/Throat: Mouth: Mucous membranes are moist. Pharynx: Oropharynx is clear. Posterior oropharyngeal erythema present. No oropharyngeal exudate. Eyes: Conjunctiva/sclera: Conjunctivae normal. Pupils: Pupils are equal, round, and reactive to light. Cardiovascular: Rate and Rhythm: Normal rate and regular rhythm. Heart sounds: Normal heart sounds. Pulmonary: Effort: Pulmonary effort is normal. No respiratory distress. Breath sounds: Normal breath sounds. No wheezing or rhonchi. Musculoskeletal: General: Normal range of motion. Cervical back: Normal range of motion. Skin: General: Skin is warm and dry. Neurological: General: No focal deficit present. Mental Status: She is alert and oriented to person, place, and time. Psychiatric: Mood and Affect: Mood normal. Behavior: Behavior normal. Vitals: 09/07/23 0924 BP: 120/72 Pulse: 71 Resp: 12 Temp: 36.7 ??C (98.1 ??F) SpO2: 99% Weight: 74.8 kg (165 lb) Assessment/Plan -covid positive -vials stable, pt non toxic -lungs cta, oxygen 99% on RA -supportive care Diagnoses and all orders for this visit: COVID (Primary) - POCT rapid strep A - POC Influenza A/B, COVID-19 antigen - Throat culture Throat; Future Recent Results (from the past 4 hour(s)) POCT rapid strep A Collection Time: 09/07/23 9:38 AM Result Value Ref Range Rapid Strep A, POC Negative Negative POC Influenza A/B, COVID-19 antigen Collection Time: 09/07/23 9:38 AM Result Value Ref Range Influenza A Ag, POC Negative Negative Influenza B Ag, POC Negative Negative COVID-19 Ag POC Positive (A) Presumptive Negative, Invalid Disposition Treatment plan including expectations, follow up, and return precautions discussed with patient/parent, verbalizes understanding. Medication dosage, use, and potential adverse reactions discussed with patient/parent. Advised to follow up with PCP if symptoms do not resolve as expected or sooner if condition worsens. Signs/symptoms warranting ER evaluation reviewed. Patient and/or guardian was given an opportunity to ask questions, questions answered. MELY Go 09/07/23 9:51 AM [employer] ERECTION SHOP documented in this encounter Plan of Treatment Scheduled Orders Name Type Priority Associated Diagnoses Orde r Schedule Throat culture Throat Microbiology Routine COVID Expected: 09/07/2023, Expires: 09/07/2024 documented as of this encounter Procedures Procedure Name Priority Date/Time Associated Diagnosis Comments POC INFLUENZA A/B, COVID-19 ANTIGEN Routine 09/07/2023 9:38 AM SUPERVISOR ERECTION SHOP COVID POCT RAPID STREP Routine 09/07/2023 9:38 AM SUPERVISOR ERECTION SHOP COVID documented in this encounter Results * (ABNORMAL) POC Influenza A/B, COVID-19 antigen (09/07/2023 9:38 AM SUPERVISOR ERECTION SHOP) Influenza A Ag, POC Negative Negative [facility] Influenza B Ag, POC Negative Negative [facility] COVID-19 Ag POC Positive(A) Presumptive Negative, Invalid [facility] Nasal 09/07/2023 9:38 AM SUPERVISOR ERECTION SHOP Kelley BOONE POINT OF CARE TEST ORDER CHEIKH Final Result Performing Organization Address City/State/[facility] Co de Phone Number [facility] [address] * POCT rapid strep A (09/07/2023 9:38 AM SUPERVISOR ERECTION SHOP) Rapid Strep A, POC Negative Negative Swab 09/07/2023 9:38 AM SUPERVISOR ERECTION SHOP Kelley BOONE POINT OF CARE TEST ORDER CHEIKH Final Result documented in this encounter Visit Diagnoses Diagnosis COVID- Primary documented in this encounter Additional Health Concerns Infection Onset Date Last Indicated Resolved Time COVID: Suspected 09/07/2023 09/07/2023 09/07/2023 9:38 AM SUPERVISOR ERECTION SHOP COVID19 09/07/2023 09/07/2023 09/17/2023 3:05 AM SUPERVISOR ERECTION SHOP documented as of this encounter Care Teams Hand Slitter Relationship Specialty Start Date End Date Shari Coley DO PCP - General Family Medicine 06/25/19 02/29/24 Stuart Li PA Physician Route Sales Specialist Physician Route Sales Specialist 06/25/19 Patricia Bowden MD [address] [place] [address] Referring Physician Dermatology 06/26/20 Alison Syed MD [address] [place] [address] Consulting Physician Obstetrics and Gynecology 07/02/21 Christopher Cadet MD [address] [place] [address] Consulting Physician General Surgery 07/02/21 documented as of this encounter
--- OUTSIDE RECORDS SUMMARY | 2024-07-29 05:44 | XMS_ITS | Encounter Summary ---
Author Organization [facility] Healthcare Address [address] [place] [address] Care Team Providers Care Shipping And Receiving Material Handler Name Role Phone ColeyShari Primary Care Provider [phone]- [phone] Stuart Li Unavailable [phone]- [phone] Patricia Bowden MD Unavailable [phone] Alison Syed MD Unavailable [phone] Christopher Cadet MD Unavailable Encounter Details Date Type Department Care Team (Latest Contact Info) Description 12/16/2023 3:17 PM CDT - 12/16/2023 11:59 PM CDT Hospital Encounter [facility] [address] [place] [id number] Acute cystitis with hematuria Discharge Disposition: Discharge to home or self [...] on file 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 Gender Identity Not on file Sexual [...] every morning 06/09/2021 acetaminophen (TYLENOL) 500 mg tabletIndications :Pain Take 2 tablets (1,000 mg total) by mouth every 6 (six) hours as needed for pain 30 tablet 11/29/2023 4 cetirizine (ZyrTEC) 10 mg tablet Take 1 tablet (10 mg total) by mouth daily 90 tablet 12/15/2023 4 clonazePAM (KlonoPIN) 0.5 mg tabletIndications :Panic attacks Take 1 tablet (0.5 mg total) by mouth nightly as needed for anxiety 30 tablet 5 06/16/2023 4 escitalopram (LEXAPRO) 20 mg tabletIndications :Generalized anxiety disorder,Panic attacks Take 1 tablet (20 mg total) by mouth every morning 90 tablet 3 06/16/2023 4 ibuprofen (ADVIL,MOTRIN) 400 mg tablet Take 1 tablet (400 mg total) by mouth every 6 (six) hours as needed for pain 30 tablet 11/29/2023 4 nitrofurantoin monohydrate (MACROBID) 100 mg capsuleIndication s:Acute cystitis with hematuria Take 1 capsule (100 mg total) by mouth 2 (two) times a day for 5 days Take with food 10 capsule 12/16/2023 4 oxyCODONE (ROXICODONE) 5 mg immediate release tabletIndications :Pain Take 1 tablet (5 mg total) by mouth every 4 (four) hours as needed for pain 15 tablet 11/29/2023 4 documented as of this encounter Discharge Disposition Disposition Code Departure Means Destination Discharge to home or self care documented in this encounter Miscellaneous Notes * Result Encounter Note - Vianney Lomeli NP - 12/16/2023 11:59 PM CDT Attempted to call Wendy gonzales, left voicemail. We need to change her antibiotic to cephalexin. Patient to start Macrobid. Cephalexin has already been sent to pharmacy on file. * Result Encounter Note - Cata Graves MA - 12/16/2023 11:59 PM CDT Viewed via my chart documented in this encounter Plan of Treatment Not on file documented as of this encounter Procedures Procedure Name Priority Date/Time Associated Diagnosis Comments URINE CULTURE Routine 12/16/2023 12:30 PM CDT Acute cystitis with hematuria documented in this encounter Results * (ABNORMAL) Urine culture Urine, clean voided (12/16/2023 12:30 PM CDT) Report Final Report: Greater than or equal to 100,000 colonies/mL of Proteus mirabilis Plus growth of clinically insignificant bacterial lonnie. (.) Comment:Testing performed by : [facility], [address] [facility] [address] [facility], [place]., [address] Organism PROTEUS MIRABILIS [place] Organism PLUS GROWTH OF CLINICALLY INSIGNIFICANT LONNIE. [facility] Urine, clean voided 12/16/2023 12:30 PM CDT 12/16/2023 9:38 PM CDT Narrative [facility] - 12/18/2023 11:51 AM CDT Testing performed by [facility] Microbiology Laboratory ([phone]) Organism Antibiotic Method Susceptibility Proteus mirabilis Ampicillin [...] INTERPRETATION Susceptible Proteus mirabilis Cefdinir INTERPRETATION Susceptible Vianney Lomeli [facility] - [facility] Final Result Performing Organization Address City/State/[facility] Co de Phone Number [facility] [address] Department of Laboratories [place], [place] [id number] documented in this encounter Visit Diagnoses Diagnosis Acute cystitis with hematuria documented in this encounter Care Teams Shipping And Receiving Material Handler Relationship Specialty Start Date End Date Shari Coley DO PCP - General Family Medicine 06/25/19 02/29/24 Stuart Li PA Physician Sugar Mill Worker Physician Sugar Mill Worker 06/25/19 Patricia Bowden MD [address] [place] [address] Referring Physician Dermatology 06/26/20 Alison Syed MD [address] [place] [address] Consulting Physician Obstetrics and Gynecology 07/02/21 Christopher Cadet MD [address] [place] [address] Consulting Physician General Surgery 07/02/21 documented as of this encounter
--- OUTSIDE RECORDS SUMMARY | 2024-07-29 05:44 | XMS_ITS | Encounter Summary ---
Author Organization [facility] Healthcare Address [address] [place] [address] Care Team Providers Care Phone Triage Specialist Name Role Phone BrijeshShari Primary Care Provider [phone]- [phone] Stuart Li Unavailable [phone]- [phone] Patricia Bowden MD Unavailable [phone] Alison Syed MD Unavailable [phone] Christopher Cadet MD Unavailable Reason for Visit * Reason Comments Urinary Symptom X 2 days, burning, c loudy, odor, Encounter Details Date Type Department Care Team (Late st Contact Info) Description 12/16/2023 3:15 PM CDT Office Visit 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 Gender Identity Not on file Sexual Orientation Not on file documented as of this encounter Last Filed Vital Signs Vital Sign Reading Time Taken Comments Blood Pressure 116/79 12/16/2023 3:03 PM CDT Pulse 81 12/16/2023 3:03 PM CDT Temperature 36.7 ??C (98.1 ??F) 12/16/2023 3:03 PM CD T Respiratory Rate 16 12/16/2023 3:03 PM CDT Oxygen Saturation 100% 12/16/2023 3:03 PM CDT Inhaled Oxygen Concentration - - Weight 73 kg (161 lb) 12/16/2023 3:03 PM CDT Height 157.5 cm (5' 2.01 ) 12/16/2023 3:03 PM CD T Body Mass Index 29.44 12/16/2023 3:03 PM CDT documented in this encounter Patient Instructions * Patient Instructions* Vianney Lomeli NP - 12/16/2023 3:15 PM CDT If you have no improvement or worsening [...] meet your needs. Thank you for choosing [facility]! It was my pleasure to see you today, I hope you feel better soon! Vianney Lomeli ROD GREASER * Attachments The following attachments cannot be sent through Care Everywhere. * Urinary Tract Infection in Women (Nutritional Health Coach) (Maltese) documented in this encounter Ordered Prescriptions Prescription Sig Dispense Quantity Refills Last Filled Start Date End Date nitrofurantoin monohydrate (MACROBID) 100 mg capsuleIndications :Acute cystitis with hematuria Take 1 capsule (100 mg total) by mouth 2 (two) times a day for 5 days Take with food 10 capsule 12/16/2023 documented in this encounter Progress Notes * Vianney Lomeli NP - 12/16/2023 3:15 PM CDT Images from the original note were not included. Subjective/Objective Patient ID: Wendy Jansen is a 28 y.o. female. Chief Complaint Urinary Symptom (X 2 days, burning, cloudy, odor, ) Pt [facility] to [facility] UTI This is a new problem. Episode onset: 2 days ago. The problem occurs every urination. The problem has been unchanged. The quality of the pain is described as burning. There has been no fever. She is Sexually active (denies concern for std). There is No history of pyelonephritis. Pertinent negativesinclude no chills, flank pain, frequency, hematuria, nausea, urgency or vomiting. Treatments tried:cranberry pills. There is no history of recurrent UTIs. Review of Systems Constitutional: Negative for chills, diaphoresis, fatigue and fever. Respiratory: Negative. Cardiovascular: Negative. Gastrointestinal: Negative for abdominal pain, constipation, diarrhea, nausea and vomiting. Genitourinary: Positive for dysuria. Negative for difficulty urinating, flank pain, frequency, hematuria, urgency, vaginal bleeding and vaginal discharge. Cloudy and odorous urine Musculoskeletal: Negative for back pain. Neurological: Negative [...] Behavior: Behavior normal. Behavior is cooperative. Vitals: 12/16/23 1503 BP: 116/79 Pulse: 81 Resp: 16 Temp: 36.7 ??C (98.1 ??F) TempSrc: Temporal SpO2: 100% Weight: 73 kg (161 lb) Height: 157.5 cm (5' 2.01 ) No results found. Past Medical History: [...] Hypertrophy of nasal turbinates Current Outpatient Medications: Aviane 0.1-20 mg-mcg per [...] by mouth every morning, Disp: , Rfl: acetaminophen (TYLENOL) 500 mg tablet, Take 2 tablets (1,000 mg total) by mouth every 6 (six) hoursas needed for pain, Disp: 30 tablet, Rfl: 0 fluticasone propionate (FLONASE) 50 mcg/actuation nasal spray, Administer 1 spray into each nostrilas needed for rhinitis (Patient not taking: Reported on 12/16/2023), Disp: , Rfl: ibuprofen (ADVIL,MOTRIN) 400 mg tablet, Take 1 tablet (400 mg total) by mouth every 6 (six) hours as needed for pain (Patient not taking: Reported on 12/16/2023), Disp: 30 tablet, Rfl: 0 nitrofurantoin monohydrate (MACROBID) 100 mg capsule, Take 1 capsule (100 mg total) by mouth 2 (two) times a day for 5 days Take with food, Disp: 10 capsule, Rfl: 0 oxyCODONE (ROXICODONE) 5 mg immediate [...] Diagnoses and all orders for this visit: Acute cystitis with hematuria (Primary) - POCT urinalysis dipstick - Urine culture Urine, clean voided; Future - nitrofurantoin monohydrate (MACROBID) 100 mg capsule; Take 1 capsule (100 mg total) by mouth 2 (two) times a day for 5 days Take with food Recent Results (from the past 4 hour(s)) POCT urinalysis dipstick Collection Time: 12/16/23 3:22 PM Result Value Ref Range Color, Urine, POC Yellow Clarity, ur, POC Clear Clear Glucose, ur, POC Negative Negative MG/DL Bilirubin, ur, POC Negative Negative, Small, Moderate, Large Ketones, ur, POC Negative Negative Specific [place], POC 1.030 1.003 - 1.030 Blood, ur, POC Large (A) Negative pH, ur, POC 5.5 5.0 - 8.0 Protein, ur, POC 100. (A) Negative Urobilinogen, urine, POC 0.2 0.2 - 1.0 mg/dL Nitrite, ur, POC Negative Negative Leukocytes, ur, POC Large (A) Negative Lot Number [id number] Patient Education: -Take all antibiotic medications as prescribed. -We will notify you of urine culture [...] worse. ??Contact your primary care doctor or [facility] STICKER if: ?? You have a fever. ?? You have white or yellow discharge from your vagina. ?? You do not feel better after 2 days of taking antibiotics. Disposition Treatment plan including expectations, follow up, [...] office note has been partially dictated using [employer] software, and as a result portions of the record may have been created with this software. Occasional wrong-word or '[id number]' substitutions may have occurred due to the inherent limitations of voice recognition software. Read the chartcarefully and recognize, using context, where substitutions have occurred. documented in this encounter Plan of Treatment Not on file documented as of this encounter Procedures Procedure Name Priority Date/Time Associated Diagnosis Comments POCT URINALYSIS DIPSTICK Routine 12/16/2023 3:22 PM CDT Acute cystitis with hematuria documented in this encounter Results * (ABNORMAL) POCT urinalysis dipstick (12/16/2023 3:22 PM CDT) Color, Urine, POC Yellow Clarity, ur, POC Clear Clear Glucose, ur, POC Negative Negative MG/DL Bilirubin, ur, POC Negative Negative, Small, Moderate, Large Ketones, ur, POC Negative Negative Specific [place], POC 1.030 1.003 - 1.030 Blood, ur, POC Large(A) Negative pH, ur, POC 5.5 5.0 - 8.0 Protein, ur, POC 100.(A) Negative Urobilinogen, urine, POC 0.2 0.2 - 1.0 mg/dL Nitrite, ur, POC Negative Negative Leukocytes, ur, POC Large(A) Negative Lot Number [id number] Urine 12/16/2023 3:22 PM CDT Vianney Lomeli NP POINT OF CARE TEST ORDERABLES F inal Result * (ABNORMAL) Urine culture Urine, clean voided (12/16/2023 12:30 PM CDT) Report Final Report: Greater than or equal to 100,000 colonies/mL of Proteus mirabilis Plus growth of clinically insignificant bacterial lonnie. (.) Comment:Testing performed by : [facility], [address] [place] [address] Organism PROTEUS MIRABILIS [place] Organism PLUS GROWTH OF CLINICALLY INSIGNIFICANT LONNIE. [place] Urine, clean voided 12/16/2023 12:30 PM CDT 12/16/2023 9:38 PM CDT Narrative N[place]ON HERNANDEZ - 12/18/2023 11:51 AM CDT Testing performed by [facility] ([phone]) Organism Antibiotic Method Susceptibility Proteus mirabilis Ampicillin [...] mirabilis Cefdinir INTERPRETATION Susceptible us Vianney Lomeli CENTRIFUGAL EXTRACTOR OPERATOR LAB MICROBIOLOGY - GENERAL [place] PEREZ Final Result Performing Organization Address City/State/[facility] Co de Phone Number [place] [address] [address] Department [place] [address] documented in this encounter Visit Diagnoses Diagnosis Acute cystitis with hematuria- Primary Acute cystitis with hematuria documented in this encounter Care Teams Phone Triage Specialist Relationship Specialty Start Date End Date Shari Coley DO PCP - General Family Medicine 06/25/19 02/29/24 Stuart Li PA Physician Director Biomedical Engineering Physician Director Biomedical Engineering 06/25/19 Patricia Bowden MD [address] [place] [address] Referring Physician Dermatology 06/26/20 Alison Syed MD [address] [place] [address] Consulting Physician Obstetrics and Gynecology 07/02/21 Christopher Cadet MD [address] [place] [address] Consulting Physician General Surgery 07/02/21 documented as of this encounter
--- OUTSIDE RECORDS SUMMARY | 2024-07-29 05:44 | XMS_ITS | Encounter Summary ---
Author Organization [facility] Healthcare Address [address] [place] [address] Care Team Providers Care Ceramic Designer Name Role Phone BrijeshShari Primary Care Provider [phone]- [phone] Stuart Li Unavailable [phone]- [phone] Patricia Bowden MD Unavailable [phone] Alison Syed MD Unavailable [phone] Christopher Cadet MD Unavailable Encounter Details Date Type Department Care Team (Late st Contact Info) Description 11/27/2023 Telephone [facility] - [facility] [address] [address] Mery Salinas V., RN Social History Tobacco Use Types Packs/Day Years [...] on file 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 RN - 11/27/2023 3:01 PM CDT Left voicemail for call back. Left voicemail with main and direct number for call back. documented in this encounter Plan of Treatment Not on file documented as of this encounter Visit Diagnoses Not on filedocumented in this encounter Additional Health Concerns Infection Onset Date Last Indicated Resolved Time COVID: Recovered Comment:Added based on recent COVID infection. 09/17/2023 10/12/2023 12/16/2023 3:05 AM C DT documented as of this encounter Care Teams Ceramic Designer Relationship Specialty Start Date End Date Shari Coley DO PCP - General Family Medicine 06/25/19 02/29/24 Stuart Li PA Physician Undertaker Helper Physician Undertaker Helper 06/25/19 Patricia Bowden MD [address] [place] [address] Referring Physician Dermatology 06/26/20 Alison Syed MD [address] [place] [address] Consulting Physician Obstetrics and Gynecology 07/02/21 Christopher Cadet MD [address] [place] [address] Consulting Physician General Surgery 07/02/21 documented as of this encounter
--- OUTSIDE RECORDS SUMMARY | 2024-07-29 05:44 | XMS_ITS | Encounter Summary ---
Author Organization [facility] Healthcare Address [address] [place] [address] Care Team Providers Care Service Center Technician Name Role Phone Shari Coley DO Primary Care Provider [phone]- [phone] Stuart Li Unavailable [phone]- [phone] Patricia Bowden MD Unavailable [phone] Alison Syed MD Unavailable [phone] Christopher Cadet MD Unavailable Encounter Details Date Type Department Care Team (Late st Contact Info) Description 06/19/[address] 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 Gender Identity Not on file Sexual Orientation Not on file documented as of this encounter Plan of Treatment Not on file documented as of this encounter Visit Diagnoses Diagnosis Sleep disorder- Primary Unspecified sleep disturbance documented in this encounter Care Teams Service Center Technician Relationship Specialty Start Date End Date Shari Coley DO PCP - General Family Medicine 06/25/19 02/29/24 Stuart Li PA Physician Barrel Polisher Physician Barrel Polisher 06/25/19 Patricia Bowden MD [address] [place] [address] Referring Physician Dermatology 06/26/20 Alison Syed MD [address] [place] [address] Consulting Physician Obstetrics and Gynecology 07/02/21 Christopher Cadet MD [address] [place] [address] Consulting Physician General Surgery 07/02/21 documented as of this encounter
--- OUTSIDE RECORDS SUMMARY | 2024-07-29 05:44 | XMS_ITS | Encounter Summary ---
Author Organization [facility] Healthcare Address [address] [place] [address] Care Team Providers Care Support Services Specialist Name Role Phone Shari Coley Primary Care Provider [phone]- [phone] Stuart Li Unavailable [phone] Patricia Bowden MD Unavailable [phone] Alison Syed MD Unavailable [phone] Christopher Cadet MD Unavailable Reason for Visit * Reason Comments Post-op Encounter Details Date Type Department Care Team (Late st Contact Info) Description 12/15/2023 1:40 PM CDT Office Visit [facility] Specialists - [facility] [address] [facility] [address] [place] [address] Bhavin Dominguez MD [address] [address] Chronic maxillary sinusitis (Primary Dx); Chronic ethmoidal sinusitis Social History Tobacco Use Types Packs/Day Years Used Date Smoking Tobacco: Never Passive Smoke Exposure: Past Smokeless Tobacco: Never Tobacco Cessation:Counseling Given: Not Answered Comments:None Passive Exposure Comments:mother smoker Alcohol Use [...] file 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 Gender Identity Not on file Sexual Orientation Not on file documented as of this encounter Last Filed Vital Signs Vital Sign Reading Time Taken Comments Blood Pressure - - Pulse - - Temperature - - Respiratory Rate - - Oxygen Saturation - - Inhaled Oxygen Concentration - - Weight 74.8 kg (165 lb) 12/15/2023 4:41 PM CDT Height 157.5 cm (5' 2 ) 12/15/2023 4:41 PM CDT Body Mass Index 30.18 12/15/2023 4:41 PM CDT documented in this encounter Patient Instructions * Patient Instructions* Bhavin Dominguez MD - 12/15/2023 1:40 PM CDT - continue nasal rinses at least twice a day - resume flonase - resume zyrtec documented in this encounter Ordered Prescriptions Prescription Sig Dispense Quantity Refills Last Filled Start Date End Date cetirizine (ZyrTEC) 10 mg tablet Take 1 tablet (10 mg total) by mouth daily 90 tablet 12/15/2023 03/01/2024 documented in this encounter Progress Notes * Bhavin Dominguez MD - 12/15/2023 1:40 PM CDT Images from the original note were not included. Otolaryngology - Head & Neck Surgery Clinic Note Subjective/Objective Patient ID: Wendy Jansen is a 28 y.o. female. Consultation requested by Shari Coley DO, for evaluation of Post-op Chief Complaint Post-op Interval (12/15/2023) Wendy Jansen returns in follow-up. [...] Laterality Date APPENDECTOMY 07/17/2019 Current Outpatient Medications: acetaminophen (TYLENOL) 500 mg [...] nostrilas needed for rhinitis, Disp: , Rfl: ibuprofen (ADVIL,MOTRIN) 400 mg tablet, Take 1 tablet (400 mg total) by mouth every 6 (six) hours as needed for pain, Disp: 30 tablet, Rfl: 0 oxyCODONE (ROXICODONE) 5 mg immediate release tablet, Take 1 tablet (5 mg total) by mouth every 4 (four) hours as needed for pain, Disp: 15 tablet, Rfl: 0 spironolactone (ALDACTONE) 50 mg [...] Comment: Pill Alcohol Use: Not At Risk (11/24/2023) AUDIT-C Frequency of Alcohol Consumption: 2-4 times a month Average Number of Drinks: 1 or 2 Frequency of Binge Drinking: Never Physical Exam: There were no vitals filed for this visit. Appearance: The patient is well-developed, well-nourished in [...] Audiologic testing independently interpreted by me: Procedure: Sinonasal Endoscopy with debridement (CPT 03045-68): Due to the patient???s chronic sinusitis/chronic rhinitis, sinonasal endoscopy with debridement is indicated. After discussion of risks and benefits, and topical decongestion and anesthesia, an endoscope was used to perform nasal endoscopy with debridement. Suctions and Garbiel forceps were used to remove crust and fibrin debris from the affected sinuses without complications. A time out identifying the patient, the procedure, the location of the procedure and any concerns was performed prior to beginning the procedure. Assessment/Plan Diagnoses and all orders for this visit: Chronic maxillary sinusitis (Primary) Chronic ethmoidal sinusitis Other orders - cetirizine (ZyrTEC) 10 mg tablet; Take 1 tablet (10 mg total) by mouth daily In summary, this is a 28 y.o. female with chronic chronic sinusitis and recurrent sinus infections.Symptoms have been refractory nasal regimen with saline irrigation, Flonase, Astelin as well as oral antibiotics. Sinus CT demonstrates opacification of the bilateral maxillary and anterior ethmoid si nuses. Now s/p bilateral functional endoscopic sinus surgery with maxillary antrostomy, anterior ethmoidectomy, Stealth navigation guidance, and turbinate reduction on 11/29/23 Debridement performed today. Antrostomies and anterior ethmoid cavities are widely patent and healing appropriately. Continue nasal saline rinses, resume Flonase and Zyrtec, follow up 3 months. Patient Instructions - continue nasal rinses at least twice a day - resume flonase - resume zyrtec Return in about 3 months (around 03/16/2024). Bhavin Dominguez MD Division of Otolaryngology, [facility] Office: documented in this encounter Plan of Treatment Not on file documented as of this encounter Visit Diagnoses Diagnosis Chronic maxillary sinusitis- Primary Chronic ethmoidal sinusitis documented in this encounter Discontinued Medications Medication Sig Discontinue Reason Start Date End Da te cetirizine (ZyrTEC) 10 mg tablet Take 1 tablet (10 mg total) by mouth as needed 12/15/2023 documented as of this encounter Additional Health Concerns Infection Onset Date Last Indicated Resolved Time COVID: Recovered Comment:Added based on recent COVID infection. 09/17/2023 10/12/2023 12/16/2023 3:05 AM C DT documented as of this encounter Care Teams Support Services Specialist Relationship Specialty Start Date End Date Shari Coley DO PCP - General Family Medicine 06/25/19 02/29/24 Stuart Li PA Physician Excel Vba Developer Physician Excel Vba Developer 06/25/19 Patricia Bowden MD [address] [place] [address] Referring Physician Dermatology 06/26/20 Alison Syed MD [address] [place] [address] Consulting Physician Obstetrics and Gynecology 07/02/21 Christopher Cadet MD [address] [place] [address] Consulting Physician General Surgery 07/02/21 documented as of this encounter
--- OUTSIDE RECORDS SUMMARY | 2024-07-29 05:44 | XMS_ITS | Encounter Summary ---
Author Organization [facility] Medical Group Address [address] [facility] [address] [place] [address] Care Team Providers Care Makeup Artist Name Role Phone Shari Coley DO Primary Care Provider [phone] Stuart Li Unavailable [phone] Patricia Bowden MD Unavailable [phone] Alison Syed MD Unavailable [phone] Christopher Cadet MD Unavailable Reason for Visit * Reason Onset Date Comments Sinus Problem 03/13/2023 Runny Nose 03/13/2023 Headache 03/13/2023 Call Back 03/13/2023 Encounter Details Date Type Department Care Team (Late st Contact Info) Description 03/13/2023 Nurse Triage [facility] Primary Care at [address] [place] [address] Shari Coley DO [address] [facility] [address] [address] Social History Tobacco Use Types Packs/Day Years [...] file 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 * Telephone Encounter - Elba Wood - 03/14/2023 8:32 AM CDT Call Back Caller???s Concern: Patient called back, attempted to schedule patient but no visits. Called backline and warm transferred patient Caller???s Call back #: [phone] Does message need to be routed? No * Telephone Encounter - Janina Hall MA - 03/13/2023 4:15 PM CDT [id number] Per Advise patient to test for Covid, then put her on renay for video visit once she has her covid results. Please schedule pt. For teledoc appt. 03/14/23 with after pt. Tests for covid. Mychart message sent to pt. also * Telephone Encounter - Elba Alvarez RN - 03/13/2023 1:51 PM CDT Reason for Disposition Earache Protocols used: Sinus Pain or [id number] Wendy suspects that she has another sinus infection, recurring issue, last treated in November. She sent a patient message too. Sinus pain and pressure, headache, runny nose, fatigue, ear fullness and ear popping, blowing out a lot of thick mucus. Denies fever ,sore throat, viral illness symptoms. Headed to [place] next week on vacation. Treating it herself with fluids, sudafed, zyrtec, benadryl. She justfinished her period yesterday, denies . She is hoping for an antibiotic and/or other medicinal intervention. Forwarding to Shari Coley DO and clinical team for review and intervention. Wendy Jansen can be reached at [phone] (home) . Allergies and preferred pharmacy verified and current. Preferred Pharmacy [facility] - [place], [place] - [address] [place] [id number] Allergies as of 03/13/2023 (No Known Allergies) Encouraged to call back if there are further questions or concerns. Encouraged to call back if symptoms persist or worsen. * Telephone Encounter - Elba Alvarez RN - 03/13/2023 1:44 PM CDT Regarding: sinus pressure, nasal drainage, headache ----- Message from Ashanti Albarado sent at 03/13/2023 1:38 PM CDT ----- Symptom Based Call Caller's Callback #: [phone] Chief Complaint(s): sinus pressure, nasal drainage, headache Duration: two weeks What type of symptom(s) is the patient experiencing? Non-Emergent. Is this a new or reoccurring symptom(s)? New What have you tried to help your symptom(s)? otc Why was appointment not scheduled? Appointment availability did not meet the patient's need. Additional Comments: fatigue, sent a message via my chart -awaiting response, tried to schedule heran appointment to no avail Does message need to be routed? Yes-Action Needed documented in this encounter Plan of Treatment Not on file documented as of this encounter Visit Diagnoses Not on filedocumented in this encounter Care Teams Makeup Artist Relationship Specialty Start Date End Date Shari Coley DO PCP - General Family Medicine 06/25/19 02/29/24 Stuart Li PA Physician Clinical Research Administrator Physician Clinical Research Administrator 06/25/19 Patricia Bowden MD [address] [place] [address] Referring Physician Dermatology 06/26/20 Alison Syed MD [address] [place] [address] Consulting Physician Obstetrics and Gynecology 07/02/21 Christopher Cadet MD [address] [place] [address] Consulting Physician General Surgery 07/02/21 documented as of this encounter
--- OUTSIDE RECORDS SUMMARY | 2024-07-29 05:44 | XMS_ITS | Encounter Summary ---
Author Organization [facility] Healthcare Address [address] [place] [address] Care Team Providers Care Equipment Records Supervisor Name Role Phone BrijeshShari Primary Care Provider [phone] Stuart Li Unavailable [phone] Patricia Bowden MD Unavailable [phone] Alison Syed MD Unavailable [phone] Christopher Cadet MD Unavailable Reason for Visit * Auth/Cert (Routine) Specialty Diagnoses / Procedures Referred By Verenice t Referred To Contact Diagnoses Chronic maxillary sinusitis Chronic ethmoidal sinusitis Hypertrophy of nasal turbinates Chronic maxillary sinusitis [J32.0] Chronic ethmoidal sinusitis [J32.2] Hypertrophy of nasal turbinates [J34.3] Procedures MS NASAL/SINUS ENDOSCOPY W/MAXILLARY ANTROSTOMY MS NSL/SINUS NDSC MAX ANTROST W/RMVL TISS MAX SINUS MS NASAL/SINUS NDSC W/PARTIAL ETHMOIDECTOMY MS STRTCTC CPTR ASSTD PX EXTRADURAL CRANIAL MS SUBMUCOUS RESCJ INFERIOR TURBINATE PRTL/COMPL MS NASAL/SINUS NDSC SURG W/BX POLYPC/DBRDMT SPX STEALTH Guided Endoscopoic Bilateral Maxillary Antrostomy, Anterior Ethmoidectomy Bilateral Inferior Turbinate Reductions Referral ID Status Reason Start Date Expiration Date Visits Re quested Visits Authorized [id number] 1 1 Encounter Details Date Type Department Care Team (Late st Contact Info) Description 11/29/2023 8:30 AM CDT - 11/29/2023 10:00 AM CDT Surgery [facility] Operating Room [address] [place] [id number] Bhavin Dominguez MD [address] [place] [address] STEALTH Guided Endoscopoic Bilateral Maxillary Antrostomy, Anterior Ethmoidectomy Surgery Details Date/Time Status Location OR Service Patient Class Case Class Case Type Trauma Case? 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 Sinus Rinse is aasw-czy-yvdykqj and available in most stores ([employer], etc). Mild nose bleeding (or blood to [...] needed in the clinic. Contact the office ([phone]) if . . . Fever over 102o [...] the kit, and helpful videos on the [employer] website. YouTube video: [email or web address] [email or web address]/[email or web address] documented in this encounter Medications at Time [...] Taking? Last Dose Start Date End Date Provider Aviansantiago 0.1-20 mg-mcg per tablet 11/24/2023 11/06/22 -- Lenora Alicea MD cetirizine (ZyrTEC) 10 mg tablet Past Week -- -- Lenora Alicea MD clonazePAM (KlonoPIN) 0.5 mg tablet Past Week 06/16/23 -- Shari Coley, DO Take 1 tablet (0.5 mg total) by mouth nightly as needed for anxiety escitalopram (LEXAPRO) 20 mg tablet 11/24/2023 06/16/23 06/15/24 Shari Coley DO Take 1 tablet (20 mg total) by mouth every morning fluticasone propionate (FLONASE) 50 mcg/actuation nasal spray Past Week -- -- Lenora Alicea MD spironolactone (ALDACTONE) 50 mg tablet 11/24/2023 06/09/21 -- ProviderLenora MD -- Patient taking differently: -- Current [...] Medication protocol when under care of a CELL POURER Planned anesthesia: General Team communication plan: LMA Induction: Induction: intravenous. Postoperative Plan: No postoperative mechanical ventilation intended. Patient's planned disposition post procedure is Outpatient. Informed Consent: Discussed plan with CELL POURER. Anesthesia plan and risks discussed with patient. [...] Dominguez MD - 11/29/2023 8:30 AM CDT [facility] Operative Report SURGEON: Bhavin Dominguez MD HAND OR MACHINE PASTER: N/a DATE OF SURGERY : 11/29/2023 PREOPERATIVE [...] (B) ANESTHESIA: GENERAL, Anesthesiologist: Justyn Isaac MD CELL POURER: Wendy Modi CRNA; Rebeca Olmos CRNA INTRAOPERATIVE [...] by name [Wendy Chacon] and ID tag [MR:[id number]; :1995]. Anesthesia was induced without apparent complication. [...] navigation: I began by setting up the [employer] navigation system. The correct patient and imaging [...] tail of the inferior turbinate with a Spink elevator. The inferior turbinate microdebrider blade was then used to debride tissue submucosally from within the inferior turbinate. The inferior turbinate was out-fractured and lateralized with a Victoria elevator and Afrin pledgets were placed after [...] i n the pathology room Narrative PATHOLOGY [facility] - 11/30/2023 10:45 AM CDT [address] ??[address] Tele: ?? Padmini Wayne MD - Outside Contractor Sales Note to Patients: This report may contain [...] PATHOLOGY REPORT Patient Name: ??WENDY CHACON Address: ??[address] [place] [address] Gender: ??F : ??1995 (Age: 28) Service: ??Surgery Location: ??[facility] [place] Hospital #: ??[id number] Patient Type: ??[facility] [place] Accession #: ? [id number] Taken: ? 11/29/2023 Received ? 11/29/2023 Reported: ? 11/30/2023 Physician(s): ? Piyush Cramer D.O. DIAGNOSIS: Facial sinuses, removal of contents: [...] x 1 x 0.3 cm in aggregate. ??Patient Transport Officer sections are submitted in A1. ?? jxi/11/29/2023 11:00 ? LKB,JXI MICROSCOPIC DESCRIPTION: Microscopic examination supports the above captioned diagnosis. Clerical Data Follows A; 71643 REPORT IMAGES AND/OR SCANNED DOCUMENTS ONLY VIEWABLE IN PDF FORMAT The immunohistochemical test(s) cited in this report, if any, was developed and its performance characteristics determined by [facility] Pathology Department. ??It has not been cleared or approved by the U.S. Food and Drug Administration. ??The FDA has determined that such clearance or approval is not necessary. ??This test is used for clinical purposes. ??It should not be regarded as investigational or for research. ??[facility] Laboratory is certified under the Clinical Laboratory [...] MD LAB PATHOLOGY ORDERABLES Final Result PATHOLOGY [facility] Laboratory Receiving [address] [place] [address] * POCT hCG, urine (11/29/2023 7:59 AM CDT) HCG, ur, POC Negative Negative Lot Number [id number] QC Backgroud Clear Acceptable QC Control Line Acceptable Urine 11/29/2023 7:59 AM CDT Tika Richardson NP POINT OF CARE TEST ORDER CHEIKH Final Result documented in this encounter Visit Diagnoses Diagnosis Chronic maxillary sinusitis Chronic ethmoidal sinusitis Hypertrophy of nasal turbinates Chronic maxillary sinusitis Chronic ethmoidal sinusitis Hypertrophy [...] 0745, For 1 dose, Pre-Op, Indications: Pre-Emptive AnalgesiaIndications:Pre-Emp tive Analgesia Given 11/29/2023 7:49 AM CDT 1,000 [...] for each episode of hypoglycemia., Indications: hypoglycemic disorderIndications:hypoglyc emic disorder dextrose (GLUTOSE) 40 % gel 15 [...] Call MD for each episode of hypoglycemia. OIL FIELD PIPELINE SUPERVISOR STATES GLUTOSE-15 CONTAINS GLUCOSE 40% W/W (50% W/V), Indications: hypoglycemic disorderIndications:hypoglyc emic disorder dimenhyDRINATE (DRAMAMINE) tablet 25 mg 25 mg, oral, Once, On Mon11/29/23 at 0745, For 1 dose, Pre-Op, Indications: Prevention of Nausea and VomitingIndications:Preventi on of Nausea and Vomiting Given 11/29/2023 7:50 AM CDT 25 mg EPINEPHrine (ADRENALIN) 1 mg/mL nasal solution As needed, Starting on Mon11/29/23 at 0907, Intra-Op, Indications: Nasal CongestionIndications:Nasal Congestion Given 11/29/2023 9:07 AM CDT 1 Application fluorescein 1 mg ophthalmic strip As needed, Starting on Mon11/29/23 at 0907, Intra-Op Given 11/29/2023 9:07 AM CDT 1 strip gabapentin (NEURONTIN) capsule 300 mg 300 mg, oral, Once, On Mon11/29/23 at 0745, For 1 dose, Pre-Op, Indications: Pre-Emptive AnalgesiaIndications:Pre-Emp tive Analgesia Given 11/29/2023 7:49 AM CDT 300 [...] lidocaine-EPINEPHrine (XYLOCAINE with EPI) 1 %-1:100,000 injection As needed, Starting on Mon11/29/23 at 0944, Intra-Op, Indications: Administration of Local AnesthesiaIndications:Adm inistration of Local Anesthesia Given 11/29/2023 9:44 AM CDT 10 mL oxymetazoline (AFRIN) 0.05 % nasal spray 2 [...] after each use. sodium chloride 0.9% irrigation As needed, Starting on Mon11/29/23 at 0905, Intra-Op Given 11/29/2023 9:06 AM CDT 250 mL Surgical Site Given 11/29/2023 9:05 AM CDT 500 mL Lopez rgical Site documented in this encounter Active and Recently [...] Call MD for each episode of hypoglycemia. OIL FIELD PIPELINE SUPERVISOR STATES GLUTOSE-15 CONTAINS GLUCOSE 40% W/W (50% W/V), Indications: hypoglycemic disorder diphenhydrAMINE (BENADRYL) 50 mg/mL injection 12.5 mg 12.5 mg, intravenous, Every 15 min PRN, itching, Starting on Mon11/29/23 at 1000, For 2 doses, Phase I, Max cumulative dose 50 mg., Indications: Itching EPINEPHrine (ADRENALIN) 1 mg/mL nasal solution (CANCELED) As needed, Starting on Mon11/29/23 at 0907, Intra-Op, Indications: Nasal Congestion 906 (Given - Provid er: Bhavin Dominguez MD [...] needed, Starting on Mon11/29/23 at 0905, Intra-Op 09 (Given - Provid er: Bhavin Dominguez MD - Comment: PRN on the sterile field for irrigaiton)09 (Given - Provider: Bhavin Domignuez MD - Comment: Off the field for [...] Call MD for each episode of hypoglycemia. OIL FIELD PIPELINE SUPERVISOR STATES GLUTOSE-15 CONTAINS GLUCOSE 40% W/W (50% [...] in this encounter Orders Medications Ordered That Augustine ht Not Have Been Administered Count Last Ordered Date First Ordered Date albuterol 2.5 mg /3 mL (0.08 3 %) nebulizer solution 2.5 mg 1 11/29/2023 Carrier Fluids for Secondary Infusion - 0.9% Sodium Chloride 11/29/2023 ceFAZolin (ANCEF) 2,000 mg/2 0 mL in sterile water (premix) 2,000 mg 1 11/29/2023 dextrose (D10W) 10% bolus 250 mL 11/29/19 dextrose (GLUTOSE) 40 % gel 15 g 11/29/19 diphenhydrAMINE (BENADRYL) 5 0 mg/mL injection 12.5 mg 11/29/2023 fentaNYL (SUBLIMAZE) preserv ative free injection 25 mcg 11/29/2023 fentaNYL (SUBLIMAZE) preserv ative free injection 50 mcg 11/29/2023 glucagon injection 1 mg 11/29/2023 haloperidol (HALDOL) injection 1 mg 11/28 HYDROmorphone (DILAUDID) injection 0.2 mg 11/29/2023 HYDROmorphone (DILAUDID) injection 0.4 mg 11/29/2023 insulin lispro (HumaLOG, ADM ELOG) 100 unit/mL injection 0-5 Units 1 11/29/2023 labetaloL (NORMODYNE,TRANDAT E) injection 5 mg 1 11/29/2023 lidocaine (PF) (XYLOCAINE) 1 0 mg/mL (1 %) preservative free injection 2-10 mg 1 11/29/2023 meperidine (DEMEROL) preserv ative free injection 12.5 mg 1 11/29/2023 naloxone (NARCAN) 0.4 mg/mL injection 0.04-0.4 mg 1 11/29/2023 ondansetron (ZOFRAN) injection 4 mg 1 11/28 oxyCODONE (ROXICODONE) tablet 5 mg 1 2023 racepinephrine (ASTHMANEFRIN ) 2.25 % nebulizer solution 0.5 mL 1 11/29/2023 scopolamine patch 72 hour 1 patch 1 024 sodium chloride 0.9% flush 0.5-20 mL 1 11/14 Discharge Count Last Ordered Date First Orde red Date DISCHARGE PATIENT 1 11/29/2023 documented in this encounter Additional Health Concerns Infection Onset Date Last Indicated Resolved Time COVID: Recovered Comment:Added based on recent COVID infection. 09/17/2023 10/12/2023 12/16/2023 3:05 AM C DT documented as of this encounter Care Teams Equipment Records Supervisor Relationship Specialty Start Date End Date Shari Coley DO PCP - General Family Medicine 06/25/19 02/29/24 Stuart Li PA Physician Assembler Faucets Physician Assembler Faucets 06/25/19 Patricia Bowden MD [address] [place] [address] Referring Physician Dermatology 06/26/20 Alison Syed MD [address] [place] [address] Consulting Physician Obstetrics and Gynecology 07/02/21 Christopher Cadet MD [address] [place] [address] Consulting Physician General Surgery 07/02/21 documented as of this encounter
--- OUTSIDE RECORDS SUMMARY | 2024-07-29 05:44 | XMS_ITS | Encounter Summary ---
Author Organization [facility] Healthcare Address [address] [place] [address] Care Team Providers Care Audiology Assistant Name Role Phone BrijeshShari Primary Care Provider [phone]- [phone] Stuart Li Unavailable [phone] Patricia Bowden MD Unavailable Alison Syed MD Unavailable [phone] Christopher Cadet MD Unavailable Reason for Visit * Auth/Cert (Routine) Specialty Diagnoses / Procedures Referred By Verenice t Referred To Contact Diagnoses Chronic maxillary sinusitis Chronic ethmoidal sinusitis Hypertrophy of nasal turbinates Chronic maxillary sinusitis [J32.0] Chronic ethmoidal sinusitis [J32.2] Hypertrophy of nasal turbinates [J34.3] Procedures ME NASAL/SINUS ENDOSCOPY W/MAXILLARY ANTROSTOMY ME NSL/SINUS NDSC MAX ANTROST W/RMVL TISS MAX SINUS ME NASAL/SINUS NDSC W/PARTIAL ETHMOIDECTOMY ME STRTCTC CPTR ASSTD PX EXTRADURAL CRANIAL ME SUBMUCOUS RESCJ INFERIOR TURBINATE PRTL/COMPL ME NASAL/SINUS NDSC SURG W/BX POLYPC/DBRDMT SPX STEALTH Guided Endoscopoic Bilateral Maxillary Antrostomy, Anterior Ethmoidectomy Bilateral Inferior Turbinate Reductions Referral ID Status Reason Start Date Expiration Date Visits Re quested Visits Authorized [id number] 1 1 Encounter Details Date Type Department Care Team (Late st Contact Info) Description 11/29/2023 8:40 AM CDT Anesthesia Event [facility] Operating Room [address] [place] [address], [place] [phone] Justyn Isaac MD [address] [place] [id number] Anesthesia Record Procedure Summary Procedure Name Responsible [...] handoff: PACU 1241 Release from care Meds Name Total lidocaine (cardiac) syringe 2 % 5 mL propofol 200 mg fentaNYL 100 mcg midazolam 2 mg ondansetron 4 mg dexamethasone 4 mg/ml 10 mg dexmedeTOMIDine 16 mcg ceFAZolin (ANCEF) 2,000 mg/20 mL in ster ile water (premix) 2,000 mg 2,000 mg tranexamic acid 1,000 mg Lactated Ringer's (LR) infusion 600 mL * Agents Name O2 N2O Air Sevoflurane Inspired Sevoflurane * Blood No blood administrations on file. Lines, Drains, and Airways Type Details Placement Removal Peripheral IV Placement Date: 11/29/23; Placement Time: 737; Catheter Size: 20 G; Orientation: Left, Posterior; Location: Hand; Site Prep: Chlorhexidine; Technique: Anatomical landmarks; Inserted by: austin; Insertion Attempts: 1; Patient Tolerance: Tolerated well; Removal Date: 11/29/23; Removal Time: 1214 11/29/[address] RN 11/29/23 1214 by hSay Ojeda RN RETIRED Surgical Site 11/29/23; 0939; Bilateral; Nose; 06/18/24 (Retired LDA, Removed/Completed by [facility] with LDA Utility); 1213 (Retired LDA, Removed/Completed by [facility] with LDA Utility) 11/29/23 0939 by Luisana [...] on file 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 Gender Identity Not on file Sexual Orientation Not on file documented as of this encounter OR Notes * Anesthesia Postprocedure Evaluation - Justyn Isaac MD - 11/29/2023 12:41 PM CDT Patient: Wendy Jansen Procedure Summary Date: 11/29/23 [place] / [place] [facility] Anesthesia Start: 08 Anesthesia Stop: 957 Procedures: STEALTH Guided Endoscopoic Bilateral Maxillary Antrostomy, Anterior Ethmoidectomy (Face) Bilateral Inferior Turbinate Reductions (Bilateral: Nose) Diagnosis: Chronic maxillary sinusitis Chronic ethmoidal sinusitis Hypertrophy of nasal turbinates (Chronic maxillary sinusitis [J32.0]) (Chronic ethmoidal sinusitis [J32.2]) (Hypertrophy of nasal turbinates [J34.3]) Surgeons: Bhavin Dominguez MD Responsible Provider: Justyn Isaac MD Anesthesia Type: general ASA Status: 2 Anesthesia Type: general Last vitals BP 118/67 Pulse 87 Temp 36.8 ??C (98.2 ??F) Resp 21 SpO2 97% Anesthesia Post Evaluation Patient location during evaluation: PACU Patient participation: complete - patient participated Level of consciousness: follows simple commands and fully awake Pain management: adequate Airway patency: adequate Cardiovascular status: acceptable and hemodynamically stable Respiratory status: acceptable Hydration status: acceptable Pt is: normothermic Nausea/Vomiting status: none No notable events documented. * Anesthesia Preprocedure Evaluation - Justyn Isaac MD - 11/24/2023 2:54 PM CDT Images from the original note were not included. Anesthesia Evaluation Wendy Jansen is a 28 y.o. female who presents [...] Last Dose Start Date End Date Provider Emiliano 0.1-20 mg-mcg per tablet 11/24/2023 11/06/22 -- [...] Medication protocol when under care of a OPTIONS TRADER Planned anesthesia: General Team communication plan: LMA Induction: Induction: intravenous. Postoperative Plan: No postoperative mechanical ventilation intended. Patient's planned disposition post procedure is Outpatient. Informed Consent: Discussed plan with OPTIONS TRADER. Anesthesia plan and risks discussed with patient. Consent and Attending signature: I and/or my designee have discussed the anesthesia plan, benefits, possible alternatives, parental presence at time of induction (if indicated), and clinically relevant risks that may include dental injury, unintentional awareness, and/or other complications. The patient and/or parent/legal guardian understand, and agree to proceed. All questions answered. documented in this encounter Plan of Treatment Not on file documented as of this encounter Visit Diagnoses Not on filedocumented in this encounter Administered Medications Inactive Administered Medications - up to 3 most recent administrations Medication Order MAR Action Action Date Dose Rate Site ceFAZolin (ANCEF) 2,000 mg/20 mL in sterile water (premix) 2,000 mg 2,000 mg, intravenous, at 400 mL/hr, Administer over 3 Minutes, Once, On Mon11/29/23 at 0745, For 1 dose, Pre-Op, Indications: Prophylaxis, SurgicalIndications:Prophylaxis, Surgical Given 11/29/2023 8:46 AM CDT 2,000 mg dexAMETHasone (DECADRON) 4 mg/mL injection intravenous, Administer over 2 Minutes, As needed, Starting on Mon11/29/23 at 0849, Anesthesia Intra-op Given 11/29/2023 8:46 AM CDT 10 mg dexmedeTOMIDine (PRECEDEX) injection intravenous, As needed, Starting on Mon11/29/23 at 0851, Anesthesia Intra-op Given 11/29/2023 9:09 AM CDT 8 mcg Given 11/29/2023 8:51 AM CDT 4 mcg Given 11/29/2023 8:44 AM CDT 4 mcg fentaNYL (SUBLIMAZE) preservative free injection intravenous, As needed, Starting on Mon11/29/23 at 0842, Anesthesia Intra-op Given 11/29/2023 8:42 AM CDT 100 mcg Lactated Ringer's (LR) infusion 30 mL/hr, intravenous, Continuous, Starting on Mon11/29/23 at 0745, Pre-Op Restarted 11/29/2023 9:51 AM CDT Rate/Dose Verify 11/29/2023 8:40 AM CDT 30 mL/h r New Bag 11/29/2023 7:49 AM CDT 30 mL/hr 30 mL/hr lidocaine (cardiac) (XYLOCAINE) preservative free injection intravenous, As needed, Starting on Mon11/29/23 at 0844, Anesthesia Intra-op, Indications: Ventricular ArrhythmiasIndications:Ventricular Arrhythmias Given 11/29/2023 8:44 AM CDT 5 mL midazolam (VERSED) 1 mg/mL preservative free injection intravenous, Administer over 2 Minutes, As needed, Starting on Mon11/29/23 at 0838, Anesthesia Intra-op Given 11/29/2023 8:38 AM CDT 2 mg ondansetron (ZOFRAN) injection intravenous, Administer over 2 Minutes, As needed, Starting on Mon11/29/23 at 0846, Anesthesia Intra-op Given 11/29/2023 8:46 AM CDT 4 mg propofoL (DIPRIVAN) 10 mg/mL IV intravenous, As needed, Starting on Mon11/29/23 at 0844, Anesthesia Intra-op New Bag 11/29/2023 8:44 AM CDT 200 mg tranexamic acid (CYKLOKAPRON) 1,000 mg/100 mL (10 mg/mL) in sodium chloride (premix) intravenous, Administer over 15 Minutes, As needed, Starting on Mon11/29/23 at 0903, Anesthesia Intra-op Given 11/29/2023 9:03 AM CDT 1,000 mg documented in this encounter Additional Health Concerns Infection Onset Date Last Indicated Resolved Time COVID: Recovered Comment:Added based on recent COVID infection. 09/17/2023 10/12/2023 12/16/2023 3:05 AM C DT documented as of this encounter Care Teams Audiology Assistant Relationship Specialty Start Date End Date Shari Coley DO PCP - General Family Medicine 06/25/19 02/29/24 Stuart Li PA Physician Web Operations Specialist Physician Web Operations Specialist 06/25/19 Patricia Bowden MD [address] [place] [address] Referring Physician Dermatology 06/26/20 Alison Syed MD [address] [place] [address] Consulting Physician Obstetrics and Gynecology 07/02/21 Christopher Cadet MD [address] [place] [address] Consulting Physician General Surgery 07/02/21 documented as of this encounter
--- OUTSIDE RECORDS SUMMARY | 2024-07-29 05:44 | XMS_ITS | Encounter Summary ---
Author Organization [facility] Address [address] [place] [address] Care Team Providers Care Door Worker Name Role Phone Shari Coley DO Primary Care Provider [phone] Stuart Li Unavailable [phone]- [phone] Patricia Bowden MD Unavailable [phone] Alison Syed MD Unavailable [phone] Christopher Cadet MD Unavailable Encounter Details Date Type Department Care Team (Late st Contact Info) Description 03/13/2023 Telephone [facility] Primary Care at [address] [place] [address] Shari Coley DO [address] [address] Social History Tobacco Use Types [...] on file 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 Gender Identity Not on file Sexual Orientation Not on file documented as of this encounter Miscellaneous Notes * Telephone Encounter - Janina Hall MA - 03/14/2023 11:32 AM CDT error documented in this encounter Plan of Treatment Not on file documented as of this encounter Visit Diagnoses Not on filedocumented in this encounter Care Teams Door Worker Relationship Specialty Start Date End Date Shari Coley DO PCP - General Family Medicine 06/25/19 02/29/24 Stuart Li PA Physician Follow Up Clerk Physician Follow Up Clerk 06/25/19 Patricia Bowden MD [address] [place] [address] Referring Physician Dermatology 06/26/20 Alison Syed MD [address] [place] [address] Consulting Physician Obstetrics and Gynecology 07/02/21 Christopher Cadet MD [address] [place] [address] Consulting Physician General Surgery 07/02/21 documented as of this encounter
--- OUTSIDE RECORDS SUMMARY | 2024-07-29 05:44 | XMS_ITS | Encounter Summary ---
Author Organization [facility] Address [address] [place] [address] Care Team Providers Care Program Planner Name Role Phone Shari Coley DO Primary Care Provider [phone]- [phone] Stuart Li Unavailable [phone]- [phone] Patricia Bowden MD Unavailable [phone] Alison Syed MD Unavailable + [phone] Christopher Cadet MD Unavailable Encounter Details Date Type Department Care Team (Late st Contact Info) Description 04/11/2023 Telephone [facility] Primary Care at [address] [place] [address] Shari Coley DO [address] [address] Social History Tobacco Use Types [...] on file 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 Coley. Please reschedule this appointment when the patient calls back. documented in this encounter Plan of Treatment Not on file documented as of this encounter Visit Diagnoses Not on filedocumented in this encounter Care Teams Program Planner Relationship Specialty Start Date End Date Shari Coley DO PCP - General Family Medicine 06/25/19 02/29/24 Stuart Li PA Physician Engraver Set Up Operator Physician Engraver Set Up Operator 06/25/19 Patricia Bowden MD [address] [place] [address] Referring Physician Dermatology 06/26/20 Alison Syed MD [address] [place] [address] Consulting Physician Obstetrics and Gynecology 07/02/21 Christopher Cadet MD [address] [place] [address] Consulting Physician General Surgery 07/02/21 documented as of this encounter
--- OUTSIDE RECORDS SUMMARY | 2024-07-29 05:44 | XMS_ITS | Encounter Summary ---
Author Organization [facility] Address [address] [place] [address] Care Team Providers Care Padded Products Inspector Trimmer Name Role Phone Shari Coley DO Primary Care Provider [phone] Stuart Li Unavailable [phone]- [phone] Patricia Bowden MD Unavailable [phone] Alison Syed MD Unavailable + [phone] Christopher Cadet MD Unavailable Reason for Visit * Reason Comments Head Congestion Pt. States she has b een experieincing runny nose, green in color when she blows her nose, bilateral ear pain, sinus pain and pressure x 3wks. Pt. Denies sore throat, fever or chills. 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 Gender Identity Not on file Sexual Orientation Not on file documented as of this encounter Last Filed Vital Signs Vital Sign Reading Time Taken Comments Blood Pressure - - Pulse - - Temperature - - Respiratory Rate - - Oxygen Saturation - - Inhaled Oxygen Concentration - - Weight 72.6 kg (160 lb) 03/14/2023 1:07 PM CDT Height 160 cm (5' 2.99 ) 03/14/2023 1:07 PM CDT Body Mass Index 28.35 03/14/2023 1:07 PM CDT documented in this encounter Patient Instructions * Patient Instructions* Shari Coley, DO - 03/14/2023 1:00 PM CDT Health Maintenance Topics with due status: Overdue Topic Date Due HPV Vaccines Never done Covid-19 Vaccine 07/28/2021 Health Maintenance Topics with due status: Due Soon Topic Date Due Influenza Vaccine 03/17/2023 Regular Well Visit/Exam 18-64 04/13/2023 Thanks for coming in today! My director of medical education and I are thankful you have trusted us with your care, and hope that you received EXCELLENT care today! Although some conditions may not allow immediate improvement, I aim to always make you feel a little better leaving, than when you came in. [place] not hesitate to call, if you have any questions or concerns, at [phone]. You may receive a phone call, text, MYCHART message, or e-mail asking you to take a survey about your care today. We would love to hear your feedback on how EXCELLENT your care was today! Wishing you better health, always! Dr. Shari Coley * Attachments The following attachments cannot be sent through Care Everywhere. * Sinusitis ([place] T[place]) (Peruvian) documented in this encounter Ordered Prescriptions Prescription Sig Dispense Quantity Refills Last Filled Start Date End Date amoxicillin-clavul anate (AUGMENTIN) 875-125 mg per tabletIndications: Acute recurrent frontal sinusitis Take 1 tablet by mouth 2 (two) times a day for 10 days 20 tablet 03/14/2023 03/24/2023 documented in this encounter Progress Notes * Shari Coley DO - 03/14/2023 1:00 PM CDT Images from the original note were not included. This was a telemedicine visit with Wendy Jansen alone which took place via real-time video connection. During the visit, I was located at home and the patient was located at home in the [facility]. The patient visit started at 1311 hrs and ended at 1322 hrs. My total encounter time on 03/14/2023 was 11 minutes which was spent in the activities documented in the note. This includes time spent prior to the visit and after the visit in direct care of the patient. This time does not include time spent in any separately reportable services. I have explained the option of participating in a telemedicine visit to the patient. After being given an opportunity to ask questions about and discuss this type of visit, the patient verbally consented to proceeding with the telemedicine visit. The patient understands that this service replaces an office visit and they may be billed and/or responsible for any applicable copayments. Shari Coley DO Patient ID: Wendy Jansen is a 27 y.o. female. Assessment/Plan Diagnoses and all orders for this visit: Acute recurrent frontal sinusitis (Primary) Assessment & Plan: Rxs given, increase water intake. May use OTC cough and cold medications of choice prn symptoms. Orders: - amoxicillin-clavulanate (AUGMENTIN) 875-125 mg per tablet; Take 1 tablet by mouth 2 (two) times aday for 10 days Follow up Keep [facility] appt Chief Complaint Subjective/Objective Head Congestion (Pt. States she has been experieincing runny nose, green in color when she blows her nose, bilateral ear pain, sinus pain and pressure x 3wks. Pt. Denies sore throat, fever or chills.) Patient complains of sinus congestion for the past 3 - 4 weeks. No fever, no sore throat. No sick contacts. Tested for COVID last night, test was negative. Sinusitis This is a recurrent problem. The current episode started 1 to 4 weeks ago. The problem has been gradually worsening since onset. Her pain is at a severity of 5/10. The pain is moderate. Associated symptoms include congestion, coughing, ear pain (ears are popping), headaches and sinus pressure. Pertinent negatives include no shortness of breath or sore throat. Past treatments include nasal decongestants (flonase, zyrtec, benadryl). The treatment provided no relief. Review of Systems Constitutional: Negative for fever. HENT: Positive for congestion, ear pain (ears are popping), postnasal drip, rhinorrhea, sinus pressure and sinus pain. Negative for sore throat, trouble swallowing and voice change. Respiratory: Positive for cough. Negative for shortness of breath and wheezing. Gastrointestinal: Negative for abdominal pain, diarrhea and nausea. Neurological: Positive for headaches. All other systems reviewed and are negative. Ht 160 cm (5' 2.99 ) Wt 72.6 kg (160 lb) LMP 03/08/2023 (Exact Date) BMI 28.35 kg/m?? Ht Readings from Last 3 Encounters: 03/14/23 160 cm (5' 2.99 ) 12/02/22 160 cm (5' 3 ) 10/25/22 160 cm (5' 3 ) Wt Readings from Last 3 Encounters: 03/14/23 72.6 kg (160 lb) 12/02/22 70.5 kg (155 lb 6.4 oz) 10/25/22 73.9 kg (163 lb) Temp Readings from Last 3 Encounters: 12/02/22 36.9 ??C (98.4 ??F) (Oral) 10/25/22 36.8 ??C (98.3 ??F) 10/07/22 36.5 ??C (97.7 ??F) (Temporal) BP Readings from Last 3 Encounters: 12/02/22 106/62 10/25/22 106/60 10/07/22 112/78 Pulse Readings from Last 3 Encounters: 12/02/22 62 10/25/22 60 10/07/22 72 BP Readings from Last 3 Encounters: 12/02/22 106/62 10/25/22 106/60 10/07/22 112/78 Physical Exam Vitals and nursing note reviewed. HENT: Head: Normocephalic and atraumatic. Pulmonary: Effort: Pulmonary effort is normal. No respiratory distress. Neurological: Mental Status: She is alert and oriented to person, place, and time. Psychiatric: Mood and Affect: Mood normal. Modified, as this is a telehealth visit today I, Shari Coley DO have personally reviewed all Hospital/ER data including [employer] and Care Everywhere if available. This patient's discharge medication list has been reviewed and reconciled with his medication list in the office chart and has also been reviewed with patient and/or caregiver. I have noted any changes. This note is dictated and transcribed by [employer]. Voltage Tester variances may occur. Despite proofreading, typographical errors may occur. Shari Coley DO documented in this encounter Miscellaneous Notes * Assessment & Plan Note - Shari Coley DO - 03/14/2023 1:22 PM CDT Associated Problem(s): Acute recurrent frontal sinusitis (Resolved 06/16/2023) Rxs given, increase water intake. May use OTC cough and cold medications of choice prn symptoms. documented in this encounter Plan of Treatment Not on file documented as of this encounter Visit Diagnoses Diagnosis Acute recurrent frontal sinusitis- Primary documented in this encounter Discontinued Medications Medication Sig Discontinue Reason Start Date End Da te cefdinir (OMNICEF) 300 mg capsule Take 1 capsule (300 mg total) by mouth 2 (two) times a day 12/02/2022 03/14/2023 documented as of this encounter Care Teams Padded Products Inspector Trimmer Relationship Specialty Start Date End Date Shari ColeyDO PCP - General Family Medicine 06/25/19 02/29/24 Stuart Li PA Physician Architecture Faculty Member Physician Architecture Faculty Member 06/25/19 Patricia Bowden MD [address] [place] [address] Referring Physician Dermatology 06/26/20 Alison Syed MD [address] [place] [address] Consulting Physician Obstetrics and Gynecology 07/02/21 Christopher Cadet MD [address] [place] [address] Consulting Physician General Surgery 07/02/21 documented as of this encounter
--- OUTSIDE RECORDS SUMMARY | 2024-07-29 05:44 | XMS_ITS | Encounter Summary ---
Author Organization [facility] Address [address] [place] [address] Care Team Providers Care Marketing Research Intern Name Role Phone Shari Coley DO Primary Care Provider [phone] Stuart Li Unavailable [phone] Patricia Bowden MD Unavailable [phone] Alison Syed MD Unavailable [phone] Christopher Cadet MD Unavailable Reason for Visit * Reason Comments Sinus Problem * Consultation (Routine) - Authorized Specialty Diagnoses / Procedures Referred By Verenice snow Referred To Contact Otolaryngology Diagnoses Acute sinusitis, recurrence not specified, unspecified location Shari Coley DO Phone: tel: fax: Bhavin Dominguez MD [address] [address] Phone: tel: fax: Referral ID Status Reason Start Date Expiration Date Visits Requested Visits Authorized [id number] Authorized Specialty Services Required 08/29/2023 09/27/2024 1 4 Encounter Details Date Type Department Care Team (Late st Contact Info) Description 09/01/2023 12:40 PM ORACLE FINANCIAL APPLICATION DEVELOPER Office Visit [facility] - [facility] [address] [place] [phone] Bhavin Dominguez MD [address] [place] [address] Acute sinusitis, recurrence not specified, unspecified location Social History Tobacco Use Types Packs/Day Years Used Date Smoking Tobacco: Never Smokeless Tobacco: Never Tobacco Cessation:Counseling Given: Not Answered Comments:None Alcohol Use Standard Drinks/Week Comments Yes [...] on file 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 Gender Identity Not on file Sexual Orientation Not on file documented as of this encounter Last Filed Vital Signs Vital Sign Reading Time Taken Comments Blood Pressure - - Pulse - - Temperature - - Respiratory Rate - - Oxygen Saturation - - Inhaled Oxygen Concentration - - Weight 75.3 kg (166 lb 0.1 oz) 09/01/2023 12:03 PM ORACLE FINANCIAL APPLICATION DEVELOPER Height 157.5 cm (5' 2.01 ) 09/01/2023 12:03 PM C Body Mass Index 30.36 09/01/2023 12:03 PM ORACLE FINANCIAL APPLICATION DEVELOPER documented in this encounter Patient Instructions * Patient Instructions* Bhavin Dominguez MD - 09/01/2023 12:40 PM ORACLE FINANCIAL APPLICATION DEVELOPER - nasal saline rinses, flonase, azelastine spray - follow up with sinus CT LE FINANCIAL APPLICATION DEVELOPER LE FINANCIAL APPLICATION DEVELOPER documented in this encounter Ordered Prescriptions Prescription Sig Dispense Quantity Refills Last Filled Start Date End Date azelastine (ASTELIN) 137 mcg (0.1 %) nasal spray Administer 2 sprays into each nostril 2 (two) times a day Use in each nostril as directed 30 mL 3 09/01/2023 4 azelastine (ASTELIN) 137 mcg (0.1 %) nasal spray Administer 1 spray into each nostril 2 (two) times a day Use in each nostril as directed 30 mL 3 09/01/2023 4 fluticasone propionate (FLONASE) 50 mcg/actuation nasal spray Administer 2 sprays into each nostril daily 1 each 3 09/01/2023 4 documented in this encounter Progress Notes * Bhavin Dominguez MD - 09/01/2023 12:40 PM CST Images from the original note were not included. Otolaryngology - Head & Neck Surgery Clinic Note Subjective/Objective Patient ID: Wendy Jansen is a 28 y.o. female. Consultation requested by Shari Coley DO, for evaluation of Sinus Problem Chief Complaint Sinus Problem History of Present Illness (09/01/2023) Wendy Jansen [...] Laterality Date APPENDECTOMY 07/17/2019 Current Outpatient Medications: Aviane 0.1-20 mg-mcg per [...] 50 mg tablet, , Disp: , Rfl: No Known Allergies Social History Tobacco Use Smoking status: Never Smokeless tobacco: Never Tobacco comments: None Substance and Sexual Activity Drug use: Never Sexual activity: Yes Partners: Male control/protection: Other Comment: Pill Alcohol Use: Not on file Physical Exam: Vitals: 09/01/23 1203 Weight: 75.3 kg (166 lb 0.1 oz) Height: 157.5 cm (5' 2.01 ) Appearance: [...] interpreted by me: Procedure: Nasal Endoscopy (CPT 69135): Indications: Due to inadequate visualization on anterior [...] and all orders for this visit: Acute sinusitis, recurrence not specified, unspecified location - Ambulatory referral to ENT Other orders - fluticasone propionate (FLONASE) 50 mcg/actuation nasal spray; Administer 2 sprays into each nostril daily - azelastine (ASTELIN) 137 mcg (0.1 %) nasal spray; Administer 2 sprays into each nostril 2 (two) times a day Use in each nostril as directed In summary, this is a 28 y.o. female with chronic sinonasal symptoms, allergic rhinitis versus chronic sinusitis. She is having recurrent sinus infections. We will start nasal regimen with saline irrigation, Flonase, Astelin and follow with sinus CT after 4-6 weeks of consistent use of medication. We will assess her paranasal sinus disease. If present will consider sinus surgery, otherwise further medical management or allergy referral. Patient Instructions - nasal saline rinses, flonase, azelastine spray - follow up with sinus CT Return in about 6 weeks (around 10/13/2023). Bhavin Dominguez MD Division of Otolaryngology, [facility] Specialists Office: LE FINANCIAL APPLICATION DEVELOPER documented in this encounter Plan of Treatment Not on file documented as of this encounter Visit Diagnoses Diagnosis Acute sinusitis, recurrence not specified, unspecified location documented in this encounter Discontinued Medications Medication Sig Discontinue Reason Start Date End Da te azelastine (ASTELIN) 137 mcg (0.1 %) nasal spray Administer 1 spray into each nostril 2 (two) times a day Use in each nostril as directed Error 09/01/2023 09/01/2023 documented as of this encounter Orders Outpatient Referral Count Last Ordered Date Fir st Ordered Date AMB REFERRAL TO ENT 1 09/01/2023 documented in this encounter Care Teams Marketing Research Intern Relationship Specialty Start Date End Date Shari Coley DO PCP - General Family Medicine 06/25/19 02/29/24 Stuart Li PA Physician Welding Machine Operator Helper Gas Physician Welding Machine Operator Helper Gas 06/25/19 Patricia Bowden MD [address] [place] [address] Referring Physician Dermatology 06/26/20 Alison Syed MD [address] [place] [address] Consulting Physician Obstetrics and Gynecology 07/02/21 Christopher Cadet MD [address] [place] [address] Consulting Physician General Surgery 07/02/21 documented as of this encounter
--- OUTSIDE RECORDS SUMMARY | 2024-07-29 05:44 | XMS_ITS | Encounter Summary ---
Author Organization [facility] Healthcare Address [address] [place] [address] Care Team Providers Care Proposal Manager Writer Name Role Phone Shari Coley DO Primary Care Provider [phone] Stuart Li Unavailable [phone] Patricia Bowden MD Unavailable [phone] Alison Syed MD Unavailable [phone] Christopher Cadet MD Unavailable Reason for Visit * Reason Comments Annual Exam Encounter Details Date Type Department Care Team (Late st Contact Info) Description 06/16/2023 1:00 PM IT RISK AND ASSURANCE MANAGER Office Visit [facility] Primary Care at [address] [place] [address] Shari Coley DO [address] [address] Annual physical exam (Primary Dx); Panic attacks; Generalized anxiety disorder; Sleep disorder; Screening for deficiency anemia; Encounter for screening for other digestive system disorders; Encounter for screening examination for impaired glucose regulation and diabetes mellitus; Encounter for lipid screening for cardiovascular disease; Screening for thyroid disorder; Screening for blood or protein in urine Social History Tobacco Use Types Packs/Day Years Used Date Smoking Tobacco: Never Smokeless Tobacco: Never Tobacco Cessation:Counseling Given: Not Answered Alcohol Use Standard Drinks/Week Comments Yes 0 [...] on file 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 IT RISK AND ASSURANCE MANAGER Gender Identity Not on file Sexual Orientation Not on file documented as of this encounter Last Filed Vital Signs Vital Sign Reading Time Taken Comments Blood Pressure 108/60 06/16/2023 12:43 PM IT RISK AND ASSURANCE MANAGER Pulse 56 06/16/2023 12:43 PM IT RISK AND ASSURANCE MANAGER Temperature 36.6 ??C (97.8 ??F) 06/16/2023 12:[address] Respiratory Rate 16 06/16/2023 12:43 PM IT RISK AND ASSURANCE MANAGER Oxygen Saturation 98% 06/16/2023 12:43 PM IT RISK AND ASSURANCE MANAGER Inhaled Oxygen Concentration - - Weight 75.3 kg (166 lb 1.6 oz) 06/16/2023 12:43 PM IT RISK AND ASSURANCE MANAGER Height 157.5 cm (5' 2 ) 06/16/2023 12:43 PM IT RISK AND ASSURANCE MANAGER Body Mass Index 30.38 06/16/2023 12:43 PM IT RISK AND ASSURANCE MANAGER documented in this encounter Patient Instructions * Patient Instructions* Shari Coley, DO - 06/16/2023 1:00 PM IT RISK AND ASSURANCE MANAGER Images from the original note were not included. Patient Education Wellness Visit for Adults CLINICAL SPECIALIST: A wellness visit is when you see your healthcare provider to get screened for health problems. Yourhealthcare provider will also give you advice on how to stay healthy. Write down your questions so you remember to ask them. Ask your healthcare provider how often you should have a wellness visit. What happens at a wellness visit: Your healthcare provider will ask about your health, and your family history of health problems. This includes high blood pressure, heart disease, and cancer. He or she will ask if you have symptoms that concern you, if you smoke, and about your mood. You may also be asked about your intake of medicines, supplements, food, and alcohol. Any of the following may bedone: Your weight will be checked. Your height may also be checked so your body mass index (BMI) can be calculated. Your BMI shows if you are at a healthy weight. Your blood pressure and heart rate will be checked. Your temperature may also be checked. Blood and urine tests may be done. Blood tests may be done to check your cholesterol levels. Abnormal cholesterol levels increase your risk for heart disease and stroke. You may also need a blood or urine test to check for diabetes if you are at increased risk. Urine tests may be done to look for signs of an infection or kidney disease. A physical exam includes checking your heartbeat and lungs with a stethoscope. Your healthcare provider may also check your skin to look for sun damage. Screening tests may be recommended. A screening test is done to check for diseases that may not cause symptoms. The screening tests you may need depend on your age, gender, family history, and lifestyle habits. For example, colorectal screening may be recommended if you are 50 years old or older. Screening tests you need if you are a woman: A Pap smear is used to screen for cervical cancer. Pap smears are usually done every 3 to 5 years depending on your age. You may need them more often if you have had abnormal Pap smear test results in the past. Ask your healthcare provider how often you should have a Pap smear. A mammogram is an x-ray of your breasts to screen for breast cancer. Experts recommend mammograms every 2 years starting at age 50 years. You may need a mammogram at age 49 years or younger if you have an increased risk for breast cancer. Talk to your healthcare provider about when you should starthaving mammograms and how often you need them. Vaccines you may need: Get an influenza vaccine every year. The influenza vaccine protects you from the flu. Several typesof viruses cause the flu. The viruses gear changer time, so new vaccines are made each year. Get a tetanus-diphtheria (Td) booster vaccine every 10 years. This vaccine protects you against tetanus and diphtheria. Tetanus is a severe infection that may cause painful muscle spasms and lockjaw.Diphtheria is a severe bacterial infection that causes a thick covering in the back of your mouth and throat. Get a human papillomavirus (HPV) vaccine if you are female and aged 19 to 26 or male 19 to 21 and never received it. This vaccine protects you from HPV infection. HPV is the most common infection spread by sexual contact. HPV may also cause vaginal, penile, and anal cancers. Get a pneumococcal vaccine if you are aged 65 years or older. The pneumococcal vaccine is an injection given to protect you from pneumococcal disease. Pneumococcal disease is an infection caused by pneumococcal bacteria. The infection may cause pneumonia, meningitis, or an ear infection. Get a shingles vaccine if you are 60 or older, even if you have had shingles before. The shingles vaccine is an injection to protect you from the varicella- zoster virus. This is the same virus that causes chickenpox. Shingles is a painful rash that develops in people who had chickenpox or have beenexposed to the virus. How to eat healthy: My Plate is a model for planning healthy meals. It shows the types and amounts of foods that should go on your plate. Fruits and vegetables make up about half of your plate, and grains and protein make up the other half. A serving of dairy is included on the side of your plate. The amount of calories and serving sizes you need depends on your age, gender, weight, and height. Ex amples of healthy foods are listed below: Eat a variety of vegetables such as dark green, red, and orange vegetables. You can also include canned vegetables low in sodium (salt) and frozen vegetables without added butter or sauces. Eat a variety of fresh fruits , canned fruit in 100% juice, frozen fruit, and dried fruit. Include whole grains. At least half of the grains you eat should be whole grains. Examples include whole-wheat bread, wheat pasta, brown rice, and whole- grain cereals such as oatmeal. Eat a variety of protein foods such as seafood (fish and shellfish), lean meat, and poultry withoutskin (turkey and chicken). Examples of lean meats include pork leg, shoulder, or tenderloin, and beef round, sirloin, tenderloin, and extra lean ground beef. Other protein foods include eggs and egg substitutes, beans, peas, soy products, nuts, and seeds. Choose low-fat dairy products such as skim or 1% milk or low-fat yogurt, cheese, and cottage cheese. Limit unhealthy fats such as butter, hard margarine, and shortening. Exercise: Exercise at least 30 minutes per day on most days of the week. Some examples of exercise include walking, biking, dancing, and swimming. You can also fit in more physical activity by takingthe stairs instead of the elevator or parking farther away from stores. Include muscle strengthening activities 2 days each week. Regular exercise provides many health benefits. It helps you manage your weight, and decreases your risk for type 2 diabetes, heart disease, stroke, and high blood pressure. Exercise can also help improve your mood. Ask your healthcare provider about the best exercise plan for you. General health and safety guidelines: Do not smoke. Nicotine and other chemicals in cigarettes and cigars can cause lung damage. Ask yourhealthcare provider for information if you currently smoke and need help to quit. E-cigarettes or smokeless tobacco still contain nicotine. Talk to your healthcare provider before you use these products. Limit alcohol. A drink of alcohol is 12 ounces of beer, 5 ounces of wine, or 1?? ounces of liquor. Lose weight, if needed. Being overweight increases your risk of certain health conditions. These include heart disease, high blood pressure, type 2 diabetes, and certain types of cancer. Protect your skin. Do not sunbathe or use tanning beds. Use sunscreen with a SPF 15 or higher. Apply sunscreen at least 15 minutes before you go outside. Reapply sunscreen every 2 hours. Wear protective clothing, hats, and sunglasses when you are outside. Drive safely. Always wear your seatbelt. Make sure everyone in your car wears a seatbelt. A seatbelt can save your life if you are in an accident. Do not use your cell phone when you are driving. This could distract you and cause an accident. furniture mover helper if you need to make a call or send a text message. Practice safe sex. Use latex condoms if are sexually active and have more than one partner. Your healthcare provider may recommend screening tests for sexually transmitted infections (STIs). Wear helmets, lifejackets, and protective gear. Always wear a helmet when you ride a bike or motorcycle, go skiing, or play sports that could cause a head injury. Wear protective equipment when you play sports. Wear a lifejacket when you are on a boat or doing water sports. ?? Copyright [employer] 2021 Information is for End User's use only and may not be sold, redistributed or otherwise used for commercial purposes. All illustrations and images included in CareNotes?? are the copyrighted property of [employer] or [employer] The above information is an certified nurse aide only. It is not intended as medical advice for individual conditions or treatments. Talk to your doctor, nurse or pharmacist before following any medical regimen to see if it is safe and effective for you. Patient Education Breast Self Exam for Women CLINICAL SPECIALIST: A breast self-exam (BSE) is a way to check your breasts for lumps and other changes. Regular BSEs can help you know how your breasts normally look and feel. Most breast lumps or changes are not cancer, but you should always have them checked by a healthcare provider. Why you should do a BSE: Breast cancer is the most common type of cancer in women. Even if you havemammograms, you may still want to do a BSE regularly. If you know how your breasts normally feel and look, it may help you know when to contact your healthcare provider. Mammograms can miss some cancers. You may find a lump during a BSE that did not show up on a mammogram. When you should do a BSE: If you have periods, you may want to do your BSE 1 week after your periodends. This is the time when your breasts may be the least swollen, lumpy, or tender. You can do regular BSEs even if you are or have breast implants. Call your doctor if: You find any lumps or changes in your breasts. You have breast pain or fluid coming from your nipples. You have questions or concerns about your condition or care. How to do a BSE: Look at your breasts in a mirror. Look at the size and shape of each breast and nipple. Check for swelling, lumps, dimpling, scaly skin, or other skin changes. Look for nipple changes, such as a nipple that is painful or beginning to pull inward. Gently squeeze both nipples and check to see if fluid (that is not breast milk) comes out of them. If you find any of these or other breast changes, contact your healthcare provider. Check your breasts while you sit or rolling mill operator helper the following 3 positions: Hang your arms down at your sides. Raise your hands and join them behind your head. Put firm pressure with your hands on your hips. Bend slightly forward while you look at your breasts in the mirror. Lie down and feel your breasts. When you lie down, your breast tissue spreads out evenly over your chest. This makes it easier for you to feel for lumps and anything that may not be normal for your breasts. Do a BSE on one breast at a time. Place a small pillow or towel under your left shoulder. Put your left arm behind your head. Use the 3 middle fingers of your right hand. Use your fingertip pads, on the top of your fingers. Your fingertip pad is the most sensitive part of your finger. Use small circles to feel your breast tissue. Use your fingertip pads to make dime-sized, overlapping circles on your breast and armpits. Use light, medium, and firm pressure. First, press lightly. Second, press with medium pressure to feel a little deeper into the breast. Last, use firm pressure to feel deep within your breast. Examine your entire breast area. Examine the breast area from above the breast to below the breast where you feel only ribs. Make small circles with your fingertips, starting in the middle of your armpit. Make circles going up and down the breast area. Continue toward your breast and all the way across it. Examine the area from your armpit all the way over to the middle of your chest (breastbone). Stop at the middle of your chest. Move the pillow or towel to your right shoulder, and put your right arm behind your head. Use the 3fingertip pads of your left hand, and repeat the above steps to do a BSE on your right breast. What else you can do to check for breast problems or cancer: Talk to your healthcare provider aboutmammograms. A mammogram is an x-ray of your breasts to screen for breast cancer or other problems. Your provider can tell you the benefits and risks of mammograms. The first mammogram is usually at age 45 or 50. Your provider may recommend you start at 40 or younger if your risk for breast cancer is high. Mammograms usually continue every 1 to 2 years until age 74. Follow up with your doctor as directed: Write down your questions so you remember to ask them during your visits. ?? Copyright [employer] 2021 Information is for End User's use only and may not be sold, redistributed or otherwise used for commercial purposes. All illustrations and images included in CareNotes?? are the copyrighted property of [employer] or [employer] The above information is an certified nurse aide only. It is not intended as medical advice for individual conditions or treatments. Talk to your doctor, nurse or pharmacist before following any medical regimen to see if it is safe and effective for you. Health Maintenance Topics with due status: Overdue Topic Date Due HPV Vaccines Never done Covid-19 Vaccine 03/17/2023 Thanks for coming in today! My director of medical services and I are thankful you have trusted us with your care, and hope that you received EXCELLENT care today! Although some conditions may not allow immediate improvement, I aim to always make you feel a little better leaving, than when you came in. [place] not hesitate to call, if you have any questions or concerns, at [phone]. You may receive a phone call, text, MYCHART message, or e-mail asking you to take a survey about your care today. We would love to hear your feedback on how EXCELLENT your care was today! Wishing you better health, always! Dr. Shari Coley RISK AND ASSURANCE MANAGER documented in this encounter Ordered Prescriptions Prescription Sig Dispense Quantity Refills Last Filled Start Date End Date clonazePAM (KlonoPIN) 0.5 mg tabletIndications: Panic attacks Take 1 tablet (0.5 mg total) by mouth nightly as needed for anxiety 30 tablet 5 06/16/2023 4 escitalopram (LEXAPRO) 20 mg tabletIndications: Generalized anxiety disorder,Panic attacks Take 1 tablet (20 mg total) by mouth every morning 90 tablet 3 06/16/2023 4 documented in this encounter Progress Notes * Shari Coley DO - 06/16/2023 1:00 PM [address]ST Images from the original note were not included. Subjective/Objective Patient ID: Wendy Jansen is a 27 y.o. female. Chief Complaint Chief Complaint Patient presents with Annual Exam HPI Patient returns to clinic today for her annual physical. Patient complains of trouble sleeping. Shehas difficulty falling asleep, as well has having some financial manager awakenings. She then finds it difficult to fall back asleep. Vitals: 06/16/23 1243 BP: 108/60 BP Location: Right arm Patient Position: Sitting Pulse: 56 Resp: 16 Temp: 36.6 ??C (97.8 ??F) SpO2: 98% Weight: 75.3 kg (166 lb 1.6 oz) Height: 157.5 cm (5' 2 ) Body mass index is 30.38 kg/m??. Review of Systems Constitutional: Negative for fatigue and fever. HENT: Negative for congestion, sore throat and trouble swallowing. Eyes: Negative for visual disturbance. Respiratory: Negative for cough and shortness of breath. Cardiovascular: Negative for chest pain, palpitations and leg swelling. Gastrointestinal: Negative for abdominal pain. Genitourinary: Negative for difficulty urinating and hematuria. Musculoskeletal: Negative for arthralgias and myalgias. Skin: Negative for rash. Neurological: Negative for dizziness, numbness and headaches. Hematological: Negative for adenopathy. Psychiatric/Behavioral: Positive for sleep disturbance. Negative for self-injury and suicidal ideas. The patient is nervous/anxious. All other systems reviewed and are negative. Physical Exam Vitals and nursing note reviewed. Constitutional: Appearance: Normal appearance. She is well-developed. HENT: Head: Normocephalic and atraumatic. Right Ear: Hearing, tympanic membrane, ear canal and external ear normal. There is no impacted cerumen. Left Ear: Hearing, tympanic membrane, ear canal and external ear normal. There is no impacted cerumen. Mouth/Throat: Mouth: Mucous membranes are moist. Pharynx: Oropharynx is clear. No posterior oropharyngeal erythema. Eyes: General: Lids are normal. No scleral icterus. Extraocular Movements: Extraocular movements intact. Conjunctiva/sclera: Conjunctivae normal. Neck: Thyroid: No thyromegaly. Cardiovascular: Rate and Rhythm: Normal rate and regular rhythm. Heart sounds: Normal heart sounds. No murmur heard. Pulmonary: Effort: Pulmonary effort is normal. Breath sounds: Normal breath sounds. No wheezing. Abdominal: General: Bowel sounds are normal. Palpations: Abdomen is soft. There is no mass. Tenderness: There is no abdominal tenderness. Musculoskeletal: General: Normal range of motion. Cervical back: Full passive range of motion without pain, normal range of motion and neck supple. Right lower leg: No edema. Left lower leg: No edema. Skin: General: Skin is warm and dry. Findings: No erythema or rash. Neurological: General: No focal deficit present. Mental Status: She is alert and oriented to person, place, and time. Psychiatric: Attention and Perception: Attention normal. Mood and Affect: Mood is anxious. Behavior: Behavior normal. Thought Content: Thought content normal. Thought content does not include homicidal or suicidal ideation. Thought content does not include homicidal or suicidal plan. Lab Results Component Value Date WBC 11.3 (H) 06/16/2023 HGB 13.5 06/16/2023 HCT 41.0 06/16/2023 MCV 88.0 06/16/2023 LABPLAT 317 06/16/2023 Chemistry Component Value Date/Time SODIUM 138 06/16/2023 1340 POTASSIUM 4.1 06/16/2023 1340 CHLORIDE 101 06/16/2023 1340 CO2 25 06/16/2023 1340 BUNSER 6 06/16/2023 1340 CREATININE 0.68 06/16/2023 1340 GLUCOSE 89 06/16/2023 1340 Component Value Date/Time CALCIUM 9.9 06/16/2023 1340 ALKPHOS 88 06/16/2023 1340 AST 25 06/16/2023 1340 ALT 10 06/16/2023 1340 BILITOT 0.4 06/16/2023 1340 Lab Results Component Value Date CHOL 199 06/16/2023 CHOL 174 04/08/2022 CHOL 201 (H) 07/02/2021 Lab Results Component Value Date HDL 46 06/16/2023 HDL 51 04/08/2022 HDL 60 07/02/2021 Lab Results Component Value Date LDLCALC 117 06/16/2023 LDLCALC 100 04/08/2022 LDLCALC 107 07/02/2021 Lab Results Component Value Date TRIG 182 (H) 06/16/2023 TRIG 117 04/08/2022 TRIG 171 (H) 07/02/2021 Lab Results Component Value Date TSH 0.71 06/16/2023 Lab Results Component Value Date HGBA1C 5.4 06/16/2023 Diagnoses and all orders for this visit: Annual physical exam (Primary) Comments: Well exam, health maintenance updated. Orders: - CBC with auto differential; Future - Comprehensive metabolic panel; Future - Hemoglobin A1c; Future - Lipid panel; Future - TSH reflex to free T4; Future - Urinalysis reflex to microscopic and culture Urine, clean voided; Future Panic attacks Assessment & Plan: Improved on clonazepam, continue. Orders: - escitalopram (LEXAPRO) 20 mg tablet; Take 1 tablet (20 mg total) by mouth every morning - clonazePAM (KlonoPIN) 0.5 mg tablet; Take 1 tablet (0.5 mg total) by mouth nightly as needed for anxiety Generalized anxiety disorder Assessment & Plan: Clinically improved, continue current prescription medications, Escitalopram. Orders: - escitalopram (LEXAPRO) 20 mg tablet; Take 1 tablet (20 mg total) by mouth every morning Sleep disorder Assessment & Plan: Referred to Sleep medicine for further evaluation. Screening for deficiency anemia - CBC with auto differential; Future Encounter for screening for other digestive system disorders - Comprehensive metabolic panel; Future Encounter for screening examination for impaired glucose regulation and diabetes mellitus - Hemoglobin A1c; Future Encounter for lipid screening for cardiovascular disease - Lipid panel; Future Screening for thyroid disorder - TSH reflex to free T4; Future Screening for blood or protein in urine - Urinalysis reflex to microscopic and culture Urine, clean voided; Future Shari Coley DO RISK AND ASSURANCE MANAGER documented in this encounter Miscellaneous Notes * Assessment & Plan Note - Shari Coley DO - 06/26/2023 8:27 PM IT RISK AND ASSURANCE MANAGER Associated Problem(s): Sleep disorder Referred to Sleep medicine for further evaluation. RISK AND ASSURANCE MANAGER * Assessment & Plan Note - Shari Coley DO - 06/26/2023 8:27 PM IT RISK AND ASSURANCE MANAGER Associated Problem(s): Generalized anxiety disorder Clinically improved, continue current prescription medications, Escitalopram. RISK AND ASSURANCE MANAGER * Assessment & Plan Note - Shari Coley DO - 06/26/2023 8:27 PM IT RISK AND ASSURANCE MANAGER Associated Problem(s): Panic attacks Improved on clonazepam, continue. RISK AND ASSURANCE MANAGER documented in this encounter Plan of Treatment Not on file documented as of this encounter Results * (ABNORMAL) Urinalysis reflex to microscopic and culture Urine, clean voided (06/16/2023 1:40 PM IT RISK AND ASSURANCE MANAGER) Color, ur Yellow Yellow [facility] (FINA) [...] for uric acid stone formation. Source: [facility] [employer] Current Interpretive Data was last revised on [...] (FINA) Urine, clean voided 06/16/2023 1:40 PM IT RISK AND ASSURANCE MANAGER 06/16/2023 3:48 PM IT RISK AND ASSURANCE MANAGER Shari Coley DO LAB MICROBIOLOGY - GENERAL ORDERABLES Final Result Performing Organization Address City/[facility]/ZIP Co de Phone Number NIXON GUTIERREZ (FINA) [address] [facility] [place] [address] * TSH reflex to free T4 (06/16/2023 1:40 PM IT RISK AND ASSURANCE MANAGER) TSH 0.71 0.30 - 4.20 mcIUnit/mL NIXON GUTIERREZ (FINA) Blood 06/16/2023 1:40 PM IT RISK AND ASSURANCE MANAGER 06/16/2023 3:46 PM IT RISK AND ASSURANCE MANAGER Shari Coley DO LAB BLOOD ORDERABLES Final Result Performing Organization Address [facility] de Phone Number NIXON GUTIERREZ (FINA) [address] [facility] [place] [address] * (ABNORMAL) Lipid panel (06/16/2023 1:40 PM IT RISK AND ASSURANCE MANAGER) Cholesterol 199 30 - 199 mg/dL [facility] ([place]) Comment: Interpretive Data [...] on 2018. HDL 46 >=40 mg/dL NIXON CALLES) Comment: Interpretive Data Ages [...] 2018. LDL, calculated 117 <=129 mg/dL [facility] ([place]) Comment: Interpretive Data [...] revised on 2018. Chol/HDL ratio 4 EMILEE CALLES) Blood 06/16/2023 1:40 PM IT RISK AND ASSURANCE MANAGER 06/16/2023 3:46 PM IT RISK AND ASSURANCE MANAGER us Shari Coley DO LAB BLOOD ORDERABLES Final Result [facility] ([place]) 1 [facility] Department [place] [address] * Hemoglobin A1c (06/16/2023 1:40 PM IT RISK AND ASSURANCE MANAGER) Pathologist [facility] Hgb A1C 5.4 4.0 - 5.6 % NIXON CALLES) Estimated Average Glucose 108 mg/dL NIXON CALLES) Comment: The ADA recommends reporting an estimated Average Glucose (eAG) with all Hemoglobin A1c results using the equation derived from a study of 507 normal and diabetic adults. ??Minority populations were underrepresented and children were not included. ?? (Diabetes Care 31:7885-8848, 2008). ??The eAG is not equivalent to a fasting glucose. Blood 06/16/2023 1:40 PM IT RISK AND ASSURANCE MANAGER 06/16/2023 3:46 PM IT RISK AND ASSURANCE MANAGER us Shari Woody Coley DO LAB BLOOD ORDERABLES Final Result [facility] ([place]) 1 [facility] Department [place] [address] * Comprehensive metabolic panel (06/16/2023 1:40 PM IT RISK AND ASSURANCE MANAGER) Sodium 138 135 - 145 mmol/L [facility] [...] [facility] ([place]) Blood 06/16/2023 1:40 PM IT RISK AND ASSURANCE MANAGER 06/16/2023 3:46 PM IT RISK AND ASSURANCE MANAGER us Shari Coley DO LAB BLOOD ORDERABLES Final Result [facility] ([place]) 1 [facility] Department [place] [address] * (ABNORMAL) CBC with auto differential (06/16/2023 1:40 PM IT RISK AND ASSURANCE MANAGER) WBC 11.3(H) 3.8 - 9.9 K/cumm CERNER [...] ([place]) MCHC 32.9 32.3 - 35.7 g/dL [facility] ([place]) RDW CV 12.2 11.1 - 14.9 % [facility] ([place]) RDW SD 39.7 35.7 - 48.1 fL [facility] ([place]) NRBC abs 0.00 0.00 - 0.01 K/cumm [facility] ([place]) Blood 06/16/2023 1:40 PM IT RISK AND ASSURANCE MANAGER 06/16/2023 3:46 PM IT RISK AND ASSURANCE MANAGER us Shari Coley DO LAB BLOOD ORDERABLES Final Result [facility] GUTIERRE[facility] ([place]) 1 [facility] [place] [address] documented in this encounter Visit Diagnoses Diagnosis Annual physical exam- Primary Routine general medical examination at a health care facility Panic attacks Panic disorder without agoraphobia Generalized anxiety disorder Sleep disorder Unspecified sleep disturbance Screening for deficiency anemia Screening for other and unspecified deficiency anemia Encounter for screening for other digestive system disorders Encounter for screening examination for impaired glucose regulation and diabetes mellitus Encounter for lipid screening for cardiovascular disease Screening for thyroid disorder Screening for blood or protein in urine Screening for unspecified condition documented in this encounter Discontinued Medications Medication Sig Discontinue Reason Start Date End Da te methylPREDNISolone (Medrol, Carlos,) 4 mg Dosepack follow package directions Therapy completed 12/02/2022 06/16/2023 scopolamine 1 mg over 3 days patch [address] 1 patch on the skin every third day as needed (nausea) Patient Discharge 03/22/2023 06/16/2023 escitalopram (LEXAPRO) 20 mg tabletIndications:Gene ralized anxiety disorder Take 1 tablet (20 mg total) by mouth every morning Reorder 09/12/2022 06/16/2023 clonazePAM (KlonoPIN) 0.5 mg tabletIndications:Farheen c attacks Take 1 tablet (0.5 mg total) by mouth nightly as needed for anxiety Reorder 10/29/2021 06/16/2023 documented as of this encounter Care Teams Proposal Manager Writer Relationship Specialty Start Date End Date Shari Coley DO PCP - General Family Medicine 06/25/19 02/29/24 Stuart Li PA Physician Forklift Picker Physician Forklift Picker 06/25/19 Patricia Bowden MD [address] [place] [address] Referring Physician Dermatology 06/26/20 Alison Syed MD [address] [place] [address] Consulting Physician Obstetrics and Gynecology 07/02/21 Christopher Cadet MD [address] [place] [address] Consulting Physician General Surgery 07/02/21 documented as of this encounter
--- OUTSIDE RECORDS SUMMARY | 2024-07-29 05:45 | XMS_ITS | Encounter Summary ---
Author Organization [facility] Healthcare Address [address] [place] [address] Care Team Providers Care Animal Control Specialist Name Role Phone Brijesh Shari Woody DO Primary Care Provider [phone]- [phone] Stuart Li Unavailable [phone]- [phone] Encounter Details Date Type Department Care Team (Late st Contact Info) Description 07/17/2019 3:37 PM INSTRUCTOR ROBOTICS Anesthesia Event [facility] Operating Room [address] [place] [address] Boubacar Woodall MD [address] [address] Brook Comer CRNA 1 [place] [address] Anesthesia Record Procedure Summary Procedure Name Responsible Anesthesiologist Anesthesia Start Time Anesthesia Stop Time LAPAROSCOPIC APPENDECTOMY (Abdomen) Boubacar Woodall MD 07/17/19 1537 07/17/19 1639 Events Date Time Event Comment 07/17/2019 1457 1459 Quick Note ..Two or more P rophylactic Antiemetics given 1537 In Room 1537 An Start 1537 An Start Data 1539 An Induction The patient was reevaluated immediately before moderate or deep sedation use and before anesthesia induction. 1539 An Intubation 1539 Anesthesia Ready 1548 Proc Start 1549 Incision Start 1620 Proc Fin 1631 An Extubation 1632 Out of Room 1633 an stop data 1639 An Stop 1645 Handoff to RN I completed my handoff [...] Patient disposition at the time of handoff: No value filed. Meds Name Total midazolam 2 mg fentaNYL 100 mcg propofol 170 mg rocuronium 20 mg succinylcholine 120 mg ondansetron 4 mg glycopyrrolate 0.4 mg neostigmine 3 mg dexamethasone 10 mg/mL 10 mg diphenhydrAMINE 25 mg ketorolac 30 mg lidocaine 2 % PF 100 mg cefOXitin (MEFOXITIN) 1,000 mg/10 mL in sterile water (premix) 1,000 mg 1,000 mg scopolamine patch 72 hour 1 patch 1 patc h LR 1,500 mL * Agents Name O2 Air Sevoflurane Inspired Sevoflurane * Blood No blood administrations on file. Lines, Drains, and Airways Type Details Placement Removal Peripheral IV Placement Date: 07/17/19; Placement Time: 1200; Catheter Size: 20 G; Orientation: Right; Location: Antecubital; Site Prep: Chlorhexidine; Technique: Anatomical landmarks; Inserted by: shama; Insertion Attempts: 1; Patient Tolerance: Anxious; Removal Date: 07/17/19; Removal Time: 191; Removal Reason: Discharge 07/17/19 1200 by Sagrario Schwab RN 07/17/19 191 by Janina Bryan RN ETT Placement Date: 07/17/19; Placement Time: 1539 (created via procedure documentation); Mask Ventilation: 1; Technique: Direct laryngoscopy; Type: ETT - single; Single Lumen Tube Size: 7 mm; Cuffed: Yes; Laryngoscope: Booth; Blade Size: 2; Location: Oral; Grade View: Grade I; Insertion Attempts: 1; Placement Verification: Auscultation, Capnometry; Removal Date: 07/17/19; Removal Time: 16307/17/19 1539 by Brook Comer CRNA 07/17/19 1631 by Brook Comer CRNA RETIRED Surgical Site 07/17/19; 1606; Abdomen; 11/29/23; 0738; Not present on admission 07/17/19 1606 by Juliette Kurtz RN 11/29/[address] RN documented in this encounter Social History Tobacco Use Types Packs/Day Years Used Date Smoking Tobacco: Never Smokeless Tobacco: Never Alcohol Use Standard Drinks/Week Comments Yes 0 (1 standard drink = 0.6 oz pur e alcohol) PHQ-2 Answer Date Recorded PHQ-2 Score 0 06/25/2019 Comments No Sex and Gender Information Value Date Recorded Sex Assigned at Not on file 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 INSTRUCTOR ROBOTICS Gender Identity Not on file Sexual Orientation Not on file documented as of this encounter OR Notes * Anesthesia Postprocedure Evaluation - Brook Comer CRNA - 07/17/2019 4:45 PM CST Patient: Wendy Jansen Procedure Summary Date: 07/17/19 [facility] / [facility] [address] [place] [address] OPERATING ROOM Anesthesia Start: 1537 Anesthesia Stop: 163 Procedure: LAPAROSCOPIC APPENDECTOMY (N/A Abdomen) Diagnosis: (abdominal pain) Provider: Christopher Cadet MD Responsible Provider: Boubacar Woodall MD Anesthesia Type: general ASA Status: 1 - Emergent Anesthesia Type: general Last vitals BP 132/66 Pulse 70 Temp 36.2 ??C (97.1 ??F) (Temporal) Resp 17 SpO2 100% Anesthesia Post Evaluation Patient location during evaluation: PACU Patient participation: complete - patient participated Level of consciousness: fully awake Pain management: satisfactory to patient Airway patency: patent Evidence of recall: no Anesthetic complications: no Cardiovascular status: blood pressure returned to baseline Respiratory status: room air Hydration status: acceptable Pt is: normothermic Nausea/Vomiting status: none [employer] * Anesthesia Procedure Notes - Brook Comer CRNA - 07/17/2019 3:52 PM CSTAssociated Order(s): Airway Airway Patient location: OR Urgency: elective Date/time: 07/17/2019 3:39 PM Indications for airway management: anesthesia Difficult airway: no Staff: Placed by: DEVELOPMENTAL EDUCATION INSTRUCTOR: Brook Comer CRNA Emergent airway documentation: Risks and benefits discussed: yes Consent obtained: yes Consent given by: patient Airway prep: Preoxygenated: yes Mask difficulty assessment: 1 - vent by mask Spontaneous ventilation during airway: absent Sedation level during airway: GA Final airway details: Final airway type: endotracheal airway Tube type: ETT ETT size: 7.0 mm Cuffed: yes Technique used for successful ETT placement: direct laryngoscopy Devices/Methods used in placement: intubating stylet Insertion site: oral Blade type: Booth Blade size: 2 Cormack-Lehane (direct): grade I - full view of glottis Cuff volume: 6 mL Cuff inflated with: air ETT to lips: 20 cm Placement verified by: auscultation and CO2 detection Airway secured with: silk tape Number of attempts: 1 [employer]CTOR ROB[employer] * Anesthesia Preprocedure Evaluation - Brook Comer CRNA - 07/17/2019 2:56 PM CST Images from the original note were not included. Anesthesia Evaluation Wendy Jansen is a 24 y.o. female Procedure(s): LAPAROSCOPIC APPENDECTOMY * No Diagnosis Codes entered * HISTORY Past Medical History Information obtained from: patient and chart. Neurological Neuro/Psych system: negative Cardiovascular Cardiac system: negative Respiratory Respiratory system: negative Hepatic / Heme Hepatic/Heme system: negative Gastrointestinal GI system: negative Renal / Renal/ system: negative Musculoskeletal/Pain Musculoskeletal/Pain system: negative Endocrine / Other Endocrine/Other system: negative Day of Surgery assessments + Possibility of assessed - HCG negative (see labs). Patient Active Problem List Diagnosis ??? Encounter for control pills maintenance ??? BMI 23.0-23.9, adult Past Medical History: Diagnosis Date ??? Allergic seasonal History reviewed. No pertinent surgical history. OB History No obstetric history on file. No Known Allergies Med List Status: In Progress Set By: Sagrario Schwab RN at 07/17/2019 11:28 AM Taking? Last Dose Start Date End Date Provider cetirizine (ZyrTEC) 10 mg tablet -- -- Historical Provider, fluticasone propionate (FLONASE) 50 mcg/actuation nasal spray -- -- Historical Provider, spironolactone (ALDACTONE) 50 mg tablet 11/17/19 -- Historical Provider, [id number]-EA-[id number] 0.18/0.215/0.25 mg-25 mcg per tablet 06/25/19 06/24/20 Shari Coley, DO Take 1 tablet by mouth daily Current Facility-Administered Medications: ??? piperacillin-tazobactam (ZOSYN) 3.375 g in sodium chloride 0.9% 50 mL IVPB, 3.375 g, intravenous, Q6H KATHY, Last Rate: 130 mL/hr at 07/17/19 1426, 3.375 g at 07/17/19 1426 Current Outpatient Medications: ??? cetirizine (ZyrTEC) 10 mg tablet ??? fluticasone propionate (FLONASE) 50 mcg/actuation nasal spray ??? spironolactone (ALDACTONE) 50 mg tablet ??? GUV-OM-ZCFHMV 0.18/0.215/0.25 mg-25 mcg per tablet Social History Tobacco Use Smoking Status Never Smoker Smokeless Tobacco Never Used Substance and Sexual Activity Alcohol Use Yes Substance and Sexual Activity Drug Use Never Family History Problem Relation Age of Onset ??? Cancer Paternal Grandfather Vitals: 07/17/19 1126 07/17/19 1400 BP: 124/52 141/70 Pulse: 85 Resp: 18 Temp: 36.8 ??C (98.2 ??F) SpO2: 98% PT: No results found for requested labs within last 720 hours. INR: No results found for requested labs within last 720 hours. APTT: No results found for requested labs within last 720 hours. Hgb A1C: No results found for requested labs within last 720 hours. CBC RBC: 07/17/2019: 5.06 M/cumm RDW: No results found for requested labs within last 720 hours. MCHC: 07/17/2019: 33.3 g/dL MCH: 07/17/2019: 30.4 pg MCV: 07/17/2019: 91.3 fL Hct: 07/17/2019: 46.2 %* Hgb: 07/17/2019: 15.4 g/dL WBC: 07/17/2019: 24.2 K/cumm* MPV: 07/17/2019: 11.2 fL Platelets: 07/17/2019: 308 K/cumm RDW CV: 07/17/2019: 12.1 % RDW Sd: 07/17/2019: 40.4 fL BMP Glucose: 07/17/2019: 110 mg/dL Calcium: 07/17/2019: 10.7 mg/dL* Sodium: 07/17/2019: 139 mmol/L Potassium: 07/17/2019: 4.5 mmol/L CO2: 07/17/2019: 24 mmol/L Chloride: 07/17/2019: 100 mmol/L BUN: 07/17/2019: 7 mg/dL* Creatinine: 07/17/2019: 0.59 mg/dL* DOS Physical Exam Medical history, medications, and allergies reviewed. Attestation: This PAT evaluation 07/17/2019. Airway Exam: Mallampati: II Cervical ROM: FROM TM distance: >4 Jaw ROM: full Cardiovascular Exam: Rate: regular Rhythm: regular Pulmonary Exam: LCTA, bilat EENT Exam: trachea midline Dental Exam: Appears intact Skin Exam: Skin is warm. Current state: Patient's current state is cooperative and interactive. Anesthesia Plan ASA 1- emergent Planned anesthesia: General Induction: Induction: intravenous. Postoperative Plan: Postoperative administration opioids intended. No postoperative mechanical ventilation intended. Patient's planned disposition post procedure is Floor. Informed Consent: Discussed plan with attending. Anesthesia plan and risks discussed with patient. Consent and Attending signature: I and/or my designee have discussed the anesthesia plan, benefits, possible alternatives, parental presence at time of induction (if indicated), and clinically relevant risks that may include dental injury, unintentional awareness, and/or other complications. The patient and/or parent/legal guardian understand, and agree to proceed. All questions answered. RUCTOR ROBOTICS documented in this encounter Plan of Treatment Not on file documented as of this encounter Procedures Procedure Name Priority Date/Time Associated Diagnosis Comments AK AN ELECTIVE ENDOTRACHEAL AIRWAY Routine 07/17/2019 3:52 PM INSTRUCTOR ROBOTICS documented in this encounter Results * AK AN ELECTIVE ENDOTRACHEAL AIRWAY (07/17/2019 3:52 PM INSTRUCTOR ROBOTICS) Narrative Brook Comer CRNA - 07/17/2019 3:52 PM INSTRUCTOR ROBOTICS Brook Comer CRNA ? 07/17/2019 ??3:53 PM Airway Patient location: OR Urgency: elective Date/time: 07/17/2019 3:39 PM Indications for airway management: anesthesia Difficult airway: no Staff: Placed by: DEVELOPMENTAL EDUCATION INSTRUCTOR: Brook Comer CRNA Emergent airway documentation: Risks and benefits discussed: yes Consent obtained: yes Consent given by: patient Airway prep: Preoxygenated: yes Mask difficulty assessment: 1 - vent by mask Spontaneous ventilation during airway: absent Sedation level during airway: GA Final airway details: Final airway type: endotracheal airway Tube type: ETT ETT size: 7.0 mm Cuffed: yes Technique used for successful ETT placement: direct laryngoscopy Devices/Methods used in placement: intubating stylet Insertion site: oral Blade type: Booth Blade size: 2 Cormack-Lehane (direct): grade I - full view of glottis Cuff volume: 6 mL Cuff inflated with: air ETT to lips: 20 cm Placement verified by: auscultation and CO2 detection Airway secured with: silk tape Number of attempts: 1 us Boubacar Woodall MD ANESTHESIA ORDERABLES Final Result documented in this encounter Visit Diagnoses Not on filedocumented in this encounter Administered Medications Inactive Administered Medications - up to 3 most recent administrations Medication Order MAR Action Action Date Dose Rate Site cefOXitin (MEFOXITIN) 1,000 mg/10 mL in sterile water (premix) 1,000 mg 1,000 mg, intravenous, at 200 mL/hr, Administer over 3 Minutes, Once, On Mon07/17/19 at 1600, For 1 dose, Pre-Op, Indications: Prophylaxis, SurgicalIndications:Prophylaxis, Surgical Given 07/17/2019 3:48 PM INSTRUCTOR ROBOTICS 1,000 mg dexAMETHasone (DECADRON) injection solution Administer over 2 Minutes, As needed, Starting on Mon07/17/19 at 1545, Anesthesia Intra-op Given 07/17/2019 3:45 PM INSTRUCTOR ROBOTICS 10 mg diphenhydrAMINE (BENADRYL) injection Administer over 2 Minutes, As needed, Starting on Mon07/17/19 at 1546, Anesthesia Intra-op Given 07/17/2019 3:46 PM INSTRUCTOR ROBOTICS 25 mg fentaNYL (SUBLIMAZE) preservative free injection intravenous, As needed, Starting on Mon07/17/19 at 1537, Anesthesia Intra-op Given 07/17/2019 3:37 PM INSTRUCTOR ROBOTICS 100 mcg glycopyrrolate (ROBINUL) injection intravenous, Administer over 1 Minutes, As needed, Starting on Mon07/17/19 at 1614, Anesthesia Intra-op Given 07/17/2019 4:14 PM INSTRUCTOR ROBOTICS 0.4 mg ketorolac (TORADOL) injection As needed, Starting on Mon07/17/19 at 1547, Anesthesia Intra-op Given 07/17/2019 3:47 PM INSTRUCTOR ROBOTICS 30 mg Lactated Ringer's (LR) infusion intravenous, Continuous PRN, Starting on Mon07/17/19 at 1537, Anesthesia Intra-op New Bag 07/17/2019 4:12 PM INSTRUCTOR ROBOTICS New Bag 07/17/2019 3:37 PM INSTRUCTOR ROBOTICS 500 mL/hr lidocaine (XYLOCAINE) 20 mg/mL (2 %) preservative free injection As needed, Starting on Mon07/17/19 at 1539, Anesthesia Intra-op Given 07/17/2019 3:39 PM INSTRUCTOR ROBOTICS 100 mg midazolam (VERSED) preservative free injection intravenous, Administer over 2 Minutes, As needed, Starting on Mon07/17/19 at 1537, Anesthesia Intra-op Given 07/17/2019 3:37 PM INSTRUCTOR ROBOTICS 2 mg neostigmine (PROSTIGMIN) injection intravenous, Administer over 3 Minutes, As needed, Starting on Mon07/17/19 at 1614, Anesthesia Intra-op Given 07/17/2019 4:14 PM INSTRUCTOR ROBOTICS 3 mg ondansetron (ZOFRAN) injection intravenous, Administer over 2 Minutes, As needed, Starting on Mon07/17/19 at 1546, Anesthesia Intra-op Given 07/17/2019 3:46 PM INSTRUCTOR ROBOTICS 4 mg propofol (DIPRIVAN) IV intravenous, As needed, Starting on Mon07/17/19 at 1539, Anesthesia Intra-op Given 07/17/2019 3:39 PM INSTRUCTOR ROBOTICS 170 mg rocuronium (ZEMURON) injection intravenous, As needed, Starting on Mon07/17/19 at 1547, Anesthesia Intra-op Given 07/17/2019 3:47 PM INSTRUCTOR ROBOTICS 20 mg scopolamine patch 72 hour 1 patch 1 patch, transdermal, Administer over 72 Hours, Once, On Mon07/17/19 at 1600, For 1 dose Given 07/17/2019 3:37 PM INSTRUCTOR ROBOTICS 1 patch succinylcholine (ANECTINE) injection intravenous, As needed, Starting on Mon07/17/19 at 1539, Anesthesia Intra-op Given 07/17/2019 3:39 PM INSTRUCTOR ROBOTICS 120 mg documented in this encounter Care Teams Animal Control Specialist Relationship Specialty Start Date End Date Shari Coley DO PCP - General Family Medicine 06/25/19 02/29/24 Stuart Li PA Physician Workers Compensation Claims Examiner Physician Workers Compensation Claims Examiner 06/25/19 documented as of this encounter
--- OUTSIDE RECORDS SUMMARY | 2024-07-29 05:45 | XMS_ITS | Encounter Summary ---
Author Organization [facility] Address [address] [place] [address] Care Team Providers Care Pipe Machine Operator Name Role Phone Shari Coley DO Primary Care Provider [phone] Stuart Li Unavailable [phone] Patricia Bowden MD Unavailable [phone] Alison Syed MD Unavailable [phone] Christopher Cadet MD Unavailable Reason for Visit * Reason Comments Preventative Care Encounter Details Date Type Department Care Team (Late st Contact Info) Description 04/08/2022 11:00 AM CDT Office Visit [facility] Primary Care at [address] [place] [address] Shari Coley DO [address] [address] Annual physical exam (Primary Dx); Abnormal weight gain; Screening for deficiency anemia; Encounter for screening [...] e alcohol) PHQ-2 Answer Date Recorded PHQ-2 Total Score (If total score is 3 or more points, staff should administer the PHQ-9) 0 04/08/2022 Comments No Sex and Gender Information Value Date Recorded Sex Assigned at Not on file 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 Gender Identity Not on file Sexual Orientation Not on file documented as of this encounter Last Filed Vital Signs Vital Sign Reading Time Taken Comments Blood Pressure 108/64 04/08/2022 10:54 AM CDT Pulse 68 04/08/2022 10:54 AM CDT Temperature 36.7 ??C (98 ??F) 04/08/2022 10:54 AM CDT Respiratory Rate 16 04/08/2022 10:54 AM CDT Oxygen Saturation 99% 04/08/2022 10:54 AM CDT Inhaled Oxygen Concentration - - Weight 75.3 kg (166 lb) 04/08/2022 10:54 AM CDT Height 160 cm (5' 3 ) 04/08/2022 10:54 AM CDT Body Mass Index 29.41 04/08/2022 10:54 AM CDT documented in this encounter Patient Instructions * Patient Instructions* Shari Coley, - 04/08/2022 11:00 AM CDT Images from the original note were not included. 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 The viruses twisting frame changer time, so new vaccines are made [...] Get a shingles vaccine if you are aged 60 or older, even if you have had shingles before. The shingles vaccine is an injection to protect you from the varicella-zoster virus. This is the same virus that causes chickenpox. Shingles is a painful rash that develops in people who had chickenpox or havebeen exposed to the virus. How to eat healthy: [...] could distract you and cause an accident. label remover if you need to make a call [...] a boat or doing water sports. ?? 2017 [employer] Information is for End User's use only and may not be sold, redistributed or otherwise used for commercial purposes. All illustrations and images included in CareNotes?? are the copyrighted property of [employer] or [employer]. The above information is an behavioral health aide only. It is not intended as medical advice for individual conditions or treatments. Talk to your doctor, nurse or pharmacist before following any medical regimen to see if it is safe and effective for you. 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 When you should do a BSE: Munir your calendar to help you remember to do BSE on a regular schedule. One easy way to remember to do a BSE is to do the exam on the same day of each month. If you have periods, you may want to do your BSE 1 week after your period ends. This is the time when your breastsmay be the least swollen, lumpy, or tender. You can do regular BSEs even if you are or have breast implants. 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 Other experts suggest that women between the ages of 50 and 74 years old should have a mammogram every 2 years. Talk to your healthcare provider about when you should have a mammogram. Follow up with your healthcare provider as directed: Your healthcare provider can watch you and tell you if you are doing your BSE correctly. Write down your questions so you remember to ask them during your visits. ?? 2017 [employer] Information is for End User's use only and may not be sold, redistributed or otherwise used for commercial purposes. All illustrations and images included in CareNotes?? are the copyrighted property of [employer], [employer]. or [employer]. The above information is an behavioral health aide only. It is not intended as medical advice for individual conditions or treatments. Talk to your doctor, nurse or pharmacist before following any medical regimen to see if it is safe and effective for you. Health Maintenance Topics with due status: Overdue Topic Date Due Chlamydia and Gonorrhea (GC/CT) Screening Never done Varicella Vaccines Never done HPV Vaccines Never done Health Maintenance Topics with due status: Due On Topic Date Due Influenza Vaccine 03/17/2022 Thanks for coming in today! My site medical director, Jamilah, and sometimes (Chelsi, Margareth, or Hailee) and I are thankful you have trusted us with your care, and hope that you received EXCELLENT care today! Although some conditions may not allow immediate improvement, I aim to always make you feel a little better leaving, than when you came in. Please do not hesitate to call, if you have any questions or concerns, at [phone]. You may receive a phone call, text, MYCHART message, or e-mail asking you to take a survey about your care today. We would love to hear your feedback on how EXCELLENTyour care was today! Wishing you better health, always! Dr. Shari Coley documented in this encounter Progress Notes * Shari Coley DO - 04/08/2022 11:00 AM CDT Images from the original note were not included. Subjective/Objective Patient ID: Wendy Jansen is a 26 y.o. female. Chief Complaint Chief Complaint Patient presents with Preventative Care HPI Patient returns to clinic today for her annual physical. FDLMP 04/05/2022. Patient is concerning with her rapid weight gain. She denies changing her diet and states that she does exercise often. She did request an increase in her Lexapro, earlier this year. In addition, she is on OCPs. Vitals: 04/08/22 1054 BP: 108/64 BP Location: Left arm Patient Position: Sitting Pulse: 68 Resp: 16 Temp: 36.7 ??C (98 ??F) TempSrc: Oral SpO2: 99% Weight: 75.3 kg (166 lb) Height: 160 cm (5' 3 ) Body mass index is 29.41 kg/m??. Review of Systems Constitutional: Negative for fatigue and fever. Unexpected weight change: 18 lbs weight gain over past 10 months. HENT: Negative for congestion and trouble swallowing. Eyes: Negative for visual disturbance. Respiratory: Negative for cough and shortness of breath. Cardiovascular: Negative for chest pain, palpitations and leg swelling. Gastrointestinal: Negative for abdominal pain. Genitourinary: Negative for difficulty urinating and hematuria. Musculoskeletal: Negative for arthralgias and myalgias. Skin: Negative for rash. Neurological: Negative for dizziness and headaches. Hematological: Negative for adenopathy. Psychiatric/Behavioral: Negative for confusion. All other systems reviewed and are negative. Physical Exam Vitals and nursing note reviewed. Constitutional: Appearance: Normal appearance. She is well-developed. Interventions: Face mask in place. HENT: Head: Normocephalic and atraumatic. Right Ear: Hearing, tympanic membrane, ear canal and external ear normal. Left Ear: Hearing, tympanic membrane, ear canal and external ear normal. Eyes: General: Lids are normal. No scleral [...] Behavior normal. Thought Content: Thought content normal. Lab Results Component Value Date WBC 8.2 04/08/2022 HGB 13.5 04/08/2022 HCT 41.8 04/08/2022 MCV 89.5 04/08/2022 LABPLAT 297 04/08/2022 Chemistry Component Value Date/Time SODIUM 139 04/08/2022 1155 POTASSIUM 4.0 04/08/2022 1155 CHLORIDE 103 04/08/2022 1155 CO2 27 04/08/2022 1155 BUNSER 5 (L) 04/08/2022 1155 CREATININE 0.63 04/08/2022 1155 GLUCOSE 110 04/08/2022 1155 Component Value Date/Time CALCIUM 9.2 04/08/2022 1155 ALKPHOS 91 04/08/2022 1155 AST 23 04/08/2022 1155 ALT 18 04/08/2022 1155 BILITOT <0.2 04/08/2022 1155 Lab Results Component Value Date CHOL 174 04/08/2022 CHOL 201 (H) 07/02/2021 CHOL 187 06/26/2020 Lab Results Component Value Date HDL 51 04/08/2022 HDL 60 07/02/2021 HDL 49 06/26/2020 Lab Results Component Value Date LDLCALC 100 04/08/2022 LDLCALC 107 07/02/2021 LDLCALC 111 06/26/2020 Lab Results Component Value Date TRIG 117 04/08/2022 TRIG 171 (H) 07/02/2021 TRIG 136 06/26/2020 Lab Results Component Value Date TSH 0.38 04/08/2022 Lab Results Component Value Date HGBA1C 5.1 04/08/2022 Diagnoses and all orders for this visit: Annual physical exam (Primary) Comments: Well exam, health maintenance updated. Orders: - CBC with auto differential; Future - Comprehensive metabolic panel; Future - Hemoglobin A1c; Future - Lipid panel; Future - TSH reflex to free T4; Future Abnormal weight gain Assessment & Plan: Recommended lowering her Lexapro from 20 mg every day down to 10 mg daily. Patient declined. She states that her symptoms are much better on the 20 mg. 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 Patient stated that she will. Screening for deficiency anemia - CBC with [...] Screening for blood or protein in urine Comments: Test canceled, patient currently on her menses. Shari Coley DO documented in this encounter Miscellaneous Notes * Assessment & Plan Note - Shari Coley DO - 04/10/2022 6:06 PM CDT Associated Problem(s): Abnormal weight gain (Resolved 06/16/2023) Recommended lowering her Lexapro from 20 mg every day down to 10 mg daily. Patient declined. She states that her symptoms are much better on the 20 mg. 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 Patient stated that she will. documented in this encounter Plan of Treatment Not on file documented as of this encounter Results * TSH reflex to free T4 (04/08/2022 11:55 AM CDT) TSH 0.38 0.30 - 4.20 mcIUnit/mL [facility] ([place]) Blood 04/08/2022 11:5 5 AM CDT 04/08/2022 1:47 PM CDT us Shari Coley DO LAB BLOOD ORDERABLES Final Result [facility] ([place]) [facility] Department [place] [address] * Lipid panel (04/08/2022 11:55 AM CDT) Cholesterol 174 30 - 199 mg/dL [facility] ([place]) [...] Data was last revised on 2018. Triglycerides 117 <=149 mg/dL [facility] ([place]) Comment: Interpretive Data [...] Data was last revised on 2018. HDL 51 >=40 mg/dL [facility] ([place]) Comment: Interpretive Data Ages < or [...] was last revised on 2018. LDL, calculated 100 <=129 mg/dL [facility] ([place]) Comment: Interpretive [...] was last revised on 2018. Non-HDL Cholesterol 123 mg/dL [facility] ([place]) Comment: Interpretive Data Ages < or = [...] was last revised on 2018. Chol/HDL ratio 3 [facility] ([place]) Blood 04/08/2022 11:5 5 AM CDT 04/08/2022 1:47 PM CDT us Shari Coley DO LAB BLOOD ORDERABLES Final Result [facility] ([place]) [facility] Department [place] [address] * Hemoglobin A1c (04/08/2022 11:55 AM CDT) Hgb A1C 5.1 4.0 - 5.6 % [facility] ([place]) Estimated Average Glucose 100 mg/dL [facility] ([place]) Comment: The ADA recommends reporting an estimated Average Glucose (eAG) with all Hemoglobin A1c results using the equation derived from a study of 507 normal and diabetic adults. ??Minority populations were underrepresented and children were not included. ?? (Diabetes Care 31:1098-0311, 2008). ??The eAG is not equivalent to a fasting glucose. Blood 04/08/2022 11:5 5 AM CDT 04/08/2022 1:47 PM CDT us Shari Coley DO LAB BLOOD ORDERABLES Final Result [facility] ([place]) [address] [facility] Department [place] [address] * (ABNORMAL) Comprehensive metabolic panel (04/08/2022 11:55 AM CDT) Sodium 139 135 - 145 mmol/L [facility] ([place]) Potassium, pl 4.0 3.3 - 4.9 mmol/L [facility] ([place]) Chloride 103 97 - 110 mmol/L [facility] ([place]) CO2 27 22 - 32 mmol/L [facility] ([place]) Anion gap 9 2 - 15 mmol/L [facility] ([place]) BUN 5(L) 8 - 25 mg/dL [facility] ([place]) Creatinine 0.63 0.60 - 1.10 mg/dL [facility] ([place]) Glucose 110 70 - 199 mg/dL [facility] ([place]) Comment: Interpretive Data Fasting glucose >/= [...] classification and Diagnosis of Diabetes Diabetes Care 2017;40 (Suppl. 1):S11. Current interpretive data was last revised 2017. Calcium 9.2 8.5 - 10.3 mg/dL [facility] ([place]) Bilirubin, total <0.2 0.1 - 1.2 mg/dL [facility] ([place]) Protein, pl 7.2 6.5 - 8.5 g/dL [facility] ([place]) Albumin 4.2 3.5 - 5.0 g/dL [facility] ([place]) Alk phos 91 40 - 130 Units/L [facility] ([place]) ALT 18 7 - 45 Units/L [facility] [place]) AST 23 10 - 45 Units/L [facility] ([place]) Blood 04/08/2022 11:5 5 AM CDT 04/08/2022 1:47 PM CDT us Shari Coley DO LAB BLOOD ORDERABLES Final Result [facility] ([place]) [address] [facility] Department [place] [address] * CBC with auto differential (04/08/2022 11:55 AM CDT) WBC 8.2 3.8 - 9.9 K/cumm [facility] ([place]) Hgb 13.5 11.9 - 15.5 g/dL [facility] ([place]) Hct 41.8 35.6 - 45.5 % [facility] ([place]) Plt 297 150 - 400 K/cumm [facility] ([place]) MPV 11.5 9.1 - 12.3 fL [facility] [place]) RBC 4.67 3.90 - 5.20 M/cumm [facility] ([place]) MCV 89.5 81.3 - 96.4 fL [facility]) MCH 28.9 27.1 - 33.3 pg [facility]) MCHC 32.3 32.3 - 35.7 g/dL [facility] ([place]) RDW CV 12.4 11.1 - 14.9 % [facility]) RDW SD 40.7 35.7 - 48.1 fL [facility] ([place]) NRBC abs 0.00 0.00 - 0.01 K/cumm [facility] ([place]) Blood 04/08/2022 11:5 5 AM CDT 04/08/2022 1:47 PM CDT us Shari Coley DO LAB BLOOD ORDERABLES Final Result [facility] ([place]) [facility] [place] [address] documented in this encounter Visit Diagnoses Diagnosis Annual physical exam- Primary Routine general medical examination at a health care facility Abnormal weight gain Screening for deficiency anemia Screening for other [...] Discontinue Reason Start Date End Da te scopolamine 1 mg over 3 days patch 3 dayIndications:H/O motion sickness Place 1 patch on the skin every third day as needed (nausea) Therapy completed 03/04/2022 04/08/2022 documented as of this encounter Care Teams Pipe Machine Operator Relationship Specialty Start Date End Date Shari Coley DO PCP - General Family Medicine 06/25/19 02/29/24 Stuart Li PA Physician Cartridge Assembler Physician Cartridge Assembler 06/25/19 Patricia Bowden MD [address] [place] [id number] Referring Physician Dermatology 06/26/20 Alison Syed MD [address] [place] [address] Consulting Physician Obstetrics and Gynecology 07/02/21 Christopher Cadet MD [address] [place] [address] Consulting Physician General Surgery 07/02/21 documented as of this encounter
--- OUTSIDE RECORDS SUMMARY | 2024-07-29 05:45 | XMS_ITS | Encounter Summary ---
Author Organization [facility] Healthcare Address [address] [place] [address] Care Team Providers Care Case Consultant Name Role Phone Shari Coley DO Primary Care Provider [phone]- [phone] Stuart Li Unavailable [phone]- [phone] Patricia Bowden MD Unavailable [phone] Encounter Details Date Type Department Care Team (Late st Contact Info) Description 06/26/2020 12:40 PM DIGITAL MARKETING APPRENTICE Lab [address] Shari Coley DO [address] [facility] [address] [address] Screening for blood or protein in urine; Screening, anemia, deficiency, iron; Encounter for screening for other digestive system disorders; Encounter for screening examination for impaired glucose regulation and diabetes mellitus; Encounter for hepatitis C screening test for low risk patient; Encounter for lipid screening for cardiovascular disease; Screening for thyroid disorder Discharge Disposition: Discharge to home or self care Social History Tobacco Use Types Packs/Day Years Used Date Smoking Tobacco: Never Smokeless Tobacco: Never Alcohol Use Standard Drinks/Week Comments Yes 0 (1 standard drink = 0.6 oz pur e alcohol) PHQ-2 Answer Date Recorded PHQ-2 Total Score (If total score is 3 or more points, staff should administer the PHQ-9) 0 06/26/2020 Comments No Sex and Gender Information Value Date Recorded Sex Assigned at Not on file 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 DIGITAL MARKETING APPRENTICE Gender Identity Not on file Sexual Orientation Not on file documented as of this encounter Discharge Disposition Disposition Code Departure Means Destination Discharge to home or self care documented in this encounter Plan of Treatment Not on file documented as of this encounter Procedures Procedure Name Priority Date/Time Associated Diagnosis Comments EGFR Routine 06/26/2020 12:37 PM DIGITAL MARKETING APPRENTICE Encounter for screening for other digestive system disorders DIFFERENTIAL AUTO Routine 06/26/2020 12: 37 PM DIGITAL MARKETING APPRENTICE Screening, anemia, deficiency, iron THYROID FUNCTION CASCADE Routine 06/26/2020 12:37 PM DIGITAL MARKETING APPRENTICE Screening for thyroid disorder URINALYSIS AND REFLEX TO MICROSCOPIC AND CULTURE Routine 06/26/2020 12:37 PM DIGITAL MARKETING APPRENTICE Screening for blood or protein in urine CBC WITH AUTO DIFFERENTIAL Routine 06/26/2020 12:37 PM DIGITAL MARKETING APPRENTICE Screening, anemia, deficiency, iron HEPATITIS C ANTIBODY Routine 06/26/2020 12:37 PM DIGITAL MARKETING APPRENTICE Encounter for hepatitis C screening test for low risk patient URINALYSIS, MICROSCOPIC ONLY Routine 06/26/2020 12:37 PM DIGITAL MARKETING APPRENTICE Screening for blood or protein in urine HEMOGLOBIN A1C Routine 06/26/2020 12:37 PM DIGITAL MARKETING APPRENTICE Encounter for screening examination for impaired glucose regulation and diabetes mellitus LIPID PANEL Routine 06/26/2020 12:37 PM DIGITAL MARKETING APPRENTICE Encounter for lipid screening for cardiovascular disease COMPREHENSIVE METABOLIC PANEL Routine 06/26/2020 12:37 PM DIGITAL MARKETING APPRENTICE Encounter for screening for other digestive system disorders documented in this encounter Results * eGFR (06/26/2020 12:37 PM DIGITAL MARKETING APPRENTICE) eGFR 131 mL/min/1.7 3 m2 NIXON GUTIERREZ (FINA) Comment: Interpretive Data Reference Interval Normal ?>/= 90 mL/min/1.73m2 Mildly decreased* ? 60 - 89 mL/min/1.73m2 Mildly to moderately decreased ?45 - 59 mL/min/1.73m2 Moderately to severely decreased ??30 - 44 mL/min/1.73m2 Severely decreased ?15 - 29 mL/min/1.73m2 Kidney Failure ?< 15 ??mL/min/1.73m2 *Relative to young adult level If -Tristanian multiply value by 1.16. Estimated glomerular filtration rate is determined by the CKD-EPI equation recommended by the National Kidney Foundation (KDIGO 2012 Clinical Practice Guideline for the Evaluation and Management of Chronic Kidney Disease. Kidney Intnl Suppl Jul 2012;3:1). The CKD-EPI equation should not be used for patients with unstable renal function and has not been validated in children and those over 70. Current interpretive data was last reviewed 2016. Blood specimen (specimen) 06/26/2020 12:37 PM DIGITAL MARKETING APPRENTICE 06/26/2020 1:31 PM DIGITAL MARKETING APPRENTICE Shari Coley DO LAB BLOOD ORDERABLES Final Result NIXON GUTIERREZ (WELLS) 1 [facility] Department of Laboratories [place], [place] [id number] * (ABNORMAL) Urinalysis, microscopic only (06/26/2020 12:37 PM DIGITAL MARKETING APPRENTICE) WBC, ur 0-5 0 - 5 /HPF NIXON GUTIERREZ ([place]) RBC, ur 0-2 0 - 2 /HPF NIXON GUTIERREZ ([place]) Epithelial cells, squamous, ur 1-5 0 - 5 /HPF NIXON GUTIERREZ (FINA) Bacteria, ur 4+(A) NIXON GUTIERREZ (FINA) Mucous, ur Present(A) NIXON Schaefer (WELLS) Culture Reflex Comment Reflex conditions for urine culture (WBC >10) not met. NIXON GUTIERREZ (FINA) Urine, clean voided 06/26/2020 12:37 PM DIGITAL MARKETING APPRENTICE 06/26/2020 1:31 PM DIGITAL MARKETING APPRENTICE Shari Coley DO LAB URINE ORDERABLES Final Result NIXON GUTIERREZ (FINA) 1 [facility] Department [place] [address] * Differential, auto (06/26/2020 12:37 PM DIGITAL MARKETING APPRENTICE) Neutrophil abs 4.7 1.7 - 6.5 K/cumm [facility] ([place]) Imm gran abs 0.0 0.0 - 0.1 K/cumm [facility] ([place]) Lymphocyte abs 2.2 0.8 - 3.3 K/cumm [facility] ([place]) Monocyte abs 0.4 0.2 - 0.8 K/cumm [facility] ([place]) Eosinophil abs 0.1 0.0 - 0.5 K/cumm [facility] ([place]) Basophil abs 0.1 0.0 - 0.1 K/cumm [facility] ([place]) Neutrophil pct 62.7 % [facility] (FIN[place]) Comment: Interpretive Data Percent cell count reference ranges are not reported, since discordance with absolute values may lead to misinterpretation of CBC data. Current Interpretive Data was last revised on 2017. Imm gran pct 0.3 % [facility] ([place]) Comment: Interpretive Data Percent cell count reference ranges are not reported, since discordance with absolute values may lead to misinterpretation of CBC data. Current Interpretive Data was last revised on 2017. Lymphocyte pct 29.8 % [facility] ([place]) Comment: Interpretive Data Percent cell count reference ranges are not reported, since discordance with absolute values may lead to misinterpretation of CBC data. Current Interpretive Data was last revised on 2017. Monocyte pct 5.2 % [facility] ([place]) Comment: Interpretive Data Percent cell count reference ranges are not reported, since discordance with absolute values may lead to misinterpretation of CBC data. Current Interpretive Data was last revised on 2017. Eosinophil pct 1.3 % [facility] ([place]) Comment: Interpretive Data Percent cell count reference ranges are not reported, since discordance with absolute values may lead to misinterpretation of CBC data. Current Interpretive Data was last revised on 2017. Basophil pct 0.7 % [facility] ([place]) Comment: Interpretive Data Percent cell count reference ranges are not reported, since discordance with absolute values may lead to misinterpretation of CBC data. Current Interpretive Data was last revised on 2017. Blood specimen (specimen) 06/26/2020 12:37 PM DIGITAL MARKETING APPRENTICE 06/26/2020 1:31 PM DIGITAL MARKETING APPRENTICE Shari Coley DO LAB BLOOD ORDERABLES Final Result Performing Organization Address [facility] Co de Phone Number NIXON GUTIERREZ (FINA) 1 [facility] [place] [address] * TSH reflex to free T4 (06/26/2020 12:37 PM DIGITAL MARKETING APPRENTICE) TSH 0.69 0.30 - 4.20 mcIUnit/mL NIXON GUTIERREZ (FIN[place]) Blood specimen (specimen) 06/26/2020 12:37 PM DIGITAL MARKETING APPRENTICE 06/26/2020 1:31 PM DIGITAL MARKETING APPRENTICE us Shari Coley DO LAB BLOOD ORDERABLES Final Result Performing Organization Address [facility] de Phone Number NIXON GUTIERREZ (FINA) 1 [facility] [place] [address] * Lipid panel (06/26/2020 12:37 PM DIGITAL MARKETING APPRENTICE) Cholesterol 187 30 - 199 mg/dL NIXON GUTIERREZ (FINA) [...] Data was last revised on 2018. Triglycerides 136 <=149 mg/dL NIXON GUTIERREZ (FINA) Comment: Interpretive [...] Data was last revised on 2018. HDL 49 >=40 mg/dL NIXON Benjamin (FINA) Comment: Interpretive [...] was last revised on 2018. LDL, calculated 111 <=129 mg/dL NIXON GUTIERREZ (FINA) Comment: Interpretive [...] was last revised on 2018. Non-HDL Cholesterol 138 mg/dL NIXON CALLES) Comment: Interpretive Data Ages [...] Chol/HDL ratio 4 EMILEE GUTIERREZ (FINA) Blood specimen (specimen) 06/26/2020 12:37 PM DIGITAL MARKETING APPRENTICE 06/26/2020 1:31 PM DIGITAL MARKETING APPRENTICE us Shari Coley DO LAB BLOOD ORDERABLES Final Result NIXON GUTIERREZ (FINA) 1 [facility] Department [place] [address] * Hepatitis C antibody (06/26/2020 12:37 PM DIGITAL MARKETING APPRENTICE) Hep C Ab Nonreactive Nonreactive NIXON GUTIERREZ (FIN[place]) Comment: Interpretive Data Nonreactive: Antibodies to HCV [...] last revised on 2019. Testing performed by: [facility], [address] [place] [address]., [address] Blood specimen (specimen) 06/26/2020 12:37 PM DIGITAL MARKETING APPRENTICE 06/26/2020 3:57 PM DIGITAL MARKETING APPRENTICE us Shari Coley DO LAB MICROBIOLOGY - GENERAL ORDERABLES Final Result Performing Organization Address [facility] de Phone Number NIXON MATT (WELLS) 1 [facility] [place] [address] * Hemoglobin A1c (06/26/2020 12:37 PM DIGITAL MARKETING APPRENTICE) Pathologist [facility] Hgb A1C 5.3 4.0 - 5.6 % NIXON GUTIERREZ (FIN[place]) Estimated Average Glucose 105 mg/dL NIXON GUTIERREZ (FINA) Comment: The ADA recommends reporting an estimated Average Glucose (eAG) with all Hemoglobin A1c results using the equation derived from a study of 507 normal and diabetic adults. ??Minority populations were underrepresented and children were not included. ?? (Diabetes Care 31:4293-4491, 2008). ??The eAG is not equivalent to a fasting glucose. Blood specimen (specimen) 06/26/2020 12:37 PM DIGITAL MARKETING APPRENTICE 06/26/2020 1:31 PM DIGITAL MARKETING APPRENTICE us Shrai Coley DO LAB BLOOD ORDERABLES Final Result Performing Organization Address [facility] de Phone Number NIXON MATT (WELLS) 1 [facility] [place] [address] * (ABNORMAL) Comprehensive metabolic panel (06/26/2020 12:37 PM DIGITAL MARKETING APPRENTICE) Sodium 137 135 - 145 mmol/L [facility] ([place]) Potassium, pl 4.6 3.3 - 4.9 mmol/L [facility] ([place]) Chloride 103 97 - 110 mmol/L [facility] ([place]) CO2 25 22 - 32 mmol/L [facility] (FNIA) Anion gap 10 2 - 15 mmol/L [facility] ([place]) BUN 8 8 - 25 mg/dL [facility] ([place]) Creatinine 0.58(L) 0.60 - 1.10 mg/dL [facility] ([place]) Glucose 115 70 - 199 mg/dL [facility] ([place]) [...] interpretive data was last revised 2017. Calcium 9.7 8.5 - 10.3 mg/dL [facility] ([place]) Bilirubin, total 0.3 0.1 - 1.2 mg/dL [facility] ([place]) Protein, pl 7.4 6.5 - 8.5 g/dL [facility] ([place]) Albumin 4.6 3.5 - 5.0 g/dL [facility] ([place]) Alk phos 61 40 - 130 Units/L [facility] ([place]) ALT 11 7 - 45 Units/L [facility] ([place]) AST 20 10 - 45 Units/L [facility] ([place]) Blood specimen (specimen) 06/26/2020 12:37 PM DIGITAL MARKETING APPRENTICE 06/26/2020 1:31 PM DIGITAL MARKETING APPRENTICE us Shari Coley DO LAB BLOOD ORDERABLES Final Result [facility] (FINA) 1 [facility] Department [place] [address] * CBC with auto differential (06/26/2020 12:37 PM DIGITAL MARKETING APPRENTICE) WBC 7.5 3.8 - 9.9 K/cumm [facility] ([place]) Hgb 13.7 11.9 - 15.5 g/dL [facility] ([place]) Hct 42.3 35.6 - 45.5 % [facility] ([place]) Plt 304 150 - 400 K/cumm [facility] ([place]) MPV 11.7 9.1 - 12.3 fL [facility] ([place]) RBC 4.68 3.90 - 5.20 M/cumm [facility] ([place]) MCV 90.4 81.3 - 96.4 fL [facility] (IFNA) MCH 29.3 27.1 - 33.3 pg [facility] ([place]) MCHC 32.4 32.3 - 35.7 g/dL [facility] ([place]) RDW CV 12.3 11.1 - 14.9 % [facility] ([place]) RDW SD 40.6 35.7 - 48.1 fL [facility] ([place]) NRBC abs 0.00 0.00 - 0.01 K/cumm [facility] ([place]) Blood specimen (specimen) 06/26/2020 12:37 PM DIGITAL MARKETING APPRENTICE 06/26/2020 1:31 PM DIGITAL MARKETING APPRENTICE us Shari Coley DO LAB BLOOD ORDERABLES Final Result [facility] ([place]) 1 [facility] Department [place] [address] * (ABNORMAL) Urinalysis reflex to microscopic and culture Urine, clean voided (06/26/2020 12:37 PM DIGITAL MARKETING APPRENTICE) Color, ur Yellow Yellow [facility] ([place]) Clarity, ur Turbid(A) Clear [facility] ([place]) Specific gravity, ur 1.029(H) 1.010 - 1.025 [facility] ([place]) pH, urine 5.5 [facility] ([place]) Protein, ur ql Trace Negative [facility] ([place]) Glucose, ur ql Negative Negative [facility] ([place]) Ketones, ur Negative Negative [facility] ([place]) Bilirubin, ur Negative Negative [facility] ([place]) Blood, ur Negative Negative [facility] ([place]) Urobilinogen, ur <2.0 <2.0 mg/dL [facility] ([place]) Nitrite, ur Negative Negative [facility] ([place]) Leukocyte esterase, ur 2+(A) Negative [facility] ([place]) UA reflex comment Reflex to microscopic UA will be performed. [facility] ([place]) Urine, clean voided 06/26/2020 12:37 PM DIGITAL MARKETING APPRENTICE 06/26/2020 1:31 PM DIGITAL MARKETING APPRENTICE Narrative [facility] ([place]) - 06/26/2020 1:40 PM DIGITAL MARKETING APPRENTICE ?? Urine pH is affected by diet, medications, systemic acid-base disturbances, and renal tubular function. ??pH may affect urinary stone formation. ??For example, urine pH below 6.0 may help reduce the tendency for calcium phosphate stones and pH greater than 6.0 may reduce the tendency for uric acid stone formation. Source: [facility] [employer]. Last revised 07-27-2017 us Shari Coley DO LAB MICROBIOLOGY - GENERAL ORDERABLES Final Result NIXON GUTIERREZ (FINA) 1 [facility] Department [place] [address] documented in this encounter Visit Diagnoses Diagnosis Screening for blood or protein in urine Screening for unspecified condition Screening, anemia, deficiency, iron Screening for iron deficiency anemia Encounter for screening for other digestive system disorders Encounter for screening examination for impaired glucose regulation and diabetes mellitus Encounter for hepatitis C screening test for low risk patient Encounter for lipid screening for cardiovascular disease Screening for thyroid disorder documented in this encounter Care Teams Case Consultant Relationship Specialty Start Date End Date Shari Coley DO PCP - General Family Medicine 06/25/19 02/29/24 Stuart Li PA Physician Chief Hospital Administrator Physician Chief Hospital Administrator 06/25/19 Patricia Bowden MD [address] [place] [address] Referring Physician Dermatology 06/26/20 documented as of this encounter
--- OUTSIDE RECORDS SUMMARY | 2024-07-29 05:45 | XMS_ITS | Encounter Summary ---
Author Organization [facility] Medical Group Address [address] [place] [address] Care Team Providers Care Nuclear Weapons Mechanical Specialist Name Role Phone Shari Coley DO Primary Care Provider [phone] Stuart Li Unavailable [phone] Patricia Bowden MD Unavailable [phone] Reason for Visit * Reason Onset Date Comments Lab Results 04/02/2021 Encounter Details Date Type Department Care Team (Late st Contact Info) Description 04/02/2021 Telephone [facility] [address] [address] Kiana Steward, chairperson anesthesiology Results Social History Tobacco Use Types Packs/Day Years Used Date Smoking Tobacco: Never Smokeless Tobacco: Never Alcohol Use Standard Drinks/Week Comments Yes 0 (1 standard drink = 0.6 oz pur e alcohol) PHQ-2 Answer Date Recorded PHQ-2 Total Score (If total score is 3 or more points, staff should administer the PHQ-9) 0 03/29/2021 Comments No Sex and Gender Information Value Date Recorded Sex Assigned at Not on file 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 REGISTERED CLIENT ASSOCIATE Gender Identity Not on file Sexual Orientation Not on file documented as of this encounter Miscellaneous Notes * Telephone Encounter - Alison Syed MD - 04/06/2021 3:42 PM CDT Martita, I am sending this back for you to call again. You dont have to send it back to me until you speak with her. * Telephone Encounter - Kiana Steward RN - 04/06/2021 10:23 AM CDT No alternative to the Eflorinithine cream. The Spironolactone will hell but takes about 6 months toreally take affect. Left message for patient to call to relay this information correctly. * Telephone Encounter - Alison Syed MD - 04/05/2021 3:14 PM CDT She and I talked about the cost as it is very expensive. Sadly, there is no alternative. The sprionolactone will help, but it takes about 6m to really kick in. The pills will help to slow the growth also. * Telephone Encounter - Kiana Steward RN - 04/02/2021 8:40 AM CDT Left message to call for lab results. Patient returned my call. Lab results given. Had questions in regard to the eflorinithine cream ordered. Too expensive, alternate medication request. Please advise, thank you! documented in this encounter Plan of Treatment Not on file documented as of this encounter Visit Diagnoses Not on filedocumented in this encounter Care Teams Nuclear Weapons Mechanical Specialist Relationship Specialty Start Date End Date Shari Coley DO PCP - General Family Medicine 06/25/19 02/29/24 Stuart Li PA Physician Brazer Electronic Physician Brazer Electronic 06/25/19 Patricia Bowden MD [address] [place] [address] Referring Physician Dermatology 06/26/20 documented as of this encounter
--- OUTSIDE RECORDS SUMMARY | 2024-07-29 05:45 | XMS_ITS | Encounter Summary ---
Author Organization [facility] Medical [facility] Address [address] [place] [address] Care Team Providers Care Geophysical Computer Name Role Phone Shari Coley DO Primary Care Provider [phone] Stuart Li Unavailable [phone] Patricia Bowden MD Unavailable [phone] Alison Syed MD Unavailable [phone] Christopher Cadet MD Unavailable Reason for Visit * Reason Onset Date Comments Vaginal Discharge 07/13/2022 Encounter Details Date Type Department Care Team (Late st Contact Info) Description 07/13/2022 Nurse Triage [facility] Primary Care at [address] [place] [address] Shari Coley DO [address] [address] Social History Tobacco Use Types [...] points, staff should administer the PHQ-9) 0 04/13/2022 Comments No Sex and Gender Information Value Date Recorded Sex Assigned at Not on file 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 LOOM OPERATOR Gender Identity Not on file Sexual Orientation Not on file documented as of this encounter Miscellaneous Notes * Telephone Encounter - Belinda Garcia RN - 07/13/2022 5:06 PM CST Wendy Jansen reports vaginal itching with white discharge. Pt suspects yeast infection. Pt confirms No history of yeast infection. Denies recent antibiotic use, negative test (ED yesterday per Pt). Denies fever, pelvic pain, confirms vaginal redness with burning. DISPO: See in office within 3 days Reviewed care advice with Wendy Jansen verbalizing understanding and willingness to follow. Appt made for [facility] 07/14/22 at 0945 Routing to Clin Pool: FYI Pt Covid Positive in ED 07/12/22 per Pt she is on day 4/5 of Quarantine Pls contact Wendy Jansen at [phone] for further assist Reason for Disposition [1] Symptoms of a yeast infection (i.e., itchy, white discharge, not bad smelling) AND [2] not improved > 3 days following CARE ADVICE Protocols used: Vaginal [id number] OPERATOR * Telephone Encounter - Belinda Garcia RN - 07/13/2022 4:54 PM CST Regarding: suspected yeast infection ----- Message from Bindu Zhou sent at 07/13/2022 4:32 PM LOOM OPERATOR ----- Symptom Based Call Chief Complaint: suspected yeast infection Did you review 911/Red Flag List?Yes Duration: began this morning Why was appointment not scheduled? Patient wants medication Caller's Callback #: [phone] Additional Comments: vaginal burning and white discharge, tested positive for COVID (5th day of quarantine), no fever or other symptoms reported, Advised hebrew professor cannot prescribe medication but will consult with doctor Does message need to be routed? Yes-Action Needed OPERATOR documented in this encounter Plan of Treatment Not on file documented as of this encounter Visit Diagnoses Not on filedocumented in this encounter Care Teams Geophysical Computer Relationship Specialty Start Date End Date Shari Coley DO PCP - General Family Medicine 06/25/19 02/29/24 Stuart Li PA Physician Concrete Block Layer Physician Concrete Block Layer 06/25/19 Patricia Bowden MD [address] [place] [address] Referring Physician Dermatology 06/26/20 Alison Syed MD [address] [place] [address] Consulting Physician Obstetrics and Gynecology 07/02/21 Christopher Cadet MD [address] [place] [address] Consulting Physician General Surgery 07/02/21 documented as of this encounter
--- OUTSIDE RECORDS SUMMARY | 2024-07-29 05:45 | XMS_ITS | Encounter Summary ---
Author Organization [facility] Facility Care Team Providers Care Pencil Inspector Name Role Phone Shari Coley DO Primary Care Provider [phone] Stuart Li Unavailable [phone] Encounter Details Date Type Department Care Team (Latest Contact Info) Description 07/25/2019 Travel Social History Tobacco Use Types Packs/Day Years Used Date Smoking Tobacco: Never Smokeless Tobacco: Never Alcohol Use Standard Drinks/Week Comments Yes 0 (1 standard drink = 0.6 oz pur e alcohol) PHQ-2 Answer Date Recorded PHQ-2 Score 0 06/25/2019 Comments No Sex and Gender Information Value Date Recorded Sex Assigned at Not on file 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 TIRE MOUNTER Gender Identity Not on file Sexual Orientation Not on file documented as of this encounter Plan of Treatment Not on file documented as of this encounter Visit Diagnoses Not on filedocumented in this encounter Care Teams Pencil Inspector Relationship Specialty Start Date End Date Shari Coley DO PCP - General Family Medicine 06/25/19 02/29/24 Stuart Li PA Physician Gps Navigation Installer Physician Gps Navigation Installer 06/25/19 documented as of this encounter
--- OUTSIDE RECORDS SUMMARY | 2024-07-29 05:45 | XMS_ITS | Encounter Summary ---
Author Organization [facility] Address [address] [place] [address] Care Team Providers Care Guest Service Manager Name Role Phone Shari Coley DO Primary Care Provider [phone] Stuart Li Unavailable +- [phone] Patricia Bowden MD Unavailable [phone] Alison Syed MD Unavailable + [phone] Christopher Cadet MD Unavailable Reason for Visit * Reason Onset Date Comments Unsuccessful - Rescheduled 09/29/2022 Left message for patient to call back and reschedule 10/07/[address] Coley Encounter Details Date Type Department Care Team (Late st Contact Info) Description 09/29/2022 Telephone [facility] Primary Care at [address] [place] [address] Shari Coley DO [address] [facility] [address] [address] Unsuccessful - Rescheduled (Left message for patient to call back and reschedule 10/07/[address] Coley) Social History Tobacco Use Types Packs/Day Years [...] on file 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 MUD TEM[employer] Gender Identity Not on file Sexual Orientation Not on file documented as of this encounter Miscellaneous Notes * Telephone Encounter - Aisha Weston - 09/29/2022 10:17 AM CDT Left message for patient to call back and reschedule 10/07/[address] Coley documented in this encounter Plan of Treatment Not on file documented as of this encounter Visit Diagnoses Not on filedocumented in this encounter Care Teams Guest Service Manager Relationship Specialty Start Date End Date Shari Coley DO PCP - General Family Medicine 06/25/19 02/29/24 Stuart Li PA Physician Composite Laminator Physician Composite Laminator 06/25/19 Patricia Bowden MD [address] [place] [address] Referring Physician Dermatology 06/26/20 Alison Syed MD [address] [place] [address] Consulting Physician Obstetrics and Gynecology 07/02/21 Christopher Cadet MD [address] [place] [address] Consulting Physician General Surgery 07/02/21 documented as of this encounter
--- OUTSIDE RECORDS SUMMARY | 2024-07-29 05:45 | XMS_ITS | Encounter Summary ---
Author Organization [facility] Address [address] [place] [address] Care Team Providers Care Principal Software Engineer Name Role Phone Shari Coley DO Primary Care Provider [phone] Stuart Li Unavailable [phone] Patricia Bowden MD Unavailable [phone] Reason for Referral * Consultation (Routine) - Canceled Specialty Diagnoses / Procedures Referred By Verenice snow Referred To Contact Obstetrics and Gynecology Diagnoses Pap smear for cervical cancer screening Shari Coley DO Phone: tel: fax: Lesley Suh, IDALMIS [address] [place] [address] [address] [address] Phone: tel: fax: Referral ID Status Reason Start Date Expiration Date Visits Requested Visits Authorized [id number] Canceled Specialty Services Required 06/26/2020 12/25/2020 1 1 Question Answer Please select the performing region: [facility] [[id number]] Please select the performing department: [facility] 125B [[id number]] To provider: LESLEY SUH [[id number]] M BONE PRESS TENDER Reason for Visit * Reason Comments Annual Exam Encounter Details Date Type Department Care Team (Late st Contact Info) Description 06/26/2020 11:15 AM STEAM BONE PRESS TENDER Office Visit [facility] [address] [place] [address] Shari Coley, DO [address] [place] [address] Annual physical exam (Primary Dx); BMI 25.0-25.9,adult; Screening, anemia, deficiency, iron; Encounter for screening for other digestive system disorders; Encounter for screening examination for impaired glucose regulation and diabetes mellitus; Encounter for hepatitis C screening test for low risk patient; Encounter for lipid screening for cardiovascular disease; Screening for thyroid disorder; Screening for blood or protein in urine; Encounter for control pills maintenance; Pap smear for cervical cancer screening Social History Tobacco Use Types Packs/Day Years [...] on file 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 STEAM BONE PRESS TENDER Gender Identity Not on file Sexual Orientation Not on file documented as of this encounter Last Filed Vital Signs Vital Sign Reading Time Taken Comments Blood Pressure 105/70 06/26/2020 11:06 AM STEAM BONE PRESS TENDER Pulse 80 06/26/2020 11:06 AM STEAM BONE PRESS TENDER Temperature 36.2 ??C (97.1 ??F) 06/26/2020 11:[address] Respiratory Rate 16 06/26/2020 11:06 AM STEAM BONE PRESS TENDER Oxygen Saturation 100% 06/26/2020 11:06 AM STEAM BONE PRESS TENDER Inhaled Oxygen Concentration - - Weight 64 kg (141 lb 3.2 oz) 06/26/2020 11:06 AM STEAM BONE PRESS TENDER Height 160 cm (5' 3 ) 06/26/2020 11:06 AM STEAM BONE PRESS TENDER Body Mass Index 25.01 06/26/2020 11:06 AM STEAM BONE PRESS TENDER documented in this encounter Patient Instructions * Patient Instructions* Shari Coley DO - 06/26/2020 11:15 AM STEAM BONE PRESS TENDER Images from the original note were not included. 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 Any of the following may bedone: ?? Your weight will be checked. Your height may also be checked so your body mass index (BMI) can be calculated. Your BMI shows if you are at a healthy weight. ?? Your blood pressure and heart rate will be checked. Your temperature may also be checked. ?? Blood and urine tests may be done. Blood tests may be done to check your cholesterol levels. Abnormal cholesterol levels increase your risk for heart disease and stroke. You may also need a blood or urine test to check for diabetes if you are at increased risk. Urine tests may be done to look for signs of an infection or kidney disease. ?? A physical exam includes checking your heartbeat and lungs with a stethoscope. Your healthcare provider may also check your skin to look for sun damage. ?? Screening tests may be recommended. A screening test is done to check for diseases that may not cause symptoms. The screening tests you may need depend on your age, gender, family history, and lifestyle habits. For example, colorectal screening may be recommended if you are 50 years old or older. Screening tests you need if you are a woman: ?? A Pap smear is used to screen for cervical cancer. Pap smears are usually done every 3 to 5 years depending on your age. You may need them more often if you have had abnormal Pap smear test results in the past. Ask your healthcare provider how often you should have a Pap smear. ?? A mammogram is an x-ray of your breasts to screen for breast cancer. Experts recommend mammograms every 2 years starting at age 50 years. You may need a mammogram at age 49 years or younger if youhave an increased risk for breast cancer. Talk to your healthcare provider about when you should start having mammograms and how often you need them. Vaccines you may need: ?? Get an influenza vaccine every year. The influenza vaccine protects you from the flu. Several types of viruses cause the flu. The viruses change management expert time, so new vaccines are made each year. ?? Get a tetanus-diphtheria (Td) booster vaccine every 10 years. This vaccine protects you against tetanus and diphtheria. Tetanus is a severe infection that may cause painful muscle spasms and lockjaw. Diphtheria is a severe bacterial infection that causes a thick covering in the back of your mouth and throat. ?? Get a human papillomavirus (HPV) vaccine if you are female and aged 19 to 26 or male 19 to 21 and never received it. This vaccine protects you from HPV infection. HPV is the most common infection spread by sexual contact. HPV may also cause vaginal, penile, and anal cancers. ?? Get a pneumococcal vaccine if you are aged 65 years or older. The pneumococcal vaccine is an injection given to protect you from pneumococcal disease. Pneumococcal disease is an infection caused by pneumococcal bacteria. The infection may cause pneumonia, meningitis, or an ear infection. ?? Get a shingles vaccine if you are aged 60 or older, even if you have had shingles before. The shingles vaccine is an injection to protect you from the varicella-zoster virus. This is the same virus that causes chickenpox. Shingles is a painful rash that develops in people who had chickenpox or have been exposed to the virus. How to eat [...] on your age, gender, weight, and height. Examples of healthy foods are listed below: ?? Eat a variety of vegetables such as dark green, red, and orange vegetables. You can also includecanned vegetables low in sodium (salt) and frozen vegetables without added butter or sauces. ?? Eat a variety of fresh fruits , canned fruit in 100% juice, frozen fruit, and dried fruit. ?? Include whole grains. At least half of the grains you eat should be whole grains. Examples include whole-wheat bread, wheat pasta, brown rice, and whole- grain cereals such as oatmeal. ?? Eat a variety of protein foods such as seafood (fish and shellfish), lean meat, and poultry without skin (turkey and chicken). Examples of lean meats include pork leg, shoulder, or tenderloin, andbeef round, sirloin, tenderloin, and extra lean ground beef. Other protein foods include eggs and egg substitutes, beans, peas, soy products, nuts, and seeds. ?? Choose low-fat dairy products such as skim or 1% milk or low-fat yogurt, cheese, and cottage cheese. ?? Limit unhealthy fats such as butter, hard [...] for you. General health and safety guidelines: ?? Do not smoke. Nicotine and other chemicals in cigarettes and cigars can cause lung damage. Ask your healthcare provider for information if you currently smoke and need help to quit. E-cigarettes or smokeless tobacco still contain nicotine. Talk to your healthcare provider before you use these products. ?? Limit alcohol. A drink of alcohol is 12 ounces of beer, 5 ounces of wine, or 1?? ounces of liquor. ?? Lose weight, if needed. Being overweight increases your risk of certain health conditions. Theseinclude heart disease, high blood pressure, type 2 diabetes, and certain types of cancer. ?? Protect your skin. Do not sunbathe or use tanning beds. Use sunscreen with a SPF 15 or higher. Apply sunscreen at least 15 minutes before you go outside. Reapply sunscreen every 2 hours. Wear protective clothing, hats, and sunglasses when you are outside. ?? Drive safely. Always wear your seatbelt. Make sure everyone in your car wears a seatbelt. A seatbelt can save your life if you are in an accident. Do not use your cell phone when you are driving. This could distract you and cause an accident. auto slip cover installer if you need to make a call or send a text message. ?? Practice safe sex. Use latex condoms if are sexually active and have more than one partner. Yourhealthcare provider may recommend screening tests for sexually transmitted infections (STIs). ?? Wear helmets, lifejackets, and protective gear. Always wear a helmet when you ride a bike or motorcycle, go skiing, or play sports that could cause a head injury. Wear protective equipment when you play sports. Wear a lifejacket when you are on a boat or doing water sports. ?? 2017 [employer] Information is for End User's use only and may not be sold, redistributed or otherwise used for commercial purposes. All illustrations and images included in CareNotes?? are the copyrighted property of [employer] or [employer]. The above information is an unit aide tech only. It is not intended as medical advice for individual conditions or treatments. Talk to your doctor, nurse or pharmacist before following any medical regimen to see if it is safe and effective for you. 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 Contact your healthcare provider if: ?? You find any lumps or changes in your breasts. ?? You have breast pain or fluid coming from your nipples. ?? You have questions or concerns about your condition or care. How to do a BSE: ?? Look at your breasts in a mirror. [...] Check your breasts while you sit or gum machine filler the following 3 positions: ?? Hang your arms down at your sides. ?? Raise your hands and join them behind your head. ?? Put firm pressure with your hands on your hips. Bend slightly forward while you look at your breasts in the mirror. ?? Lie down and feel your breasts. When you lie down, your breast tissue spreads out evenly over your chest. This makes it easier for you to feel for lumps and anything that may not be normal for your breasts. Do a BSE on one breast at a time. ?? Place a small pillow or towel under your left shoulder. Put your left arm behind your head. ?? Use the 3 middle fingers of your right hand. Use your fingertip pads, on the top of your fingers. Your fingertip pad is the most sensitive part of your finger. ?? Use small circles to feel your breast tissue. Use your fingertip pads to make dime-sized, overlapping circles on your breast and armpits. Use light, medium, and firm pressure. First, press lightly. Second, press with medium pressure to feel a little deeper into the breast. Last, use firm pressure to feel deep within your breast. ?? Examine your entire breast area. Examine the breast area from above the breast to below the breast where you feel only ribs. Make small circles with your fingertips, starting in the middle of yourarmpit. Make circles going up and down the breast area. Continue toward your breast and all the wayacross it. Examine the area from your armpit all the way over to the middle of your chest (breastbone). Stop at the middle of your chest. ?? Move the pillow or towel to your right shoulder, and put your right arm behind your head. Use the 3 fingertip pads of your left hand, and repeat [...] ask them during your visits. ?? 2017 [employer] Information is for End User's use only and may not be sold, redistributed or otherwise used for commercial purposes. All illustrations and images included in CareNotes?? are the copyrighted property of [employer], [employer]. or [employer]. The above information is an unit aide tech only. It is not intended as medical advice for individual conditions or treatments. Talk to your doctor, nurse or pharmacist before following any medical regimen to see if it is safe and effective for you. M BONE PRESS TENDER documented in this encounter Ordered Prescriptions Prescription Sig Dispense Quantity Refills Last Filled Start Date End Date norgestimate-ethiny l estradioL (Hdj-Cf-Wycrui) 0.18/0.215/0.25 mg-25 mcg per tabletIndications:P regnancy Contraception Take 1 tablet by mouth daily 28 tablet 5 06/26/2020 1 documented in this encounter Progress Notes * Shari Coley DO - 06/26/2020 11:15 AM CST Images from the original note were not included. Subjective/Objective Patient ID: Wendy Jansen is a 24 y.o. female. Chief Complaint Chief Complaint Patient presents with ??? Annual Exam HPI Patient returns to clinic today for her annual physical. She Is without complaints. She is requesting refills on her OCPs. Vitals: 06/26/20 1106 BP: 105/70 BP Location: Left arm Patient Position: Sitting Pulse: 80 Resp: 16 Temp: 36.2 ??C (97.1 ??F) TempSrc: Temporal SpO2: 100% Weight: 64 kg (141 lb 3.2 oz) Height: 160 cm (5' 3 ) Body mass index is 25.01 kg/m??. Review of Systems Constitutional: Negative for fatigue and fever. HENT: Negative for congestion and trouble swallowing. [...] reviewed and are negative. Physical Exam Vitals signs and nursing note reviewed. Constitutional: Appearance: Normal appearance. She is well-developed. Interventions: Face mask in place. HENT: Head: Normocephalic and atraumatic. Right Ear: Hearing, tympanic membrane, ear canal and external ear normal. Left Ear: Hearing, tympanic membrane, ear canal and external ear normal. Eyes: General: Lids are normal. No scleral icterus. Extraocular Movements: Extraocular movements intact. Conjunctiva/sclera: Conjunctivae normal. Neck: Musculoskeletal: Full passive range of motion without pain, normal range of motion and neck supple. Thyroid: No thyromegaly. Cardiovascular: Rate and Rhythm: Normal rate and regular rhythm. Heart sounds: Normal heart sounds. No murmur. Pulmonary: Effort: Pulmonary effort is normal. Breath sounds: Normal breath sounds. No wheezing. Abdominal: General: Bowel sounds are normal. Palpations: Abdomen is soft. There is no mass. Tenderness: There is no abdominal tenderness. Musculoskeletal: Normal range of motion. Right lower leg: No edema. Left lower leg: No edema. Skin: General: Skin is warm and dry. Findings: No erythema or rash. Neurological: General: No focal deficit present. Mental Status: She is alert and oriented to person, place, and time. Psychiatric: Mood and Affect: Mood normal. Behavior: Behavior normal. Thought Content: Thought content normal. Lab Results Component Value Date WBC 7.5 06/26/2020 HGB 13.7 06/26/2020 HCT 42.3 06/26/2020 MCV 90.4 06/26/2020 LABPLAT 304 06/26/2020 Chemistry Component Value Date/Time SODIUM 137 06/26/2020 1237 POTASSIUM 4.6 06/26/2020 1237 CHLORIDE 103 06/26/2020 1237 CO2 25 06/26/2020 1237 BUNSER 8 06/26/2020 1237 CREATININE 0.58 (L) 06/26/2020 1237 GLUCOSE 115 06/26/2020 1237 Component Value Date/Time CALCIUM 9.7 06/26/2020 1237 ALKPHOS 61 06/26/2020 1237 AST 20 06/26/2020 1237 ALT 11 06/26/2020 1237 BILITOT 0.3 06/26/2020 1237 Diagnoses and all orders for this visit: Annual physical exam (Primary) Comments: Well exam, health maintenance updated. BMI 25.0-25.9,adult Screening, anemia, deficiency, iron - CBC with auto differential; Future Encounter for screening for other digestive system disorders - Comprehensive metabolic panel; Future Encounter for screening examination for impaired glucose regulation and diabetes mellitus - Hemoglobin A1c; Future Encounter for hepatitis C screening test for low risk patient - Hepatitis C antibody; Future Encounter for lipid screening for cardiovascular disease - Lipid panel; Future Screening for thyroid disorder - TSH reflex to free T4; Future Screening for blood or protein in urine - Urinalysis reflex to microscopic and culture Urine, clean voided; Future Encounter for control pills maintenance - norgestimate-ethinyl estradioL (Tjh-Kx-Sfztqo) 0.18/0.215/0.25 mg-25 mcg per tablet; Take 1 tablet by mouth daily Pap smear for cervical cancer screening - Ambulatory referral to Obstetrics / Gynecology Shari Coley DO M BONE PRESS TENDER documented in this encounter Plan of Treatment Scheduled Referrals Name Type Priority Associated Diagnoses Order Schedule Ambulatory referral to Obstetrics / Gynecology Outpatient Referral Routine Pap smear for cervical cancer screening Ordered: 06/26/2020 documented as of this encounter Results * (ABNORMAL) Urinalysis reflex to microscopic and culture Urine, clean voided (06/26/2020 12:37 PM STEAM BONE PRESS TENDER) Color, ur Yellow Yellow [facility] ([place]) [...] ([place]) Urine, clean voided 06/26/2020 12:37 PM STEAM BONE PRESS TENDER 06/26/2020 1:31 PM STEAM BONE PRESS TENDER Narrative [facility] ([place]) - 06/26/2020 1:40 PM STEAM BONE PRESS TENDER ?? Urine pH is affected by diet, medications, systemic acid-base disturbances, and renal tubular function. ??pH may affect urinary stone formation. ??For example, urine pH below 6.0 may help reduce the tendency for calcium phosphate stones and pH greater than 6.0 may reduce the tendency for uric acid stone formation. Source: [facility] [employer]. Last revised 07-27-2017 us Shari Coley DO LAB MICROBIOLOGY - GENERAL ORDERABLES Final Result [facility] ([place]) [address] [facility] [place] [address] * TSH reflex to free T4 (06/26/2020 12:37 PM STEAM BONE PRESS TENDER) TSH 0.69 0.30 - 4.20 mcIUnit/mL [facility] ([place]) Blood specimen (specimen) 06/26/2020 12:37 PM STEAM BONE PRESS TENDER 06/26/2020 1:31 PM STEAM BONE PRESS TENDER us Shari Bong Coley DO LAB BLOOD ORDERABLES Final Result [facility] ([place] [address] [facility] [place] [address] * Lipid panel (06/26/2020 12:37 PM STEAM BONE PRESS TENDER) Cholesterol 187 30 - 199 mg/dL [facility] [...] on 2018. Non-HDL Cholesterol 138 mg/dL [facility] ([place]) Comment: Interpretive Data [...] on 2018. Chol/HDL ratio 4 [facility] ([place]) Blood specimen (specimen) 06/26/2020 12:37 PM STEAM BONE PRESS TENDER 06/26/2020 1:31 PM STEAM BONE PRESS TENDER Shari Coley DO LAB BLOOD ORDERABLES Final Result Performing Organization Address [facility] Co de Phone Number [facility] ([place]) [address] [facility] [place] [address] * Hepatitis C antibody (06/26/2020 12:37 PM STEAM BONE PRESS TENDER) Hep C Ab Nonreactive Nonreactive [facility] ([place]) Comment: Interpretive Data Nonreactive: Antibodies to HCV [...] last revised on 2019. Testing performed by: [facility], [address] [place] [address], [place]., [address] Blood specimen (specimen) 06/26/2020 12:37 PM STEAM BONE PRESS TENDER 06/26/2020 3:57 PM STEAM BONE PRESS TENDER us Shari Coley DO LAB MICROBIOLOGY - GENERAL ORDERABLES Final Result Performing Organization Address [facility] Co de Phone Number [facility] ([place]) [address] [facility] [place] [employer] [address] * Hemoglobin A1c (06/26/2020 12:37 PM STEAM BONE PRESS TENDER) Hgb A1C 5.3 4.0 - 5.6 % [facility] ([place]) Estimated Average Glucose 105 mg/dL [facility] ([place]) Comment: The ADA recommends reporting an estimated Average Glucose (eAG) with all Hemoglobin A1c results using the equation derived from a study of 507 normal and diabetic adults. ??Minority populations were underrepresented and children were not included. ?? (Diabetes Care 31:5224-0613, 2008). ??The eAG is not equivalent to a fasting glucose. Blood specimen (specimen) 06/26/2020 12:37 PM STEAM BONE PRESS TENDER 06/26/2020 1:31 PM STEAM BONE PRESS TENDER us Shari Coley DO LAB BLOOD ORDERABLES Final Result [facility] ([place]) [address] [facility] [place] [address] * (ABNORMAL) Comprehensive metabolic panel (06/26/2020 12:37 PM STEAM BONE PRESS TENDER) Sodium 137 135 - 145 mmol/L [facility] ([place]) Potassium, pl 4.6 3.3 - 4.9 mmol/L [facility] ([place]) Chloride 103 97 - 110 mmol/L [facility]) CO2 25 22 - 32 mmol/L [facility] ([facility]) Anion gap 10 2 - 15 mmol/L [facility] ([place]) BUN 8 8 - 25 mg/dL [facility] ([place]) Creatinine 0.58(L) 0.60 - 1.10 mg/dL [facility] ([place]) Glucose 115 70 - 199 mg/dL [facility] ([facility]) Comment: Interpretive Data Fasting glucose [...] ([place]) Blood specimen (specimen) 06/26/2020 12:37 PM STEAM BONE PRESS TENDER 06/26/2020 1:31 PM STEAM BONE PRESS TENDER us Shari Coley DO LAB BLOOD ORDERABLES Final Result [facility] ([place] [address] [facility] [place] [address] * CBC with auto differential (06/26/2020 12:37 PM STEAM BONE PRESS TENDER) WBC 7.5 3.8 - 9.9 K/cumm [facility] ([place]) Hgb 13.7 11.9 - 15.5 g/dL [facility]) Hct 42.3 35.6 - 45.5 % [facility] ([place]) Plt 304 150 - 400 K/cumm [facility] ([place]) MPV 11.7 9.1 - 12.3 fL [facility] ([place]) RBC 4.68 3.90 - 5.20 M/cumm [facility] ([place]) MCV 90.4 81.3 - 96.4 fL [facility]) MCH 29.3 27.1 - 33.3 pg [facility]) MCHC 32.4 32.3 - 35.7 g/dL [facility]) RDW CV 12.3 11.1 - 14.9 % [facility]) RDW SD 40.6 35.7 - 48.1 fL [facility] ([place]) NRBC abs 0.00 0.00 - 0.01 K/cumm [facility] ([place]) Blood specimen (specimen) 06/26/2020 12:37 PM STEAM BONE PRESS TENDER 06/26/2020 1:31 PM STEAM BONE PRESS TENDER Shari Coley DO LAB BLOOD ORDERABLES Final Result [facility] ([place] [address] [facility] [place] [address] documented in this encounter Visit Diagnoses Diagnosis Annual physical exam- Primary Routine general medical examination at a health care facility BMI 25.0-25.9,adult Screening, anemia, deficiency, iron Screening for iron deficiency anemia Encounter for screening for other digestive system disorders Encounter for screening examination for impaired glucose regulation and diabetes mellitus Encounter for hepatitis C screening test for low risk patient Encounter for lipid screening for cardiovascular disease Screening for thyroid disorder Screening for blood or protein in urine Screening for unspecified condition Encounter for control pills maintenance Surveillance of previously prescribed contraceptive pill Pap smear for cervical cancer screening Screening for malignant neoplasm of the cervix Screening for blood or protein in urine [...] for thyroid disorder documented in this encounter Discontinued Medications Medication Sig Discontinue Reason Start Date End Da te EPIDUO FORTE 0.3-2.5 % gel with pump Therapy completed 07/08/2019 06/26/2020 spironolactone (ALDACTONE) 50 mg tablet TAKE 3 TABS BY MOUTH EVERY DAY Therapy completed 06/02/2019 06/26/2020 norgestimate-ethinyl estradioL (Yyy-Dz-Uzdtnb) 0.18/0.215/0.25 mg-25 mcg per tablet Take 1 tablet by mouth daily Reorder 06/26/2020 documented as of this encounter Historical Medications * This list may reflect changes made after this encounter. norgestimate-ethi nyl estradioL (Vye-Mp-Kblmba) 0.18/0.215/0.25 mg-25 mcg per tablet Take 1 tablet by mouth daily 06/26/2020 triamcinolone (KENALOG) 0.025 % ointment APPLY TO RASH 2X A DAY UP TO 4 WEEKS DO NOT APPLY TO FACE, GROIN, ARMPITS WAIT 2 WKS BEFORE RESTART 06/05/2020 03/24/2021 ISOtretinoin (ABSORICA) 30 mg capsule 03/24/2021 added in this encounter Care Teams Principal Software Engineer Relationship Specialty Start Date End Date Shari Coley DO PCP - General Family Medicine 06/25/19 02/29/24 Stuart Li PA Physician Build Engineer Physician Build Engineer 06/25/19 Patricia Bowden MD [address] [place] [address] Referring Physician Dermatology 06/26/20 documented as of this encounter
--- OUTSIDE RECORDS SUMMARY | 2024-07-29 05:45 | XMS_ITS | Encounter Summary ---
Author Organization [facility] Address [address] [place] [address] Care Team Providers Care Manager Costing Name Role Phone Shari Coley DO Primary Care Provider [phone] Stuart Li Unavailable [phone] Patricia Bowden MD Unavailable [phone] Reason for Visit * Reason Comments medication follow up Encounter Details Date Type Department Care Team (Late st Contact Info) Description 06/29/2021 11:30 AM OUTCOME ANALYST Office Visit [facility] [address] [facility] [address] [place] [id number] Alison Syed MD [address] [place] [address] [address] [place] [address] Encounter for control pills maintenance (Primary Dx) Social History Tobacco Use Types [...] on file 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 OUTCOME ANALYST Gender Identity Not on file Sexual Orientation Not on file documented as of this encounter Last Filed Vital Signs Vital Sign Reading Time Taken Comments Blood Pressure 110/70 06/29/2021 11:27 AM OUTCOME ANALYST Pulse 67 06/29/2021 11:27 AM OUTCOME ANALYST Temperature - - Respiratory Rate - - Oxygen Saturation - - Inhaled Oxygen Concentration - - Weight 67.1 kg (148 lb) 06/29/2021 11:27 AM OUTCOME ANALYST Height 160 cm (5' 3 ) 06/29/2021 11:27 AM OUTCOME ANALYST Body Mass Index 26.22 06/29/2021 11:27 AM OUTCOME ANALYST documented in this encounter Progress Notes * Alison Syed MD - 06/29/2021 11:30 AM CST Images from the original note were not included. Clinical Exercise Specialist Visit Subjective: Wendy Jansen is a 25 y.o. year old female who presents for follow up of new ocp. She is doing well taking. Some weight gain, but she has stopped exercising. 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 Declines need for gc/ct Still on the spironolactone q day. She will talk to derm about increasing. Contraception:Oral contraception No obstetric history on file. No LMP recorded. Menstrual History: No LMP recorded. Sexual History: OB History No obstetric history on file. Current Outpatient Medications Medication Sig Dispense Refill ??? cetirizine (ZyrTEC) 10 mg tablet Take 10 mg by mouth daily ??? eflornithine 13.9 % cream Apply to affected area twice a day. 30 g 3 ??? escitalopram (LEXAPRO) 10 mg tablet Take 1 tablet (10 mg total) by mouth daily 90 tablet 1 ??? fluticasone propionate (FLONASE) 50 mcg/actuation nasal spray Administer 1 spray into each nostril daily ??? norgestimate-ethinyl estradioL (Ortho-Cyclen, 28,) 0.25-35 mg-mcg per tablet Take 1 tablet by mouth daily 28 tablet 12 ??? spironolactone (ALDACTONE) 50 mg tablet No current facility-administered medications for this visit. No Known Allergies Review of Systems see HPI- she is unable to tell a difference in the hair growth. Objective: BP 110/70 (BP Location: Left arm, Patient Position: Sitting) Pulse 67 Ht 160 cm (5' 3 ) Wt 148 lb (67.1 kg) BMI 26.22 kg/m?? Physical Exam: wdwn female in nad OBGyn Exam Assessment and Plan: Diagnoses and all orders for this visit: Encounter for control pills maintenance (Primary) Assessment & Plan: Doing well. Will continue on with ocn Return in about 9 months (around 03/30/2022) for wwe. Alison Syed MD 06/29/2021 OME ANALYST documented in this encounter Miscellaneous Notes * Assessment & Plan Note - Alison Syed MD - 06/29/2021 11:48 AM CSTAssociated Problem(s): Hirsutism No change after the 3m of ocn and sprinolactone To talk to derm about increasing to bid. OME ANALYST * Assessment & Plan Note - Alison Syed MD - 06/29/2021 11:46 AM CSTAssociated Problem(s): Encounter for control pills maintenance Doing well. Will continue on with ocn OME ANALYST documented in this encounter Plan of Treatment Not on file documented as of this encounter Visit Diagnoses Diagnosis Encounter for control pills maintenance- Primary Surveillance of previously prescribed contraceptive pill documented in this encounter Discontinued Medications Medication Sig Discontinue Reason Start Date End Da te norgestimate-ethinyl estradioL (Hnp-Ec-Apwuel) 0.18/0.215/0.25 mg-25 mcg per tabletIndications:Pregnanc y Contraception Take 1 tablet by mouth daily Therapy completed 01/08/2021 06/29/2021 [id number] 0.18/0.215/0.25 mg-25 mcg per tabletIndications:Encounte r for control pills maintenance Take 1 tablet by mouth daily Therapy completed 06/25/2019 06/29/2021 spironolactone (ALDACTONE) 25 mg oral suspension Take 25 mg by mouth daily Duplicate order 06/29/2021 documented as of this encounter Historical Medications * This list may reflect changes made after this encounter. spironolactone (ALDACTONE) 50 mg tablet Take 1 tablet (50 mg total) by mouth every morning 06/09/2021 added in this encounter Care Teams Manager Costing Relationship Specialty Start Date End Date ColeyShari WoodyDO PCP - General Family Medicine 06/25/19 02/29/24 Stuart Li PA Physician Contract Analyst Physician Contract Analyst 06/25/19 Patricia Bowden MD [address] [place] [address] Referring Physician Dermatology 06/26/20 documented as of this encounter
--- OUTSIDE RECORDS SUMMARY | 2024-07-29 05:45 | XMS_ITS | Encounter Summary ---
Author Organization [facility] Address [address] [place] [address] Care Team Providers Care Colliery Clerk Name Role Phone Shari Coley DO Primary Care Provider [phone]- [phone] Stuart Li Unavailable [phone] Reason for Visit * Reason Comments Headache Encounter Details Date Type Department Care Team ([facility] st Contact Info) Description 08/16/2019 1:00 PM SUPERVISOR REAL ESTATE OFFICE Office Visit [facility] [address] [place] [address] Shari Coley DO [address] [facility] [address] [address] Acute nonintractable headache, unspecified headache type (Primary Dx); Dysmenorrhea; Encounter for control pills maintenance; BMI 24.0-24.9, adult Social History Tobacco Use Types Packs/Day Years Used Date Smoking Tobacco: Never Smokeless Tobacco: Never Alcohol Use Standard Drinks/Week Comments Yes 0 (1 standard drink = 0.6 oz pur e alcohol) PHQ-2 Answer Date Recorded PHQ-2 Score 0 06/25/2019 Comments No Sex and Gender Information Value Date Recorded Sex Assigned at Not on file 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 SUPERVISOR REAL ESTATE OFFICE Gender Identity Not on file Sexual Orientation Not on file documented as of this encounter Last Filed Vital Signs Vital Sign Reading Time Taken Comments Blood Pressure 113/68 08/16/2019 12:56 PM SUPERVISOR REAL ESTATE OFFICE Pulse 65 08/16/2019 12:56 PM SUPERVISOR REAL ESTATE OFFICE Temperature 36.7 ??C (98 ??F) 08/16/2019 12: 56 PM SUPERVISOR REAL ESTATE OFFICE Respiratory Rate 18 08/16/2019 12:5 6 PM SUPERVISOR REAL ESTATE OFFICE Oxygen Saturation 100% 08/16/2019 12: 56 PM SUPERVISOR REAL ESTATE OFFICE Inhaled Oxygen Concentration - - Weight 62.9 kg (138 lb 11.2 oz) 020 12:56 PM SUPERVISOR REAL ESTATE OFFICE Height 160 cm (5' 2.99 ) 08/16/2019 12: 56 PM SUPERVISOR REAL ESTATE OFFICE Body Mass Index 24.58 08/16/2019 12:56 PM SUPERVISOR REAL ESTATE OFFICE documented in this encounter Patient Instructions * Patient Instructions* Shari Coley, DO - 08/16/2019 1:00 PM SUPERVISOR REAL ESTATE OFFICE Patient Education Acute Headache EXECUTIVE PRODUCER: An acute headache is pain or discomfort that starts suddenly and gets worse quickly. You may have an acute headache only when you feel stress or eat certain foods. Other acute headache pain can happen every day, and sometimes several times a day. The cause of an acute headache may not be known. It may be triggered by stress, fatigue, hormones, food, or trauma. Common types of acute headache: ?? Tension headache is the most common type of headache. These headaches typically occur in the late afternoon and go away by evening. The pain is usually mild or moderate. You may have problems tolerating bright light or loud noise. The pain is usually across the forehead or in the back of the head, often only on one side. These headaches may occur every day. ?? Migraine headaches cause moderate or severe pain. The headache generally lasts from 1 to 3 days and tends to come back. Pain is usually on only one side, but it may change sides. Migraines often occur in the adventism, the back of the head, or behind the eye. The pain may throb or be sharp and steady. ?? A migraine with aura means you see or feel something before a migraine. You may see a small spotsurrounded by bright zigzag lines. Other signs or symptoms may follow the aura. ?? Cluster headache pain is usually only on one side. It often causes severe pain, and can last for30 minutes to 2 hours. These headaches may occur 1 or 2 times each day, more often at night. The pain may wake you. Seek care immediately if: ?? You have severe pain. ?? You have numbness or weakness on one side of your face or body. ?? You have a headache that occurs after a blow to the head, a fall, or other trauma. ?? You have a headache, are forgetful or confused, or have trouble speaking. ?? You have a headache, stiff neck, and a fever. Contact your healthcare provider if: ?? You have a constant headache and are vomiting. ?? You have a headache each day that does not get better, even after treatment. ?? You have changes in your headaches, or new symptoms that occur when you have a headache. ?? You have questions or concerns about your condition or care. Treatment: ?? Medicine may be given to decrease pain. The medicine your healthcare provider recommends will depend on the kind of headaches you have. You will need to take prescription headache medicines as directed to prevent a problem called rebound headache. These headaches happen with regular use of pain relievers for headache disorders. NSAIDs or acetaminophen may help some kinds of headaches. ?? Biofeedback may help you learn how to change stress reactions. For example, you learn to slow your heart rate when you become upset. You may also learn to prevent certain headaches by combining heat with relaxation. ?? Cognitive behavior therapy, or stress management, may be used with other therapies to prevent headaches. Manage your symptoms: ?? Apply heat or ice on the headache area. Use a heat or ice pack. For an ice pack, you can also put crushed ice in a plastic bag. Cover the pack or bag with a towel before you apply it to your skin.Ice and heat both help decrease pain, and heat helps decrease muscle spasms. Apply heat for 20 to 30 minutes every 2 hours. Apply ice for 15 to 20 minutes every hour. Apply heat or ice for as long and for as many days as directed. You may alternate heat and ice. ?? Relax your muscles. Lie down in a comfortable position and close your eyes. Relax your muscles slowly. Start at your toes and work your way up your body. ?? Keep a record of your headaches. Write down when your headaches start and stop. Include your symptoms and what you were doing when the headache began. Record what you ate or drank for 24 hours before the headache started. Describe the pain and where it hurts. Keep track of what you did to treat your headache and if it worked. Prevent an acute headache: ?? Avoid anything that triggers an acute headache. Examples include exposure to chemicals, going tohigh altitude, or not getting enough sleep. Create a regular sleep routine. Go to sleep at the sametime and wake up at the same time each day. Do not use electronic devices before bedtime. These maytrigger a headache or prevent you from sleeping well. ?? Do not smoke. Nicotine and other chemicals in cigarettes and cigars can trigger an acute headache or make it worse. Ask your healthcare provider for information if you currently smoke and need help to quit. E-cigarettes or smokeless tobacco still contain nicotine. Talk to your healthcare provider before you use these products. ?? Limit alcohol as directed. Alcohol can trigger an acute headache or make it worse. If you have cluster headaches, do not drink alcohol during an episode. For other types of headaches, ask your healthcare provider if it is safe for you to drink alcohol. Ask how much is safe for you to drink, and how often. ?? Exercise as directed. Exercise can reduce tension and help with headache pain. Aim for 30 minutes of physical activity on most days of the week. Your healthcare provider can help you create an exercise plan. ?? Eat a variety of healthy foods. Healthy foods include fruits, vegetables, low-fat dairy products, lean meats, fish, whole grains, and cooked beans. Your healthcare provider or dietitian can help you create meals plans if you need to avoid foods that trigger headaches. Follow up with your healthcare provider as directed: Bring your headache record with you when you see your healthcare provider. Write down your questions so you remember to ask them during your visits. ?? 2017 [employer] Information is for End User's use only and may not be sold, redistributed or otherwise used for commercial purposes. All illustrations and images included in CareNotes?? are the copyrighted property of [employer] or [employer]. The above information is an financial aid coordinator only. It is not intended as medical advice for individual conditions or treatments. Talk to your doctor, nurse or pharmacist before following any medical regimen to see if it is safe and effective for you. RVISOR REAL ESTATE OFFICE documented in this encounter Ordered Prescriptions Prescription Sig Dispense Quantity Refills Last Filled Start Date End Date ibuprofen (ADVIL,MOTRIN) 600 mg tabletIndications:Ac kevin nonintractable headache, unspecified headache type,Dysmenorrhea Take 1 tablet (600 mg total) by mouth 4 (four) times a day as needed for pain (pain) 90 tablet 5 08/16/2019 1 documented in this encounter Progress Notes * Shari Coley, DO - 08/16/2019 1:00 PM CST Images from the original note were not included. Subjective/Objective Patient ID: Wendy Jansen is a 24 y.o. female. Chief Complaint Chief Complaint Patient presents with ??? Headache HPI Patient RTC today c/o headaches off and on for the past 10 - 14 days. The headaches can last all day. She sometimes wakes up with them. Naproxen or ibuprofen helps. She admits to taking OCPs. Shewould like to consider other options and would like a referral. Headache This is a recurrent problem. The current episode started 1 to 4 weeks ago. The problem occurs daily. The problem has been waxing and waning. The pain is located in the bilateral and frontal region. The pain quality is similar to prior headaches. The quality of the pain is described as shooting. Thepain is at a severity of 2/10 (at it's worse 8/10 last one being 2 nights ago ). Associated symptoms include drainage and sinus pressure (frontal). Pertinent negatives include no abdominal pain, blurred vision, coughing, dizziness, fever, insomnia, loss of balance, numbness, phonophobia, photophobia, rhinorrhea, visual change, vomiting or weakness. The symptoms are aggravated by unknown. She hastried NSAIDs for the symptoms. The treatment provided mild relief. (Recent emergent appendectomy) Vitals: 08/16/19 1256 BP: 113/68 BP Location: Left arm Patient Position: Sitting Pulse: 65 Resp: 18 Temp: 36.7 ??C (98 ??F) TempSrc: Oral SpO2: 100% Weight: 62.9 kg (138 lb 11.2 oz) Height: 160 cm (5' 2.99 ) Body mass index is 24.58 kg/m??. Review of Systems Constitutional: Negative for fever. HENT: Positive for postnasal drip and sinus pressure (frontal). Negative for rhinorrhea. Eyes: Negative for blurred vision and photophobia. Respiratory: Negative for cough. Gastrointestinal: Negative for abdominal pain and vomiting. Neurological: Positive for headaches. Negative for dizziness, facial asymmetry, speech difficulty, weakness, light-headedness, numbness and loss of balance. Psychiatric/Behavioral: Negative for confusion. The patient does not have insomnia. All other systems reviewed and are negative. Physical Exam Vitals signs and nursing note reviewed. Constitutional: Appearance: Normal appearance. HENT: Head: Normocephalic and atraumatic. Right Ear: Tympanic membrane, ear canal and external ear normal. There is no impacted cerumen. Left Ear: Tympanic membrane, ear canal and external ear normal. There is no impacted cerumen. Nose: Congestion and rhinorrhea present. Mouth/Throat: Mouth: Mucous membranes are moist. Pharynx: Oropharynx is clear. No oropharyngeal exudate or posterior oropharyngeal erythema. Eyes: General: No scleral icterus. Extraocular Movements: Extraocular movements intact. Conjunctiva/sclera: Conjunctivae normal. Neck: Musculoskeletal: Normal range of motion and neck supple. Cardiovascular: Rate and Rhythm: Normal rate and regular rhythm. Heart sounds: Normal heart sounds. No murmur. Pulmonary: Effort: Pulmonary effort is normal. Breath sounds: Normal breath sounds. Abdominal: General: Bowel sounds are normal. Palpations: Abdomen is soft. Tenderness: There is no tenderness. Skin: General: Skin is warm. Findings: No erythema or rash. Neurological: General: No focal deficit present. Mental Status: She is alert and oriented to person, place, and time. Psychiatric: Mood and Affect: Mood normal. Behavior: Behavior normal. Thought Content: Thought content normal. Diagnoses and all orders for this visit: Acute nonintractable headache, unspecified headache type (Primary) Assessment & Plan: Ibuprofen 600mg qid prn pain. Consider nasal saline rinses for possible sinusitis. Orders: - ibuprofen (ADVIL,MOTRIN) 600 mg tablet; Take 1 tablet (600 mg total) by mouth 4 (four) times a day as needed for pain (pain) Dysmenorrhea - ibuprofen (ADVIL,MOTRIN) 600 mg tablet; Take 1 tablet (600 mg total) by mouth 4 (four) times a day as needed for pain (pain) - Ambulatory referral to Obstetrics / Gynecology; Future Encounter for control pills maintenance - Ambulatory referral to Obstetrics / Gynecology; Future BMI 24.0-24.9, adult Shari Coley DO RVISOR REAL ESTATE OFFICE documented in this encounter Miscellaneous Notes * Assessment & Plan Note - Shari Coley DO - 08/16/2019 6:02 PM SUPERVISOR REAL ESTATE OFFICE Associated Problem(s): Acute nonintractable headache (Resolved 06/26/2020) Ibuprofen 600mg qid prn pain. Consider nasal saline rinses for possible sinusitis. RVISOR REAL ESTATE OFFICE documented in this encounter Plan of Treatment Not on file documented as of this encounter Visit Diagnoses Diagnosis Acute nonintractable headache, unspecified headache type- Primary Dysmenorrhea Encounter for control pills maintenance Surveillance of previously prescribed contraceptive pill BMI 24.0-24.9, adult documented in this encounter Discontinued Medications Medication Sig Discontinue Reason Start Date End Da te ibuprofen (ADVIL,MOTRIN) 200 mg tab/cap Take 200 mg by mouth every 6 (six) hours as needed for pain 08/16/2019 documented as of this encounter Care Teams Colliery Clerk Relationship Specialty Start Date End Date Shari Coley DO PCP - General Family Medicine 06/25/19 02/29/24 Stuart Li PA Physician On Line Csr Physician On Line Csr 06/25/19 documented as of this encounter
--- OUTSIDE RECORDS SUMMARY | 2024-07-29 05:45 | XMS_ITS | Encounter Summary ---
Author Organization [facility] Address [address] [place] [address] Care Team Providers Care Transport Aide Name Role Phone ColeyShari Primary Care Provider [phone] Stuart Li Unavailable [phone]- [phone] Patricia Bowden MD Unavailable [phone] Alison Syed MD Unavailable [phone] Christopher Cadet MD Unavailable Reason for Visit * Reason Comments Gynecologic Exam Encounter Details Date Type Department Care Team (Late st Contact Info) Description 04/13/2022 10:45 AM CDT Office Visit [facility] [address] [place] [address] Alison Syed MD [address] [place] [id number] Well woman exam (Primary Dx); Encounter for control pills maintenance; Hirsutism; Abnormal weight gain; Encounter for other general counseling or advice on contraception Social History Tobacco Use Types Packs/Day Years [...] on file 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 Gender Identity Not on file Sexual Orientation Not on file documented as of this encounter Last Filed Vital Signs Vital Sign Reading Time Taken Comments Blood Pressure 118/76 04/13/2022 11:19 AM CDT Pulse 83 04/13/2022 11:19 AM CDT Temperature - - Respiratory Rate - - Oxygen Saturation - - Inhaled Oxygen Concentration - - Weight 74.4 kg (164 lb) 04/13/2022 11:19 AM CDT Height - - Body Mass Index 29.05 04/08/2022 10:54 AM CDT documented in this encounter Ordered Prescriptions Prescription Sig Dispense Quantity Refills Last Filled Start Date End Date norgestimate-ethiny l estradioL (Ortho-Cyclen, 28,) 0.25-35 mg-mcg per tabletIndications:E ncounter for other general counseling or advice on contraception Take 1 tablet by mouth daily 28 tablet 12 04/13/2022 3 documented in this encounter Progress Notes * Alison Syed MD - 04/13/2022 10:45 AM CDT Images from the original note were not included. Well Woman Exam Subjective: Pateint presents for: Gynecologic Exam Wendy Jansen is a 26 y.o. year old female No obstetric history on file. who presents for a wellwoman exam. Her weight is up. 18 lbs. She is exercising. Contraception:Oral contraceptive pill. Patient's last menstrual period was 04/06/2022.Taking daily. No plans to get this year. ToMVI. Menstrual History: Patient's last menstrual period was 04/06/2022. Sexual History: OB History No obstetric history on file. Past Medical History: Diagnosis Date Allergic seasonal Past Surgical History: Procedure Laterality Date APPENDECTOMY 07/17/2019 Current Outpatient Medications Medication Sig Dispense Refill cetirizine (ZyrTEC) 10 mg tablet Take 10 mg by mouth daily clonazePAM (KlonoPIN) 0.5 mg tablet Take 1 tablet (0.5 mg total) by mouth nightly as needed for anxiety 30 tablet 5 escitalopram (LEXAPRO) 20 mg tablet Take 1 tablet (20 mg total) by mouth every morning 90 tablet 3 fluticasone propionate (FLONASE) 50 mcg/actuation nasal spray Administer 1 spray into each nostril daily norgestimate-ethinyl estradioL (Ortho-Cyclen, 28,) 0.25-35 mg-mcg per tablet Take 1 tablet by mouthdaily 28 tablet 12 spironolactone (ALDACTONE) 50 mg tablet No current facility-administered medications for this visit. No Known Allergies Family History Problem Relation Age of Onset Hypertension Father Hypertension Maternal Grandfather Hypertension Paternal Grandmother Liver cancer Paternal Grandfather Cancer Neg Hx No colon, breast or rn rehabilitation cancer 04/13/22 cmt Social History Tobacco Use Smoking status: Never Smokeless tobacco: Never Substance and Sexual Activity Drug use: Never Sexual activity: None Alcohol Use: Not on file Lab: Pap:all normal Labs with pcp Romina: Colonoscopy: BMD: Gardasil:discussed up to 45. Review of Systems Constitutional: Negative for chills, fever and unexpected weight change. Eyes: Negative for visual disturbance. No vision changes Respiratory: Negative for cough, shortness of breath and wheezing. Cardiovascular: Negative for chest pain, palpitations and leg swelling. Gastrointestinal: Negative for abdominal pain, anal bleeding, blood in stool, constipation, diarrhea, nausea and vomiting. Endocrine: Negative for cold intolerance, heat intolerance, polydipsia, polyphagia and polyuria. Genitourinary: Negative for decreased urine volume, difficulty urinating, dyspareunia, dysuria, frequency, genital sores, hematuria, pelvic pain, urgency, vaginal bleeding and vaginal discharge. Musculoskeletal: Negative for arthralgias, back pain, gait problem, joint swelling, myalgias, neck pain and neck stiffness. Skin: Negative for rash and wound. No new skin lesions Neurological: Negative for dizziness, seizures, syncope, light-headedness and headaches. Hematological: Negative for adenopathy. Does not bruise/bleed easily. Psychiatric/Behavioral: Negative for behavioral problems, sleep disturbance and suicidal ideas. Thepatient is not nervous/anxious. Breast: Negative for tenderness, breast redness, breast discharge and lump(s). Objective: BP 118/76 (BP Location: Left arm, Patient Position: Sitting) Pulse 83 Wt 164 lb (74.4 kg) LMP04/06/2022 BMI 29.05 kg/m?? Physical Exam Exam conducted with a sharepoint web developer present. Constitutional: Appearance: Normal appearance. She is normal weight. HENT: Head: Normocephalic and atraumatic. Cardiovascular: Rate and Rhythm: Normal rate and regular rhythm. Pulmonary: Effort: Pulmonary effort is normal. Breath sounds: Normal breath sounds. No wheezing or rhonchi. Chest: Breasts: Right: Normal. No bleeding, mass, nipple discharge, skin change or tenderness. Left: Normal. No bleeding, mass, nipple discharge, skin change or tenderness. Abdominal: General: There is no distension. Palpations: Abdomen is soft. There is no mass. Tenderness: There is no abdominal tenderness. Hernia: No hernia is present. Comments: No hepatomegaly or splenomegaly Genitourinary: Pelvic exam was performed with patient supine. Rectum normal, vagina normal, uterus normal and normal vulva. Right labia: normal. Left Labia: normal. Right adnexa: normal. Left adnexa: normal. Cervix: Normal exam. Genitourinary Comments: BUS with in normal limits Right inguinal canal: normal. Left inguinal canal: normal. Musculoskeletal: General: No swelling or tenderness. Right lower leg: No edema. Left lower leg: No edema. Lymphadenopathy: Head: Right side of head: No submental or submandibular adenopathy. Left side of head: No submental or submandibular adenopathy. Cervical: No cervical adenopathy. Upper Body: Right upper body: No supraclavicular or axillary adenopathy. Left upper body: No supraclavicular or axillary adenopathy. Lower Body: No right inguinal adenopathy. No left inguinal adenopathy. Skin: General: Skin is warm and dry. Findings: No bruising. Neurological: Mental Status: She is alert and oriented to person, place, and time. Psychiatric: Mood and Affect: Mood normal. Behavior: Behavior normal. Assessment and Plan: Normal exam. Diagnoses and all orders for this visit: Well woman exam (Primary) Assessment & Plan: Pap done. RTO 12m. I will send the results to the portal. If she has not heard in a week, to call the office. Encounter for control pills maintenance Assessment & Plan: Doing well on pills Will stay on for now I dont think it is responsible for the weight gain as she has been on it for so long I dont think changing to kale would benefit her hirsutism as she is already on spironolactone. Hirsutism Assessment & Plan: Stable on ocp and hirsutism. Abnormal weight gain Assessment & Plan: She is exercising. To do food diary I recommend 3331-5197 calories I suspect with the hirsutism she will benefit from a low carb diet. Recommended screenings and preventive care discussed: Breast cancer: Breast Self Exam encouraged. Pap with reflex done. Contraceptive options discussed. MVI daily recommended, cholesterol followed by PCP., and Pt seen and examined with Didi Madrid, [facility] Return in about 1 year (around 04/13/2023) for wwe- can schedule with Didi if she wants. . Alison Syed MD 04/13/2022 documented in this encounter Miscellaneous Notes * Assessment & Plan Note - Alison Syed MD - 04/13/2022 11:42 AM CDTAssociated Problem(s): Abnormal weight gain (Resolved 06/16/2023) She is exercising. To do food diary I recommend 8284-7215 calories I suspect with the hirsutism she will benefit from a low carb diet. * Assessment & Plan Note - Alison Syed MD - 04/13/2022 11:42 AM CDTAssociated Problem(s): Well woman exam (Resolved 06/16/2023) Pap done. RTO 12m. I will send the results to the portal. If she has not heard in a week, to call the office. * Assessment & Plan Note - Alison Syed MD - 04/13/2022 11:42 AM CDTAssociated Problem(s): Hirsutism Stable on ocp and hirsutism. * Assessment & Plan Note - Alison Syed MD - 04/13/2022 11:41 AM CDTAssociated Problem(s): Encounter for control pills maintenance Doing well on pills Will stay on for now I dont think it is responsible for the weight gain as she has been on it for so long I dont think changing to kale would benefit her hirsutism as she is already on spironolactone. * Addendum Note - Sherry Teague MA - 04/13/2022 10:45 AM CDTAddended by: SHERRY TEAGUE on: 04/13/2022 11:56 AM Modules accepted: Orders * Addendum Note - Sherry Teague MA - 04/13/2022 10:45 AM CDTAddended by: SHERRY TEAGUE on: 04/13/2022 11:57 AM Modules accepted: Orders * Addendum Note - Sherry Teague MA - 04/13/2022 10:45 AM CDTAddended by: SHERRY TEAGUE on: 04/13/2022 12:41 PM Modules accepted: Orders documented in this encounter Plan of Treatment Not on file documented as of this encounter Procedures Procedure Name Priority Date/Time Associated Diagnosis Comments PAP WITH REFLEX TO HIGH RISK HPV Routine 04/13/2022 11:57 AM CDT Well woman exam documented in this encounter Results * Pap with reflex to High Risk [...] by Comment [facility] - 01 Comment:[facility] Business Continuity Planning Director (ASCP) . . [facility] - 01 [...] 9:12 AM CDT Performed at: ??01 - [facility] ??[id number] Produce Shipper: Alison Faith MD, Phone: ??[phone] Specimen Comment: No. of containers..01 ThinPrep Vial us Alison Syed MD LAB CYTOLOGY ORDERA BLES Final Result [facility] documented in this encounter Visit Diagnoses Diagnosis Encounter for control pills maintenance Surveillance of previously prescribed contraceptive pill Hirsutism Abnormal weight gain Encounter for other general counseling or advice on contraception documented in this encounter Discontinued Medications Medication Sig Discontinue Reason Start Date End Da te norgestimate-ethinyl estradioL (Ortho-Cyclen, 28,) 0.25-35 mg-mcg per tabletIndications:Encounte r for other general counseling or advice on contraception Take 1 tablet by mouth daily Reorder 03/28/2022 04/13/2022 documented as of this encounter Care Teams Transport Aide Relationship Specialty Start Date End Date Shari Coley DO PCP - General Family Medicine 06/25/19 02/29/24 Stuart Li PA Physician Preparation Room Manager Physician Preparation Room Manager 06/25/19 Patricia Bowden MD [address] [place] [address] Referring Physician Dermatology 06/26/20 Alison Syed MD [address] [place] [address] Consulting Physician Obstetrics and Gynecology 07/02/21 Christopher Cadet MD [address] [place] [address] Consulting Physician General Surgery 07/02/21 documented as of this encounter
--- OUTSIDE RECORDS SUMMARY | 2024-07-29 05:45 | XMS_ITS | Encounter Summary ---
Author Organization [facility] Healthcare Address [address] [place] [address] Care Team Providers Care Catalyst Concentration Operator Name Role Phone ColeyShari Primary Care Provider +1- [phone] Stuart Li Unavailable +1- [phone] Reason for Visit * Reason Comments Abdominal Pain Encounter Details Date Type Department Care Team (Late st Contact Info) Description 07/17/2019 3:25 PM STUDIO ASSISTANT - 07/17/2019 5:00 PM STUDIO ASSISTANT Surgery [facility] Operating Room [address] [place] [address] Christopher Cadet MD [address] [place] [id number] LAPAROSCOPIC APPENDECTOMY Surgery Details Date/Time Status Location OR Service Patient Class Case Class Case Type Trauma Case? 07/17/2019 3:25 PM Posted [facility] OPER[facility] OR General Surgery Emergency Elective Panel 1 Procedure LRB Anes Op Region Wound Class Comments LAPAROSCOPIC APPENDECTOMY N/A General Abdomen Class II - Clean Contaminated Surgeon Surgeon Role Service Panel Christopher Cadet MD Primary General Surgery 1 documented in this encounter Social History [...] on file 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 STUDIO ASSISTANT Gender Identity Not on file Sexual Orientation Not on file documented as of this encounter Last Filed Vital Signs Vital Sign Reading Time Taken Comments Blood Pressure 124/61 07/17/2019 5:00 PM STUDIO ASSISTANT Pulse 68 07/17/2019 5:00 PM STUDIO ASSISTANT Temperature 36.2 ??C (97.1 ??F) 07/17/2019 4:34 PM CS T Respiratory Rate 17 07/17/2019 5:00 PM STUDIO ASSISTANT Oxygen Saturation 99% 07/17/2019 5:00 PM STUDIO ASSISTANT Inhaled Oxygen Concentration - - Weight 63.5 kg (140 lb) 07/17/2019 11:26 AM STUDIO ASSISTANT Height 160 cm (5' 3 ) 07/17/2019 11:26 AM STUDIO ASSISTANT Body Mass Index 24.8 07/17/2019 11:26 AM STUDIO ASSISTANT documented in this encounter Discharge Instructions * Discharge Instructions* Monserrat Ortiz RN - 07/17/2019 6:08 PM STUDIO ASSISTANT THANK YOU for choosing our team to provide your health care. Your HEALTH AND SAFETY are important to us. We hope you feel your care on [facility] was ALWAYS EXCELLENT! Please call [facility] at [phone] if you have any questions regarding your care. Wishing you continued improvement during your recovery. Your Surgical Care Unit Team Naheed, Bia, Rosaline, Carlene, Iman, Anel, Daylin, Greta, Merly, Lucila, Janina, Dia, Paige, Cookie Proctor, Tonya, Melonie, Luisana, Monserrat and Kathy. IO ASSISTANT * Discharge Instr - Other Orders* Monserrat Ortiz RN - 07/17/2019 6:06 PM STUDIO ASSISTANT Discharge Instructions: 1. No driving while on narcotics 2. No heavy lifting greater than a milk jug until follow up 3. Ice to operative site, on 15 minutes off 15 minutes as needed for pain 4. May shower starting 07/18, No tub baths or soaking of incisions 5. Take stool softner while on narcotics to prevent constipation 6. Call for worsening pain, erythema, drainage or any other concerns about your incisions or post operative course 7. Follow up in 1 week, Please call office for appointment 8. Diet, until follow up: as tolerates IO ASSISTANT * Attachments The following attachments cannot be sent through Care Everywhere. * Appendicitis (Discharge Care) (Indonesian) * Laparoscopic Appendectomy (Discharge Care) (Indonesian) * Laxative, Stool Softeners (By mouth) (Indonesian) * Hydrocodone/Acetaminophen (By mouth) (Indonesian) * Ondansetron (By mouth, Into the mouth) (Indonesian) * Polyethylene Glycol 3350 (By mouth) (Indonesian) documented in this encounter Medications at Time of Discharge docusate sodium (Colace) 100 mg capsuleIndication s:constipation Take 1 capsule (100 mg total) by mouth 2 (two) times a day for 14 days 28 capsule 2 07/17/2019 0 HYDROcodone-aceta minophen (NORCO) 5-325 mg per tabletIndications :Pain Take 1 tablet by mouth every 4 (four) hours as needed for pain for up to 5 days 30 tablet 07/17/2019 0 ondansetron (ZOFRAN) 4 mg tablet Take 1 tablet (4 mg total) by mouth every 6 (six) hours as needed for nausea or vomiting for up to 14 days 30 tablet 07/17/2019 0 polyethylene glycol (MIRALAX) 17 gram packetIndications :constipation Take 1 packet (17 g total) by mouth daily for 10 doses 10 packet 07/17/2019 0 cetirizine (ZyrTEC) 10 mg tablet Take 1 tablet (10 mg total) by mouth as needed 4 EPIDUO FORTE 0.3-2.5 % gel with pump 07/08/2019 0 fluticasone propionate (FLONASE) 50 mcg/actuation nasal spray Administer 1 spray into each nostril daily 4 spironolactone (ALDACTONE) 50 mg tablet TAKE 3 TABS BY MOUTH EVERY DAY 3 06/02/2019 0 VEH-VR-NFSMVG 0.18/0.215/0.25 mg-25 mcg per tabletIndications :Encounter for control pills maintenance Take 1 tablet by mouth daily 28 tablet 12 06/25/2019 1 documented as of this encounter Ordered Prescriptions Prescription Sig Dispense Quantity Refills Last Filled Start Date End Date polyethylene glycol (MIRALAX) 17 gram packetIndications: constipation Take 1 packet (17 g total) by mouth daily for 10 doses 10 packet 07/17/2019 0 ondansetron (ZOFRAN) 4 mg tablet Take 1 tablet (4 mg total) by mouth every 6 (six) hours as needed for nausea or vomiting for up to 14 days 30 tablet 07/17/2019 0 HYDROcodone-acetam inophen (NORCO) 5-325 mg per tabletIndications: Pain Take 1 tablet by mouth every 4 (four) hours as needed for pain for up to 5 days 30 tablet 07/17/2019 0 docusate sodium (Colace) 100 mg capsuleIndications :constipation Take 1 capsule (100 mg total) by mouth 2 (two) times a day for 14 days 28 capsule 2 07/17/2019 0 documented in this encounter Discharge Disposition Disposition Code Departure Means Destination Discharge to home or self care documented in this encounter Progress Notes * Monserrat Ortiz RN - 07/17/2019 7:18 PM CST Pt. Given discharge instructions and prescriptions. Pt. Has no questions or concerns. Pt. To be discharged home. IO ASSISTANT documented in this encounter H&P Notes * Christopher Cadet MD - 07/17/2019 3:28 PM CST History & Physical Subjective: Patient Name: Wendy hCacon Date of Consult: 07/17/19 HPI: Wendy Chacon is a 24 y.o. female presenting for surgical evaluation of abdominal pain. Thepain began yesterday. It was located in the right lower quadrant. It did not seem to radiate. It was associated with nausea. She has not experienced pain like this before. Chief Complaint: Abdominal Pain Attending Provider: Christopher Pérez* Allergies as of 07/17/2019 ??? (No Known Allergies) Current Facility-Administered Medications: ??? cefOXitin (MEFOXITIN) 1,000 mg/10 mL in sterile water (premix) 1,000 mg, 1,000 mg, intravenous,Once ??? ePHEDrine 50 mg/mL injection - ADS Override Pull, , , ??? fentaNYL (SUBLIMAZE) 50 mcg/mL preservative free injection - ADS Override Pull, , , ??? midazolam (VERSED) 1 mg/mL preservative free injection - ADS Override Pull, , , ??? [MAR Hold] piperacillin-tazobactam (ZOSYN) 3.375 g in sodium chloride 0.9% 50 mL IVPB, 3.375 g,intravenous, Q6H KATHY, Stopped at 07/17/19 1502 ??? scopolamine patch 72 hour 1 patch, 1 patch, transdermal, Once Past Medical History: Diagnosis Date ??? Allergic seasonal No past surgical history Family History Problem Relation Age of Onset ??? Cancer Paternal Grandfather Social History Socioeconomic History ??? Marital status: Single Spouse name: Not on file ??? Number of children: Not on file ??? Years of education: Not on file ??? Highest education level: Not on file Occupational History ??? Not on file Social Needs ??? Financial resource strain: Not on file ??? Food insecurity: Worry: Not on file Inability: Not on file ??? Transportation needs: Medical: Not on file Non-medical: Not on file Tobacco Use ??? Smoking status: Never Smoker ??? Smokeless tobacco: Never Used Substance and Sexual Activity ??? Alcohol use: Yes ??? Drug use: Never ??? Sexual activity: Not on file Lifestyle ??? Physical activity: Days per week: Not on file Minutes per session: Not on file ??? Stress: Not on file Relationships ??? Social connections: Talks on phone: Not on file Gets together: Not on file Attends anabaptist service: Not on file Active member of club or organization: Not on file Attends meetings of clubs or organizations: Not on file Relationship status: Not on file ??? Intimate partner violence: Fear of current or ex partner: Not on file Emotionally abused: Not on file Physically abused: Not on file Forced sexual activity: Not on file Other Topics Concern ??? Not on file Social History Narrative ??? Not on file Review of Systems Constitutional: Negative for activity change. HENT: Negative for hearing loss and sore throat. Eyes: Negative for visual disturbance. Respiratory: Negative for cough and shortness of breath. Cardiovascular: Negative for chest pain. Gastrointestinal: + for abdominal pain, positive for nausea Musculoskeletal: Negative for back pain. Neurological: Negative for dizziness and syncope. Psychiatric/Behavioral: Negative for agitation and confusion. Objective: Temp: [36.8 ??C (98.2 ??F)] 36.8 ??C (98.2 ??F) Pulse: [85] 85 Resp: [18] 18 BP: (124-141)/(52-70) 141/70 Physical Exam Constitutional: The patient is oriented to person, place, and time. They appear well-nourished. No distress. HENT: Head: Normocephalic and atraumatic. Eyes: Pupils are equal, round, and reactive to light. Neck: No thyromegaly present. Cardiovascular: Normal rate and regular rhythm. Pulmonary/Chest: Effort normal and breath sounds normal. Abdominal: Soft. Tenderness to palpation in the right lower quadrant. Genitourinary: Rectum normal. Musculoskeletal: Normal range of motion. Neurological: alert and oriented to person, place, and time. Skin: Skin is warm and dry. Psychiatric: normal mood and affect. Labs: White blood cell count 24 Imaging: CT scan of the abdomen and pelvis was personally reviewed. There was no pneumatosis or free air. There was thickening and periappendiceal fat stranding. There was some free fluid within the pelvis. There was a fairly sizable stool burden Assessment: Acute appendicitis Plan: Given the findings on imaging, leukocytosis and clinical exam, we'll set the patient up for laparoscopic appendectomy. She will be left NPO for the procedure. IV fluids, IV antibiotics and IV pain control will be administered. Postoperative restrictions have been explained. All questions have been a nswered. Christopher Cadet MD 3:28 PM 07/17/2019 IO ASSISTANT documented in this encounter ED Notes * Sagrario Schwab RN - 07/17/2019 11:25 AM CST Last night had sharp abd pain, now she has a achinnnnnnnng to her abd IO ASSISTANT * Jorgito Jackman MD - 07/17/2019 11:06 AM CST HPI Chief Complaint Patient presents with ??? Abdominal Pain Patient is a 24-year-old female with no significant medical history who presents with several hoursof right lower quadrant pain associated with nausea. She has no fevers. She had a normal bowel movement this morning she denies dysuria. She denies . She has had no previous surgical procedures on her abdomen. Patient History Patient Active Problem List Diagnosis Date Noted ??? Encounter for control pills maintenance 06/25/2019 ??? BMI 23.0-23.9, adult 06/25/2019 Past Medical History: Diagnosis Date ??? Allergic seasonal No past surgical history on file. Family History Problem Relation Age of Onset ??? Cancer Paternal Grandfather Social History Tobacco Use ??? Smoking status: Never Smoker ??? Smokeless tobacco: Never Used Substance Use Topics ??? Alcohol use: Yes ??? Drug use: Never Social History Patient does not qualify to have social determinant information on file (likely too young). Social History Narrative ??? Not on file Review of Systems Review of Systems Constitutional: Negative for chills and fever. HENT: Negative for ear pain and sore throat. Eyes: Negative for pain and visual disturbance. Respiratory: Negative for cough and shortness of breath. Cardiovascular: Negative for chest pain and palpitations. Gastrointestinal: Positive for abdominal pain and nausea. Negative for vomiting. Genitourinary: Negative for dysuria and hematuria. Musculoskeletal: Negative for arthralgias and back pain. Skin: Negative for color change and rash. Neurological: Negative for seizures and syncope. All other systems reviewed and are negative. Physical Exam ED Triage Vitals [07/17/19 1126] Temp Pulse Resp BP SpO2 36.8 ??C (98.2 ??F) 85 18 124/52 98 % Temp src Heart Rate Source Patient Position BP Location FiO2 (%) Oral -- -- -- -- Physical Exam Vitals signs and nursing note reviewed. Constitutional: General: She is not in acute distress. Appearance: She is well-developed. HENT: Head: Normocephalic and atraumatic. Eyes: Conjunctiva/sclera: Conjunctivae normal. Neck: Musculoskeletal: Neck supple. Cardiovascular: Rate and Rhythm: Normal rate and regular rhythm. Heart sounds: Normal heart sounds. No murmur. Pulmonary: Effort: Pulmonary effort is normal. No respiratory distress. Breath sounds: Normal breath sounds. Abdominal: General: Bowel sounds are normal. There is no distension. Palpations: Abdomen is soft. Tenderness: There is no tenderness. There is no guarding. Skin: General: Skin is warm and dry. Neurological: Mental Status: She is alert and oriented to person, place, and time. MDM MDM Acute appendicitis with localized peritonitis, without perforation, abscess, or gangrene Jorgito Jackman MD 07/17/19 1357 IO ASSISTANT documented in this encounter Miscellaneous Notes * Plan of Care - Monserrat Ortiz RN - 07/17/2019 5:47 PM CST Problem: Health Behavior: Goal: Understanding of discharge needs will improve Outcome: Progressing Problem: Activity: Goal: Ability to tolerate increased activity will improve Outcome: Progressing Problem: Bowel/Gastric: Goal: Gastrointestinal status for postoperative course will improve Outcome: Progressing Problem: Lack of Knowledge: Goal: Verbalization of understanding the information provided will improve Outcome: Progressing Problem: Nutritional: Goal: Maintenance of adequate nutrition will improve Outcome: Progressing Problem: Physical Regulation: Goal: Postoperative complications will be avoided or minimized Outcome: Progressing Problem: Safety: Goal: Ability to remain free from injury will improve Outcome: Progressing Problem: Sensory: Goal: Pain level will decrease Outcome: Progressing Problem: Skin Integrity: Goal: Demonstration of wound healing without infection will improve Outcome: Progressing Problem: Urinary Elimination: Goal: Will remain free from infection Outcome: Progressing Goal: Ability to achieve and maintain adequate urine output will improve Outcome: Progressing IO ASSISTANT * Op Note - Christopher Cadet MD - 07/17/2019 3:49 PM CST NAME: Wendy Chacon DATE OF : 1995 SURGEON: Christopher Cadet MD COOKER SYRUP:Church Administrator: Juliette Kurtz RN Scrub: ST KALEY DuenasA: Jen Michel RN DATE OF SURGERY: 07/17/2019 PREOP DIAGNOSES: Acute appendicitis POSTOP DIAGNOSES: Acute appendicitis PROCEDURE: Laparoscopic appendectomy INDICATIONS OF PROCEDURE: The patient is a 24-year-old female who presents to the emergency department the acute onset of abdominal pain. They were found to have a leukocytosis and a dilated appendixon imaging. Risks and benefits of appendectomy were explained to the patient who was in understanding and wished to proceed. DETAILS OF PROCEDURE: After informed consent was obtained the patient was taken to the operating room and placed supine on the operating table. SCD boots were applied to bilateral lower extremities. General endotracheal intubation was achieved. Perioperative antibiotics were administered and a preoperative time-out completed. The patient was then prepped and draped in standard sterile fashion. Attention was directed towards the abdomen where a 1 cm infraumbilical incision was made. Using Optiview technique a 5 mm trocar and 0 degree scope was inserted into the abdominal cavity under direct visualization. No bowel noted to be in the vicinity of this initial trocar entrance. The abdomen was insufflated to 15 mm of mercury. A 5 mm trocar was placed in the left mid abdomen with care taken to avoid injury to the inferior epigastric vessels. A 5 mm port was placed in the suprapubic location with care taken to avoid injury to the bladder and the infraumbilical port site upsized to a 12 mm trocar. At this time the patient was placed head down and rotated to her left. The small bowel was grasped and retracted out of the pelvis. At this time the appendix came into view. It was noted to be injected with surrounding tissue inflammation. At this time the appendix was grasped and elevated. The mesoappendix was taken down with the Harmonic scalpel. This was done until the base of the appendix was freed as it entered the cecum. At this time a linear stapler was inserted and the base of the appendix divided witha single firing of a purple load. The appendix was then grasped and brought through the 12 mm trocar. At this time the appendiceal base was inspected. Two small area of bleeding from the staple line were taken care of with a metal clips. It was found to be hemostatic. A small piece of Surgicel was left over the area. At this time the 12 mm trocar was removed and closed with a suture Passer devicewith an interrupted 0 Vicryl stitch.The skin of all trocar sites were closed with interrupted 4 0 Monocryl subcuticular stitches. Dermabond was then applied. The patient was awoken from anesthesia and transferred to recovery in stable condition. At the end of the procedure all sponge, needle and instrument counts were reported to be correct x2 at the end of the case. ANESTHESIA: General. Plus 10 cc of 0.5% Marcaine with epinephrine COMPLICATIONS: None BLOOD LOSS: 10 cc SPECIMEN: Appendix Christopher Cadet MD 07/17/2019 4:23 PM IO ASSISTANT documented in this encounter Plan of Treatment Not on file documented as of this encounter Procedures Procedure Name Priority Date/Time Associated Diagnosis Comments LAPAROSCOPIC APPENDECTOMY 07/17/2019 3:22 PM STUDIO ASSISTANT abdominal pain CT ABDOMEN PELVIS W CONTRAST ED 07/17/2019 12:34 PM STUDIO ASSISTANT URINALYSIS AND REFLEX TO MICROSCOPIC AND CULTURE STAT 07/17/2019 11:26 AM STUDIO ASSISTANT EGFR STAT 07/17/2019 11:11 AM STUDIO ASSISTANT DIFFERENTIAL AUTO STAT 07/17/2019 11: 11 AM STUDIO ASSISTANT CBC WITH AUTO DIFFERENTIAL STAT 07/17/2019 11:11 AM STUDIO ASSISTANT LIPASE STAT 07/17/2019 11:11 AM STUDIO ASSISTANT COMPREHENSIVE METABOLIC PANEL STAT 07/17/2019 11:11 AM STUDIO ASSISTANT HCG, BLOOD, QUANTITATIVE STAT 07/17/2019 11:08 AM STUDIO ASSISTANT SURGICAL PATHOLOGY Routine 07/17/2019 11 :00 AM STUDIO ASSISTANT Appendicitis, unspecified appendicitis type documented in this encounter Results * CT Abdomen Pelvis W Contrast (07/17/2019 12:34 PM STUDIO ASSISTANT) Anatomical Region Laterality Modality Body N/A Computed Tomogra phy 07/19/2019 8:09 AM STUDIO ASSISTANT Impressions 07/19/2019 8:17 AM STUDIO ASSISTANT 1. ??Acute appendicitis without evidence of perforation or abscess. 2. ??Moderate amount of colonic stool may reflect constipation. 3. ??Small focus of gas in the urinary bladder lumen. ??Correlate with any recent instrumentation or signs/symptoms of cystitis. Electronically signed by: Yoel Chase M.D. Narrative 07/19/2019 8:17 AM STUDIO ASSISTANT EXAMINATION: CT ABDOMEN PELVIS W CONTRAST ORDERING HEALTHCARE PROVIDER: JORGITO JACKMAN HISTORY: Right lower quadrant abdominal pain and nausea for several hours ?? TECHNIQUE: CT abdomen and pelvis with intravenous and without oral contrast using helical scanning technique. ??Reconstructed coronal and sagittal MPR images reviewed. ??All images stored on PACS. ??Automated exposure control was used as a dose optimization technique for this examination. CONTRAST: 100 mL of Optiray 320 contrast was administered via a right antecubital IV. COMPARISON: None available. FINDINGS: LOWER CHEST: The visualized lung bases are clear. ??There is no pleural or pericardial effusion. LIVER: The liver is normal in appearance. GALLBLADDER: The gallbladder is normal in appearance. ??There is no evidence of cholelithiasis. ??There is no gallbladder wall thickening or pericholecystic fat stranding. SPLEEN: The spleen is normal in size. ??There is no evidence of a focal splenic lesion. PANCREAS: The pancreas is normal in appearance. ??There is no pancreatic ductal dilation or peripancreatic inflammation. ADRENALS: The adrenal glands are normal in appearance. KIDNEYS/URINARY TRACT: The kidneys are symmetric in size. ??There is no evidence of a suspicious renal parenchymal mass lesion. ??There is no urolithiasis or hydronephrosis. ??There is a small focus of gas in the urinary bladder lumen. ??The urinary bladder is otherwise normal in appearance. GI: The small bowel and colon are normal in caliber. ??There is no evidence of bowel obstruction or enteritis. ??The appendix is dilated, measuring up to 7 mm in diameter and there is mild periappendiceal fat stranding. ??There is no periappendiceal fluid collection. ??There is a moderate amount colonic stool. PERITONEUM/RETROPERITONEUM: There is no mesenteric or retroperitoneal lymphadenopathy. ??There is no ascites or pneumoperitoneum. REPRODUCTIVE: The uterus and bilateral ovaries are normal in appearance. VASCULATURE: The abdominal aorta is normal in course and caliber. There is no abdominal aortic aneurysm. MUSCULOSKELETAL: There are no acute or aggressive appearing osseous abnormalities. Procedure Note Yoel Chase MD - 07/19/2019 EXAMINATION: CT ABDOMEN PELVIS W CONTRAST ORDERING HEALTHCARE PROVIDER: JORGITO JACKMAN HISTORY: Right lower quadrant abdominal pain and nausea for several hours TECHNIQUE: CT abdomen and pelvis with intravenous and without oral contrast using helical scanning technique. Reconstructed coronal and sagittal MPR images reviewed. All images stored on PACS. Automated exposure control was used as a dose optimization technique for this examination. CONTRAST: 100 mL of Optiray 320 contrast was administered via a right antecubital IV. COMPARISON: None available. FINDINGS: LOWER CHEST: The visualized lung bases are clear. There is no pleural or pericardial effusion. LIVER: The liver is normal in appearance. GALLBLADDER: The gallbladder is normal in appearance. There is no evidence of cholelithiasis. There is no gallbladder wall thickening or pericholecystic fat stranding. SPLEEN: The spleen is normal in size. There is no evidence of a focal splenic lesion. PANCREAS: The pancreas is normal in appearance. There is no pancreatic ductal dilation or peripancreatic inflammation. ADRENALS: The adrenal glands are normal in appearance. KIDNEYS/URINARY TRACT: The kidneys are symmetric in size. There is no evidence of a suspicious renal parenchymal mass lesion. There is no urolithiasis or hydronephrosis. There is a small focus of gas in the urinary bladder lumen. The urinary bladder is otherwise normal in appearance. GI: The small bowel and colon are normal in caliber. There is no evidence of bowel obstruction or enteritis. The appendix is dilated, measuring up to 7 mm in diameter and there is mild periappendiceal fat stranding. There is no periappendiceal fluid collection. There is a moderate amount colonic stool. PERITONEUM/RETROPERITONEUM: There is no mesenteric or retroperitoneal lymphadenopathy. There is no ascites or pneumoperitoneum. REPRODUCTIVE: The uterus and bilateral ovaries are normal in appearance. VASCULATURE: The abdominal aorta is normal in course and caliber. There is no abdominal aortic aneurysm. MUSCULOSKELETAL: There are no acute or aggressive appearing osseous abnormalities. IMPRESSION: 1. Acute appendicitis without evidence of perforation or abscess. 2. Moderate amount of colonic stool may reflect constipation. 3. Small focus of gas in the urinary bladder lumen. Correlate with any recent instrumentation or signs/symptoms of cystitis. Electronically signed by: Yoel Chase M.D. Jorgito Jackman MD IMG CT PROCEDURES Final Result * (ABNORMAL) Urinalysis reflex to microscopic and culture Urine (07/17/2019 11:26 AM STUDIO ASSISTANT) Color, ur Yellow Yellow [facility] ([facility]) Clarity, ur Clear Clear [facility] ([facility]) Specific gravity, ur 1.020 1.010 - 1.025 [facility] ([facility]) pH, urine 5.5 [facility] ([facility]) Protein, ur ql Negative Negative [facility] ([place]) Glucose, ur ql Negative Negative [facility] ([place]) Ketones, ur 1+(A) Negative [facility] ([place]) Bilirubin, ur Negative Negative [facility] ([place]) Blood, ur Negative Negative [facility] ([place]) Urobilinogen, ur 0.2 mg/dL [facility] ([place]) Nitrite, ur Negative Negative [facility] ([place]) Leukocyte esterase, ur Negative Negative [facility] ([place]) UA reflex comment Reflex conditions for microscopic UA and culture not met. [facility] ([place]) Urine 07/17/2019 11:2 6 AM STUDIO ASSISTANT 07/17/2019 11:30 AM STUDIO ASSISTANT Narrative [facility] ([place]) - 07/17/2019 11:34 AM STUDIO ASSISTANT ?? Urine pH is affected by diet, medications, systemic acid-base disturbances, and renal tubular function. ??pH may affect urinary stone formation. ??For example, urine pH below 6.0 may help reduce the tendency for calcium phosphate stones and pH greater than 6.0 may reduce the tendency for uric acid stone formation. Source: [facility]. Last revised 07-27-2017 Jorgito Jackman MD LAB MICROBIOLOGY - GENE RAL ORDERABLES Final Result [facility] ([place]) 1 Formerly [facility] Department [place] [address] * eGFR (07/17/2019 11:11 AM STUDIO ASSISTANT) eGFR 130 mL/min/1.7 3 m2 [facility] ([place]) Comment: Interpretive Data Reference Interval Normal ?>/= 90 mL/min/1.73m2 Mildly decreased* ? 60 - 89 mL/min/1.73m2 Mildly to moderately decreased ?45 - 59 mL/min/1.73m2 Moderately to severely decreased ??30 - 44 mL/min/1.73m2 Severely decreased ?15 - 29 mL/min/1.73m2 Kidney Failure ?< 15 ??mL/min/1.73m2 *Relative to young adult level If -Welsh multiply value by 1.16. Estimated glomerular filtration [...] was last reviewed 2016. Blood specimen (specimen) 07/17/2019 11:11 AM STUDIO ASSISTANT 07/17/2019 11:15 AM STUDIO ASSISTANT us Jorgito Jackman MD LAB BLOOD ORDERABLES Fi nal Result [facility] ([place]) 1 [facility] Department [place] [address] * (ABNORMAL) Differential, auto (07/17/2019 11:11 AM STUDIO ASSISTANT) Neutrophil abs 21.6(H) 1.7 - 6.5 K/cumm [facility] ([place]) Imm gran abs 0.1 0.0 - 0.1 K/cumm [facility] ([place]) Lymphocyte abs 1.4 0.8 - 3.3 K/cumm [facility] ([place]) Monocyte abs 1.0(H) 0.2 - 0.8 K/cumm [facility] ([place]) Eosinophil abs 0.0 0.0 - 0.5 K/cumm [facility] ([place]) Basophil abs 0.1 0.0 - 0.1 K/cumm [facility] ([place]) Neutrophil pct 89.1 % [facility] ([place]) Comment: Interpretive Data Percent cell count reference ranges are not reported, since discordance with absolute values may lead to misinterpretation of CBC data. Current Interpretive Data was last revised on 2017. Imm gran pct 0.5 % [facility] ([place]) Comment: Interpretive Data Percent cell count reference ranges are not reported, since discordance with absolute values may lead to misinterpretation of CBC data. Current Interpretive Data was last revised on 2017. Lymphocyte pct 5.9 % [facility] ([place]) Comment: Interpretive Data Percent cell count reference ranges are not reported, since discordance with absolute values may lead to misinterpretation of CBC data. Current Interpretive Data was last revised on 2017. Monocyte pct 4.2 % [facility] ([place]) Comment: Interpretive Data Percent cell count reference ranges are not reported, since discordance with absolute values may lead to misinterpretation of CBC data. Current Interpretive Data was last revised on 2017. Eosinophil pct 0.0 % [facility] ([place]) Comment: Interpretive Data Percent cell count reference ranges are not reported, since discordance with absolute values may lead to misinterpretation of CBC data. Current Interpretive Data was last revised on 2017. Basophil pct 0.3 % [facility] ([place]) Comment: Interpretive Data Percent cell count reference ranges are not reported, since discordance with absolute values may lead to misinterpretation of CBC data. Current Interpretive Data was last revised on 2017. Blood specimen (specimen) 07/17/2019 11:11 AM STUDIO ASSISTANT 07/17/2019 11:15 AM STUDIO ASSISTANT Jorgito Jackman MD LAB BLOOD ORDERABLES Fi nal Result [facility]UT[facility] ([place]) 1 [facility] [place] [address] * Lipase (07/17/2019 11:11 AM STUDIO ASSISTANT) Lipase 26 10 - 99 Units/L [facility] ([place]) Blood specimen (specimen) 07/17/2019 11:11 AM STUDIO ASSISTANT 07/17/2019 11:15 AM STUDIO ASSISTANT Jorgito Jackman MD LAB BLOOD ORDERABLES Fi nal Result Performing Organization Address [facility] de Phone Number [facility] ([place]) 1 [facility] [place] [address] * (ABNORMAL) Comprehensive metabolic panel (07/17/2019 11:11 AM STUDIO ASSISTANT) Sodium 139 135 - 145 mmol/L [facility] Potassium, pl 4.5 3.3 - 4.9 mmol/L [facility] ([place]) Chloride 100 97 - 110 mmol/L [facility] ([place]) CO2 24 22 - 32 mmol/L [facility]) Anion gap 15 2 - 15 mmol/L [facility] BUN 7(L) 8 - 25 mg/dL [facility] ([place]) Creatinine 0.59(L) 0.60 - 1.10 mg/dL [facility] ([place]) Glucose 110 70 - 199 mg/dL [facility] ([place]) [...] interpretive data was last revised 2017. Calcium 10.7(H) 8.5 - 10.3 mg/dL [facility] ([place]) Bilirubin, total 0.5 0.1 - 1.2 mg/dL [facility] ([place]) Protein, pl 8.8(H) 6.5 - 8.5 g/dL [facility] ([place]) Albumin 5.3(H) 3.5 - 5.0 g/dL [facility] ([place]) Alk phos 67 40 - 130 Units/L [facility]) ALT 15 7 - 45 Units/L [facility] ([place]) AST 20 10 - 45 Units/L [facility] ([place]) Blood specimen (specimen) 07/17/2019 11:11 AM STUDIO ASSISTANT 07/17/2019 11:15 AM STUDIO ASSISTANT us Jorgito Jackman MD LAB BLOOD ORDERABLES nal Result [facility] ([place]) 1 [facility] Department of Laboratories [place], [place] [id number] * (ABNORMAL) CBC with auto differential (07/17/2019 11:11 AM STUDIO ASSISTANT) WBC 24.2(H) 3.8 - 9.9 K/cumm [facility] ([place]) Hgb 15.4 11.9 - 15.5 g/dL [facility] ([place]) Hct 46.2(H) 35.6 - 45.5 % [facility] ([place]) Plt 308 150 - 400 K/cumm [facility] ([place]) MPV 11.2 9.1 - 12.3 fL [facility] ([place]) RBC 5.06 3.90 - 5.20 M/cumm [facility] ([place]) MCV 91.3 81.3 - 96.4 fL [facility] ([place]) MCH 30.4 27.1 - 33.3 pg [facility] ([place]) MCHC 33.3 32.3 - 35.7 g/dL [facility] ([place]) RDW CV 12.1 11.1 - 14.9 % [facility] ([place]) RDW SD 40.4 35.7 - 48.1 fL [facility] ([place]) NRBC abs 0.00 0.00 - 0.01 K/cumm [facility] ([place]) Blood specimen (specimen) 07/17/2019 11:11 AM STUDIO ASSISTANT 07/17/2019 11:15 AM STUDIO ASSISTANT Jorgito Jackman MD LAB BLOOD ORDERABLES Fi nal Result Performing Organization Address [facility] Co de Phone Number [facility] GUTIERREZ ([place]) 1 [facility] [employer] [place] [address] * hCG, blood, quantitative (07/17/2019 11:08 AM STUDIO ASSISTANT) hCG, quant <5.0 0.0 - 5.0 IUnits/L [facility] ([place]) Comment: Interpretive Data Non- Female premenopausal: < or = 5.0 IUnits/L Men: < 5.0 IUnits/L Weeks of Gestation ? Reference Interval ?? 3 to 6 ? 5.8-31,795 IUnits/L ?? 7 to 10 ? 3,697-186,977 IUnits/L ??12 to 15 ?27,832- 70,791 IUnits/L ??16 to 18 ? 9,040- 58,179 IUnits/L Current Interpretive Data was last revised on 2018. Blood specimen (specimen) 07/17/2019 11:08 AM STUDIO ASSISTANT 07/17/2019 1:27 PM STUDIO ASSISTANT Jorgito Jackman MD LAB BLOOD ORDERABLES Ed ited Result - Final Performing Organization Address City/[facility]/ZIP Co de Phone Number [facility] GUTIERRE[facility] ([place]) 1 [facility] [employer] [place] [address] * Surgical pathology (07/17/2019 11:00 AM STUDIO ASSISTANT) Tissue (Appendix) 07/17/2019 3:54 PM STUDIO ASSISTANT Narrative [facility]OLOGY [facility] ([place]) - 07/19/2019 11:50 AM STUDIO ASSISTANT EPIC results best viewed via link to PDF [facility] Department of Pathology [address] [place] [id number] Final Report Patient Name: ??WENDY CHACON Address: ?? [address] , ??[place], [place] [address] Gender: ??F : ??1995 (Age: 24) Service: ??Emergency Location: ??[facility] Hospital #: ??[id number] Patient Type: ??[facility] OBS Accession # [id number] Taken: ??07/17/2019 Received: ??07/18/2019 Accessioned: ??07/18/2019 Reported: ??07/19/2019 Physician(s):Christopher Cadet MD Diagnosis: Appendix, laparoscopic appendectomy: ? -Acute appendicitis. Yao Purvis M.D. Report Electronically Reviewed and Signed Out By ??Yao Lam M.D. ??07/19/2019 11:50:46 Specimen(s) Received: A: Appendix Microscopic Description: Microscopic examination of the appendix shows a full thickness acute inflammatory infiltrate. Clinical History: Abdominal pain, appendicitis. ??Appendix. ??Laparoscopic appendectomy. Gross Description: The specimen is submitted in a single container labeled Wendy Chacon and appendix . ??It is a vermiform appendix that measures 7 x 0.8 cm. ??The serosa is congested and smooth. ??Adhesions are present near the base. ??The wall is intact and measures up to 0.3 cm in thickness. ??The lumen contains small amount of fecal matter and blood at the midsection. ??Represented in one cassette. ??Yoel Garcia MD/Maurizio Guthrie REPORT IMAGES AND SCANNED DOCUMENTS, IF INCLUDED, ONLY VIEWABLE IN PDF VERSION OF REPORT The performance characteristics of some immunohistochemical stains, fluorescence in-situ hybridization tests and immunophenotyping by flow cytometry cited in this report (if any) were determined by the Surgical Pathology Department at [facility] as part of an ongoing research quality assurance specialist program and in compliance with federally mandated regulations drawn from the Clinical Laboratory Improvement Act of 1988 (CLIA '88). ??Some of these tests rely on the use of analyte specific reagents and are subject to specific labeling requirements by the US Food and Drug Administration. ??Such diagnostic tests may only be performed in a facility that is certified by the Department of Health and Human Services as a high complexity laboratory under CLIA '88. The FDA has determined that such clearance or approval is not necessary. ??This test is used for clinical purposes. ??It should not be regarded as investigational or for research. ??Nevertheless, federal rules concerning the medical use of analyte specific reagents require that the following disclaimer be attached to the report: This test was developed and its performance characteristics determined by the Surgical Pathology Department [facility]. ??It has not been cleared or approved by the U. S. Food and Drug Administration. Christopher Cadet MD LAB PATHOLOGY OR DERABLES Final Result Performing Organization Address City/State/[facility] Co de Phone Number PATHOLOGY [facility] ([address] [address] documented in this encounter Visit Diagnoses Not on filedocumented in this encounter Administered Medications Inactive Administered Medications - up to 3 most recent administrations Medication Order MAR Action Action Date Dose Rate Site bupivacaine-EPINEPHrine (MARCAINE with EPI) 0.5 %-1:200,000 preservative free injection As needed, Starting on Mon07/17/19 at 1558, Intra-Op Given 07/17/2019 3:58 PM STUDIO ASSISTANT 8 mL Surgical Site ioversol intravenous syringe 100 mL 100 mL, intravenous, Once in imaging, contrast, Starting on Mon07/17/19 at 1222, For 1 dose Given 07/17/2019 12:25 PM STUDIO ASSISTANT 100 mL ondansetron (ZOFRAN) injection 4 mg 4 mg, intravenous, Administer over 2 Minutes, Every 6 hours PRN, nausea, vomiting, if not tolerating PO, Starting on Mon07/17/19 at 1731, Indications: Nausea and VomitingIndications:Nause a and Vomiting ondansetron ODT (ZOFRAN-ODT) disintegrating tablet 4 mg 4 mg, oral, Every 6 hours PRN, nausea, vomiting, Starting on Mon07/17/19 at 1731, Indications: Nausea and VomitingIndications:Nause a and Vomiting piperacillin-tazobactam (ZOSYN) 3.375 g in sodium chloride 0.9% 50 mL IVPB 3.375 g, intravenous, at 130 mL/hr, Administer over 30 Minutes, Every 6 hours scheduled, First dose on Mon07/17/19 at 1400, Indications: Abdominal/Pelvic InfectionIndications:Abdo mitali/Pelvic Infection New Bag 07/17/2019 2:26 PM STUDIO ASSISTANT 3.375 g 130 mL/hr sodium chloride 0.9 % irrigation As needed, Starting on Mon07/17/19 at 1554, Intra-Op Given 07/17/2019 3:54 PM STUDIO ASSISTANT 250 mL Surgical Site documented in this encounter Active and Recently Administered Medications Times are shown in STUDIO ASSISTANT. Scheduled Medication Order 07/15/2019 07/16/2019 07/17/2019 cefOXitin (MEFOXITIN) 1,000 mg/10 mL in sterile water (premix) 1,000 mg (COMPLETED) 1,000 mg, intravenous, at 200 mL/hr, Administer over 3 Minutes, Once, On Mon07/17/19 at 1600, For 1 dose, Pre-Op, Indications: Prophylaxis, Surgical 1548 (Given - Provid er: Brook Comer CRNA) piperacillin-tazobactam (ZOSYN) 3.375 g in sodium chloride 0.9% 50 mL IVPB 3.375 g, intravenous, at 130 mL/hr, Administer over 30 Minutes, Every 6 hours scheduled, First dose on Mon07/17/19 at 1400, Indications: Abdominal/Pelvic Infection 1426 (New Bag - Prov ider: Isabella Conway RN - Comment: alaris pump)1502 (Stopped - Provider: Monserrat Ortiz RN)1511 (SEP Hold - Provider: Automatic Transfer Provider - Reason: Patient not available)1731 (MAR Unhold - Provider: Automatic Transfer Provider) scopolamine patch 72 hour 1 patch (COMPLETED) 1 patch, transdermal, Administer over 72 Hours, Once, On Mon07/17/19 at 1600, For 1 dose 1537 (Given - Provid er: Brook Comer CRNA - Comment: right mastoid) PRN Medication Order 07/15/2019 07/16/2019 07/17/2019 bupivacaine-EPINEPHrine (MARCAINE with EPI) 0.5 %-1:200,000 preservative free injection (CANCELED) As needed, Starting on Mon07/17/19 at 1558, Intra-Op 1558 (Given - Provid er: Christopher Cadet MD - Comment: injected into trocar sites) HYDROmorphone (DILAUDID) injection 0.5 mg 0.5 mg, intravenous, Administer over 2 Minutes, Every 3 hours PRN, 1st line for pain, Starting on Mon07/17/19 at 1731, Indications: Pain ioversol intravenous syringe 100 mL (COMPLETED) 100 mL, intravenous, Once in imaging, contrast, Starting on Mon07/17/19 at 1222, For 1 dose 1225 (Given - Provid er: Vernell Bell, RT - Comment: [id number]) ondansetron (ZOFRAN) injection 4 mg(Linked Group 1) 4 mg, intravenous, Administer over 2 Minutes, Every 6 hours PRN, nausea, vomiting, if not tolerating PO, Starting on Mon07/17/19 at 1731, Indications: Nausea and Vomiting ondansetron ODT (ZOFRAN-ODT) disintegrating tablet 4 mg(Linked Group 1) 4 mg, oral, Every 6 hours PRN, nausea, vomiting, Starting on Mon07/17/19 at 1731, Indications: Nausea and Vomiting sodium chloride 0.9 % irrigation (CANCELED) As needed, Starting on Mon07/17/19 at 1554, Intra-Op 1554 (Given - Provid er: Christopher Cadet MD) Linked Groups Order Group 1: ondansetron ODT (ZOFRAN-ODT) disintegrating tablet 4 mgJump to med 4 mg, oral, Every 6 hours PRN, nausea, vomiting, Starting on Mon07/17/19 at 1731, Indications: Nausea and Vomiting Or ondansetron (ZOFRAN) injection 4 mgJump to med 4 mg, intravenous, Administer over 2 Minutes, Every 6 hours PRN, nausea, vomiting, if not tolerating PO, Starting on Mon07/17/19 at 1731, Indications: Nausea and Vomiting documented in this encounter Orders Medications Ordered That Augustine ht Not Have Been Administered Count Last Ordered Date First Ordered Date cefOXitin (MEFOXITIN) 1,000 mg/10 mL in sterile water (premix) 1,000 mg 1 07/17/2019 diphenhydrAMINE (BENADRYL) i njection 12.5 mg 1 07/17/2019 ePHEDrine 50 mg/mL injection - ADS Override Pull 1 07/17/2019 fentaNYL (SUBLIMAZE) 50 mcg/ mL preservative free injection - ADS Override Pull 1 07/17/2019 fentaNYL (SUBLIMAZE) preserv ative free injection 50 mcg 1 07/17/2019 HYDROmorphone (DILAUDID) injection 0.5 mg 1 07/17/2019 ioversol intravenous syringe 100 mL 1 07/17 midazolam (VERSED) 1 mg/mL p reservative free injection - ADS Override Pull 1 07/17/2019 naloxone (NARCAN) 0.4 mg/mL injection 0.04-0.4 mg 1 07/17/2019 ondansetron (ZOFRAN) injection 4 mg 2 07/17 ondansetron ODT (ZOFRAN-ODT) disintegrating tablet 4 mg 1 07/17/2019 scopolamine patch 72 hour 1 patch 1 020 Nursing Count Last Ordered Date First Orde red Date WEIGH PATIENT 1 07/17/2019 IV Count Last Ordered Date First Orde red Date SALINE LOCK IV 1 07/17/2019 CORE MEASURES Count Last Ordered Date First Ord ered Date REASON FOR NO VTE PROPHYLAXI S - HOSPITAL ADMISSION - MEDICATIONS 1 07/17/2019 ADT Patient Update Count Last Ordered Date Firs t Ordered Date ED IP DECISION TO ADMIT 1 07/17/2019 documented in this encounter Care Teams Catalyst Concentration Operator Relationship Specialty Start Date End Date Shari Coley DO PCP - General Family Medicine 06/25/19 02/29/24 Stuart Li PA Physician Collarette Separator Physician Collarette Separator 06/25/19 documented as of this encounter
--- OUTSIDE RECORDS SUMMARY | 2024-07-29 05:45 | XMS_ITS | Encounter Summary ---
Author Organization [facility] Address [address] [place] [address] Care Team Providers Care Marketing Mgr Name Role Phone Shari Coley DO Primary Care Provider [phone] Stuart Li Unavailable [phone] Patricia Bowden MD Unavailable [phone] Reason for Visit * Reason Comments Anxiety 1mo f/u Encounter Details Date Type Department Care Team (Late st Contact Info) Description 03/24/2021 11:45 AM CDT Office Visit [facility] [address] [place] [address] Shari Coley DO [address] [facility] [address] [address] Generalized anxiety disorder (Primary Dx); Episodic tension-type headache, not intractable; Myalgia Social History Tobacco Use Types Packs/Day Years Used Date Smoking Tobacco: Never Smokeless Tobacco: Never Alcohol Use Standard Drinks/Week Comments Yes 0 (1 standard drink = 0.6 oz pur e alcohol) PHQ-2 Answer Date Recorded PHQ-2 Total Score (If total score is 3 or more points, staff should administer the PHQ-9) 0 02/18/2021 Comments No Sex and Gender Information Value Date Recorded Sex Assigned at Not on file 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 Gender Identity Not on file Sexual Orientation Not on file documented as of this encounter Last Filed Vital Signs Vital Sign Reading Time Taken Comments Blood Pressure 115/68 03/24/2021 11:48 AM CDT Pulse 56 03/24/2021 11:48 AM CDT Temperature 36.7 ??C (98.1 ??F) 03/24/2021 11:48 AM C DT Respiratory Rate 18 03/24/2021 11:48 AM CDT Oxygen Saturation 97% 03/24/2021 11:48 AM CDT Inhaled Oxygen Concentration - - Weight 65.3 kg (144 lb) 03/24/2021 11:48 AM CDT Height 160 cm (5' 2.99 ) 03/24/2021 11:48 AM CDT Body Mass Index 25.51 03/24/2021 11:48 AM CDT documented in this encounter Patient Instructions * Patient Instructions* Shari Coley, DO - 03/24/2021 11:45 AM CDT Patient Education Generalized Anxiety Disorder TOSSER: Generalized anxiety disorder (ZONIA) is a condition that causes you to worry more than normal. It also causes you to feel fear in most situations. You are worried or afraid even without a cause. You may worry about your health, job, money, and relationships. It is hard for you to control your worry and feel calm. ZONIA prevents you from doing daily activities. It may also prevent you from spending time with family and friends. Without treatment, your anxiety may get worse. Common signs and symptoms that may occur with anxiety: ?? Fatigue or muscle tightness ?? Shaking, restlessness, or irritability ?? Problems focusing ?? Trouble sleeping ?? Feeling jumpy, easily startled, or dizzy ?? Nausea, vomiting, diarrhea, or sweating ?? Rapid heartbeat or shortness of breath Call 911 for any of the following: ?? You have chest pain, tightness, or heaviness that may spread to your shoulders, arms, jaw, neck,or back. ?? You feel like hurting yourself or someone else. Contact your healthcare provider if: ?? Your symptoms get worse or do not get better with treatment. ?? Your anxiety keeps you from doing your regular daily activities. ?? You have new symptoms since your last visit. ?? You have questions or concerns about your condition or care. Treatment for ZONIA may include medicines to help you feel calm and relaxed, and decrease your symptoms. Medicines are usually given together with therapy or other treatments. Manage anxiety: ?? Talk to someone about your anxiety. Your healthcare provider may suggest counseling. Cognitive behavioral therapy can help you understand and change how you react to events. It can also help you understand what triggers your symptoms. You might feel more comfortable talking with a friend or family member about your anxiety. Choose someone you know will be supportive and encouraging. ?? Keep a journal of your symptoms. Write down what you were doing before your symptoms started. Also write down what made the anxiety better or worse. Bring this journal with you to your follow-up appointments. ?? Find ways to relax. Activities such as yoga, meditation, or listening to music can help you relax. Spend time with friends, or do things you enjoy. ?? Practice deep breathing. Deep breathing can help you relax when you feel anxious. Focus on taking slow, deep breaths several times a day, or during an anxiety attack. Slowly breathe in through your nose. Pause, then slowly breathe out through your mouth. Try to breathe out longer than you breathed in. ?? Create a regular sleep routine. Regular sleep can help you feel calmer during the day. Go to sleep and wake up at the same times every day. Do not watch television or use the computer right beforebed. Your room should be comfortable, dark, and quiet. ?? Eat a variety of healthy foods. Healthy foods include fruits, vegetables, low-fat dairy products, lean meats, fish, whole-grain breads, and cooked beans. Healthy foods can help you feel less anxious and have more energy. ?? Exercise regularly. Exercise can increase your energy level. Exercise may also lift your mood and help you sleep better. Your healthcare provider can help you create an exercise plan. ?? Do not smoke. Nicotine and other chemicals in cigarettes and cigars can increase anxiety. Ask your healthcare provider for information if you currently smoke and need help to quit. E-cigarettes orsmokeless tobacco still contain nicotine. Talk to your healthcare provider before you use these products. ?? Do not have caffeine. Caffeine can make your symptoms worse. Do not have foods or drinks that are meant to increase your energy level. ?? Limit or do not drink alcohol. Ask your healthcare provider if alcohol is safe for you. Also askhow much is safe. You may not be able to drink alcohol if you take certain anxiety or depression medicines. ?? Do not use drugs. Drugs can make your anxiety worse. It can also make anxiety hard to manage. Talk to your healthcare provider if you use drugs and want help to quit. Follow up with your healthcare provider as directed: Write down your questions so you remember to ask them during your visits. ?? 2017 [employer] Information is for End User's use only and may not be sold, redistributed or otherwise used for commercial purposes. All illustrations and images included in CareNotes?? are the copyrighted property of [employer], [employer]. or [employer]. The above information is an food service aide only. It is not intended as medical advice for individual conditions or treatments. Talk to your doctor, nurse or pharmacist before following any medical regimen to see if it is safe and effective for you. Health Maintenance Topics with due status: Overdue Topic Date Due Chlamydia and Gonorrhea (GC/CT) Screening Never done Cervical Cancer Screening-Pap Smear Never done Varicella Vaccines Never done HPV Vaccines Never done Health Maintenance Topics with due status: Due On Topic Date Due Influenza Vaccine 03/17/2021 Thanks for coming in today! My medical assistants and I are thankful you have trusted us with your care, and hope that you received EXCELLENT care today! Please do not hesitate to call if you have any questions or concerns at [phone]. You may receive a phone call, text, MYCHART message, or e-mail asking about your care today. We would love to hear your feedback on how EXCELLENT your care wastoday! Wishing you better health, always. Dr. Coley Patient Education Tension Headache TOSSER: A tension headache is often caused by tense muscles in your head or neck and can last anywhere from30 minutes to several days. Although they are uncomfortable, tension headaches usually do not causeany serious problems. The following can cause muscle tension and trigger a tension headache: ?? Eye strain or poor posture, such as from using a computer ?? Jaw or dental problems such as temporomandibular joint (TMJ), clenching your jaw, or grinding your teeth ?? Activities that cause your head to be held in one position for too long ?? Skipping a meal ?? Not enough sleep, or sleep apnea (brief periods of not breathing during sleep) ?? Food sensitivities, such as to gluten Common symptoms include the following: ?? Dull, constant pain above your eyes and across the back of your head ?? Head pain that gets worse as the day goes on ?? Pain that may spread over your entire head and to your neck and shoulders ?? Tight neck or shoulder muscles ?? Head pain that is made worse by bright lights or loud noises Seek care immediately if: ?? You have a sudden headache that seems different or much worse than your usual headaches. ?? You have difficulty seeing, speaking, or moving. ?? You pass out, become confused, or have a seizure. ?? You have a headache, fever, and a stiff neck. Contact your healthcare provider if: ?? Your headaches continue to get worse. ?? Your headaches happen so often that they affect your ability to do your work or normal activities. ?? You need to take medicine to help your headaches more often than your healthcare provider says you should. ?? Your headaches get so bad that they cause you to vomit. ?? You have questions or concerns about your condition or care. Treatment may include any of the following: ?? NSAIDs , such as ibuprofen, help decrease swelling, pain, and fever. This medicine is available with or without a doctor's order. NSAIDs can cause stomach bleeding or kidney problems in certain people. If you take blood thinner medicine, always ask your healthcare provider if NSAIDs are safe foryou. Always read the medicine label and follow directions. ?? Acetaminophen decreases pain and fever. It is available without a doctor's order. Ask how much to take and how often to take it. Follow directions. Read the labels of all other medicines you are using to see if they also contain acetaminophen, or ask your doctor or pharmacist. Acetaminophen can cause liver damage if not taken correctly. Do not use more than 4 grams (4,000 milligrams) total of acetaminophen in one day. ?? Treatment may be given for back, muscle, or posture problems. You may also need treatment for jaw or tooth problems. Manage your symptoms: ?? Keep a headache record. Include when the headaches start and stop and what made them better. Describe your symptoms, such as how the pain feels, where it is, and how bad it is. Record anything youate or drank for the past 24 hours before your headache. Bring this to follow-up visits. ?? Apply heat as directed. Heat may help decrease headache pain and muscle spasms. Apply heat on the area for 20 to 30 minutes every 2 hours for as many days as directed. A warm bath may also help relieve muscle tension and spasms. ?? Apply ice as directed. Ice may help decrease headache pain. Use an ice pack or put crushed ice in a plastic bag. Cover it with a towel and place it on the area for 15 to 20 minutes every hour as directed. Prevent a tension headache: ?? Avoid muscle tension. Do not stay in one position for long periods of time. Use a different pillow if you wake up with sore neck and shoulder muscles. Find ways to relax your muscles, such as massage or resting in a quiet, dark room. ?? Avoid eye strain. Make sure you have good lighting when you read, sew, or do similar activities.Get yearly eye exams and wear glasses as directed. ?? Get enough sleep. Get 8 to 10 hours of sleep each night. Create a sleep schedule. Go to bed and wake up at the same times each day. It may be helpful to do something relaxing before bed. Do not watch television right before bed. ?? Eat a variety of healthy foods. Healthy foods include fruits, vegetables, whole-grain breads, low-fat dairy products, beans, lean meats, and fish. Do not eat foods that trigger your headaches. ?? Exercise regularly. Exercise helps decrease stress and headaches. Ask about the best exercise plan for you. ?? Drink liquids as directed. You may need to drink more liquid to prevent dehydration. Dehydrationcan make a tension headache worse. Ask your healthcare provider how much liquid to drink and which liquids are best for you. Limit caffeine as directed. Caffeine may make a tension headache worse. ?? Do not drink alcohol. Alcohol can trigger a headache. It can also prevent medicines from stopping your headache. ?? Do not smoke. Nicotine and other chemicals in cigarettes and cigars can trigger a headache and also cause lung damage. Ask your healthcare provider for information if you currently smoke and need help to quit. E-cigarettes or smokeless tobacco still contain nicotine. Talk to your healthcare provider before you use these products. Follow up with your healthcare provider as directed: Bring the headache record with you. Write downyour questions so you remember to ask them during your visits. ?? 2017 [employer] Information is for End User's use only and may not be sold, redistributed or otherwise used for commercial purposes. All illustrations and images included in CareNotes?? are the copyrighted property of [employer]. or [employer]. The above information is an food service aide only. It is not intended as medical advice for individual conditions or treatments. Talk to your doctor, nurse or pharmacist before following any medical regimen to see if it is safe and effective for you. documented in this encounter Ordered Prescriptions Prescription Sig Dispense Quantity Refills Last Filled Start Date End Date cyclobenzaprine (FLEXERIL) 10 mg tabletIndications: Myalgia Take 1 tablet (10 mg total) by mouth nightly as needed for muscle spasms 30 tablet 03/24/2021 documented in this encounter Progress Notes * Shari Coley DO - 03/24/2021 11:45 AM CDT Subjective/Objective Patient ID: Wendy Jansen is a 25 y.o. female. Chief Complaint Chief Complaint Patient presents with ??? Anxiety 1mo f/u HPI Patient RTC today c/o anxiety. She was recently started on Lexapro. She states that mentally she feels very good. However, she has noticed dull headaches in the back of her head, muscle pain in her neck(which she attributes to stress), and sleep disturbances. She now had noticed that she wakesup around 3am and stays awake for a couple of hours. She was previously able to sleep for about 7 hours uninterrupted. 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 Anxiety Presents for follow-up visit. Symptoms include nervous/anxious behavior. Patient reports no dizziness, nausea, palpitations, shortness of breath or suicidal ideas. Symptoms occur most days. The severity of symptoms is mild. The quality of sleep is fair. Nighttime awakenings: one to two. Compliance with medications is 76-100%. Review of Systems Constitutional: Negative for fatigue and fever. HENT: Negative for congestion and sore throat. Respiratory: Negative for shortness of breath. Cardiovascular: Negative for palpitations. Gastrointestinal: Negative for abdominal pain, nausea and vomiting. Neurological: Positive for headaches. Negative for dizziness, facial asymmetry, speech difficulty, weakness and light-headedness. Psychiatric/Behavioral: Negative for dysphoric mood, self-injury, sleep disturbance and suicidal ideas. The patient is nervous/anxious. All other systems reviewed and are negative. Vitals: 03/24/21 1148 BP: 115/68 BP Location: Left arm Patient Position: Sitting Pulse: 56 Resp: 18 Temp: 36.7 ??C (98.1 ??F) TempSrc: Temporal SpO2: 97% Weight: 65.3 kg (144 lb) Height: 160 cm (5' 2.99 ) Body mass index is 25.51 kg/m??. Physical Exam Vitals and nursing note reviewed. Constitutional: Appearance: Normal appearance. She is well-developed. Interventions: Face mask in place. HENT: Head: Normocephalic and atraumatic. Eyes: General: No scleral icterus. Extraocular Movements: Extraocular movements intact. Conjunctiva/sclera: Conjunctivae normal. Neck: Thyroid: No thyromegaly. Cardiovascular: Rate and Rhythm: Normal rate and regular rhythm. Heart sounds: Normal heart sounds. No murmur heard. Pulmonary: Effort: Pulmonary effort is normal. Breath sounds: Normal breath sounds. No wheezing. Abdominal: General: Bowel sounds are normal. Palpations: Abdomen is soft. Tenderness: There is no abdominal tenderness. Musculoskeletal: Cervical back: Normal range of motion and neck supple. Skin: General: Skin is warm and dry. Findings: No erythema or rash. Neurological: General: No focal deficit present. Mental Status: She is alert and oriented to person, place, and time. Coordination: Coordination normal. Gait: Gait normal. Psychiatric: Attention and Perception: Attention normal. Mood and Affect: Mood is anxious. Speech: Speech normal. Behavior: Behavior normal. Thought Content: Thought content normal. Thought content does not include homicidal or suicidal ideation. Thought content does not include homicidal or suicidal plan. Diagnoses and all orders for this visit: Generalized anxiety disorder (Primary) Assessment & Plan: Recommended decreasing Lexapro since she's been having headaches, patient would like to remain on the 10 mg daily at this time. Anxiety is improving. Episodic tension-type headache, not intractable Assessment & Plan: Trial of muscle relaxer at night. May use OTC pain reliever of choice. Myalgia Assessment & Plan: Recommended heating pads prn, also, prescribed a trial of muscle relaxers. Orders: - cyclobenzaprine (FLEXERIL) 10 mg tablet; Take 1 tablet (10 mg total) by mouth nightly as needed for muscle spasms Shari Coley DO documented in this encounter Miscellaneous Notes * Assessment & Plan Note - Shari Coley DO - 03/24/2021 7:17 PM CDT Associated Problem(s): Myalgia Recommended heating pads prn, also, prescribed a trial of muscle relaxers. * Assessment & Plan Note - Shari Coley DO - 03/24/2021 7:17 PM CDT Associated Problem(s): Episodic tension-type headache, not intractable Trial of muscle relaxer at night. May use OTC pain reliever of choice. * Assessment & Plan Note - Shari Coley DO - 03/24/2021 7:16 PM CDT Associated Problem(s): Generalized anxiety disorder Recommended decreasing Lexapro since she's been having headaches, patient would like to remain on the 10 mg daily at this time. Anxiety is improving. documented in this encounter Plan of Treatment Not on file documented as of this encounter Visit Diagnoses Diagnosis Generalized anxiety disorder- Primary Episodic tension-type headache, not intractable Myalgia Unspecified myalgia and myositis documented in this encounter Discontinued Medications Medication Sig Discontinue Reason Start Date End Da te triamcinolone (KENALOG) 0.025 % ointment APPLY TO RASH 2X A DAY UP TO 4 WEEKS DO NOT APPLY TO FACE, GROIN, ARMPITS WAIT 2 WKS BEFORE RESTART Therapy completed 06/05/2020 03/24/2021 ISOtretinoin (ABSORICA) 30 mg capsule Therapy completed 03/24/2021 documented as of this encounter Historical Medications * This list may reflect changes made after this encounter. spironolactone (ALDACTONE) 25 mg oral suspension Take 25 mg by mouth daily 06/29/2021 added in this encounter Care Teams Marketing Mgr Relationship Specialty Start Date End Date Shari Coley DO PCP - General Family Medicine 06/25/19 02/29/24 Stuart Li PA Physician Media Technician Physician Media Technician 06/25/19 Patricia Bowden MD [address] [place] [address] Referring Physician Dermatology 06/26/20 documented as of this encounter
--- OUTSIDE RECORDS SUMMARY | 2024-07-29 05:45 | XMS_ITS | Encounter Summary ---
Author Organization [facility] Address [address] [place] [address] Care Team Providers Care Nurse Charge Rn Name Role Phone Shari Coley DO Primary Care Provider [phone] Stuart Li Unavailable [phone] Patricia Bowden MD Unavailable [phone] Alison Syed MD Unavailable [phone] Christopher Cadet MD Unavailable Reason for Visit * Reason Onset Date Comments Congestion 10/25/2022 Headache 10/25/2022 Encounter Details Date Type Department Care Team (Late st Contact Info) Description 10/25/2022 Nurse Triage [facility] Primary Care at [address] [place] [address] Shari Coley DO [address] [address] Social History Tobacco Use Types [...] points, staff should administer the PHQ-9) 0 10/07/2022 Comments No Sex and Gender Information Value Date Recorded Sex Assigned at Not on file 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 Pt denies fever, chest pain or sob. Pt rating headache at steady 6/10. Pt reports taking otc medications and Ibuprofen. Pt reports thick green mucus. Pt requesting to be seen. Pt offered appt in office with PCP today. Pt states she works until 6pm and [facility] Pt instructed on neti pot, increasing fluids, nasal sprays, warm fluids. PtProvided with care instructions, pt agreeable to plan of care. Pt instructed to call back if symptom worsen/change or questions/concerns arise. * Telephone Encounter - Rena Reyna RN - 10/25/2022 12:33 PM CDT Regarding: Headache & Sinus Drainage ----- Message from Dulce Stanley MA sent at 10/25/2022 12:28 PM CDT ----- Symptom Based Call Caller's Callback #: [phone] Chief Complaint(s): Headache & Sinus Drainage Duration: 3-4 days What type of symptom(s) is the patient experiencing? Non-Emergent. Is this a new or reoccurring symptom(s)? New What have you tried to help your symptom(s)? Tylenol sinus and Ibuprofen for the headaches and pt hasn't noticed much of a difference Why was appointment not scheduled? Requesting advice from clinical rehabilitation team lead. Additional Comments: Patient calling symptomatic with a headache and thick sinus drainage that goesdown the back of the throat causing pt to cough. Pt states the mucus gets stuck in the throat at time and causes her to gag. Pt was offered an appt and the first availability was , pt was requesting an appt for tomorrow. Pt aware of the turnaround timeframe and CS will send over as routine call. Does message need to be routed?Yes-Action Needed documented in this encounter Plan of Treatment Not on file documented as of this encounter Visit Diagnoses Not on filedocumented in this encounter Care Teams Nurse Charge Rn Relationship Specialty Start Date End Date Shari Coley DO PCP - General Family Medicine 06/25/19 02/29/24 Stuart Li PA Physician Reach Truck Operator Physician Reach Truck Operator 06/25/19 Patricia Bowden MD [address] [place] [address] Referring Physician Dermatology 06/26/20 Alison Syed MD [address] [place] [address] Consulting Physician Obstetrics and Gynecology 07/02/21 Christopher Cadet MD [address] [place] [address] Consulting Physician General Surgery 07/02/21 documented as of this encounter
--- OUTSIDE RECORDS SUMMARY | 2024-07-29 05:45 | XMS_ITS | Encounter Summary ---
Author Organization [facility] Address [address] [place] [address] Care Team Providers Care Parachute Supervisor Name Role Phone Shari Coley DO Primary Care Provider [phone]- [phone] Stuart Li Unavailable [phone]- [phone] Patricia Bodwen MD Unavailable Alison Syed MD Unavailable [phone] Christopher Cadet MD Unavailable Encounter Details Date Type Department Care Team (Late st Contact Info) Description 04/08/2022 12:00 PM CDT Lab [address] Shari Coley DO [facility] [address] [address] Annual physical exam; Screening for thyroid disorder; Encounter for lipid screening for cardiovascular disease; Encounter for screening examination for impaired glucose regulation and diabetes mellitus; Encounter for screening for other digestive system disorders; Screening for deficiency anemia Discharge Disposition: Discharge to home or self [...] on file 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 Gender Identity Not on file Sexual Orientation Not on file documented as of this encounter Discharge Disposition Disposition Code Departure Means Destination Discharge to home or self care documented in this encounter Plan of Treatment Not on file documented as of this encounter Procedures Procedure Name Priority Date/Time Associated Diagnosis Comments EGFR Routine 04/08/2022 11:55 AM CDT Annual physical exam Encounter for screening for other digestive system disorders DIFFERENTIAL AUTO Routine 04/08/2022 11: 55 AM CDT Annual physical exam Screening for deficiency anemia THYROID FUNCTION CASCADE Routine 04/08/2022 11:55 AM CDT Annual physical exam Screening for thyroid disorder CBC WITH AUTO DIFFERENTIAL Routine 04/08/2022 11:55 AM CDT Annual physical exam Screening for deficiency anemia HEMOGLOBIN A1C Routine 04/08/2022 11:55 AM CDT Annual physical exam Encounter for screening examination for impaired glucose regulation and diabetes mellitus LIPID PANEL Routine 04/08/2022 11:55 AM CDT Annual physical exam Encounter for lipid screening for cardiovascular disease COMPREHENSIVE METABOLIC PANEL Routine 04/08/2022 11:55 AM CDT Annual physical exam Encounter for screening for other digestive system disorders documented in this encounter Results * eGFR (04/08/2022 11:55 AM CDT) [facility] eGFR 127 mL/min/1. 73 m2 [facility] ([place]) Comment: Interpretive Data [...] interpretive data was last reviewed 2021. Blood 04/08/2022 11:5 5 AM CDT 04/08/2022 1:47 PM CDT us Shari Coley DO LAB BLOOD ORDERABLES Final Result [facility] ([place]) 1 [facility] [place] [address] * Differential, auto (04/08/2022 11:55 AM CDT) Neutrophil abs 4.6 1.7 - 6.5 K/cumm [facility] ([place]) Imm gran abs 0.0 0.0 - 0.1 K/cumm [facility] ([place]) Lymphocyte abs 2.7 0.8 - 3.3 K/cumm [facility] ([place]) Monocyte abs 0.5 0.2 - 0.8 K/cumm [facility] ([place]) Eosinophil abs 0.3 0.0 - 0.5 K/cumm [facility] ([place]) Basophil abs 0.1 0.0 - 0.1 K/cumm [facility] ([place]) Neutrophil pct 55.5 % [facility] ([place]) Comment: Interpretive Data Percent cell count reference ranges are not reported, since discordance with absolute values may lead to misinterpretation of CBC data. Current Interpretive Data was last revised on 2017. Imm gran pct 0.2 % [facility] ([place]) Comment: Interpretive Data Percent cell count reference ranges are not reported, since discordance with absolute values may lead to misinterpretation of CBC data. Current Interpretive Data was last revised on 2017. Lymphocyte pct 33.3 % [facility] ([place]) Comment: Interpretive Data Percent cell count reference ranges are not reported, since discordance with absolute values may lead to misinterpretation of CBC data. Current Interpretive Data was last revised on 2017. Monocyte pct 6.2 % [facility] ([place]) Comment: Interpretive Data Percent cell count reference ranges are not reported, since discordance with absolute values may lead to misinterpretation of CBC data. Current Interpretive Data was last revised on 2017. Eosinophil pct 4.1 % [facility] ([place]) Comment: Interpretive [...] Data was last revised on 2017. Blood 04/08/2022 11:5 5 AM CDT 04/08/2022 1:47 PM CDT us Shari Coley DO LAB BLOOD ORDERABLES Final Result [facility] ([place]) 1 [facility] [place] [address] * CBC with auto differential (04/08/2022 11:55 [...] ([place]) MCV 89.5 81.3 - 96.4 fL [facility] ([place]) MCH 28.9 27.1 - 33.3 pg [facility] ([place]) MCHC 32.3 32.3 - 35.7 g/dL [facility] ([place]) RDW CV 12.4 11.1 - 14.9 % [facility] ([place]) RDW SD 40.7 35.7 - 48.1 fL [facility] ([place]) NRBC abs 0.00 0.00 - 0.01 K/cumm [facility] ([place]) Blood 04/08/2022 11:5 5 AM CDT 04/08/2022 1:47 PM CDT us Shari Coley DO LAB BLOOD ORDERABLES Final Result [facility] ([place]) 1 [facility] [place] [address] * (ABNORMAL) Comprehensive metabolic panel (04/08/2022 11:55 AM CDT) Sodium 139 135 - 145 mmol/L [facility] ([place]) Potassium, pl 4.0 3.3 - 4.9 mmol/L [facility] ([place]) Chloride 103 97 - 110 mmol/L [facility] ([place]) CO2 27 22 - 32 mmol/L [facility] ([place]) Anion gap 9 2 - 15 mmol/L [facility] ([place]) BUN 5(L) 8 - 25 mg/dL [facility] ([place]) Creatinine 0.63 0.60 - 1.10 mg/dL [facility] ([place]) Glucose 110 70 - 199 mg/dL [facility] ([place]) Comment: Interpretive Data Fasting glucose [...] 5 AM CDT 04/08/2022 1:47 PM CDT Shari Coley DO LAB BLOOD ORDERABLES Final Result Performing Organization Address [facility] de Phone Number [facility] ([place]) 1 [facility] [place] [address] * Hemoglobin A1c (04/08/2022 11:55 AM CDT) Hgb A1C 5.1 4.0 - 5.6 % [facility] ([place]) Estimated Average Glucose 100 mg/dL [facility] ([place]) Comment: The ADA recommends reporting an estimated Average Glucose (eAG) with all Hemoglobin A1c results using the equation derived from a study of 507 normal and diabetic adults. ??Minority populations were underrepresented and children were not included. ?? (Diabetes Care 31:4208-5609, 2008). ??The eAG is not equivalent to a fasting glucose. Blood 04/08/2022 11:5 5 AM CDT 04/08/2022 1:47 PM CDT us Shari Coley DO LAB BLOOD ORDERABLES Final Result Performing Organization Address [facility] Co de Phone Number [facility] ([place]) [address] [place] [address] * Lipid panel (04/08/2022 11:55 AM CDT) [facility] Cholesterol 174 30 - 199 mg/dL [facility] ([place]) Comment: Interpretive Data Ages < or = [...] 2018. Triglycerides 117 <=149 mg/dL [facility] ([place]) Comment: Interpretive Data Ages < or = [...] 2018. Non-HDL Cholesterol 123 mg/dL [facility] ([place]) Comment: Interpretive Data [...] revised on 2018. Chol/HDL ratio 3 [facility] ([place]) Blood 04/08/2022 11:5 5 AM CDT 04/08/2022 1:47 PM CDT us Shari Coley DO LAB BLOOD ORDERABLES Final Result Performing Organization Address City/[facility]/ZIP Co de Phone Number [facility] ([place]) 1 [facility] [place] [address] * TSH reflex to free T4 (04/08/2022 11:55 AM CDT) TSH 0.38 0.30 - 4.20 mcIUnit/mL [facility] ([place]) Blood 04/08/2022 11:5 5 AM CDT 04/08/2022 1:47 PM CDT us Shari Coley DO LAB BLOOD ORDERABLES Final Result Performing Organization Address City/[facility] Co de Phone Number [facility] ([place]) 1 [facility] [place] [address] documented in this encounter Visit Diagnoses Diagnosis Annual physical exam Routine general medical examination at a health care facility Screening for thyroid disorder Encounter for lipid screening for cardiovascular disease Encounter for screening examination for impaired glucose regulation and diabetes mellitus Encounter for screening for other digestive system disorders Screening for deficiency anemia Screening for other and unspecified deficiency anemia documented in this encounter Care Teams Parachute Supervisor Relationship Specialty Start Date End Date Shari Coley DO PCP - General Family Medicine 06/25/19 02/29/24 Stuart Li PA Physician Onion Farmer Physician Onion Farmer 06/25/19 Patricia Bowden MD [address] [place] [address] Referring Physician Dermatology 06/26/20 Alison Syed MD [address] [place] [address] Consulting Physician Obstetrics and Gynecology 07/02/21 Christopher Cadet MD [address] [place] [address] Consulting Physician General Surgery 07/02/21 documented as of this encounter
--- OUTSIDE RECORDS SUMMARY | 2024-07-29 05:45 | XMS_ITS | Encounter Summary ---
Author Organization [facility] Address [address] [place] [address] Care Team Providers Care Plant Utilities Engineer Name Role Phone Shari Coley DO Primary Care Provider [phone] Stuart Li Unavailable [phone]- [phone] Patricia Bowden MD Unavailable [phone] Alison Syed MD Unavailable [phone] Christopher Cadet MD Unavailable Reason for Visit * Reason Onset Date Comments COVID-19 EVALUATION 07/12/2022 Vertigo 07/12/2022 Earache 07/12/2022 Encounter Details Date Type Department Care Team (Late st Contact Info) Description 07/12/2022 Nurse Triage [facility] Primary Care at [address] [place] [address] Shari Coley DO [address] [facility] [address] [address] Social History Tobacco Use Types Packs/Day Years [...] on file 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 TION TECHNICAL SYSTEMS SPECIALIST * Telephone Encounter - Antonia Pelaez Daily, RN - 07/12/2022 8:27 PM AVIATION TECHNICAL SYSTEMS SPECIALIST Wendy Jansen's mother initially called for patient- could not answer some questions. This RN spoke with pt- she c/o dizziness starting today. Spinning sensation with eyes closed, feels unbalancedwhen leaning over or standing up- feels scared to walk- taking small, slow steps. Also c/o bilat ear pain, tender when swallowing. Unsure of temp but feels like she had fever yesterday, has been sweating/chills today. Notes she feels weak, has runny nose/drainage, JONES, sinus pain. Pt Covid + on 07/10. Attempting to drink lots of water. Is taking spironolactone. Denies SOB, confusion, numbness/weakness on one side of body. Advised pt to proceed to UC/ED tonight- possibly needs IVF, neuro assessment, ears checked. Pt agrees with plan- will have mom drive her to ED. Home care reviewed. Advised pt to call back if symptoms worsen or with any other concerns/questions. Pt verbalized understanding. Forwarding to Shari Coley DO clin pool as FYI only. Reason for Disposition [1] MODERATE dizziness (e.g., vertigo; feels very unsteady, interferes with normal activities) AND [2] has NOT been evaluated by physician for this Patient sounds very sick or weak to the triager Protocols used: Dizziness - [id number], Coronavirus (COVID-19) Diagnosed or [id number] TION TECHNICAL SYSTEMS SPECIALIST * Telephone Encounter - Antonia Pelaez RN - 07/12/2022 8:13 PM AVIATION TECHNICAL SYSTEMS SPECIALIST Regarding: Reason for Call: Has Covid since 07/10, ear pain & Vertigo & scared to get up ----- Message from Wendy Barragan sent at 07/12/2022 8:05 PM AVIATION TECHNICAL SYSTEMS SPECIALIST ----- Please return call to: Rena Jansen Call back: #[phone] Provider: Coley Patient's Name: Wendy Jansen : 1995 Pharmacy Name: N/A Pharmacy Phone #: N/A Reason for Call: Has Covid since 07/10, ear pain & Vertigo & scared to get up TION TECHNICAL SYSTEMS SPECIALIST documented in this encounter Plan of Treatment Not on file documented as of this encounter Procedures Procedure Name Priority Date/Time Associated Diagnosis Comments SCAN - LABS 07/12/2022 documented in this encounter Results * SCAN - LABS (07/12/2022) us Shari Coley DO Final Resu lt documented in this encounter Visit Diagnoses Not on filedocumented in this encounter Care Teams Plant Utilities Engineer Relationship Specialty Start Date End Date Shari Coley DO PCP - General Family Medicine 06/25/19 02/29/24 Stuart Li PA Physician Press Breaker Physician Press Breaker 06/25/19 Patricia Bowden MD [address] [place] [address] Referring Physician Dermatology 06/26/20 Alison Syed MD [address] [place] [address] Consulting Physician Obstetrics and Gynecology 07/02/21 Christopher Cadet MD [address] [place] [address] Consulting Physician General Surgery 07/02/21 documented as of this encounter
--- OUTSIDE RECORDS SUMMARY | 2024-07-29 05:45 | XMS_ITS | Encounter Summary ---
Author Organization [facility] Healthcare Address [address] [place] [address] Care Team Providers Care Label Rewinder Name Role Phone Shari Coley DO Primary Care Provider +1- [phone] Stuart Li Unavailable +1- [phone] Patricia Bowden MD Unavailable Alison Syed MD Unavailable +1 -[phone] Christopher Cadet MD Unavailable Encounter Details Date Type Department Care Team (Late st Contact Info) Description 07/02/2021 11:40 AM PRODUCT FINISHER Lab [address] Shari Coley DO [facility] [address] [address] Annual physical exam; Screening for blood or protein in urine; Encounter for lipid screening for cardiovascular disease; Encounter for screening examination for impaired glucose regulation and diabetes mellitus; Encounter for screening for other digestive system disorders; Screening, anemia, deficiency, iron Discharge Disposition: Discharge to home or self care Social History Tobacco Use Types Packs/Day Years Used Date Smoking Tobacco: Never Smokeless Tobacco: Never Alcohol Use Standard Drinks/Week Comments Yes 0 (1 standard drink = 0.6 oz pur e alcohol) PHQ-2 Answer Date Recorded PHQ-2 Total Score (If total score is 3 or more points, staff should administer the PHQ-9) 0 07/02/2021 Comments No Sex and Gender Information Value Date Recorded Sex Assigned at Not on file 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 PRODUCT 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 Gender Identity Not on file Sexual Orientation Not on file documented as of this encounter Discharge Disposition Disposition Code Departure Means Destination Discharge to home or self care documented in this encounter Plan of Treatment Not on file documented as of this encounter Procedures Procedure Name Priority Date/Time Associated Diagnosis Comments EGFR Routine 07/02/2021 11:39 AM PRODUCT FINISHER Annual physical exam Encounter for screening for other digestive system disorders DIFFERENTIAL AUTO Routine 07/02/2021 11: 39 AM PRODUCT FINISHER Annual physical exam Screening, anemia, deficiency, iron URINALYSIS AND REFLEX TO MICROSCOPIC AND CULTURE Routine 07/02/2021 11:39 AM PRODUCT FINISHER Annual physical exam Screening for blood or protein in urine CBC WITH AUTO DIFFERENTIAL Routine 07/02/2021 11:39 AM PRODUCT FINISHER Annual physical exam Screening, anemia, deficiency, iron URINALYSIS, MICROSCOPIC ONLY Routine 07/02/2021 11:39 AM PRODUCT FINISHER Annual physical exam Screening for blood or protein in urine HEMOGLOBIN A1C Routine 07/02/2021 11:39 AM PRODUCT FINISHER Annual physical exam Encounter for screening examination for impaired glucose regulation and diabetes mellitus LIPID PANEL Routine 07/02/2021 11:39 AM PRODUCT FINISHER Annual physical exam Encounter for lipid screening for cardiovascular disease COMPREHENSIVE METABOLIC PANEL Routine 07/02/2021 11:39 AM PRODUCT FINISHER Annual physical exam Encounter for screening for other digestive system disorders documented in this encounter Results * eGFR (07/02/2021 11:39 AM PRODUCT FINISHER) [facility] eGFR 134 mL/min/1. 73 m2 NIXON GUTIERREZ ([place]) Comment: [...] interpretive data was last reviewed 2021. Blood 07/02/2021 11:3 9 AM PRODUCT FINISHER 07/02/2021 1:47 PM PRODUCT FINISHER us Shari Coley DO LAB BLOOD ORDERABLES Final Result Performing Organization Address City/[facility]/ZIP Co de Phone Number NIXON GUTIERREZ (FIN[place]) 1 [facility] Department [place] [address] * (ABNORMAL) Urinalysis, microscopic only (07/02/2021 11:39 AM PRODUCT FINISHER) WBC, ur 0-5 0 - 5 /HPF NIXON GUTIERREZ ([place]) RBC, ur 0-2 0 - 2 /HPF NIXON GUTIERREZ ([place]) Epithelial cells, squamous, ur 1-5 0 - 5 /HPF NIXON GUTIERREZ ([place]) Mucous, ur Present(A) NIXON Schaefer (FINA) Culture Reflex Comment Reflex conditions for urine culture (WBC >10) not met. NIXON GUTIERREZ ([place]) Urine, clean voided 07/02/2021 11:39 AM PRODUCT FINISHER 07/02/2021 1:47 PM PRODUCT FINISHER Shari Coley DO LAB URINE ORDERABLES Final Result Performing Organization Address City/[facility]/ZIP Co de Phone Number [facility] ([place]) 1 [facility] Department [place] [address] * Differential, auto (07/02/2021 11:39 AM PRODUCT FINISHER) Neutrophil abs 3.8 1.7 - 6.5 K/cumm [facility] ([place]) Imm gran abs 0.0 0.0 - 0.1 K/cumm [facility] ([place]) Lymphocyte abs 2.3 0.8 - 3.3 K/cumm [facility] ([place]) Monocyte abs 0.4 0.2 - 0.8 K/cumm [facility] ([place]) Eosinophil abs 0.2 0.0 - 0.5 K/cumm [facility] ([place]) Basophil abs 0.1 0.0 - 0.1 K/cumm [facility] ([place]) Neutrophil pct 56.6 % [facility] ([place]) Comment: Interpretive Data Percent cell count reference ranges are not reported, since discordance with absolute values may lead to misinterpretation of CBC data. Current Interpretive Data was last revised on 2017. Imm gran pct 0.3 % [facility] ([place]) Comment: Interpretive Data Percent cell count reference ranges are not reported, since discordance with absolute values may lead to misinterpretation of CBC data. Current Interpretive Data was last revised on 2017. Lymphocyte pct 33.9 % [facility] ([place]) Comment: Interpretive [...] was last revised on 2017. Eosinophil pct 3.0 % [facility] ([place]) Comment: Interpretive Data Percent cell count reference ranges are not reported, since discordance with absolute values may lead to misinterpretation of CBC data. Current Interpretive Data was last revised on 2017. Basophil pct 1.0 % [facility] ([place]) Comment: Interpretive Data Percent cell count reference ranges are not reported, since discordance with absolute values may lead to misinterpretation of CBC data. Current Interpretive Data was last revised on 2017. Blood 07/02/2021 11:3 9 AM PRODUCT FINISHER 07/02/2021 1:47 PM PRODUCT FINISHER us Shari Coley DO LAB BLOOD ORDERABLES Final Result [facility] ([place]) 1 [facility] [address] * CBC with auto differential (07/02/2021 11:39 AM PRODUCT FINISHER) WBC 6.8 3.8 - 9.9 K/cumm [facility] ([place]) Hgb 14.3 11.9 - 15.5 g/dL [facility] ([place]) Hct 44.0 35.6 - 45.5 % [facility] ([place]) Plt 250 150 - 400 K/cumm [facility] ([place]) MPV 11.8 9.1 - 12.3 fL [facility] ([place]) RBC 4.77 3.90 - 5.20 M/cumm [facility] ([place]) MCV 92.2 81.3 - 96.4 fL [facility] ([place]) MCH 30.0 27.1 - 33.3 pg [facility] ([place]) MCHC 32.5 32.3 - 35.7 g/dL [facility] ([place]) RDW CV 12.5 11.1 - 14.9 % [facility] ([place]) RDW SD 42.7 35.7 - 48.1 fL [facility] ([place]) NRBC abs 0.00 0.00 - 0.01 K/cumm [facility] ([place]) Blood 07/02/2021 11:3 9 AM PRODUCT FINISHER 07/02/2021 1:47 PM PRODUCT FINISHER us Shari Coley DO LAB BLOOD ORDERABLES Final Result [facility] ([place]) [address] Department [place] [address] * (ABNORMAL) Comprehensive metabolic panel (07/02/2021 11:39 AM PRODUCT FINISHER) Sodium 138 135 - 145 mmol/L [facility] ([place]) Potassium, pl 4.2 3.3 - 4.9 mmol/L [facility] ([place]) Chloride 103 97 - 110 mmol/L [facility] ([place]) CO2 26 22 - 32 mmol/L [facility] ([place]) Anion gap 10 2 - 15 mmol/L [facility] ([place]) BUN 5(L) 8 - 25 mg/dL [facility] ([place]) Creatinine 0.52(L) 0.60 - 1.10 mg/dL [facility] ([place]) Glucose 90 70 - 199 mg/dL [facility] ([place]) [...] 1.2 mg/dL [facility] ([place]) Protein, pl 7.9 6.5 - 8.5 g/dL [facility] ([place]) Albumin 4.5 3.5 - 5.0 g/dL [facility] ([place]) Alk phos 71 40 - 130 Units/L [facility] ([place]) ALT 14 7 - 45 Units/L [facility] ([place]) AST 22 10 - 45 Units/L [facility] ([place]) Blood 07/02/2021 11:3 9 AM PRODUCT FINISHER 07/02/2021 1:47 PM PRODUCT FINISHER us Shari Coley DO LAB BLOOD ORDERABLES Final Result Performing Organization Address [facility] de Phone Number NIXON GUTIERREZ ([place]) 1 [facility] [place] [address] * Hemoglobin A1c (07/02/2021 11:39 AM PRODUCT FINISHER) Hgb A1C 4.9 4.0 - 5.6 % NIXON [facility] ([place]) Estimated Average Glucose 94 mg/dL NIXON [facility] ([place]) Comment: The ADA recommends reporting an estimated Average Glucose (eAG) with all Hemoglobin A1c results using the equation derived from a study of 507 normal and diabetic adults. ??Minority populations were underrepresented and children were not included. ?? (Diabetes Care 31:5863-8443, 2008). ??The eAG is not equivalent to a fasting glucose. Blood 07/02/2021 11:3 9 AM PRODUCT FINISHER 07/02/2021 2:14 PM PRODUCT FINISHER Sharisantiago Marquezjaxson Coley DO LAB BLOOD ORDERABLES Final Result Performing Organization Address [facility] de Phone Number NIXON GUTIERREZ ([place]) 1 [facility] [place] [address] * (ABNORMAL) Lipid panel (07/02/2021 11:39 AM PRODUCT FINISHER) Pathologist [facility] Cholesterol 201(H) 30 - 199 mg/dL NIXON [facility] ([place]) Comment: Interpretive Data Ages < or [...] Data was last revised on 2018. Triglycerides 171(H) <=149 mg/dL NIXON GUTIERREZ ([place]) Comment: Interpretive [...] Data was last revised on 2018. HDL 60 >=40 mg/dL NIXON GUTIERREZ ([place]) Comment: Interpretive [...] was last revised on 2018. LDL, calculated 107 <=129 mg/dL NIOXN GUTIERREZ (FINA) Comment: Interpretive Data Ages < [...] was last revised on 2018. Non-HDL Cholesterol 141 mg/dL NIXON CALLES) Comment: Interpretive Data Ages [...] on 2018. Chol/HDL ratio 3 EMILEE GUTIERREZ (FINA) Blood 07/02/2021 11:3 9 AM PRODUCT FINISHER 07/02/2021 1:47 PM PRODUCT FINISHER us Shari Coley DO LAB BLOOD ORDERABLES Final Result NIXON GUTIERREZ ([place]) 1 [facility] Department [place] [address] * (ABNORMAL) Urinalysis reflex to microscopic and culture Urine, clean voided (07/02/2021 11:39 AM PRODUCT FINISHER) Color, ur Yellow Yellow [facility] ([place]) Clarity, ur Clear Clear [facility] ([place]) Specific gravity, ur 1.022 1.003 - 1.030 [facility] ([place]) pH, urine 6.5 [facility] ([place]) Protein, ur ql Negative Negative [facility] ([place]) Glucose, ur ql Negative Negative [facility] ([place]) Ketones, ur Negative Negative [facility] ([place]) Bilirubin, ur Negative Negative [facility] ([place]) Blood, ur Trace(A) Negative [facility] ([place]) Urobilinogen, ur <2.0 <2.0 mg/dL [facility] ([place]) Nitrite, ur Negative Negative [facility] ([place]) Leukocyte esterase, ur Negative Negative [facility] ([place]) UA reflex comment Reflex to microscopic UA will be performed. [facility] ([place]) Urine, clean voided 07/02/2021 11:39 AM PRODUCT FINISHER 07/02/2021 1:47 PM PRODUCT FINISHER Narrative [facility] ([place]) - 07/02/2021 1:58 PM PRODUCT FINISHER ?? Urine pH is affected by diet, medications, systemic acid-base disturbances, and renal tubular function. ??pH may affect urinary stone formation. ??For example, urine pH below 6.0 may help reduce the tendency for calcium phosphate stones and pH greater than 6.0 may reduce the tendency for uric acid stone formation. Source: [facility] [employer]. Last revised 07-27-2017 us Shari Coley DO LAB MICROBIOLOGY - GENERAL ORDERABLES Final Result NIXON GUTIERREZ ([place]) 1 [facility] Department [place] [address] documented in this encounter Visit Diagnoses Diagnosis Annual physical exam Routine general medical examination at a health care facility Screening for blood or protein in urine Screening for unspecified condition Encounter for lipid screening for cardiovascular disease Encounter for screening examination for impaired glucose regulation and diabetes mellitus Encounter for screening for other digestive system disorders Screening, anemia, deficiency, iron Screening for iron deficiency anemia documented in this encounter Care Teams Label Rewinder Relationship Specialty Start Date End Date Shari Coley DO PCP - General Family Medicine 06/25/19 02/29/24 Stuart Li PA Physician Ibm Bpm Developer Physician Ibm Bpm Developer 06/25/19 Patricia Bowden MD [address] [place] [id number] Referring Physician Dermatology 06/26/20 Alison Syed MD [address] [place] [address] Consulting Physician Obstetrics and Gynecology 07/02/21 Christopher Cadet MD [address] [place] [address] Consulting Physician General Surgery 07/02/21 documented as of this encounter
--- OUTSIDE RECORDS SUMMARY | 2024-07-29 05:45 | XMS_ITS | Encounter Summary ---
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 Gender Identity Not on file Sexual Orientation Not on file documented as of this encounter Last Filed Vital Signs Vital Sign Reading Time Taken Comments Blood Pressure 110/70 07/25/2019 11:11 AM PICKLING SOLUTION MAKER Pulse 62 07/25/2019 11:11 AM PICKLING SOLUTION MAKER Temperature - - Respiratory Rate - - Oxygen Saturation - - Inhaled Oxygen Concentration - - Weight 62.7 kg (138 lb 4.8 oz) 07/25/2019 11:11 AM PICKLING SOLUTION MAKER Height 160 cm (5' 3 ) 07/25/2019 11:11 AM PICKLING SOLUTION MAKER Body Mass Index 24.5 07/25/2019 11:11 AM PICKLING SOLUTION MAKER documented in this encounter Progress Notes * Christopher Cadet MD - 07/25/2019 11:15 AM CST Images from the original note were not included. Post Op Note Subjective: Patient Name: Wendy Jansen Date of Visit: 07/25/19 HPI: No complaints since surgery. Tolerating a diet without nausea or emesis. Regular bowel movements. Chief Complaint: Post op Appy (07/17/2019) Objective: Vitals BP 110/70 (BP Location: Right arm, Patient Position: Sitting) Pulse 62 Ht 160 cm (5' 3 ) Wt 62.7 kg (138 lb 4.8 oz) LMP 07/03/2019 BMI 24.50 kg/m?? Physical Exam Incisions clean, dry and intact Assessment/Plan Diagnoses and all orders for this visit: Acute appendicitis with localized peritonitis, without perforation, abscess, or gangrene (Primary) Assessment & Plan: Diet as tolerated. Okay to return to work with light duty. No heavy lifting greater than 20 lb for 4 weeks. No submerging incisions for 4 weeks. Please call for any further questions or concerns. 11:22 AM 07/25/2019 LING SOLUTION MAKER documented in this encounter Miscellaneous Notes * Assessment & Plan Note - Christopher Cadet MD - 07/25/2019 11:22 AM CSTAssociated Problem(s): History of appendectomy Diet as tolerated. Okay to return to work with light duty. No heavy lifting greater than 20 lb for 4 weeks. No submerging incisions for 4 weeks. Please call for any further questions or concerns. LING SOLUTION MAKER documented in this encounter Plan of Treatment Not on file documented as of this encounter Visit Diagnoses Diagnosis Acute appendicitis with localized peritonitis, without perforation, abscess, or gangrene- Primary documented in this encounter Historical Medications * This list may reflect changes made after this encounter. ibuprofen (ADVIL,MOTRIN) 200 mg tab/cap Take 200 mg by mouth every 6 (six) hours as needed for pain 08/16/2019 EPIDUO FORTE 0.3-2.5 % gel with pump 07/08/2019 06/26/2020 added in this encounter Care Teams Social Work Professor Relationship Specialty Start Date End Date Shari Coley DO PCP - General Family Medicine 06/25/19 02/29/24 Stuart Li PA Physician Heavy Duty Mechanic Physician Heavy Duty Mechanic 06/25/19 documented as of this encounter
--- OUTSIDE RECORDS SUMMARY | 2024-07-29 05:45 | XMS_ITS | Encounter Summary ---
Author Organization [facility] Medical Group Address [address] [place] [address] Care Team Providers Care Home Care Provider Name Role Phone BrijeshShari Primary Care Provider +1- [phone] Stuart Li Unavailable [phone]- [phone] Patricia Bowden MD Unavailable [phone] Alison Syed MD Unavailable + [phone] Christopher Cadet MD Unavailable Reason for Visit * Reason Comments URI Pt c/o sinus symptom s- headaches, thick mucous for 4 days. She was tx with ABX about 6 weeks ago. 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 Gender Identity Not on file Sexual Orientation Not on file documented as of this encounter Last Filed Vital Signs Vital Sign Reading Time Taken Comments Blood Pressure 106/60 10/25/2022 5:59 PM CDT Pulse 60 10/25/2022 5:59 PM CDT Temperature 36.8 ??C (98.3 ??F) 10/25/2022 5:59 PM CD T Respiratory Rate 20 10/25/2022 5:59 PM CDT Oxygen Saturation 98% 10/25/2022 5:59 PM CDT Inhaled Oxygen Concentration - - Weight 73.9 kg (163 lb) 10/25/2022 5:59 PM CDT Height 160 cm (5' 3 ) 10/25/2022 5:59 PM CDT Body Mass Index 28.87 10/25/2022 5:59 PM CDT documented in this encounter Patient Instructions * Patient Instructions* Kelley Higgins PA - 10/25/2022 6:00 PM CDT -continue zyrtec -flonase AM and PM -full strength sudafefd (240 mg psuedoephrine) -if no improvement after 7-10 days of symptoms may start antibiotic * Attachments The following attachments cannot be sent through Care Everywhere. * Sinusitis (General Information) (Grenadian) documented in this encounter Ordered Prescriptions Prescription Sig Dispense Quantity Refills Last Filled Start Date End Date doxycycline (VIBRAMYCIN) 100 mg capsule Take 1 tablet/caps ule (100 mg total) by mouth 2 (two) times a day for 7 days 14 tablet/capsule 10/25/2022 11/01/2022 documented in this encounter Progress Notes * Kelley Higgins, MELY - 10/25/2022 6:00 PM CDT Images from the original note were not included. Subjective/Objective Patient ID: Wendy Jansen is a 27 y.o. female. Chief Complaint URI (Pt c/o sinus symptoms- headaches, thick mucous for 4 days. She was tx with ABX about 6 weeks ago. Sx get better but haven't completely cleared) Pt presents w/ cold symptoms x 4 days. Reports nasal congestion w/ thick drainage, sinus pressure/JONES. No cough, fever, chills, BA. Has been taking ibuprofen, tylenol sinus, and zyrtec w/ no relief. Had covid 4 months ago and has had residual cold symptoms since that time. Was given Augmentin 6 weeks ago which resolved her symptoms temporarily. Review of Systems All systems reviewed and are negative or non contributory for this patient's presentation today other than as stated in the HPI . Physical Exam Constitutional: General: She is not in acute distress. Appearance: She is not ill-appearing or toxic-appearing. HENT: Head: Normocephalic and atraumatic. Right Ear: External ear normal. Left Ear: External ear normal. Nose: Congestion present. Right Sinus: Frontal sinus tenderness present. No maxillary sinus tenderness. Left Sinus: Frontal sinus tenderness present. No maxillary sinus tenderness. Mouth/Throat: Mouth: Mucous membranes are moist. Pharynx: Oropharynx is clear. Eyes: Conjunctiva/sclera: Conjunctivae normal. Pupils: Pupils are equal, round, and reactive to light. Cardiovascular: Rate and Rhythm: Normal rate and regular rhythm. Heart sounds: Normal heart sounds. Pulmonary: Effort: Pulmonary effort is normal. Breath sounds: Normal breath sounds. Musculoskeletal: General: Normal range of motion. Cervical back: Normal range of motion. Skin: General: Skin is warm and dry. Neurological: General: No focal deficit present. Mental Status: She is alert and oriented to person, place, and time. Psychiatric: Mood and Affect: Mood normal. Behavior: Behavior normal. Vitals: 10/25/22 1759 BP: 106/60 Pulse: 60 Resp: 20 Temp: 36.8 ??C (98.3 ??F) SpO2: 98% Weight: 73.9 kg (163 lb) Height: 160 cm (5' 3 ) Assessment/Plan -sounds like intermittent congestion x months since having covid. Was tx w/ Augmentin 6 weeks ago which helped temporarily. States symptoms worsened 4 days ago w/ thick neon drainage and increased sinus pressure. -advised sudafed, zyrtec, flonase for few days, if no relief did send out doxycycline to take if noimprovement after 7-10 days of symptoms Diagnoses and all orders for this visit: Acute non-recurrent frontal sinusitis (Primary) Other orders - doxycycline (VIBRAMYCIN) 100 mg capsule; Take 1 tablet/capsule (100 mg total) by mouth 2 (two) times a day for 7 days No results found for this or any previous visit (from the past 4 hour(s)). Disposition Treatment plan including expectations, follow up, and return precautions discussed with patient/parent, verbalizes understanding. Medication dosage, use, and potential adverse reactions discussed with patient/parent. Advised to follow up with PCP if symptoms do not resolve as expected or sooner if condition worsens. Signs/symptoms warranting ER evaluation reviewed. Patient and/or guardian was given an opportunity to ask questions, questions answered. MELY Go 10/25/22 6:30 PM documented in this encounter Plan of Treatment Not on file documented as of this encounter Visit Diagnoses Diagnosis Acute non-recurrent frontal sinusitis- Primary documented in this encounter Discontinued Medications Medication Sig Discontinue Reason Start Date End Da te Aviane 0.1-20 mg-mcg per tablet Take 1 tablet by mouth daily 07/25/2022 10/25/2022 meclizine (ANTIVERT) 25 mg tablet TAKE 1 TABLET BY MOUTH TWICE DAILY NEEDED FOR DIZZINESS 07/13/2022 10/25/2022 documented as of this encounter Care Teams Home Care Provider Relationship Specialty Start Date End Date Shari Coley DO PCP - General Family Medicine 06/25/19 02/29/24 Stuart Li PA Physician Railroad Mechanic Physician Railroad Mechanic 06/25/19 Patricia Bowden MD [address] [place] [address] Referring Physician Dermatology 06/26/20 Alison Syed MD [address] [place] [address] Consulting Physician Obstetrics and Gynecology 07/02/21 Christopher Cadet MD [address] [place] [address] Consulting Physician General Surgery 07/02/21 documented as of this encounter
--- OUTSIDE RECORDS SUMMARY | 2024-07-29 05:45 | XMS_ITS | Encounter Summary ---
Author Organization [facility] Medical Group Address [address] [place] [address] Care Team Providers Care Stapler Coil Unit Name Role Phone Shari Coley DO Primary Care Provider [phone]- [phone] Stuart Li Unavailable [phone]- [phone] Patricia Bowden MD Unavailable [phone] Alison Syed MD Unavailable + [phone] Christopher Cadet MD Unavailable Encounter Details Date Type Department Care Team (Late st Contact Info) Description 07/12/2022 Orders Only [facility] Health Information Management [address] [place] [address] Shari Coley DO [address] 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 Gender Identity Not on file Sexual Orientation Not on file documented as of this encounter Plan of Treatment Not on file documented as of this encounter Procedures Procedure Name Priority Date/Time Associated Diagnosis Comments SCAN - RADIOLOGY/IMAGING 07/12/2022 SCAN - LABS 07/12/2022 documented in this encounter Results * SCAN - LABS (07/12/2022) us Shari Coley DO Final Resu lt * SCAN - RADIOLOGY/IMAGING (07/12/2022) Anatomical Region Laterality Modality Other us Shari Coley DO Edited Res ult - Final documented in this encounter Visit Diagnoses Not on filedocumented in this encounter Care Teams Stapler Coil Unit Relationship Specialty Start Date End Date Shari Coley DO PCP - General Family Medicine 06/25/19 02/29/24 Stuart Li PA Physician Card Seller Physician Card Seller 06/25/19 Patricia Bowden MD [address] [place] [id number] Referring Physician Dermatology 06/26/20 Alison Syed MD [address] [place] [address] Consulting Physician Obstetrics and Gynecology 07/02/21 Christopher Cadet MD [address] [place] [address] Consulting Physician General Surgery 07/02/21 documented as of this encounter
--- OUTSIDE RECORDS SUMMARY | 2024-07-29 05:45 | XMS_ITS | Encounter Summary ---
Author Organization [facility] Medical Group Address [address] [facility] [address] [facility] [address] [place] [address] Care Team Providers Care Mailhouse Operator Name Role Phone Shari Coley DO Primary Care Provider [phone] Stuart Li Unavailable [phone] Patricia Bowden MD Unavailable [phone] Alison Syed MD Unavailable [phone] Christopher Cadet MD Unavailable Reason for Visit * Reason Comments Anxiety 1 year, taking Lexap ro 10 mg, suffering from side effects of anxiety Panic Attack 2-3 panic attacks th is year Encounter Details Date Type Department Care Team (Late st Contact Info) Description 10/29/2021 9:15 AM CDT [facility] [address] [place] [address] Shari Coley DO [address] [facility] [address] [address] Generalized anxiety disorder (Primary Dx); Panic attacks Social History Tobacco Use Types Packs/Day Years Used Date Smoking Tobacco: Never Smokeless Tobacco: Never Alcohol Use Standard Drinks/Week Comments Yes 0 (1 standard drink = 0.6 oz pur e alcohol) PHQ-2 Answer Date Recorded PHQ-2 Total Score (If total score is 3 or more points, staff should administer the PHQ-9) 0 10/29/2021 Comments No Sex and Gender Information Value Date Recorded Sex Assigned at Not on file 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 CHRO Gender Identity Not on file Sexual Orientation Not on file documented as of this encounter Patient Instructions * Patient Instructions* Shari Coley, DO - 10/29/2021 9:15 AM CDT Patient Education Panic Attack ACCOUNT CONTACT ASSOCIATE: A panic attack is a sudden, strong feeling of fear even though you are not in danger. You also havephysical symptoms such as rapid breathing or heavy sweating. Symptoms are usually worst about 10 minutes after they start and can last up to 20 minutes. You may feel like you are having a heart attack. You may have a panic attack before an event, such as a public speech you have to give. A panic attack can also happen for no clear reason. Frequent panic attacks may be a sign of a panic disorder that needs long-term treatment. Common signs and symptoms of a panic attack: ?? Chest pain ?? Sweating or trembling ?? Fast or irregular heartbeats ?? Hyperventilation (breathing so quickly you become dizzy, lightheaded, or faint) ?? Shortness of breath, trouble breathing, or a feeling that you are choking or smothering ?? Lightheadedness or fainting ?? Pale or cold skin, chills, or hot flashes ?? Nausea, vomiting, or abdominal pain ?? A feeling that you are separate from your body Seek care immediately if: ?? You have severe chest pain, shortness of breath, or irregular heartbeats. ?? You have thoughts of harming yourself or another person. Contact your healthcare provider if: ?? You have new or worsening panic attacks after treatment. ?? You have questions or concerns about your condition or care. Treatment may include any of the following: ?? Medicines may be given to make you feel more relaxed or to reduce anxiety that causes a panic attack. Some medicines are taken only when you are having a panic attack. Other medicines can be takento prevent panic attacks. ?? A behavior therapist can help you learn to control how your body responds to stressful situations. He may also teach you ways to relax your muscles and slow your breathing during a panic attack. He may teach you ways to assure yourself that the panic attack will not get worse. You may also learnways to prevent or stop hyperventilation. ?? Exposure therapy is used to help you change your reaction to triggers. You are exposed to your panic attack triggers in small amounts. The amount of exposure is slowly increased until it no longertriggers a panic attack. Manage or prevent a panic attack: ?? Manage stress. Stress can trigger a panic attack. Yoga and meditation are good ways to help manage stress. It might be helpful to talk to someone about the stress in your life. ?? Exercise as directed. Exercise can reduce stress and help you sleep better. Your healthcare provider can help you create an exercise plan. ?? Set a sleep schedule. Too little sleep can increase anxiety. Go to bed at the same time each night and wake up at the same time each morning. Keep your room quiet and free from distractions, such as a television or computer. ?? Limit alcohol and caffeine. Alcohol and caffeine can both increase anxiety and make it difficultfor you to sleep well. Limit alcohol to 2 drinks a day if you are a man, or 1 drink a day of you are a woman. A drink of alcohol is 12 ounces of beer, 5 ounces of wine, or 1?? ounces of liquor. ?? Eat a variety of healthy foods. Healthy foods include fruits, vegetables, low-fat dairy products, lean meats, fish, and beans. Limit sugar. Sugar can increase your symptoms. ?? Do not smoke. Nicotine and other chemicals in cigarettes and cigars can increase anxiety and also cause lung damage. Ask your healthcare provider for information if you currently smoke and need help to quit. E-cigarettes or smokeless tobacco still contain nicotine. Talk to your healthcare provider before you use these products. Follow up with your healthcare provider as directed: Write down your questions so you remember to ask them during your visits. ?? 2017 [employer] Information is for End User's use only and may not be sold, redistributed or otherwise used for commercial purposes. All illustrations and images included in CareNotes?? are the copyrighted property of [employer] Inc[employer] or [employer]. The above information is an surgical aides teacher only. It is not intended as medical advice for individual conditions or treatments. Talk to your doctor, nurse or pharmacist before following any medical regimen to see if it is safe and effective for you. Health Maintenance Topics with due status: Overdue Topic Date Due Chlamydia and Gonorrhea (GC/CT) Screening Never done Varicella Vaccines Never done HPV Vaccines Never done Thanks for coming in today! My medical assistants and I are thankful you have trusted us with your care, and hope that you received EXCELLENT care today! Please do not hesitate to call if you have any questions or concerns at [phone]. You may receive a phone call, text, MYCHART message, or e-mail asking about your care today. We would love to hear your feedback on how EXCELLENT your care wastoday! Wishing you better health, always. Dr. Coley documented in this encounter Ordered Prescriptions Prescription Sig Dispense Quantity Refills Last Filled Start Date End Date clonazePAM (KlonoPIN) 0.5 mg tabletIndications: Panic attacks Take 1 tablet (0.5 mg total) by mouth nightly as needed for anxiety 30 tablet 5 10/29/2021 3 escitalopram (LEXAPRO) 20 mg tabletIndications: Generalized anxiety disorder Take 1 tablet (20 mg total) by mouth every morning 90 tablet 3 10/29/2021 3 documented in this encounter Progress Notes * Shari Coley DO - 10/29/2021 9:15 AM CDT Images from the original note were not included. This was a telemedicine visit with Wendy Silvano sanon which took place via real-time video connection with [employer]. During the visit, I was located in the office and the patient was located at home in the [place] of [place]. The patient visit started at 0912 hrs and ended at 0929 hrs. My total encounter time on 10/29/2021 was 17 minutes which was spent in the activities documented in the note. This in cludes time spent prior to the visit and after the visit in direct care of the patient. This time does not include time spent in any separately reportable services.. The patient has been informed that the visit may not be secure and acknowledged the information. I have explained the option of participating in a telephone or video visit during the COVID-19 public health emergency to the patient. After being given an opportunity to ask questions about and discuss this type of visit, the patient verbally consented to proceeding with the telephone/video visit.The patient understands that this service replaces an office visit and they may be billed and/or responsible for any applicable copayments. Shari Coley DO Patient ID: Wendy Jansen is a 26 y.o. female. Assessment/Plan Diagnoses and all orders for this visit: Generalized anxiety disorder (Primary) Assessment & Plan: Increase lexapro 10 mg Up to 20 mg daily. Orders: - escitalopram (LEXAPRO) 20 mg tablet; Take 1 tablet (20 mg total) by mouth every morning Panic attacks Assessment & Plan: Trial of clonazepam. Use as directed. Short follow-up recommended. Orders: - clonazePAM (KlonoPIN) 0.5 mg tablet; Take 1 tablet (0.5 mg total) by mouth nightly as needed for anxiety Follow up 6 wks Chief Complaint Subjective/Objective Anxiety (1 year, taking Lexapro 10 mg, suffering from side effects of anxiety) and Panic Attack (2-3 panic attacks this year) Patient is following up on anxiety. She reports more panic attacks. She believes that she is havingside effects from being on the Lexapro long-term. She states that these side effects are increased panic attacks. She reports headaches, neck pain and panic attacks. She states that she recently had a panic [facility] syncopal episodes, sweaty, seeing black spots and had tingling BUE. This lasted about 10 mins. 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 Review of Systems Neurological: Positive for headaches (occipital). Negative for dizziness, speech difficulty, weakness and numbness. Psychiatric/Behavioral: Positive for sleep disturbance (trouble staying asleep at night, tosses and turns all night ). Negative for self-injury and suicidal ideas. The patient is nervous/anxious. All other systems reviewed and are negative. There were no vitals taken for this visit. Ht Readings from Last 3 Encounters: 07/02/21 160 cm (5' 3 ) 06/29/21 160 cm (5' 3 ) 03/29/21 160 cm (5' 3 ) Wt Readings from Last 3 Encounters: 07/02/21 67.4 kg (148 lb 9.6 oz) 06/29/21 67.1 kg (148 lb) 03/29/21 67 kg (147 lb 9.6 oz) Temp Readings from Last 3 Encounters: 07/02/21 36.5 ??C (97.7 ??F) 03/24/21 36.7 ??C (98.1 ??F) (Temporal) 06/26/20 36.2 ??C (97.1 ??F) (Temporal) BP Readings from Last 3 Encounters: 07/02/21 108/74 06/29/21 110/70 03/29/21 136/80 Pulse Readings from Last 3 Encounters: 07/02/21 63 06/29/21 67 03/24/21 56 BP Readings from Last 3 Encounters: 07/02/21 108/74 06/29/21 110/70 03/29/21 136/80 Physical Exam Vitals and nursing note reviewed. Constitutional: Appearance: Normal appearance. HENT: Head: Normocephalic and atraumatic. Pulmonary: Effort: Pulmonary effort is normal. No respiratory distress. Neurological: Mental Status: She is alert and oriented to person, place, and time. Modified, as this is a telehealth visit [...] This note is dictated and transcribed by [employer]. Peer Counselor variances may occur. Despite proofreading, typographical errors may occur. Shari Coley DO documented in this encounter Miscellaneous Notes * Assessment & Plan Note - Shari Coley DO - 10/29/2021 9:28 AM CDT Associated Problem(s): Panic attacks Trial of clonazepam. Use as directed. Short follow-up recommended. * Assessment & Plan Note - Shari Coley DO - 10/29/2021 9:28 AM CDT Associated Problem(s): Generalized anxiety disorder Increase lexapro 10 mg Up to 20 mg daily. documented in this encounter Plan of Treatment Not on file documented as of this encounter Visit Diagnoses Diagnosis Generalized anxiety disorder- Primary Panic attacks Panic disorder without agoraphobia documented in this encounter Discontinued Medications Medication Sig Discontinue Reason Start Date End Da te eflornithine 13.9 % creamIndications:Female Facial Hirsutism Apply to affected area twice a day. Therapy completed 03/29/2021 10/29/2021 escitalopram (LEXAPRO) 10 mg tabletIndications:Gener alized anxiety disorder Take 1 tablet (10 mg total) by mouth daily Reorder 07/02/2021 10/29/2021 documented as of this encounter Care Teams Mailhouse Operator Relationship Specialty Start Date End Date Shari Coley DO PCP - General Family Medicine 06/25/19 02/29/24 Stuart Li PA Physician Dragger Out Physician Dragger Out 06/25/19 Patricia Bowden MD [address] [place] [address] Referring Physician Dermatology 06/26/20 Alison Syed MD [address] [place] [address] Consulting Physician Obstetrics and Gynecology 07/02/21 Christopher Cadet MD [address] [place] [address] Consulting Physician General Surgery 07/02/21 documented as of this encounter
--- OUTSIDE RECORDS SUMMARY | 2024-07-29 05:45 | XMS_ITS | Encounter Summary ---
Author Organization [facility] Care Team Providers Care Rn Rehab Name Role Phone Shari Coley DO Primary Care Provider [phone] Stuart Li Unavailable [phone] Encounter Details Date Type Department Care Team (Latest Contact Info) Description 10/07/2019 Travel Social History Tobacco Use Types Packs/Day Years Used Date Smoking Tobacco: Never Smokeless Tobacco: Never Alcohol Use Standard Drinks/Week Comments Yes 0 (1 standard drink = 0.6 oz pur e alcohol) PHQ-2 Answer Date Recorded PHQ-2 Score 0 06/25/2019 Comments No Sex and Gender Information Value Date Recorded Sex Assigned at Not on file 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 WIG STYLIST Gender Identity Not on file Sexual Orientation Not on file COVID-19 Exposure Response Date Recorded In the last month, have you been in contact with someone who was confirmed or suspected to have Coronavirus / COVID-19? No / Unsure 10/07/2019 9:32 AM CDT documented as of this encounter Plan of Treatment Not on file documented as of this encounter Visit Diagnoses Not on filedocumented in this encounter Care Teams Rn Rehab Relationship Specialty Start Date End Date Shari Coley DO PCP - General Family Medicine 06/25/19 02/29/24 Stuart Li PA Physician Heat Treatment Technician Physician Heat Treatment Technician 06/25/19 documented as of this encounter
--- OUTSIDE RECORDS SUMMARY | 2024-07-29 05:45 | XMS_ITS | Encounter Summary ---
Author Organization [facility] Medical [facility] Address [address] [place] [address] Care Team Providers Care Hematologist Oncologist Name Role Phone BrijeshShari Primary Care Provider [phone]- [phone] Stuart Li Unavailable [phone] Patricia Bowden MD Unavailable [phone] Alison Syed MD Unavailable [phone] Christopher Cadet MD Unavailable Reason for Visit * Reason Comments Sinus Problem Encounter Details Date Type Department Care Team (Late st Contact Info) Description 12/02/2022 1:00 PM CDT Office Visit 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 Gender Identity Not on file Sexual Orientation Not on file documented as of this encounter Last Filed Vital Signs Vital Sign Reading Time Taken Comments Blood Pressure 106/62 12/02/2022 1:10 PM CDT Pulse 62 12/02/2022 1:10 PM CDT Temperature 36.9 ??C (98.4 ??F) 12/02/2022 1:10 PM CD T Respiratory Rate 16 12/02/2022 1:10 PM CDT Oxygen Saturation 97% 12/02/2022 1:10 PM CDT Inhaled Oxygen Concentration - - Weight 70.5 kg (155 lb 6.4 oz) 12/02/2022 1:10 P M CDT Height 160 cm (5' 3 ) 12/02/2022 1:10 PM CDT Body Mass Index 27.53 12/02/2022 1:10 PM CDT documented in this encounter Patient Instructions * Patient Instructions* Neal Clement PA - 12/02/2022 1:00 PM CDT My nuclear medical technologist, Jana, and I are thankful you have trusted us with your care, and hope that you received EXCELLENT care today! Please do not hesitate to call if you have any questions or concerns. You may receive a phone call or text asking about your care today. We would love to hear your input and again, hope your visit was as EXCELLENT as possible, even if you were not feeling your best! -Neal Clement PA-C documented in this encounter Ordered Prescriptions Prescription Sig Dispense Quantity Refills Last Filled Start Date End Date cefdinir (OMNICEF) 300 mg capsule Take 1 capsule (300 mg total) by mouth 2 (two) times a day 20 capsule 12/02/2022 3 methylPREDNISolone (Medrol, Carlos,) 4 mg Dosepack follow package directions 21 tablet 12/02/2022 3 documented in this encounter Progress Notes * Neal Clement PA - 12/02/2022 1:00 PM CDT Subjective/Objective Patient ID: Wendy Jansen is a 27 y.o. female. Chief Complaint Sinus Problem HPI Wendy Jansen is 27 yo c/o c/o bifrontal JONES and temples, ear pain. Blowing out green. No f/c. Nocough. No ST. She was in [facility] in October but treated supportively for sinuses , ; she was given doxycycline antibiotic but didn't start taking til 3 days ago , however doesn't seem to be helping and is causing some nausea. The symptoms did improve partially in October but then worsened again in the past week. She also has allergies and takes Zyrtec as needed along with Flonase. Course they are much worse this time year Nonsmoker. Not preg or . She had COVID in Jun. Review of Systems Constitutional: Positive for fatigue. Negative for chills and fever. HENT: Positive for congestion, ear pain, postnasal drip, rhinorrhea and sinus pressure. Negative for sore throat. Ear fullness. JONES Eyes: Negative for pain and discharge. Respiratory: Negative for cough, shortness of breath and stridor. Cardiovascular: Negative for chest pain and leg swelling. Gastrointestinal: Negative for diarrhea, nausea and vomiting. Decreased appetite Vitals: 12/02/22 1310 BP: 106/62 BP Location: Right arm Patient Position: Sitting Pulse: 62 Resp: 16 Temp: 36.9 ??C (98.4 ??F) TempSrc: Oral SpO2: 97% Weight: 70.5 kg (155 lb 6.4 oz) Height: 160 cm (5' 3 ) Physical Exam Constitutional: Appearance: She is well-developed. HENT: Right Ear: Ear canal and external ear normal. No middle ear effusion. Tympanic membrane is not injected. Left Ear: Ear canal and external ear normal. No middle ear effusion. Tympanic membrane is not injected. Ears: Comments: Air bubbles behind bilateral TMs but no erythema Nose: Mucosal edema, congestion and rhinorrhea present. Right Sinus: Maxillary sinus tenderness and frontal sinus tenderness present. Left Sinus: Maxillary sinus tenderness and frontal sinus tenderness present. Mouth/Throat: Pharynx: Posterior oropharyngeal erythema present. No oropharyngeal exudate. Neck: Thyroid: No thyromegaly. Cardiovascular: Rate and Rhythm: Normal rate and regular rhythm. Heart sounds: Normal heart sounds. No murmur heard. Pulmonary: Effort: Pulmonary effort is normal. No respiratory distress. Breath sounds: Normal breath sounds. Musculoskeletal: Cervical back: Neck supple. Lymphadenopathy: Cervical: No cervical adenopathy. Assessment/Plan Diagnoses and all orders for this visit: Acute recurrent pansinusitis (Primary) Comments: Switch doxycycline to Omnicef. Medrol pack. Continue supportive measures such as antihistamine, Flonase Recommend fluids, rest, humidification if needed. The patient was instructed to call back if symptoms have not improved in 1 week, or if worsening ones arise. Education provided. BMI 27.0-27.9,adult Seasonal allergic rhinitis, unspecified trigger Comments: Consider changing Zyrtec to other second-generation antihistamine such as Xyzal or Grisel. Continue Flonase. Add Medrol pack Other orders - methylPREDNISolone (Medrol, Carlos,) 4 mg Dosepack; follow package directions - cefdinir (OMNICEF) 300 mg capsule; Take 1 capsule (300 mg total) by mouth 2 (two) times a day Side effects, risks, interactions reviewed with patient. Indications for testing discussed. Any further problems to contact us. She was told what to look out for and verbalized understanding. The patient was given the opportunity to have all questions answered today and was in agreement with the plan of care. documented in this encounter Plan of Treatment Not on file documented as of this encounter Visit Diagnoses Diagnosis Acute recurrent pansinusitis- Primary BMI 27.0-27.9,adult Seasonal allergic rhinitis, unspecified trigger documented in this encounter Historical Medications * This list may reflect changes made after this encounter. Aviane 0.1-20 mg-mcg per tablet Take 1 tablet by mouth every morning 11/06/2022 added in this encounter Care Teams Hematologist Oncologist Relationship Specialty Start Date End Date Brijesh Shari DO Bong PCP - General Family Medicine 06/25/19 02/29/24 Stuart Li PA Physician Certified Ophthalmic Technologist Physician Certified Ophthalmic Technologist 06/25/19 Patricia Bowden MD [address] [email or web address] [address] Referring Physician Dermatology 06/26/20 Alison Syed MD [address] [email or web address] [address] Consulting Physician Obstetrics and Gynecology 07/02/21 Christopher Cadet MD [address] [email or web address] [address] Consulting Physician General Surgery 07/02/21 documented as of this encounter
--- OUTSIDE RECORDS SUMMARY | 2024-07-29 05:45 | XMS_ITS | Encounter Summary ---
Author Organization [facility] Address [address] [facility] [address] [place] [address] Care Team Providers Care Crab Fisher Name Role Phone Brijesh Shari Marquezs Primary Care Provider [phone]- [phone] Stuart Li Unavailable [phone] Patricia Bowden MD Unavailable [phone] Alison Syed MD Unavailable [phone] Christopher Cadet MD Unavailable Reason for Visit * Reason Comments URI Pt c/o nasal congest ion since having covid 07/10/22 Encounter Details Date Type Department Care Team (Late st Contact Info) Description 08/18/2022 5:15 PM MANAGER EDUCATIONAL Office Visit [facility] [address] [address] Melanie Winchester, VISUAL EDUCATION TEACHER [address] [place] [address] [address] [place] [address] Acute non-recurrent maxillary sinusitis (Primary Dx) Social History Tobacco Use [...] on file 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 MANAGER EDUCATIONAL Gender Identity Not on file Sexual Orientation Not on file documented as of this encounter Last Filed Vital Signs Vital Sign Reading Time Taken Comments Blood Pressure 130/68 08/18/2022 5:20 PM MANAGER EDUCATIONAL Pulse 63 08/18/2022 5:20 PM MANAGER EDUCATIONAL Temperature 36.7 ??C (98.1 ??F) 08/18/2022 5:20 PM CS T Respiratory Rate 22 08/18/2022 5:20 PM MANAGER EDUCATIONAL Oxygen Saturation 98% 08/18/2022 5:20 PM MANAGER EDUCATIONAL Inhaled Oxygen Concentration - - Weight 72.6 kg (160 lb) 08/18/2022 5:20 PM MANAGER EDUCATIONAL Height 160 cm (5' 3 ) 08/18/2022 5:20 PM MANAGER EDUCATIONAL Body Mass Index 28.34 08/18/2022 5:20 PM MANAGER EDUCATIONAL documented in this encounter Patient Instructions * Patient Instructions* Melanie Winchester, VISUAL EDUCATION TEACHER - 08/18/2022 5:15 PM MANAGER EDUCATIONAL Symptomatic treatments include: -Over the counter antihistamine such as loratadine (Claritin) or cetirizine (Zyrtec) to reduce secretions. The D formula includes pseudoephedrine and can be helpful as a decongestant but SHOULD NOTBE USED IF YOU HAVE A HISTORY OF HIGH BLOOD PRESSURE. -Coricidin HBP may be taken for congestion if you have a history of high blood pressure. -Tessalon, Dextromethorphan (Robitussin) or Delsym for cough -Guafenesin (Mucinex) to thin secretions -Acetaminophen (Tylenol), ibuprofen (Motrin, Advil), or Aleve (naproxen) for pain or fever. -The use of hypertonic saline to irrigate nasal passageways can be helpful. Over the counter systems include Neti Pot and Nasopure. Use with distilled water. -Salt water gargles and throat lozenges can be helpful for sore throat. -To prevent spreading the illness to others cover your sneeze and cough into your arm and not your hand, don't allow others to eat or drink with the same utensils or glass, and use hand day treatment clinician/art therapist before touching people or common surfaces. -Apply warm packs to face to facilitate sinus drainage. - Use cool mist humidifier in bedroom at night. -Increase fluid consumption and Rest. -Follow up with your PCP in 1 week or sooner if symptoms worsen or are not improving as planned. -If you experience any shortness of breath, chest pain, or high fever >101, go to the Emergency Room. Use alternate method of control for the entire course of antibiotics and one week after the last dose of antibiotics, if applicable. GO TO EMERGENCY ROOM OR CALL 911 WITH ANY OF THE FOLLOWING SYMPTOMS: HIGH, PERSISTENT FEVER >101; SWELLING, INFLAMMATION, OR REDNESS AROUND EYES, ABNORMAL EYE MOVEMENTS, CHEST PAIN, SHORTNESS OF BREATH, VISION CHANGES (DOUBLE VISION OR IMPAIRED VISION); SEVERE HEADACHE; ALTERED MENTAL STATUS. THESE ARE SIGNS OF A RARE, BUT SERIOUS COMPLICATION AND REQUIRES IMMEDIATE EMERGENCY ATTENTION. GER EDUCATIONAL * Attachments The following attachments cannot be sent through Care Everywhere. * Sinusitis (Behavior Therapist) (Belgian) documented in this encounter Ordered Prescriptions Prescription Sig Dispense Quantity Refills Last Filled Start Date End Date amoxicillin-clavul anate (Augmentin) 875-125 mg per tabletIndications: Acute non-recurrent maxillary sinusitis Take 1 tablet by mouth 2 (two) times a day for 7 days 14 tablet 08/18/2022 08/25/2022 documented in this encounter Progress Notes * Melanie Winchester NP - 08/18/2022 5:15 PM CST Images from the original note were not included. Patient ID: Wendy Jansen is a 27 y.o. female followed by Coley, Shari Woody, DO Chief Complaint Patient presents with URI Pt c/o nasal congestion since having covid 07/10/22 Patient presents to the clinic with reports of congestion, runny nose, sinus pressure, dental pain/pressure, and fatigue since having covid end of June. Denies fevers, chest pain, difficulty breathing, and rash. She has taken nyquil/dayquil, mucinex, sinus rinse, and tylenol sinus for her symptoms. Denies history of sinus surgery. Review of Systems Constitutional: Positive for fatigue. Negative for chills and fever. HENT: Positive for congestion, postnasal drip, rhinorrhea and sinus pressure. Negative for ear painand sore throat. Respiratory: Negative for cough, chest tightness, shortness of breath and wheezing. Cardiovascular: Negative for chest pain. Gastrointestinal: Negative for diarrhea, nausea and vomiting. Musculoskeletal: Negative for myalgias. Neurological: Negative for headaches. Vitals: 08/18/22 1720 BP: 130/68 Pulse: 63 Resp: 22 Temp: 36.7 ??C (98.1 ??F) SpO2: 98% Weight: 72.6 kg (160 lb) Height: 160 cm (5' 3 ) Physical Exam Vitals reviewed. Constitutional: General: She is not in acute distress. Appearance: She is well-developed. She is not ill-appearing. HENT: Right Ear: Tympanic membrane, ear canal and external ear normal. Tympanic membrane is not injected,erythematous or bulging. Left Ear: Tympanic membrane, ear canal and external ear normal. Tympanic membrane is not injected, erythematous or bulging. Nose: Congestion and rhinorrhea present. Rhinorrhea is clear. Right Turbinates: Swollen. Left Turbinates: Swollen. Right Sinus: Maxillary sinus tenderness and frontal sinus tenderness present. Left Sinus: Maxillary sinus tenderness and frontal sinus tenderness present. Mouth/Throat: Lips: Penermon. Mouth: Mucous membranes are moist. Pharynx: Uvula midline. No pharyngeal swelling, oropharyngeal exudate or posterior oropharyngeal erythema. Cardiovascular: Rate and Rhythm: Normal rate and regular rhythm. Pulmonary: Effort: Pulmonary effort is normal. No respiratory distress. Breath sounds: Normal breath sounds. No decreased breath sounds, wheezing or rhonchi. Lymphadenopathy: Cervical: No cervical adenopathy. Skin: General: Skin is warm and dry. Neurological: Mental Status: She is alert and oriented to person, place, and time. Diagnoses and all orders for this visit: Acute non-recurrent maxillary sinusitis (Primary) - amoxicillin-clavulanate (Augmentin) 875-125 mg per tablet; Take 1 tablet by mouth 2 (two) times aday for 7 days No orders of the defined types were placed in this encounter. Assessment/Plan # acute sinus infection --likely bacterial given symptoms, duration of illness, and assessment. --exam findings warrant antibiotics. Started Augmentin --recommended to continue cold/sinus medications and sinus rinse. --ED presentation with one or more of the following symptoms: fever uncontrolled with antipyretics,shortness of breath, chest discomfort, uncontrolled n/v/d --f/u with PCP in 5-7 days if symptoms do not improve/worsen Disposition Treatment plan including expectations, follow up, and return precautions discussed with patient/parent, verbalizes understanding. Medication dosage, use, and potential adverse reactions discussed with patient/parent. Advised to follow up with PCP if symptoms do not resolve as expected or sooner if condition worsens. Discussed Signs/symptoms warranting ER evaluation including worsening fever, increased shortness ofbreath, chest pain, severe N/V/D, or any other worrisome symptoms Patient and/or guardian was given an opportunity to ask questions, questions answered. Patient Education Symptomatic treatments include: -Over the counter antihistamine such as loratadine (Claritin) or cetirizine (Zyrtec) to reduce secretions. The D formula includes pseudoephedrine and can be helpful as a decongestant but SHOULD NOTBE USED IF YOU HAVE A HISTORY OF HIGH BLOOD PRESSURE. -Coricidin HBP may be taken for congestion if you have a history of high blood pressure. -Tessalon, Dextromethorphan (Robitussin) or Delsym for cough -Guafenesin (Mucinex) to thin secretions -Acetaminophen (Tylenol), ibuprofen (Motrin, Advil), or Aleve (naproxen) for pain or fever. -The use of hypertonic saline to irrigate nasal passageways can be helpful. Over the counter systems include Neti Pot and Nasopure. Use with distilled water. -Salt water gargles and throat lozenges can be helpful for sore throat. -To prevent spreading the illness to others cover your sneeze and cough into your arm and not your hand, don't allow others to eat or drink with the same utensils or glass, and use hand day treatment clinician/art therapist before touching people or common surfaces. -Apply warm packs to face to facilitate sinus drainage. - Use cool mist humidifier in bedroom at night. -Increase fluid consumption and Rest. -Follow up with your PCP in 1 week or sooner if symptoms worsen or are not improving as planned. -If you experience any shortness of breath, chest pain, or high fever >101, go to the Emergency Room. Use alternate method of control for the entire course of antibiotics and one week after the last dose of antibiotics, if applicable. GO TO EMERGENCY ROOM OR CALL 911 WITH ANY OF THE FOLLOWING SYMPTOMS: HIGH, PERSISTENT FEVER >101; SWELLING, INFLAMMATION, OR REDNESS AROUND EYES, ABNORMAL EYE MOVEMENTS, CHEST PAIN, SHORTNESS OF BREATH, VISION CHANGES (DOUBLE VISION OR IMPAIRED VISION); SEVERE HEADACHE; ALTERED MENTAL STATUS. THESE ARE SIGNS OF A RARE, BUT SERIOUS COMPLICATION AND REQUIRES IMMEDIATE EMERGENCY ATTENTION. Melanie Winchester NP Cosigned by Judd Shah MD at 08/19/2022 8:22 AM MANAGER EDUCATIONAL GER EDUCATIONAL GER EDUCATIONAL documented in this encounter Plan of Treatment Not on file documented as of this encounter Visit Diagnoses Diagnosis Acute non-recurrent maxillary sinusitis- Primary documented in this encounter Discontinued Medications Medication Sig Discontinue Reason Start Date End Da te norgestimate-ethinyl estradioL (Ortho-Cyclen, 28,) 0.25-35 mg-mcg per tabletIndications:Encounte r for other general counseling or advice on contraception Take 1 tablet by mouth daily 04/13/2022 08/18/2022 documented as of this encounter Historical Medications * This list may reflect changes made after this encounter. meclizine (ANTIVERT) 25 mg tablet TAKE 1 TABLET BY MOUTH TWICE DAILY NEEDED FOR DIZZINESS 07/13/2022 3 Aviane 0.1-20 mg-mcg per tablet Take 1 tablet by mouth daily 07/25/2022 3 added in this encounter Care Teams Crab Fisher Relationship Specialty Start Date End Date Shari Coley DO PCP - General Family Medicine 06/25/19 02/29/24 Stuart Li PA Physician Jig Boring Machine Operator For Metal Physician Jig Boring Machine Operator For Metal 06/25/19 Patricia Bowden MD [address] [place] [address] Referring Physician Dermatology 06/26/20 Alison Syed MD [address] [place] [address] Consulting Physician Obstetrics and Gynecology 07/02/21 Christopher Cadet MD [address] [place] [address] Consulting Physician General Surgery 07/02/21 documented as of this encounter
--- OUTSIDE RECORDS SUMMARY | 2024-07-29 05:45 | XMS_ITS | Encounter Summary ---
Author Organization [facility] Address [address] [place] [address] Care Team Providers Care Blasting Cap Assembler Name Role Phone BrijeshSharijaxson NUNO Primary Care Provider [phone]- [phone] Stuart Li Unavailable [phone] Patricia Bowden MD Unavailable [phone] Encounter Details Date Type Department Care Team (Late st Contact Info) Description 04/01/2021 1:00 PM CDT Lab [address] Alison Syed MD [address] [place] [address] Thyroid disorder screening; Hirsutism Discharge Disposition: Discharge to home or self [...] file 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 MANAGER EQUITY Gender Identity Not on file Sexual Orientation Not on file documented as of this encounter Discharge Disposition Disposition Code Departure Means Destination Discharge to home or self care documented in this encounter Plan of Treatment Not on file documented as of this encounter Procedures Procedure Name Priority Date/Time Associated Diagnosis Comments THYROID FUNCTION CASCADE Routine 04/01/2021 2:49 PM CDT Thyroid disorder screening TESTOSTERONE, TOTAL AND FREE, SERUM Routine 04/01/2021 2:49 PM CDT Hirsutism documented in this encounter Results * Testosterone, Total and Free, Serum (04/01/2021 2:49 PM CDT) Testosterone 35 8 - 60 ng/dL [facility] ([facility]) Comment: ADDITIONAL INFORMATION Testing performed by Liquid Chromatography-Tandem Mass Spectrometry (LC-MS/MS). This test was developed and its performance characteristics determined by [facility] in a manner consistent with CLIA requirements. This test has not been cleared or approved by the U.S. Food and Drug Administration. Test Performed by: [place] [address] Acquisitions Analyst: Richard Milan M.D. Ph.D.; CLIA# [id number] Testosterone, free 0.18 0.06 - 1.08 ng/dL [facility] ([facility]) Comment: ADDITIONAL INFORMATION Testing performed by [facility]. This test was developed and its performance characteristics determined by [facility] in a manner consistent with CLIA requirements. This test has not been cleared or approved by the U.S. Food and Drug Administration. Blood 04/01/2021 2:49 PM CDT 04/01/2021 3:27 PM CDT us Alison Syed MD LAB BLOOD ORDERABLE S Final Result [facility]) [address] [facility] [place] [address] * TSH reflex to free T4 (04/01/2021 2:49 PM CDT) TSH 0.96 0.30 - 4.20 mcIUnit/mL [facility]) Blood 04/01/2021 2:49 PM CDT 04/01/2021 3:27 PM CDT us Alison Syed MD LAB BLOOD ORDERABLE S Final Result [facility] ([place]) [address] [facility] Department [place] [address] documented in this encounter Visit Diagnoses Diagnosis Thyroid disorder screening Screening for thyroid disorder Hirsutism documented in this encounter Care Teams Blasting Cap Assembler Relationship Specialty Start Date End Date Shari Coley DO PCP - General Family Medicine 06/25/19 02/29/24 Stuart Li PA Physician Senior Engineering Manager Physician Senior Engineering Manager 06/25/19 Patricia Bowden MD [address] [place] [address] Referring Physician Dermatology 06/26/20 documented as of this encounter
--- OUTSIDE RECORDS SUMMARY | 2024-07-29 05:45 | XMS_ITS | Encounter Summary ---
Author Organization [facility] Care Team Providers Care Smart Grid Engineer Name Role Phone Shari Coley DO Primary Care Provider [phone] Stuart Li Unavailable [phone] Encounter Details Date Type Department Care Team (Latest Contact Info) Description 08/16/2019 Travel Social History Tobacco Use Types Packs/Day Years Used Date Smoking Tobacco: Never Smokeless Tobacco: Never Alcohol Use Standard Drinks/Week Comments Yes 0 (1 standard drink = 0.6 oz pur e alcohol) PHQ-2 Answer Date Recorded PHQ-2 Score 0 06/25/2019 Comments No Sex and Gender Information Value Date Recorded Sex Assigned at Not on file 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 PRODUCT SAFETY TEST ENGINEER Gender Identity Not on file Sexual Orientation Not on file documented as of this encounter Plan of Treatment Not on file documented as of this encounter Visit Diagnoses Not on filedocumented in this encounter Care Teams Smart Grid Engineer Relationship Specialty Start Date End Date Shari Coley DO PCP - General Family Medicine 06/25/19 02/29/24 Stuart Li PA Physician Sales Teacher Physician Sales Teacher 06/25/19 documented as of this encounter
--- OUTSIDE RECORDS SUMMARY | 2024-07-29 05:45 | XMS_ITS | Encounter Summary ---
Author Organization [facility] Address [address] [facility] [address] [place] [address] Care Team Providers Care Garbage Truck Helper Name Role Phone Shari Coley DO Primary Care Provider [phone]- [phone] Stuart Li Unavailable [phone]- [phone] Patricia Bowden MD Unavailable [phone] Encounter Details Date Type Department Care Team (Late st Contact Info) Description 01/07/2021 Orders Only [facility] [address] [place] [phone] Shari Coley DO [address] [address] Encounter for control pills maintenance Social History Tobacco Use Types Packs/Day Years [...] on file 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 APPARATUS CLEANER Gender Identity Not on file Sexual Orientation Not on file documented as of this encounter Plan of Treatment Not on file documented as of this encounter Visit Diagnoses Diagnosis Encounter for control pills maintenance Surveillance of previously prescribed contraceptive pill documented in this encounter Care Teams Garbage Truck Helper Relationship Specialty Start Date End Date Shari Coley DO PCP - General Family Medicine 06/25/19 02/29/24 Stuart Li PA Physician Teacher Advisor Physician Teacher Advisor 06/25/19 Patricia Bowden MD [address] [place] [address] Referring Physician Dermatology 06/26/20 documented as of this encounter
--- OUTSIDE RECORDS SUMMARY | 2024-07-29 05:45 | XMS_ITS | Encounter Summary ---
Author Organization [facility] Address [address] [place] [address] Care Team Providers Care Infrastructure Engineer Name Role Phone Shari Coley DO Primary Care Provider [phone] Stuart Li Unavailable [phone] Patricia Bowden MD Unavailable [phone] Alison Syed MD Unavailable [phone] Christopher Cadet MD Unavailable Reason for Visit * Reason Comments Annual Exam Encounter Details Date Type Department Care Team (Late st Contact Info) Description 07/02/2021 11:00 AM CAKE KNOCKER Office Visit [facility] [address] [place] [address] Shari Coley DO [address] [facility] [address] [address] Annual physical exam (Primary Dx); Generalized anxiety disorder; BMI 26.0-26.9,adult; Screening, anemia, deficiency, iron; Encounter for screening for other digestive system disorders; Encounter for screening examination for impaired glucose regulation and diabetes mellitus; Encounter for lipid screening for cardiovascular disease; Screening for blood or protein in urine [...] on file 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 CAKE KNOCKER Gender Identity Not on file Sexual Orientation Not on file documented as of this encounter Last Filed Vital Signs Vital Sign Reading Time Taken Comments Blood Pressure 108/74 07/02/2021 10:53 AM CAKE KNOCKER Pulse 63 07/02/2021 10:53 AM CAKE KNOCKER Temperature 36.5 ??C (97.7 ??F) 07/02/2021 10:[address] Respiratory Rate 16 07/02/2021 10:53 AM CAKE KNOCKER Oxygen Saturation 98% 07/02/2021 10:53 AM CAKE KNOCKER Inhaled Oxygen Concentration - - Weight 67.4 kg (148 lb 9.6 oz) 07/02/2021 10:53 AM CAKE KNOCKER Height 160 cm (5' 3 ) 07/02/2021 10:53 AM CAKE KNOCKER Body Mass Index 26.32 07/02/2021 10:53 AM CAKE KNOCKER documented in this encounter Patient Instructions * Patient Instructions* Shari Coley, DO - 07/02/2021 11:00 AM CAKE KNOCKER Images from the original note were not included. Patient Education Wellness Visit for Adults ENTERTAINMENT MANAGER: A wellness visit is when you see [...] viruses cause the flu. The viruses change lead time, so new vaccines are made each [...] amples of healthy foods are listed below: ?? [...] could distract you and cause an accident. barrel bung remover and dumper if you need to make a call [...] boat or doing water sports. ?? 2017 [employer] Information is for End User's use only and may not be sold, redistributed or otherwise used for commercial purposes. All illustrations and images included in CareNotes?? are the copyrighted property of [employer] or [employer]. The above information is an personal care aide only. It is not intended as medical advice for individual conditions or treatments. Talk to your doctor, nurse or pharmacist before following any medical regimen to see if it is safe and effective for you. Patient Education Breast Self Exam for Women ENTERTAINMENT MANAGER: A breast self-exam (BSE) is a way [...] Check your breasts while you sit or insole taper the following 3 positions: ?? Hang your [...] ask them during your visits. ?? 2017 [employer] Information is for End User's use only and may not be sold, redistributed or otherwise used for commercial purposes. All illustrations and images included in CareNotes?? are the copyrighted property of [employer], [employer]. or [employer]. The above information is an personal care aide only. It is not intended as [...] you have any questions or concerns at [phone]. You may receive a phone call, text, MYCHART message, or e-mail asking about your care today. We would love to hear your feedback on how EXCELLENT your care wastoday! Wishing you better health, always. Dr. Coley KNOCKER documented in this encounter Ordered Prescriptions Prescription Sig Dispense Quantity Refills Last Filled Start Date End Date escitalopram (LEXAPRO) 10 mg tabletIndications: Generalized anxiety disorder Take 1 tablet (10 mg total) by mouth daily 90 tablet 3 07/02/2021 10/29/2021 documented in this encounter Progress Notes * Shari Coley DO - 07/02/2021 11:00 AM CST Images from the original note were not included. Subjective/Objective Patient ID: Wendy Jansen is a 25 y.o. female. Chief Complaint Chief Complaint Patient presents with ??? Annual Exam HPI Patient returns to clinic today for her annual physical. She Is without complaints. 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 She seems happy about it. Vitals: 07/02/21 1053 BP: 108/74 BP Location: Left arm Patient Position: Sitting Pulse: 63 Resp: 16 Temp: 36.5 ??C (97.7 ??F) SpO2: 98% Weight: 67.4 kg (148 lb 9.6 oz) Height: 160 cm (5' 3 ) Body mass index is 26.32 kg/m??. Review of Systems Constitutional: Negative for [...] normal. Lab Results Component Value Date WBC 6.8 07/02/2021 HGB 14.3 07/02/2021 HCT 44.0 07/02/2021 MCV 92.2 07/02/2021 LABPLAT 250 07/02/2021 Chemistry Component Value Date/Time SODIUM 138 07/02/2021 1139 POTASSIUM 4.2 07/02/2021 1139 CHLORIDE 103 07/02/2021 1139 CO2 26 07/02/2021 1139 BUNSER 5 (L) 07/02/2021 1139 CREATININE 0.52 (L) 07/02/2021 1139 GLUCOSE 90 07/02/2021 1139 Component Value Date/Time CALCIUM 9.7 07/02/2021 1139 ALKPHOS 71 07/02/2021 1139 AST 22 07/02/2021 1139 ALT 14 07/02/2021 1139 BILITOT 0.3 07/02/2021 1139 Lab Results Component Value Date CHOL 201 (H) 07/02/2021 CHOL 187 06/26/2020 Lab Results Component Value Date HDL 60 07/02/2021 HDL 49 06/26/2020 Lab Results Component Value Date LDLCALC 107 07/02/2021 LDLCALC 111 06/26/2020 Lab Results Component Value Date TRIG 171 (H) 07/02/2021 TRIG 136 06/26/2020 Lab Results Component Value Date TSH 0.96 04/01/2021 Lab Results Component Value Date HGBA1C 4.9 07/02/2021 Diagnoses and all orders for this visit: Annual physical exam (Primary) Comments: Well exam, health maintenance updated. Orders: - CBC with auto differential; Future - Comprehensive metabolic panel; Future - Hemoglobin A1c; Future - Lipid panel; Future - Urinalysis reflex to microscopic and culture Urine, clean voided; Future Generalized anxiety disorder Assessment & Plan: Stable. Cont. Current prescription medications. Orders: - escitalopram (LEXAPRO) 10 mg tablet; Take 1 tablet (10 mg total) by mouth daily BMI 26.0-26.9,adult Screening, anemia, deficiency, iron - CBC with auto differential; Future Encounter for screening for other digestive system disorders - Comprehensive metabolic panel; Future Encounter for screening examination for impaired glucose regulation and diabetes mellitus - Hemoglobin A1c; Future Encounter for lipid screening for cardiovascular disease - Lipid panel; Future Screening for blood or protein in urine - Urinalysis reflex to microscopic and culture Urine, clean voided; Future Shari Coley DO KNOCKER documented in this encounter Miscellaneous Notes * Assessment & Plan Note - Shari Coley DO - 07/02/2021 4:36 PM CAKE KNOCKER Associated Problem(s): Generalized anxiety disorder Stable. Cont. Current prescription medications. KNOCKER documented in this encounter Plan of Treatment Not on file documented as of this encounter Results * (ABNORMAL) Urinalysis reflex to microscopic and culture Urine, clean voided (07/02/2021 11:39 AM CAKE KNOCKER) Color, ur Yellow Yellow [facility] ([place]) Clarity, ur Clear Clear [facility] ([place]) Specific gravity, ur 1.022 1.003 - 1.030 [...] performed. [facility] ([place]) Urine, clean voided 07/02/2021 11:39 AM CAKE KNOCKER 07/02/2021 1:47 PM CAKE KNOCKER Narrative [facility] ([place]) - 07/02/2021 1:58 PM CAKE KNOCKER ?? Urine pH is affected by diet, medications, systemic acid-base disturbances, and renal tubular function. ??pH may affect urinary stone formation. ??For example, urine pH below 6.0 may help reduce the tendency for calcium phosphate stones and pH greater than 6.0 may reduce the tendency for uric acid stone formation. Source: ERUCES. Last revised 07-27-2017 us Shari Woody Coley DO LAB MICROBIOLOGY - GENERAL ORDERABLES Final Result [facility] ([place]) [address] [facility] Department [place] [address] * (ABNORMAL) Lipid panel (07/02/2021 11:39 AM CAKE KNOCKER) Cholesterol 201(H) 30 - 199 mg/dL [facility] ([place]) [...] on 2018. HDL 60 >=40 mg/dL [facility]) Comment: Interpretive Data [...] on 2018. LDL, calculated 107 <=129 mg/dL [facility] ([place]) Comment: Interpretive [...] on 2018. Non-HDL Cholesterol 141 mg/dL [facility] ([place]) Comment: Interpretive Data [...] on 2018. Chol/HDL ratio 3 [facility] ([place]) Blood 07/02/2021 11:3 9 AM CAKE KNOCKER 07/02/2021 1:47 PM CAKE KNOCKER Shari Coley DO LAB BLOOD ORDERABLES Final Result Performing Organization Address [facility] de Phone Number [facility] ([place]) [address] [facility] [place] [address] * Hemoglobin A1c (07/02/2021 11:39 AM CAKE KNOCKER) Hgb A1C 4.9 4.0 - 5.6 % [facility] ([place]) Estimated Average Glucose 94 mg/dL [facility] ([place]) Comment: The ADA recommends reporting an estimated Average Glucose (eAG) with all Hemoglobin A1c results using the equation derived from a study of 507 normal and diabetic adults. ??Minority populations were underrepresented and children were not included. ?? (Diabetes Care 31:5907-7113, 2008). ??The eAG is not equivalent to a fasting glucose. Blood 07/02/2021 11:3 9 AM CAKE KNOCKER 07/02/2021 2:14 PM CAKE KNOCKER us Shari Coley DO LAB BLOOD ORDERABLES Final Result Performing Organization Address [facility] Co de Phone Number [facility] ([place] [address] [facility] [place] [address] * (ABNORMAL) Comprehensive metabolic panel (07/02/2021 11:39 AM CAKE KNOCKER) Sodium 138 135 - 145 mmol/L [facility] ([place]) Potassium, pl 4.2 3.3 - 4.9 mmol/L [...] [facility] ([place]) Blood 07/02/2021 11:3 9 AM CAKE KNOCKER 07/02/2021 1:47 PM CAKE KNOCKER us Shari Coley DO LAB BLOOD ORDERABLES Final Result [facility] ([place]) [address] [facility] Department [place] [address] * CBC with auto differential (07/02/2021 11:39 AM CAKE KNOCKER) WBC 6.8 3.8 - 9.9 K/cumm [facility] [...] RDW CV 12.5 11.1 - 14.9 % [facility] ([place]) RDW SD 42.7 35.7 - 48.1 fL [facility] ([place]) NRBC abs 0.00 0.00 - 0.01 K/cumm [facility] Blood 07/02/2021 11:3 9 AM CAKE KNOCKER 07/02/2021 1:47 PM CAKE KNOCKER us Shari Coley DO LAB BLOOD ORDERABLES Final Result [facility] ([place]) [address] [facility] [place] [address] documented in this encounter Visit Diagnoses Diagnosis Annual physical exam- Primary Routine general medical examination at a health care facility Generalized anxiety disorder BMI 26.0-26.9,adult Screening, anemia, deficiency, iron Screening for iron deficiency anemia Encounter for screening for other digestive system disorders Encounter for screening examination for impaired glucose regulation and diabetes mellitus Encounter for lipid screening for cardiovascular disease Screening for blood or protein in urine Screening for unspecified condition Annual physical exam Routine general medical examination at a health care facility Screening for blood or protein in urine Screening for unspecified condition Encounter for lipid screening for cardiovascular disease Encounter for screening examination for impaired glucose regulation and diabetes mellitus Encounter for screening for other digestive system disorders Screening, anemia, deficiency, iron Screening for iron deficiency anemia documented in this encounter Discontinued Medications Medication Sig Discontinue Reason Start Date End Da te escitalopram (LEXAPRO) 10 mg tabletIndications:Genera lized anxiety disorder Take 1 tablet (10 mg total) by mouth daily Reorder 02/18/2021 07/02/2021 documented as of this encounter Care Teams Infrastructure Engineer Relationship Specialty Start Date End Date Shari ColeyDO PCP - General Family Medicine 06/25/19 02/29/24 Stuart Li PA Physician District Wire Chief Physician District Wire Chief 06/25/19 Patricia Bowden MD [address] [email or web address] [address] Referring Physician Dermatology 06/26/20 Alison Syed MD [address] [place] [address] Consulting Physician Obstetrics and Gynecology 07/02/21 Christopher Cadet MD [address] [place] [address] Consulting Physician General Surgery 07/02/21 documented as of this encounter
--- OUTSIDE RECORDS SUMMARY | 2024-07-29 05:45 | XMS_ITS | Encounter Summary ---
Author Organization [facility] Address [address] [place] [address] Care Team Providers Care Outbound Call Center Representative Name Role Phone Shari Coley DO Primary Care Provider [phone]- [phone] Stuart Li Unavailable [phone]- [phone] Patricia Bowden MD Unavailable Reason for Visit * Reason Comments Gynecologic Exam wwe hormone issues Encounter Details Date Type Department Care Team (Late st Contact Info) Description 03/29/2021 3:00 PM CDT Office Visit [facility] [address] [place] [address] Alison Syed MD [address] [place] [address] [address] [place], [place] [id number] Well woman exam (Primary Dx); Encounter for other general counseling or advice on contraception; Thyroid disorder screening; Hirsutism Social History Tobacco Use Types Packs/Day Years [...] on file 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 Gender Identity Not on file Sexual Orientation Not on file documented as of this encounter Last Filed Vital Signs Vital Sign Reading Time Taken Comments Blood Pressure 136/80 03/29/2021 3:04 PM CDT Pulse - - Temperature - - Respiratory Rate - - Oxygen Saturation - - Inhaled Oxygen Concentration - - Weight 67 kg (147 lb 9.6 oz) 03/29/2021 3:04 PM CDT Height 160 cm (5' 3 ) 03/29/2021 3:04 PM CDT Body Mass Index 26.15 03/29/2021 3:04 PM CDT documented in this encounter Ordered Prescriptions Prescription Sig Dispense Quantity Refills Last Filled Start Date End Date eflornithine 13.9 % creamIndications:Fe male Facial Hirsutism Apply to affected area twice a day. 30 g 3 03/29/2021 2 norgestimate-ethiny l estradioL (Ortho-Cyclen, 28,) 0.25-35 mg-mcg per tabletIndications:E ncounter for other general counseling or advice on contraception Take 1 tablet by mouth daily 28 tablet 12 03/29/2021 2 documented in this encounter Progress Notes * Alison Syed MD - 03/29/2021 3:00 PM CDT Images from the original note were not included. Well Woman Exam Subjective: Pateint presents for: Gynecologic Exam (wwe) and hormone issues Wendy Jansen is a 25 y.o. year old female No obstetric history on file. who presents for a wellwoman exam. She is having long standing issues with acne and hair growth. She did accutane with derm this past year. She took it for 7m, 90mg. Some improvement, but not what she wanted. She does not remember using antibiotics oral or topical. She has been on this pill for 2-3 years. She is taking the pills for dysmenorrhea. It is better. She took Junelle before. Had weight gain onit and it didn't help with the pain. Declines std testing. She has dark hair growing on her chin, between the breast and around the nipples, and below the umbilicus. Hair is coarse. She is plucking. She is not aware of any family history of hirsutism. She isan only child. No recent blood work. She Started the lexapro a few months ago with Shari Coley and thinks it is working well. Mostly for anxiety. She has been on spironolactone for about a month from derm. No plans currently to increase to bid. She goes back in June. She was on it before. Contraception:Oral contraceptive pill. Patient's last menstrual period was 03/17/2021. Past Medical History: Diagnosis Date ??? Allergic seasonal Past Surgical History: Procedure Laterality Date ??? APPENDECTOMY 07/17/2019 Current Outpatient Medications: ??? cetirizine (ZyrTEC) 10 mg tablet, Take 10 mg by mouth daily, Disp: , Rfl: ??? cyclobenzaprine (FLEXERIL) 10 mg tablet, Take 1 tablet (10 mg total) by mouth nightly as neededfor muscle spasms, Disp: 30 tablet, Rfl: 0 ??? escitalopram (LEXAPRO) 10 mg tablet, Take 1 tablet (10 mg total) by mouth daily, Disp: 90 tablet, Rfl: 1 ??? fluticasone propionate (FLONASE) 50 mcg/actuation nasal spray, Administer 1 spray into each nostril daily, Disp: , Rfl: ??? norgestimate-ethinyl estradioL (Jmn-Le-Efiotw) 0.18/0.215/0.25 mg-25 mcg per tablet, Take 1 tablet by mouth daily, Disp: 28 tablet, Rfl: 4 ??? spironolactone (ALDACTONE) 25 mg oral suspension, Take 25 mg by mouth daily, Disp: , Rfl: ??? eflornithine 13.9 % cream, Apply to affected area twice a day., Disp: 30 g, Rfl: 3 ??? norgestimate-ethinyl estradioL (Ortho-Cyclen, 28,) 0.25-35 mg-mcg per tablet, Take 1 tablet by mouth daily, Disp: 28 tablet, Rfl: 12 ??? EMK-FA-WVZZUT 0.18/0.215/0.25 mg-25 mcg per tablet, Take 1 tablet by mouth daily, Disp: 28 tablet, Rfl: 12 No Known Allergies Family History Problem Relation Age of Onset ??? Cancer Paternal Grandfather ??? Hypertension Father ??? Hypertension Paternal Grandmother ??? Hypertension Maternal Grandfather Social History Socioeconomic History ??? Marital status: Single Spouse name: None ??? Number of children: None ??? Years of education: None ??? Highest education level: None Occupational History ??? None Tobacco Use ??? Smoking status: Never Smoker ??? Smokeless tobacco: Never Used Substance and Sexual Activity ??? Alcohol use: Yes ??? Drug use: Never ??? Sexual activity: None Other Topics Concern ??? None Social History Narrative ??? None Social Determinants of Health Financial Resource Strain: ??? Difficulty of Paying Living Expenses: Not on file Food Insecurity: ??? Worried About Running Out of Food in the Last Year: Not on file ??? Ran Out of Food in the Last Year: Not on file Transportation Needs: ??? Lack of Transportation (Medical): Not on file ??? Lack of Transportation (Non-Medical): Not on file Physical Activity: ??? Days of Exercise per Week: Not on file ??? Minutes of Exercise per Session: Not on file Stress: ??? Feeling of Stress : Not on file Social Connections: ??? Frequency of Communication with Friends and Family: Not on file ??? Frequency of Social Gatherings with Friends and Family: Not on file ??? Attends Taoism Services: Not on file ??? Active Member of Clubs or Organizations: Not on file ??? Attends Club or Organization Meetings: Not on file ??? Marital Status: Not on file Intimate Partner Violence: ??? Fear of Current or Ex-Partner: Not on file ??? Emotionally Abused: Not on file ??? Physically Abused: Not on file ??? Sexually Abused: Not on file Patient declines domestic violence Review of Systems Skin: Acne. See HPI Hair growth. See HPI Psychiatric/Behavioral: The patient is nervous/anxious. Objective: BP 136/80 (BP Location: Right arm, Patient Position: Sitting) Ht 160 cm (5' 3 ) Wt 147 lb 9.6 oz (67 kg) LMP 03/17/2021 BMI 26.15 kg/m?? Physical Exam Exam conducted with a privacy analyst present. Constitutional: Appearance: Normal appearance. She is normal weight. HENT: Head: Normocephalic and atraumatic. Cardiovascular: Rate and Rhythm: Normal rate and regular rhythm. Pulmonary: Effort: Pulmonary effort is normal. Breath sounds: Normal breath sounds. No wheezing or rhonchi. Chest: Breasts: Right: No bleeding, mass, nipple discharge, skin change or tenderness. Left: No bleeding, mass, nipple discharge, skin change [...] is warm and dry. Findings: No bruising. Comments: Several hairs growing between and on the medical portions of the breast. None around the nipples, but she shaved before coming. Minimal inferior to the umbilicus. No obvious hair growth on the inner thigh, but she admits it is a problem. Neurological: Mental Status: She is alert and oriented to person, place, and time. Psychiatric: Mood and Affect: Mood normal. Behavior: Behavior normal. Lab: Pap: Done today Assessment and Plan: Normal exam. Diagnoses and all orders for this visit: Well woman exam (Primary) Assessment & Plan: Pap smear was done today, The patient was asked to come back for repeat in 1 year. Gardasil was discussed she will think about it. Multivitamin use was encouraged. Orders: - Pap with reflex to High Risk HPV; Future Encounter for other general counseling or advice on contraception Assessment & Plan: The patient was changed to Ortho Cyclen. She will finish out her current pills and then change overuse was reviewed. See the above. Orders: - norgestimate-ethinyl estradioL (Ortho-Cyclen, 28,) 0.25-35 mg-mcg per tablet; Take 1 tablet by mouth daily Thyroid disorder screening Assessment & Plan: See hirsutism Orders: - TSH reflex to free T4; Future Hirsutism Assessment & Plan: The patient is mildly distressed by her hirsutism she has not noticed a difference with her currentcontraception. She has not been on spironolactone for long enough for it to make a difference. We discussed that it can take up to 6 months for her to notice a change with it. She is only on once daily dosing and was encouraged to call her tax attorney to see if she could be increased [...] wants to pick the prescription up or not.We discussed that for the cares that have [...] will hold on ultrasound at this time. Orders: - Testosterone, Total and Free, Serum; Future Other orders - eflornithine 13.9 % cream; Apply to affected area twice a day. Recommended screenings and preventive care discussed: Breast cancer: Breast Self Exam encouraged. Pap done. Patient declines MVI daily recommended and Return in about 3 months (around 06/28/2021) for f/u of new ocp. Alison Syed MD 03/29/2021 documented in this encounter Miscellaneous Notes * Assessment & Plan Note - Alison Syed MD - 03/29/2021 4:13 PM CDTAssociated Problem(s): Thyroid disorder screening (Resolved 06/16/2023) See hirsutism * Assessment & Plan Note - Alison Syed MD - 03/29/2021 4:12 PM CDTAssociated Problem(s): Well woman exam (Resolved 06/16/2023) Pap smear was done today, The patient was asked to come back for repeat in 1 year. Gardasil was discussed she will think about it. Multivitamin use was encouraged. * Assessment & Plan Note - Alison Syed MD - 03/29/2021 4:11 PM CDTAssociated Problem(s): Contraceptive management The patient was changed to Ortho Cyclen. She will finish out her current pills and then change overuse was reviewed. See the above. * Assessment & Plan Note - Alison Syed MD - 03/29/2021 4:07 PM CDTAssociated Problem(s): Hirsutism The patient is mildly distressed by her hirsutism she has not noticed a difference with her currentcontraception. She has not been on spironolactone for long enough for it to make a difference. We discussed that it can take up to 6 months for her to notice a change with it. She is only on once daily dosing and was encouraged to call her tax attorney to see if she could be increased [...] wants to pick the prescription up or not.We discussed that for the cares that have [...] will hold on ultrasound at this time. documented in this encounter Plan of Treatment Not on file documented as of this encounter Procedures Procedure Name Priority Date/Time Associated Diagnosis Comments PAP WITH REFLEX TO HIGH RISK HPV Routine 03/29/2021 3:56 PM CDT Well woman exam documented in this encounter Results * TSH reflex to free T4 (04/01/2021 2:49 PM CDT) TSH 0.96 0.30 - 4.20 mcIUnit/mL [facility] ([facility]) Blood 04/01/2021 2:49 PM CDT 04/01/2021 3:27 PM CDT Alison Syed MD LAB BLOOD ORDERABLE S Final Result [facility] ([place]) [address] [facility] [place] [address] * Testosterone, Total and Free, Serum (04/01/2021 2:49 PM CDT) Testosterone 35 8 - 60 ng/dL [facility] ([place]) Comment: ADDITIONAL INFORMATION Testing performed by Liquid Chromatography-Tandem Mass Spectrometry (LC-MS/MS). This test was developed and its performance characteristics determined by [facility] in a manner consistent with CLIA requirements. This test has not been cleared or approved by the U.S. Food and Drug Administration. Test Performed by: [facility] [id number] [place] [address] [employer] Former: Richard Milan M.D. Ph.D.; CLIA# [id number] Testosterone, free 0.18 0.06 - 1.08 ng/dL [facility] ([place]) Comment: ADDITIONAL INFORMATION Testing performed by [facility]. This test was developed and its performance characteristics determined by [facility] in a manner consistent with CLIA requirements. This test has not been cleared or approved by the U.S. Food and Drug Administration. Blood 04/01/2021 2:49 PM CDT 04/01/2021 3:27 PM CDT us Alison Syed MD LAB BLOOD ORDERABLE S Final Result [facility] [address] [facility] [place], [place] [id number] * Pap with reflex to High Risk HPV (03/29/2021 3:56 PM CDT) Clinical indication Comment [facility] - 01 Comment:NEGATIVE FOR INTRAEP ITHELIAL LESION OR MALIGNANCY. Specimen adequacy: Comment [facility] - 01 Comment: Satisfactory for evaluation. ??Endocervical and/or squamous metaplastic cells (endocervical component) are present. Clinician provided ICD10 Comment [facility] - 01 Comment:Z01.419 Performed by Comment [facility] - 01 Comment:Karlie Soriano, [employer] hnologist (ASCP) . . [facility] - 01 Note: [...] result therefore, no HPV testing was performed. Swab 03/29/2021 3:56 PM CDT 03/30/2021 Narrative [facility] - 03/31/2021 11:11 AM CDT Performed at: ??01 - [facility] [place] [id number] [facility] Former: Alison Faith MD, Phone: ??[phone] Specimen Comment: No. of containers..01 ThinPrep Vial us Alison Syed MD LAB CYTOLOGY ORDERA BLES Final Result [facility] - 01 documented in this encounter Visit Diagnoses Diagnosis Encounter for other general counseling or advice on contraception Hirsutism documented in this encounter Care Teams Outbound Call Center Representative Relationship Specialty Start Date End Date Shari Coley DO PCP - General Family Medicine 06/25/19 02/29/24 Stuart Li PA Physician Grinding And Polishing Laborer Physician Grinding And Polishing Laborer 06/25/19 Patricia Bowden MD [address] [place] [address] Referring Physician Dermatology 06/26/20 documented as of this encounter
--- OUTSIDE RECORDS SUMMARY | 2024-07-29 05:45 | XMS_ITS | Encounter Summary ---
Author Organization [facility] Address [address] [place] [address] Care Team Providers Care Complex Human Resources Manager Name Role Phone ColeyShari Primary Care Provider [phone]- [phone] Stuart Li Unavailable [phone]- [phone] Patricia Bowden MD Unavailable [phone] Alison Syed MD Unavailable [phone] Christopher Cadet MD Unavailable Reason for Visit * Reason Comments Anxiety 6mo f/u Encounter Details Date Type Department Care Team (Late st Contact Info) Description 10/07/2022 10:30 AM CDT Office Visit [facility] Primary Care at [address] [place] [address] Leslie Rand NP [address] [place] [address] [address] [place] [address] Generalized anxiety disorder (Primary Dx); Influenza vaccination declined; BMI 28.0-28.9,adult Social History Tobacco Use Types Packs/Day Years [...] on file 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 Gender Identity Not on file Sexual Orientation Not on file documented as of this encounter Last Filed Vital Signs Vital Sign Reading Time Taken Comments Blood Pressure 112/78 10/07/2022 10:32 AM CDT Pulse 72 10/07/2022 10:32 AM CDT Temperature 36.5 ??C (97.7 ??F) 10/07/2022 10:32 AM C DT Respiratory Rate 18 10/07/2022 10:32 AM CDT Oxygen Saturation 97% 10/07/2022 10:32 AM CDT Inhaled Oxygen Concentration - - Weight 74 kg (163 lb 3.2 oz) 10/07/2022 10:32 AM CDT Height 160 cm (5' 3 ) 10/07/2022 10:32 AM CDT Body Mass Index 28.91 10/07/2022 10:32 AM CDT documented in this encounter Progress Notes * Leslie Rand NP - 10/07/2022 10:30 AM CDT Images from the original note were not included. Assessment/Plan Diagnoses and all orders for this visit: Generalized anxiety disorder (Primary) Assessment & Plan: -chronic, stable -continue on lexapro 20 mg daily -discussed with patient that episodes of sweating may be due to this medication. advised her to alert the office if this becomes bothersome. Influenza vaccination declined Comments: Declines influenza vaccination today. Patient is aware of the risks of not receiving vaccination. BMI 28.0-28.9,adult Assessment & Plan: HPI: Condition is stable goal BMI <30 A&P: Healthy, high-protein, lower carbohydrate, lower fat lifestyle and exercise for 150min/week recommended Recommend receiving COVID booster at pharmacy. Return in about 6 months (around 04/09/2023) for Annual physical. Subjective/Objective Chief Complaint Patient presents with Anxiety 6mo f/u Anxiety Presents for follow-up visit. Symptoms include decreased concentration (occasionally), excessive worry, insomnia (occasionally), muscle tension (occasionally), nervous/anxious behavior (occasionally)and restlessness (occasionally restless legs at night). Patient reports no chest pain, depressed mood, dizziness, irritability, nausea, palpitations, panic, shortness of breath or suicidal ideas. Symptoms occur occasionally. The severity of symptoms is mild. The patient sleeps 7 hours per night. The quality of sleep is fair. Nighttime awakenings: occasional. Compliance with medications is 76-100%. Please see the assessment and plan section for relevant conditions discussed, status of conditions,current and future management recommendations. Patient Care Team: Shari Coley DO as PCP - General (Family Medicine) Stuart Li PA as Physician Inspector [employer]unglasses (Physician Inspector [employer] Sunglasses) Patricia Bowden MD as Referring Physician (Dermatology) Alison Syed MD as Consulting Physician (Obstetrics and Gynecology) Christopher Cadet MD as Consulting Physician (General Surgery) Labs: Lab Results Component Value Date CHOL 174 04/08/2022 TRIG 117 04/08/2022 HDL 51 04/08/2022 Lab Results Component Value Date LDLCALC 100 04/08/2022 Lab Results Component Value Date TSH 0.38 04/08/2022 Lab Results Component Value Date HGBA1C 5.1 04/08/2022 HGBA1C 4.9 07/02/2021 HGBA1C 5.3 06/26/2020 Review of Systems Constitutional: Negative for fatigue, fever and irritability. Respiratory: Negative for cough, shortness of breath and wheezing. Cardiovascular: Negative for chest pain, palpitations and leg swelling. Gastrointestinal: Negative for abdominal pain, constipation, diarrhea, nausea and vomiting. Endocrine: Occasional episodes of diaphoresis Genitourinary: Negative for difficulty urinating, dysuria, frequency, hematuria and urgency. Musculoskeletal: Negative for arthralgias and myalgias. Neurological: Negative for dizziness and light-headedness. Psychiatric/Behavioral: Positive for decreased concentration (occasionally) and sleep disturbance. Negative for agitation, dysphoric mood and suicidal ideas. The patient is nervous/anxious (occasionally) and has insomnia (occasionally). Vitals: 10/07/22 1032 BP: 112/78 BP Location: Right arm Patient Position: Sitting Pulse: 72 Resp: 18 Temp: 36.5 ??C (97.7 ??F) TempSrc: Temporal SpO2: 97% Weight: 74 kg (163 lb 3.2 oz) Height: 160 cm (5' 3 ) Wt Readings from Last 3 Encounters: 10/07/22 74 kg (163 lb 3.2 oz) 08/18/22 72.6 kg (160 lb) 04/13/22 74.4 kg (164 lb) Body mass index is 28.91 kg/m??. Physical Exam Constitutional: Appearance: Normal appearance. HENT: Head: Normocephalic. Cardiovascular: Rate and Rhythm: Normal rate and regular rhythm. Pulses: Normal pulses. Heart sounds: Normal heart sounds. No murmur heard. Pulmonary: Effort: Pulmonary effort is normal. Breath sounds: Normal breath sounds. Musculoskeletal: General: Normal range of motion. Skin: General: Skin is warm and dry. Neurological: General: No focal deficit present. Mental Status: She is alert and oriented to person, place, and time. Psychiatric: Mood and Affect: Mood normal. Behavior: Behavior normal. Thought Content: Thought content normal. Judgment: Judgment normal. Leslie Rand NP October 07, 2022 11:13 AM Please note: Voice recognition software [employer] was used dictate and transcribe this document. Sawmill Hand variances may occur. Despite proofreading, typographical errors may occur. j documented in this encounter Miscellaneous Notes * Assessment & Plan Note - Leslie Rand NP - 10/07/2022 11:10 AM CDT Associated Problem(s): Generalized anxiety disorder -chronic, stable -continue on lexapro 20 mg daily -discussed with patient that episodes of sweating may be due to this medication. advised her to alert the office if this becomes bothersome. * Assessment & Plan Note - Leslie Rand NP - 10/07/2022 7:11 AM CDT Associated Problem(s): Overweight with body mass index (BMI) of 28 to 28.9 in adult HPI: Condition is stable goal BMI <30 A&P: Healthy, high-protein, lower carbohydrate, lower fat lifestyle and exercise for 150min/week recommended documented in this encounter Plan of Treatment Not on file documented as of this encounter Visit Diagnoses Diagnosis Generalized anxiety disorder- Primary Influenza vaccination declined BMI 28.0-28.9,adult documented in this encounter Care Teams Complex Human Resources Manager Relationship Specialty Start Date End Date Shari Coley DO PCP - General Family Medicine 06/25/19 02/29/24 Stuart Li PA Physician Inspector [employer]lasses Physician Inspector [employer] Sunglasses 06/25/19 Patricia Bowden MD [address] [place] [address] Referring Physician Dermatology 06/26/20 Alison Syed MD [address] [place] [address] Consulting Physician Obstetrics and Gynecology 07/02/21 Christopher Cadet MD [address] [place] [address] Consulting Physician General Surgery 07/02/21 documented as of this encounter
--- OUTSIDE RECORDS SUMMARY | 2024-07-29 05:45 | XMS_ITS | Encounter Summary ---
Author Organization [facility] Address [address] [place] [address] Care Team Providers Care Historic Interpreter Name Role Phone Shari Coley DO Primary Care Provider +1- [phone] Stuart Li Unavailable +- [phone] Patricia Bowden MD Unavailable [phone] Alison Syed MD Unavailable [phone] Christopher Cadet MD Unavailable Encounter Details Date Type Department Care Team (Late st Contact Info) Description 07/10/2022 Nurse Triage [facility] Primary Care at [address] [place] [address] Shari Coley DO [address] [address] Social History Tobacco Use Types [...] on file 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 VP CLINICAL RESEARCH Gender Identity Not on file Sexual Orientation Not on file documented as of this encounter Miscellaneous Notes * Telephone Encounter - Elba Mcgovern RN - 07/10/2022 10:16 AM VP CLINICAL RESEARCH Hi Omayra Louise RN with [facility]. 27 yo female tested positive for COVID today, mild symptoms. Symptoms started on . She is not interested in Paxlovid, however, per our protocol, Ihave to reach out to you. Please advise if you are interested in Paxlovid. PCP/LIMOUSINE AND HEARSE UPHOLSTERER contacted via secure chat for ED disposition consult. Recommendation from provider:Home careadvice/orders placed Per eduardo Louise with declining Paxlovid. Symptoms compatible with a COVID-19 infection. Nurse recommends that Wendy Jansen practice self-quarantine until: At least 10 days has passed from the onset of these symptoms. Without any fever for 24 hours (without taking any fever reducing medication). Wash hands often with soap and water. Use hand sleeve wheel maker if unable to wash hands with soap and water. Wear a mask when you must be around other people. Try to stay at least 6 feet away from other people if you must be around other people. Daily cleaning and disinfecting of touched surfaces such as tables, doorknobs, countertops etc... Pt encouraged to stay hydrated, drink warm broth and fluids, try tea with honey to soothe throat, cough syrups, throat logenzes, tylenol for headaches, temperature, or body aches, using inhaler for wheezing if has one (call if needed or develops), mucinex for expectorant, claritin or zyrtec for anti histamine to dry up nasal drainage, humidifier, and take warm showers. Reason for Disposition [1] COVID-19 diagnosed by positive lab test (e.g., PCR, rapid self-test kit) AND [2] mild symptoms (e.g., cough, fever, others) AND [3] no complications or SOB Protocols used: Coronavirus (COVID-19) Diagnosed or [id number] CLINICAL RESEARCH * Telephone Encounter - Elba Mcgovern RN - 07/10/2022 10:09 AM VP CLINICAL RESEARCH Regarding: Chief Complaint: Tested positive for COVID/Requesting medication ----- Message from Mily Johns sent at 07/10/2022 10:09 AM VP CLINICAL RESEARCH ----- Chief Complaint: Tested positive for COVID/Requesting medication Duration: Today Caller's Callback: [phone] Additional Comments: Cough, congestion, headeache w/ear pain CLINICAL RESEARCH documented in this encounter Plan of Treatment Not on file documented as of this encounter Visit Diagnoses Not on filedocumented in this encounter Care Teams Historic Interpreter Relationship Specialty Start Date End Date Shari oCley DO PCP - General Family Medicine 06/25/19 02/29/24 Stuart Li PA Physician Roll Wrapper Physician Roll Wrapper 06/25/19 Patricia Bowden MD [address] [place], [place] [id number] Referring Physician Dermatology 06/26/20 Alison Syed MD [address] [place] [address] Consulting Physician Obstetrics and Gynecology 07/02/21 Christopher Cadet MD [address] [place] [address] Consulting Physician General Surgery 07/02/21 documented as of this encounter
--- OUTSIDE RECORDS SUMMARY | 2024-07-29 05:45 | XMS_ITS | Encounter Summary ---
Author Organization [facility] Address [address] [place] [address] Care Team Providers Care Scale Technician Name Role Phone Shari Coley DO Primary Care Provider [phone]- [phone] Stuart Li Unavailable [phone]- [phone] Patricia Bowden MD Unavailable [phone] Alison Syed MD Unavailable [phone] Christopher Cadet MD Unavailable Reason for Visit * Reason Comments Anxiety 6 wk f/u, patient st ated that she does not need any refills Encounter Details Date Type Department Care Team (Late st Contact Info) Description 12/10/2021 9:15 AM CDT Telemedicine [facility] [address] [place] [address] Shari Coley DO [address] [address] Generalized anxiety disorder (Primary Dx) Social History Tobacco Use Types Packs/Day Years Used Date Smoking Tobacco: Never Smokeless Tobacco: Never Alcohol Use Standard Drinks/Week Comments Yes 0 (1 standard drink = 0.6 oz pur e alcohol) PHQ-2 Answer Date Recorded PHQ-2 Total Score (If total score is 3 or more points, staff should administer the PHQ-9) 0 12/10/2021 Comments No Sex and Gender Information Value Date Recorded Sex Assigned at Not on file 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 This was a telemedicine visit with Wendy Jansen alone which took place via real-time video connection with [employer]. During the visit, I was located in the office and the patient was located at home in the state of [place]. The patient visit started at 0931 hrs and ended at 0942 hrs. My total encounter time on 12/10/2021 was 11 minutes which was spent in [...] and/or responsible for any applicable copayments. Shari Woody DO Brijesh Patient ID: Wendy Jansen is a 26 y.o. female. Assessment/Plan Diagnoses and all orders for this visit: Generalized anxiety disorder (Primary) Assessment & Plan: Clinically improved, continue current prescription medications. Follow up next [facility] appt for annual Chief Complaint Subjective/Objective Anxiety (6 wk f/u, patient stated that she does not need any refills) S follow-up on her anxiety. She reports that she feels much better on her anxiety medications. She denies any side effects. She believes that they have helped her tremendously. She is currently stillworking 2 jobs but feels less stressed since starting the medication. She is without complaints. Anxiety Presents for follow-up visit. Symptoms include nervous/anxious behavior ( greatly improved ). Patient reports no chest pain, decreased concentration, depressed mood, dizziness, excessive worry, insomnia (Reports 7 hours of good sleep.), irritability, panic, shortness of breath or suicidal ideas. Symptoms occur occasionally. The severity of symptoms is mild. The quality of sleep is good. Nighttimeawakenings: none. Compliance with medications is 76-100%. Review of Systems Constitutional: Negative for fever and irritability. Respiratory: Negative for shortness of breath. Cardiovascular: Negative for chest pain. Neurological: Negative for dizziness. Psychiatric/Behavioral: Negative for decreased concentration, self-injury, sleep disturbance and suicidal ideas. The patient is nervous/anxious ( greatly improved ). The patient does not have insomnia (Reports 7 hours of good sleep.). All other systems reviewed and are negative. [...] Behavior normal. Thought Content: Thought content normal. Modified, as this is a telehealth visit today I, Shari Coley, DO have personally reviewed all Hospital/ER data including [employer] and Care Everywhere if available. This patient's discharge medication list has been reviewed and reconciled with his medication list in the office chart and has also been reviewed with patient and/or caregiver. I have noted any changes. This note is dictated and transcribed by [employer]. Cloth Grader Supervisor variances may occur. Despite proofreading, typographical errors may occur. Shari Coley DO documented in this encounter Miscellaneous Notes * Assessment & Plan Note - Shari Coley DO - 12/10/2021 9:38 AM CDT Associated Problem(s): Generalized anxiety disorder Clinically improved, continue current prescription medications. documented in this encounter Plan of Treatment Not on file documented as of this encounter Visit Diagnoses Diagnosis Generalized anxiety disorder- Primary documented in this encounter Care Teams Scale Technician Relationship Specialty Start Date End Date Shari Coley DO PCP - General Family Medicine 06/25/19 02/29/24 Stuart Li PA Physician Masking Machine Operator Physician Masking Machine Operator 06/25/19 Patricia Bowden MD [address] [place] [address] Referring Physician Dermatology 06/26/20 Alison Syed MD [address] [place] [address] Consulting Physician Obstetrics and Gynecology 07/02/21 Christopher Cadet MD [address] [place] [address] Consulting Physician General Surgery 07/02/21 documented as of this encounter
--- OUTSIDE RECORDS SUMMARY | 2024-07-29 05:45 | XMS_ITS | Encounter Summary ---
Author Organization [facility] Care Team Providers Care Metal Treater Name Role Phone Shari Coley DO Primary Care Provider [phone]- [phone] Stuart Li Unavailable [phone] Encounter Details Date Type Department Care Team (Latest Contact Info) Description 07/17/2019 Travel Social History Tobacco Use Types Packs/Day Years Used Date Smoking Tobacco: Never Smokeless Tobacco: Never Alcohol Use Standard Drinks/Week Comments Yes 0 (1 standard drink = 0.6 oz pur e alcohol) PHQ-2 Answer Date Recorded PHQ-2 Score 0 06/25/2019 Comments No Sex and Gender Information Value Date Recorded Sex Assigned at Not on file 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
--- OUTSIDE RECORDS SUMMARY | 2024-07-29 05:45 | XMS_ITS | Encounter Summary ---
Author Organization [facility] Address [address] [place] [address] Care Team Providers Care Correction Officer Supervisor Name Role Phone Shari Coley DO Primary Care Provider [phone]- [phone] Stuart Li Unavailable [phone]- [phone] Patricia Bowden MD Unavailable [phone] Alison Syed MD Unavailable [phone] Christopher Cadet MD Unavailable Encounter Details Date Type Department Care Team (Late st Contact Info) Description 03/04/2022 Telephone [facility] Primary Care at [address] [place] [address] Shari Coley DO [address] [address] Social History Tobacco Use Types [...] on file 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 * Telephone Encounter - Shari Coley DO - 03/04/2022 7:47 AM CDT ----- Message from Hailee Vo MA sent at 03/03/2022 8:24 AM CDT ----- Regarding: Car sickness Dr. Coley, please review message. ----- Message ----- From: Wendy Jansen Sent: 03/02/2022 8:25 PM CDT To: Shreya Im/Fm Pcp [facility] Clinical Pool Subject: Car sickness Hello. I have been going on a few vacations requiring me to drive and I get extreme car sickness. I get nauseated, bad headaches, and after I am done traveling I have to lay down because I feel so out of it. I do take Dramamine and it does not help with headaches but it helps with nausea some. I am going to [place] in March and I do get motion sickness on rides and while traveling. I was wondering if there was anything you could recommended or prescribe. I don???t come see dr. Coley until closer to the end of March. Thank you. Wendy documented in this encounter Plan of Treatment Not on file documented as of this encounter Visit Diagnoses Diagnosis H/O motion sickness- Primary documented in this encounter Care Teams Correction Officer Supervisor Relationship Specialty Start Date End Date Shari Coley DO PCP - General Family Medicine 06/25/19 02/29/24 Stuart Li PA Physician Rotary Shear Operator Physician Rotary Shear Operator 06/25/19 Patricia Bowden MD [address] [place] [address] Referring Physician Dermatology 06/26/20 Alison Syed MD [address] [place] [address] Consulting Physician Obstetrics and Gynecology 07/02/21 Christopher Cadet MD [address] [place] [address] Consulting Physician General Surgery 07/02/21 documented as of this encounter
--- OUTSIDE RECORDS SUMMARY | 2024-07-29 05:45 | XMS_ITS | Encounter Summary ---
Author Organization [facility] Medical [facility] Address [address] [place] [address] Care Team Providers Care Channel Machine Operator Name Role Phone Shari Coley DO Primary Care Provider [phone]- [phone] Stuart Li Unavailable [phone] Patricia Bowden MD Unavailable [phone] Reason for Visit * Reason Comments Anxiety feels more anxious; Encounter Details Date Type Department Care Team (Late st Contact Info) Description 02/18/2021 3:45 PM CDT Office Visit [facility] [address] [place] [address] Shari Coley DO [address] [facility] [address] [address] Generalized anxiety disorder (Primary Dx) Social History [...] on file 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 Gender Identity Not on file Sexual Orientation Not on file documented as of this encounter Last Filed Vital Signs Vital Sign Reading Time Taken Comments Blood Pressure 118/74 02/18/2021 3:54 PM CDT Pulse 68 02/18/2021 3:48 PM CDT Temperature - - Respiratory Rate 12 02/18/2021 3:48 PM CDT Oxygen Saturation 100% 02/18/2021 3:48 PM CDT Inhaled Oxygen Concentration - - Weight 65.8 kg (145 lb 1.6 oz) 02/18/2021 3:48 P M CDT Height 160 cm (5' 2.99 ) 02/18/2021 3:48 PM CDT Body Mass Index 25.71 02/18/2021 3:48 PM CDT documented in this encounter Patient Instructions * Patient Instructions* Shari Coley, - 02/18/2021 3:45 PM CDT Patient Education Generalized Anxiety Disorder ADVISORY APPLICATION DEVELOPER: Generalized anxiety disorder (ZONIA) is a condition [...] ask them during your visits. ?? 2017 [employer] Information is for End User's use only and may not be sold, redistributed or otherwise used for commercial purposes. All illustrations and images included in CareNotes?? are the copyrighted property of [employer]. or [employer]. The above information is an educational specialist only. It is not intended as medical [...] you have any questions or concerns at [phone]. You may receive a phone call, text, [...] total) by mouth daily 90 tablet 1 02/18/2021 07/02/2021 documented in this encounter Progress Notes * Shari Coley DO - 02/18/2021 3:45 PM CDT Images from the original note were not included. Subjective/Objective Patient ID: Wendy Jansen is a 25 y.o. female. Chief Complaint Chief Complaint Patient presents with ??? Anxiety feels more anxious; HPI Patient RTC today c/o anxiety. She reports that she has headaches, neck and shoulder pain and some chest heaviness. Experiences some nausea with anxiety attacks occur along with loss of appetite. Work is stressful. Mostly tearful but no crying spells. Never been diagnosed with anxiety in the past. Never been on medications for anxiety. Sleeps well most of the time gets 7 hours of sleep. Review of Systems Constitutional: Negative for fatigue and fever. HENT: Negative for congestion and sore throat. Respiratory: Negative for chest tightness and shortness of breath. Cardiovascular: Negative for chest pain and palpitations. Gastrointestinal: Negative for abdominal pain, nausea and vomiting. Neurological: Negative for dizziness and headaches. Psychiatric/Behavioral: Negative for dysphoric mood, self-injury, sleep disturbance and suicidal ideas. The patient is nervous/anxious. All other systems reviewed and are negative. Vitals: 02/18/21 1548 02/18/21 1554 BP: 146/83 118/74 BP Location: Right arm Right arm Patient Position: Sitting Sitting Pulse: 68 Resp: 12 SpO2: 100% Weight: 65.8 kg (145 lb 1.6 oz) Height: 160 cm (5' 2.99 ) Body mass index is 25.71 kg/m??. Physical Exam Vitals and nursing note [...] Generalized anxiety disorder (Primary) Assessment & Plan: New start on Lexapro 10 mg once a day. Encouraged counseling. Will follow. Go to nearest emergency room if you feel you will be a harm to herself or to others. Orders: - escitalopram (LEXAPRO) 10 mg tablet; Take 1 tablet (10 mg total) by mouth daily Shari Coley DO documented in this encounter Miscellaneous Notes * Assessment & Plan Note - Shari Coley DO - 02/22/2021 2:28 PM CDT Associated Problem(s): Generalized anxiety disorder New start on Lexapro 10 mg once a day. Encouraged counseling. Will follow. Go to nearest emergency room if you feel you will be a harm to herself or to others. documented in this encounter Plan of Treatment Not on file documented as of this encounter Visit Diagnoses Diagnosis Generalized anxiety disorder- Primary documented in this encounter Care Teams Channel Machine Operator Relationship Specialty Start Date End Date Shari Coley DO PCP - General Family Medicine 06/25/19 02/29/24 Stuart Li PA Physician Trailer Body Assembler Physician Trailer Body Assembler 06/25/19 Patricia Bowden MD [address] [place] [address] Referring Physician Dermatology 06/26/20 documented as of this encounter
--- OUTSIDE RECORDS SUMMARY | 2024-07-29 05:46 | XMS_ITS | Encounter Summary ---
Author Organization [facility] Healthcare Address [address] [place] [address] Care Team Providers Care Mobility Scooter Repairer Name Role Phone Yari Grove MD Primary Care Pro vider Encounter Details Date Type Department Care Team (Late st Contact Info) Description 03/12/2012 5:48 PM CDT - 03/12/2012 11:59 PM CDT Hospital Encounter [facility] Yari Meade MD [address] [place] [id number] Sprain of ankle Social History Tobacco Use Types Packs/Day Years Used Date Smoking Tobacco: Never Assessed Alcohol Use Standard Drinks/Week Comments No 0 (1 standard drink = 0.6 oz pur e alcohol) Comments Unknown Sex and Gender Information Value Date Recorded Sex Assigned at Not on file 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
--- OUTSIDE RECORDS SUMMARY | 2024-07-29 05:46 | XMS_ITS | Encounter Summary ---
Author Organization [facility] Healthcare Address [address] [place] [address] Care Team Providers Care Tool Polisher Name Role Phone Yari Grove MD Primary Care Pro vider Encounter Details Date Type Department Care Team (Late st Contact Info) Description 11/13/2015 4:03 PM CDT - 11/13/2015 11:59 PM CDT Hospital Encounter [facility] Yari Meade MD [address] [place] [address] DR LOPEZ [address] [place] [id number] Greta Guzman NP [address] [place] [address] DR KALINA Ramirez [address] [address] Pain in left ankle; Localized swelling, mass and lump, left lower limb Social History Tobacco Use Types Packs/Day Years Used Date Smoking Tobacco: Never Assessed Alcohol Use Standard Drinks/Week Comments No 0 (1 standard drink = 0.6 oz pur e alcohol) Comments Unknown Sex and Gender Information Value Date Recorded Sex Assigned at Not on file 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 Lateral pain. RESULT: Three views of the left ankle demonstrate no acute fracture or dislocation. There is moderate soft tissue swelling laterally. IMPRESSION: NO ACUTE ANKLE FRACTURE OR DISLOCATION WITH MODERATE LATERAL SOFT TISSUE SWELLING. Interpreting Physician: ??CARMEL WALDEN M.D. ??Read on: ??Nov 13 2015 ??4:45P Transcribed by: ??TXD ??On: Nov 13 2015 ??5:29P Approved Electronically by: ??CARMEL WALDEN M.D. ??on: ??Nov 13 2015 ??6:51P Attending: ??GRETA GUZMAN Requesting: ??GRETA GUZMAN Requesting Fax: ??-- Attending Fax: ??-- Attending ID: ??[id number] Requesting ID: ??[id number] Report To 1 ID: ??[id number] Report To 1 Name: ??GRETA GUZMAN Report To 1 FAX: ??-- NextGen Order #: Procedure Note Provider, MD Lenora - 11/16/2016 XR ANKLE MIN 3 VIEWS L [id number] Acc#: [id number] DATE OF EXAM: Nov 13 2015 CLINICAL HISTORY: Soccer injury. Lateral pain. RESULT: Three views of the left ankle demonstrate no acute fracture ordislocation. There is moderate soft tissue swelling laterally. IMPRESSION: NO ACUTE ANKLE FRACTURE OR DISLOCATION WITH MODERATE LATERAL SOFT TISSUESWELLING. Interpreting Physician: CARMEL WALDEN M.D. Read on: Nov 13 2015 4:45P Transcribed by: TXD On: Nov 13 2015 5:29P Approved Electronically by: CARMEL WALDEN M.D. on: Nov 13 2015 6:51P Attending: GRETA GUZMAN Requesting: GRETA GUZMAN Requesting Fax: -- Attending Fax: -- Attending ID: [id number] Requesting ID: [id number] Report To 1 ID: [id number] Report To 1 Name: GRETA GUZMAN Report To 1 FAX: -- NextGen Order #: us Historical Provider MD BOOTHE XR PROCEDURES Final R esult documented in this encounter Visit Diagnoses Diagnosis Pain in left ankle Localized swelling, mass and lump, left lower limb documented in this encounter Care Teams Tool Polisher Relationship Specialty Start Date End Date Yari Grove MD PCP - General 06/25/11 06/24/19 documented as of this encounter
--- OUTSIDE RECORDS SUMMARY | 2024-07-29 05:46 | XMS_ITS | Encounter Summary ---
Author Organization [facility] Healthcare Address [address] [place] [address] Care Team Providers Care Bobtailer Name Role Phone Yari Grove MD Primary Care Pro vider Encounter Details Date Type Department Care Team (Late st Contact Info) Description 11/05/2014 5:07 PM CDT - 11/05/2014 11:59 PM CDT Hospital Encounter [facility] Yari Meade MD [address] [place] [id number] [place] [address] [place] [address] Sprain of back; Spina bifida (HCC); Accident; Place of occurrence, place for recreation and sport; Activities involving soccer Social History Tobacco Use Types Packs/Day Years Used Date Smoking Tobacco: Never Assessed Alcohol Use Standard Drinks/Week Comments No 0 (1 standard drink = 0.6 oz pur e alcohol) Comments Unknown Sex and Gender Information Value Date Recorded Sex Assigned at Not on file 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 PACKAGER HAND Gender Identity Not on file Sexual Orientation Not on file documented as of this encounter Plan of Treatment Not on file documented as of this encounter Procedures Procedure Name Priority Date/Time Associated Diagnosis Comments XR SPINE LUMBAR 2 OR 3 VIEWS Routine 11/05/2014 5:30 PM CDT documented in this encounter Results * XR Spine Lumbar 2 or 3 Views (11/05/2014 5:30 PM CDT) Anatomical Region Laterality Modality Spine N/A Radiographic Jenn ging 11/05/2014 5:30 PM CDT Narrative 11/06/2014 9:40 AM CDT MR XR Lumbar Spine 2-3 Views [id number] ??Acc#: ??[id number] DATE OF EXAM: ??Nov 05 2014 CLINICAL HISTORY: Back pain for past 2-3 weeks with no specific injury. ??manager night. RESULT: AP and lateral radiographs of the lumbar spine were obtained with no prior studies for review. Alignment is anatomic on the AP and lateral study with no compression fracture seen in the lumbar spine. ??The disc space heights are normally maintained. ??There is spina bifida presumably occulta at S1. ??Facet joints are normal. IMPRESSION: SPINA BIFIDA PRESUMABLY OCCULTA S1 OTHERWISE NORMAL STUDY. Interpreting Physician: ??CARMEL WALDEN M.D. ??Read on: ??Nov 05 2014 ??6:27P Transcribed by: ??mrr ??On: Nov 06 2014 ??9:35A Approved Electronically by: ??CARMEL WALDEN M.D. ??on: ??Nov 06 2014 ??9:40A Attending: ??, Requesting: ??DANIELLE ABREU Requesting Fax: ??-- Attending Fax: ??-- Attending ID: ?? Requesting ID: ??[id number] Report To 1 ID: ??[id number] Report To 1 Name: ??DANIELLE ABREU Report To 1 FAX: ??-- NextGen Order #: Procedure Note Provider, MD Lenora - 11/16/2016 MR XR Lumbar Spine 2-3 Views [id number] Acc#: [id number] DATE OF EXAM: Nov 05 2014 CLINICAL HISTORY: Back pain for past 2-3 weeks with no specific injury. 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 RESULT: AP and lateral radiographs of the lumbar spine were obtained with noprior studies for review. Alignment is anatomic on the AP and lateralstudy with no compression fracture seen in the lumbar spine. The discspace heights are normally maintained. There is spina bifida presumablyocculta at S1. Facet joints are normal. IMPRESSION: SPINA BIFIDA PRESUMABLY OCCULTA S1 OTHERWISE NORMAL STUDY. Interpreting Physician: CARMEL WALDEN M.D. Read on: Nov 05 2014 6:27P Transcribed by: pablo On: Nov 06 2014 9:35A Approved Electronically by: CARMEL WALDEN M.D. on: Nov 06 2014 9:40A Attending: , Requesting: DANIELLE ABREU Requesting Fax: -- Attending Fax: -- Attending ID: Requesting ID: [id number] Report To 1 ID: [id number] Report To 1 Name: DANIELLE ABREU Report To 1 FAX: -- NextGen Order #: us Historical Provider IMKamini XR PROCEDURES Final R esult documented in this encounter Visit Diagnoses Diagnosis Sprain of back Sprain and strain of unspecified site of back Spina bifida (HCC) Place of occurrence, place for recreation and sport Activities involving soccer documented in this encounter Care Teams Bobtailer Relationship Specialty Start Date End Date Yari Grove MD PCP - General 06/25/11 06/24/19 documented as of this encounter
--- OUTSIDE RECORDS SUMMARY | 2024-07-29 05:46 | XMS_ITS | Encounter Summary ---
Author Organization [facility] Healthcare Address [address] [place] [address] Care Team Providers Care Fisher Trot Line Name Role Phone Yari Grove MD Primary Care Pro vider Encounter Details Date Type Department Care Team (Late st Contact Info) Description 06/30/2011 7:16 PM FIELD PIPELINES SUPERVISOR - 06/30/2011 11:59 PM FIELD PIPELINES SUPERVISOR Hospital Encounter [facility] Pino Dixon MD [address] [place] [address] [address] GILMAN B [address] [address] Closed fracture of head of radius; Pain in joint, upper arm; Effusion of upper arm joint Social History Tobacco Use Types Packs/Day Years Used Date Smoking Tobacco: Never Assessed Comments Unknown Sex and Gender Information Value Date Recorded Sex Assigned at Not on file 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 FIELD PIPELINES SUPERVISOR Gender Identity Not on file Sexual Orientation Not on file documented as of this encounter Plan of Treatment Not on file documented as of this encounter Visit Diagnoses Diagnosis Closed fracture of head of radius Pain in joint, upper arm Effusion of upper arm joint documented in this encounter Care Teams Fisher Trot Line Relationship Specialty Start Date End Date Yari Grove MD PCP - General 06/25/11 06/24/19 documented as of this encounter
--- OUTSIDE RECORDS SUMMARY | 2024-07-29 05:46 | XMS_ITS | Encounter Summary ---
Author Organization [facility] Healthcare Address [address] [place] [address] Care Team Providers Care Shell Trim Tool Setter Name Role Phone Yari Grove MD Primary Care Pro vider Encounter Details Date Type Department Care Team (Late st Contact Info) Description 06/23/2011 12:44 PM MOTOR VEHICLES SUPERVISOR - 06/23/2011 11:59 PM MOTOR VEHICLES SUPERVISOR Hospital Encounter [facility] Yari Grove MD [address] [place] [address] Contusion of elbow Social History Tobacco Use Types Packs/Day Years Used Date Smoking Tobacco: Never Assessed Comments Unknown Sex and Gender Information Value Date Recorded Sex Assigned at Not on file 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 MOTOR VEHICLES SUPERVISOR Gender Identity Not on file Sexual Orientation Not on file documented as of this encounter Plan of Treatment Not on file documented as of this encounter Visit Diagnoses Diagnosis Contusion of elbow documented in this encounter Care Teams Shell Trim Tool Setter Relationship Specialty Start Date End Date Yari Grove MD PCP - General 07/02/08 06/24/11 documented as of this encounter
--- OUTSIDE RECORDS SUMMARY | 2024-07-29 05:46 | XMS_ITS | Encounter Summary ---
Author Organization [facility] Healthcare Address [address] [place] [address] Care Team Providers Care Wildlife Enforcement Major Name Role Phone Shari Coley Primary Care Provider +1- [phone] Stuart Li Unavailable +1- [phone] Reason for Visit * Reason Comments Abdominal Pain Encounter Details Date Type Department Care Team (Late st Contact Info) Description 07/17/2019 10:46 AM SYSTEM ADMIN - 07/17/2019 7:30 PM SYSTEM ADMIN Emergency [facility] Surgery Care [address] [place] [address] Jorgito Jackman MD [address] [facility] [place] [address] Christopher Cadet MD 4 [facility] [address] Acute appendicitis with localized peritonitis, without perforation, abscess, or gangrene (Primary Dx); Appendicitis, unspecified appendicitis type Discharge Disposition: Discharge to home or self [...] on file 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 SYSTEM ADMIN Gender Identity Not on file Sexual Orientation Not on file documented as of this encounter Last Filed Vital Signs Vital Sign Reading Time Taken Comments Blood Pressure 111/76 07/17/2019 6:20 PM SYSTEM ADMIN Pulse 87 07/17/2019 6:20 PM SYSTEM ADMIN Temperature 36.8 ??C (98.2 ??F) 07/17/2019 6:20 PM CS T Respiratory Rate 18 07/17/2019 6:20 PM SYSTEM ADMIN Oxygen Saturation 100% 07/17/2019 6:20 PM SYSTEM ADMIN Inhaled Oxygen Concentration - - Weight 63.5 kg (140 lb) 07/17/2019 11:26 AM SYSTEM ADMIN Height 160 cm (5' 3 ) 07/17/2019 11:26 AM SYSTEM ADMIN Body Mass Index 24.8 07/17/2019 11:26 AM SYSTEM ADMIN documented in this encounter Discharge Diagnoses Diagnosis Unspecified acute appendicitis - UNSPECIFIED ACUTE APPENDICITIS Other seasonal allergic rhinitis - OTHER SEASONAL ALLERGIC RHINITIS director long term care (current) use of hormonal contraceptives - PENITENTIARY (CURRENT) USE OF HORMONAL CONTRACEPTIVES Other director long term care (current) drug therapy - OTHER INSPECTOR RAG SORTING (CURRENT) DRUG THERAPY documented in this encounter Discharge Instructions * Discharge Instructions* Monserrat Ortiz RN - 07/17/2019 6:08 PM SYSTEM ADMIN THANK YOU for choosing our team to provide your health care. Your HEALTH AND SAFETY are important to us. We hope you feel your care on SCU was ALWAYS EXCELLENT! Please call SCU at [phone] if you have any questions regarding your care. Wishing you continued improvement during your recovery. Your Surgical Care Unit Team Bia Farfan Denise, Crystal, Peggy, Daylin Tam, Greta, Merly, Lucila, Janina, Dia, Paige, Cookie Proctor Judy, Sydney, Monserrat Lieberman and Kathy. EM ADMIN * Discharge Instr - Other Orders* Monserrat Ortiz RN - 07/17/2019 6:06 PM SYSTEM ADMIN Discharge Instructions: 1. No driving while on [...] 8. Diet, until follow up: as tolerates EM ADMIN * Attachments The following attachments cannot be sent through Care Everywhere. * Appendicitis (Discharge Care) ([place]izen [place]) * Laparoscopic Appendectomy (Discharge Care) (Citizen [place]) * Laxative, Stool Softeners (By mouth) (Citizen [place]) * Hydrocodone/Acetaminophen (By mouth) (Citizen [place]) * Ondansetron (By mouth, Into the mouth) (Citizen [place]) * Polyethylene Glycol 3350 (By mouth) (Citizen [place]) documented in this encounter Medications at Time [...] BY MOUTH EVERY DAY 3 06/02/2019 0 [id number]-[id number] 0.18/0.215/0.25 mg-25 mcg per tabletIndications :Encounter for [...] or concerns. Pt. To be discharged home. EM ADMIN documented in this encounter H&P Notes * Christopher Cadet MD - 07/17/2019 3:28 PM CST History & Physical Subjective: Patient Name: Wendy Chacon Date of Consult: 07/17/19 HPI: Wendy Chacon [...] file Gets together: Not on file Attends anabaptism service: Not on file Active member of [...] nswered. Christopher Cadet MD 3:28 PM 07/17/2019 EM ADMIN documented in this encounter ED Notes * Sagrario Schwab RN - 07/17/2019 11:25 AM CST Last night had sharp abd pain, now she has a achinnnnnnnng to her abd EM ADMIN * Jorgito Jackman MD - 07/17/2019 11:06 [...] or gangrene Jorgito Jackman MD 07/17/19 1357 EM ADMIN documented in this encounter Miscellaneous Notes * [...] adequate urine output will improve Outcome: Progressing EM ADMIN * Op Note - Christopher Cadet MD - 07/17/2019 3:49 PM CST NAME: Wendy Chacon DATE OF : 1995 SURGEON: Christopher Cadet MD CAR TRIMMER:Water Taxi Operator: Juliette Kurtz RN Scrub: ST KALEY DuenasA: [...] The abdomen was insufflated to 15 mm ofmercury. A 5 mm trocar was placed in the left mid abdomen with care taken to avoid injury to the inferior epigastric vessels. A 5 mm port was placed in the suprapubic location with care taken to avoid injury to the bladder and the infraumbilical port site upsized to a 12 mm trocar. At this time thepatient was placed head down and rotated to her left. The small bowel was grasped and retracted outof the pelvis. At this time the appendix [...] and the base of the appendix divided with a single firing of a purple load. The [...] removed and closed with a suture Passer device with an interrupted 0 Vicryl stitch.The skin of [...] Appendix Christopher Cadet MD 07/17/2019 4:23 PM EM ADMIN documented in this encounter Plan of Treatment Not on file documented as of this encounter Procedures Procedure Name Priority Date/Time Associated Diagnosis Comments LAPAROSCOPIC APPENDECTOMY 07/17/2019 3:22 PM SYSTEM ADMIN abdominal pain CT ABDOMEN PELVIS W CONTRAST ED 07/17/2019 12:34 PM SYSTEM ADMIN URINALYSIS AND REFLEX TO MICROSCOPIC AND CULTURE STAT 07/17/2019 11:26 AM SYSTEM ADMIN EGFR STAT 07/17/2019 11:11 AM SYSTEM ADMIN DIFFERENTIAL AUTO STAT 07/17/2019 11: 11 AM SYSTEM ADMIN CBC WITH AUTO DIFFERENTIAL STAT 07/17/2019 11:11 AM SYSTEM ADMIN LIPASE STAT 07/17/2019 11:11 AM SYSTEM ADMIN COMPREHENSIVE METABOLIC PANEL STAT 07/17/2019 11:11 AM SYSTEM ADMIN HCG, BLOOD, QUANTITATIVE STAT 07/17/2019 11:08 AM SYSTEM ADMIN SURGICAL PATHOLOGY Routine 07/17/2019 11 :00 AM SYSTEM ADMIN Appendicitis, unspecified appendicitis type documented in this encounter Results * CT Abdomen Pelvis W Contrast (07/17/2019 12:34 PM SYSTEM ADMIN) Anatomical Region Laterality Modality Body N/A Computed Tomogra phy 07/19/2019 8:09 AM SYSTEM ADMIN Impressions 07/19/2019 8:17 AM SYSTEM ADMIN 1. ??Acute appendicitis without evidence of perforation or abscess. 2. ??Moderate amount of colonic stool may reflect constipation. 3. ??Small focus of gas in the urinary bladder lumen. ??Correlate with any recent instrumentation or signs/symptoms of cystitis. Electronically signed by: Yoel Chase M.D. Narrative 07/19/2019 8:17 AM SYSTEM ADMIN EXAMINATION: CT ABDOMEN PELVIS W CONTRAST ORDERING [...] by: Yoel Chase M.D. Jorgito Jackman MD IM CT PROCEDURES Final Result * (ABNORMAL) Urinalysis reflex to microscopic and culture Urine (07/17/2019 11:26 AM SYSTEM ADMIN) Color, ur Yellow Yellow [facility] ([facility] [...] [facility] ([facility]) Urine 07/17/2019 11:2 6 AM SYSTEM ADMIN 07/17/2019 11:30 AM SYSTEM ADMIN Narrative [facility] ([place]) - 07/17/2019 11:34 AM SYSTEM ADMIN ?? Urine pH is affected by diet, medications, systemic acid-base disturbances, and renal tubular function. ??pH may affect urinary stone formation. ??For example, urine pH below 6.0 may help reduce the tendency for calcium phosphate stones and pH greater than 6.0 may reduce the tendency for uric acid stone formation. Source: [facility]. Last revised 07-27-2017 us Jorgito Jackman MD LAB MICROBIOLOGY - GENE RAL ORDERABLES Final Result [facility] ([place]) 1 [facility] Department [place] [address] * eGFR (07/17/2019 11:11 AM SYSTEM ADMIN) eGFR 130 mL/min/1.7 3 m2 [facility] ([place]) Comment: Interpretive Data Reference Interval Normal ?>/= 90 mL/min/1.73m2 Mildly decreased* ? 60 - 89 mL/min/1.73m2 Mildly to moderately decreased ?45 - 59 mL/min/1.73m2 Moderately to severely decreased ??30 - 44 mL/min/1.73m2 Severely decreased ?15 - 29 mL/min/1.73m2 Kidney Failure ?< 15 ??mL/min/1.73m2 *Relative to young adult level If -Israeli multiply value by 1.16. Estimated glomerular filtration [...] 2016. Blood specimen (specimen) 07/17/2019 11:11 AM SYSTEM ADMIN 07/17/2019 11:15 AM SYSTEM ADMIN Jorgito Jackman MD LAB BLOOD ORDERABLES Fi nal Result [facility] ([place] 1 [facility] Department [place] [address] * (ABNORMAL) Differential, auto (07/17/2019 11:11 AM SYSTEM ADMIN) Neutrophil abs 21.6(H) 1.7 - 6.5 K/cumm [...] Imm gran pct 0.5 % [facility] ([place]) Comment: Interpretive Data [...] 2017. Blood specimen (specimen) 07/17/2019 11:11 AM SYSTEM ADMIN 07/17/2019 11:15 AM SYSTEM ADMIN Jorgito Jackman MD LAB BLOOD ORDERABLES Fi nal Result Performing Organization Address City/[facility]/ZIP Co de Phone Number [facility] ([place]) 1 [facility] [address] * Lipase (07/17/2019 11:11 AM SYSTEM ADMIN) Lipase 26 10 - 99 Units/L [facility] ([place]) Blood specimen (specimen) 07/17/2019 11:11 AM SYSTEM ADMIN 07/17/2019 11:15 AM SYSTEM ADMIN Jorgito Jackman MD LAB BLOOD ORDERABLES Fi nal Result Performing Organization Address [facility] de Phone Number [facility] ([place]) 1 [facility] [address] * (ABNORMAL) Comprehensive metabolic panel (07/17/2019 11:11 AM SYSTEM ADMIN) Sodium 139 135 - 145 mmol/L [facility] ([place]) Potassium, pl 4.5 3.3 - 4.9 mmol/L [facility] ([place]) Chloride 100 97 - 110 mmol/L [facility] ([place]) CO2 24 22 - 32 mmol/L [facility] ([place]) Anion gap 15 2 - 15 mmol/L [facility] ([place]) BUN 7(L) 8 - 25 mg/dL [facility] ([place]) Creatinine 0.59(L) 0.60 - 1.10 mg/dL [facility] ([place]) Glucose 110 70 - 199 mg/dL [facility] ([place]) Comment: Interpretive Data Fasting glucose >/= [...] ([place]) Blood specimen (specimen) 07/17/2019 11:11 AM SYSTEM ADMIN 07/17/2019 11:15 AM SYSTEM ADMIN Jorgito Jackman MD LAB BLOOD ORDERABLES nal Result [facility] ([place] 1 [facility] Department [place] [address] * (ABNORMAL) CBC with auto differential (07/17/2019 11:11 AM SYSTEM ADMIN) WBC 24.2(H) 3.8 - 9.9 K/cumm [facility] ([place]) Hgb 15.4 11.9 - 15.5 g/dL [facility] ([place]) Hct 46.2(H) 35.6 - 45.5 % [facility] ([place]) Plt 308 150 - 400 K/cumm [facility] ([place]) MPV 11.2 9.1 - 12.3 fL [facility] ([place]) RBC 5.06 3.90 - 5.20 M/cumm [facility] ([place]) MCV 91.3 81.3 - 96.4 fL [facility] ([place]) MCH 30.4 27.1 - 33.3 pg [facility] ([place]) MCHC 33.3 32.3 - 35.7 g/dL [facility] ([facility]) RDW CV 12.1 11.1 - 14.9 % [facility] ([place]) RDW SD 40.4 35.7 - 48.1 fL [facility] ([place]) NRBC abs 0.00 0.00 - 0.01 K/cumm [facility] ([place]) Blood specimen (specimen) 07/17/2019 11:11 AM SYSTEM ADMIN 07/17/2019 11:15 AM SYSTEM ADMIN Jorgito Jackman MD LAB BLOOD ORDERABLES Fi nal Result [facility] ([place] 1 [facility] Department [place] [address] * hCG, blood, quantitative (07/17/2019 11:08 AM SYSTEM ADMIN) hCG, quant <5.0 0.0 - 5.0 IUnits/L [facility] ([place]) Comment: Interpretive Data Non- Female premenopausal: < or = 5.0 IUnits/L Men: < 5.0 IUnits/L Weeks of Gestation ? Reference Interval ?? 3 to 6 ? 5.8-31,795 IUnits/L ?? 7 to 10 ? 3,697-186,977 IUnits/L ??12 to 15 ?27,832- 70,791 IUnits/L ??16 to 18 ? 9,040- 58,179 IUnits/L Current Interpretive Data was last revised on 2018. Blood specimen (specimen) 07/17/2019 11:08 AM SYSTEM ADMIN 07/17/2019 1:27 PM SYSTEM ADMIN us Jorgito Jackman MD LAB BLOOD ORDERABLES Ed ited Result - Final [facility] ([place]) [address] [place] [address] [place] [address] * Surgical pathology (07/17/2019 11:00 AM SYSTEM ADMIN) Tissue (Appendix) 07/17/2019 3:54 PM SYSTEM ADMIN Narrative PATHOLOGY [facility] ([place]) - 07/19/2019 11:50 AM SYSTEM ADMIN EPIC results best viewed via link to PDF [facility] Department of Pathology [address] [place] [address] Final Report Patient Name: ??WENDY CHACON Address: ??[address] [place] [address], ??[place], [place] [address] Gender: ??F : ??1995 (Age: 24) Service: ??Emergency Location: ??[facility] Hospital #: ??[id number] Patient Type: ??[facility] OBS Accession # ?[id number] Taken: ??07/17/2019 Received: [...] determined by the Surgical Pathology Department at [facility] as part of an ongoing director supplier quality program and in compliance with federally mandated [...] characteristics determined by the Surgical Pathology Department [facility]. ??It has not been cleared or approved by the U. S. Food and Drug Administration. Christopher Cadet MD LAB PATHOLOGY OR DERABLES Final Result Performing Organization Address City/State/[facility] Co de Phone Number PATHOLOGY [address] [phone] documented in this encounter Visit Diagnoses Diagnosis Acute appendicitis with localized peritonitis, without perforation, abscess, or gangrene- Primary Appendicitis, unspecified appendicitis type documented in this encounter Administered Medications Inactive Administered Medications - up to 3 most recent administrations Medication Order MAR Action Action Date Dose Rate Site ioversol intravenous syringe 100 mL 100 mL, intravenous, Once in imaging, contrast, Starting on Mon07/17/19 at 1222, For 1 dose Given 07/17/2019 12:25 PM SYSTEM ADMIN 100 mL ondansetron (ZOFRAN) injection 4 mg 4 mg, intravenous, Administer over 2 Minutes, Every 6 hours PRN, nausea, vomiting, if not tolerating PO, Starting on Mon07/17/19 at 1731, Indications: Nausea and VomitingIndications:Nausea and Vomiting ondansetron ODT (ZOFRAN-ODT) disintegrating tablet 4 mg 4 mg, oral, Every 6 hours PRN, nausea, vomiting, Starting on Mon07/17/19 at 1731, Indications: Nausea and VomitingIndications:Nausea and Vomiting piperacillin-tazobactam (ZOSYN) 3.375 g in sodium chloride 0.9% 50 mL IVPB 3.375 g, intravenous, at 130 mL/hr, Administer over 30 Minutes, Every 6 hours scheduled, First dose on Mon07/17/19 at 1400, Indications: Abdominal/Pelvic InfectionIndications:Abdominal /Pelvic Infection New Bag 07/17/2019 2:26 PM SYSTEM ADMIN 3.375 g 130 mL/hr documented in this encounter Active and Recently Administered Medications Times are shown in SYSTEM ADMIN. Scheduled Medication Order 07/15/2019 07/16/2019 07/17/2019 cefOXitin [...] pump)1502 (Stopped - Provider: Monserrat Ortiz RN)1511 (MAR Hold - Provider: Automatic Transfer Provider - Reason: Patient not available)1731 (MAR Unhold - Provider: Automatic Transfer Provider) scopolamine patch 72 hour 1 patch (COMPLETED) 1 patch, transdermal, Administer over 72 Hours, Once, On Mon07/17/19 at 1600, For 1 dose 1537 (Given - Provid er: Brook Comer SKIN CARVER - Comment: right mastoid) PRN Medication Order [...] Count Last Ordered Date First Ordered Date bupivacaine-EPINEPHrine (AVI PRAJAPATI with EPI) 0.5 %-1:200,000 preservative free injection 1 07/17/2019 cefOXitin (MEFOXITIN) 1,000 mg/10 mL in [...] patch 72 hour 1 patch 1 020 sodium chloride 0.9 % irrigation 1 07/17/19 20 Nursing Count Last Ordered Date First Orde [...] Ordered Date ED IP DECISION TO ADMIT 07/17/2019 documented in this encounter Care Teams Wildlife Enforcement Major Relationship Specialty Start Date End Date Shari Coley DO PCP - General Family Medicine 06/25/19 02/29/24 [place], MELY Cohen Physician Level Vial Inside Grinder Physician Level Vial Inside Grinder 06/25/19 documented as of this encounter
--- OUTSIDE RECORDS SUMMARY | 2024-07-29 05:46 | XMS_ITS | Encounter Summary ---
Author Organization [facility] Medical Group Address [address] [place] [address] Care Team Providers Care Air Filler Name Role Phone Shari Coley DO Primary Care Provider +1- [phone] Stuart Li Unavailable +1- [phone] Reason for Visit * Reason Comments Annual Exam new patient; [facility] care Encounter Details Date Type Department Care Team (Late st Contact Info) Description 06/25/2019 9:00 AM AERONAUTICAL INSPECTOR Office Visit [facility] [address] [place] [phone] Shari Coley DO [address] [address] Annual physical exam (Primary Dx); BMI 23.0-23.9, adult; Encounter for control pills maintenance Social History Tobacco Use Types Packs/Day Years Used Date Smoking Tobacco: Never Smokeless Tobacco: Never Alcohol Use Standard Drinks/Week Comments No 0 (1 standard drink = 0.6 oz pur e alcohol) PHQ-2 Answer Date Recorded PHQ-2 Score 0 06/25/2019 Comments Unknown Sex and Gender Information Value Date Recorded Sex Assigned at Not on file 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 AERONAUTICAL INSPECTOR Gender Identity Not on file Sexual Orientation Not on file documented as of this encounter Last Filed Vital Signs Vital Sign Reading Time Taken Comments Blood Pressure 104/69 06/25/2019 9:00 AM AERONAUTICAL INSPECTOR Pulse 65 06/25/2019 9:00 AM AERONAUTICAL INSPECTOR Temperature 36.8 ??C (98.2 ??F) 06/25/2019 9:00 AM CS T Respiratory Rate 19 06/25/2019 9:00 AM AERONAUTICAL INSPECTOR Oxygen Saturation 96% 06/25/2019 9:00 AM AERONAUTICAL INSPECTOR Inhaled Oxygen Concentration - - Weight 63.2 kg (139 lb 6.4 oz) 06/25/2019 9:00 A M AERONAUTICAL INSPECTOR Height 162.6 cm (5' 4 ) 06/25/2019 9:00 AM AERONAUTICAL INSPECTOR Body Mass Index 23.93 06/25/2019 9:00 AM AERONAUTICAL INSPECTOR documented in this encounter Patient Instructions * Patient Instructions* Shari Coley, DO - 06/25/2019 9:00 AM AERONAUTICAL INSPECTOR Images from the original note were not included. Patient Education Breast Self Exam for Women AUTOMOTIVE COLLISION REPAIR INSTRUCTOR: A breast self-exam (BSE) is a way [...] Check your breasts while you sit or insurance verify rep the following 3 positions: ?? Hang your [...] ask them during your visits. ?? 2017 [employer] Information is for End User's use only and may not be sold, redistributed or otherwise used for commercial purposes. All illustrations and images included in CareNotes?? are the copyrighted property of [employer]. or [employer]. The above information is an director paid media only. It is not intended as medical advice for individual conditions or treatments. Talk to your doctor, nurse or pharmacist before following any medical regimen to see if it is safe and effective for you. Patient Education Wellness Visit for Adults AUTOMOTIVE COLLISION REPAIR INSTRUCTOR: A wellness visit is when you see [...] of viruses cause the flu. The viruses gear [...] could distract you and cause an accident. supervisor covering and lining if you need to make a call [...] boat or doing water sports. ?? 2017 [employer] Information is for End User's use only and may not be sold, redistributed or otherwise used for commercial purposes. All illustrations and images included in CareNotes?? are the copyrighted property of [employer] or [employer]. The above information is an director paid media only. It is not intended as medical advice for individual conditions or treatments. Talk to your doctor, nurse or pharmacist before following any medical regimen to see if it is safe and effective for you. NAUTICAL INSPECTOR documented in this encounter Ordered Prescriptions Prescription Sig Dispense Quantity Refills Last Filled Start Date End Date [id number] 0.18/0.215/0.25 mg-25 mcg per tabletIndications: Encounter for control pills maintenance Take 1 tablet by mouth daily 28 tablet 12 06/25/2019 06/29/2021 documented in this encounter Progress Notes * Brijesh Sharisantiago Woody, DO - 06/25/2019 9:00 AM CST Images from the original note were not included. Subjective/Objective Patient ID: Wendy Jansen is a 23 y.o. female. Chief Complaint Chief Complaint Patient presents with ??? Annual Exam new patient; establish care HPI New patient in office today. Here for annual physical and to establish care. She REFUSES all lab work today. Vitals: 06/25/19 0900 BP: 104/69 BP Location: Left arm Patient Position: Sitting Pulse: 65 Resp: 19 Temp: 36.8 ??C (98.2 ??F) TempSrc: Oral SpO2: 96% Weight: 63.2 kg (139 lb 6.4 oz) Height: 162.6 cm (5' 4 ) Body mass index is 23.93 kg/m??. Review of Systems Constitutional: Negative for fever. HENT: Negative for congestion, ear pain, postnasal drip and sore throat. Eyes: Negative for visual disturbance. Respiratory: Negative for cough, chest tightness, shortness of breath and wheezing. Cardiovascular: Negative for chest pain, palpitations and leg swelling. Gastrointestinal: Negative for abdominal pain, constipation, nausea and vomiting. Genitourinary: Negative for decreased urine volume, difficulty urinating, dysuria, frequency and hematuria. Musculoskeletal: Negative for arthralgias, back pain and myalgias. Skin: Negative for rash. Neurological: Negative for dizziness, syncope, weakness, numbness and headaches. Hematological: Negative for adenopathy. Psychiatric/Behavioral: Negative for confusion. All other systems reviewed and are negative. Physical Exam Vitals signs and nursing note reviewed. Constitutional: Appearance: Normal appearance. She is well-developed. HENT: Head: Normocephalic and atraumatic. Right Ear: Hearing, tympanic membrane, ear canal and external ear normal. Left Ear: Hearing, tympanic membrane, ear canal and external ear normal. Nose: Nose normal. Mouth/Throat: Mouth: Mucous membranes are moist. Pharynx: Oropharynx is clear. No oropharyngeal exudate. Eyes: General: Lids are normal. No scleral icterus. Extraocular Movements: Extraocular movements intact. Conjunctiva/sclera: Conjunctivae normal. Pupils: Pupils are equal, round, and reactive to light. Neck: Musculoskeletal: Full passive range of motion [...] is no mass. Tenderness: There is no tenderness. Musculoskeletal: Normal range of motion. General: No tenderness. Skin: General: Skin is warm and dry. Findings: No erythema or rash. Neurological: General: No focal deficit present. Mental Status: She is alert and oriented to person, place, and time. Coordination: Coordination normal. Psychiatric: Mood and Affect: Mood normal. Behavior: Behavior normal. Thought Content: Thought content normal. Diagnoses and all orders for this visit: Annual physical exam (Primary) Comments: Well exam, health maintenance updated. Patient REFUSES all lab work. BMI 23.0-23.9, adult Encounter for control pills maintenance Comments: urine preg test neg; refill given Orders: - POCT hCG, urine - [id number] 0.18/0.215/0.25 mg-25 mcg per tablet; Take 1 tablet by mouth daily Dr. Shari Coley NAUTICAL INSPECTOR documented in this encounter Plan of Treatment Not on file documented as of this encounter Procedures Procedure Name Priority Date/Time Associated Diagnosis Comments POCT HCG, URINE Routine 06/25/2019 9:42 AM AERONAUTICAL INSPECTOR Encounter for control pills maintenance documented in this encounter Results * POCT hCG, urine (06/25/2019 9:42 AM AERONAUTICAL INSPECTOR) HCG, ur, POC Negative Lot Number [id number] QC Backgroud Clear Acceptable QC Control Line Acceptable Urine 06/25/2019 9:42 AM AERONAUTICAL INSPECTOR us Shari Coley DO POINT OF CARE TEST ORDERAB LES Final Result documented in this encounter Visit Diagnoses Diagnosis Annual physical exam- Primary Routine general medical examination at a health care facility BMI 23.0-23.9, adult Encounter for control pills maintenance Surveillance of previously prescribed contraceptive pill documented in this encounter Discontinued Medications Medication Sig Discontinue Reason Start Date End Da te [id number] 0.18/0.215/0.25 mg-25 mcg per tablet Take 1 tablet by mouth daily Reorder 05/31/2019 06/25/2019 documented as of this encounter Historical Medications * This list may reflect changes made after this encounter. fluticasone propionate (FLONASE) 50 mcg/actuation nasal spray Administer 1 spray into each nostril daily 4 cetirizine (ZyrTEC) 10 mg tablet Take 1 tablet (10 mg total) by mouth as needed 4 [id number] 0.18/0.215/0.25 mg-25 mcg per tablet Take 1 tablet by mouth daily 3 05/31/2019 9 spironolactone (ALDACTONE) 50 mg tablet TAKE 3 TABS BY MOUTH EVERY DAY 3 06/02/2019 0 added in this encounter Care Teams Air Filler Relationship Specialty Start Date End Date Shari Coley DO PCP - General Family Medicine 06/25/19 02/29/24 Stuart Li PA Physician Sponge Packer Physician Sponge Packer 06/25/19 documented as of this encounter
--- OUTSIDE RECORDS SUMMARY | 2024-07-29 05:46 | XMS_ITS | Encounter Summary ---
Author Organization [facility] Healthcare Address [address] [place] [address] Care Team Providers Care Sports Equipment Racker Name Role Phone Yari Grove MD Primary Care Pro vider Encounter Details Date Type Department Care Team (Late st Contact Info) Description 07/08/2012 1:09 PM PHOTO LAB MANAGER - 07/08/2012 5:15 PM PHOTO LAB MANAGER Hospital Encounter [facility] Aisha Lam MD [address] [place] [id number] Open wound of forehead; Striking against or struck accidentally by objects or persons in sports without subsequent fall; Place of occurrence, place for recreation and sport; Activities involving soccer Social History Tobacco Use Types Packs/Day Years Used Date Smoking Tobacco: Never Assessed Alcohol Use Standard Drinks/Week Comments No 0 (1 standard drink = 0.6 oz pur e alcohol) Comments Unknown Sex and Gender Information Value Date Recorded Sex Assigned at Not on file 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 PHOTO LAB MANAGER Gender Identity Not on file Sexual Orientation Not on file documented as of this encounter Plan of Treatment Not on file documented as of this encounter Visit Diagnoses Diagnosis Open wound of forehead Open wound of forehead, without mention of complication Striking against or struck accidentally by objects or persons in sports without subsequent fall Place of occurrence, place for recreation and sport Activities involving soccer documented in this encounter Care Teams Sports Equipment Racker Relationship Specialty Start Date End Date Yari Grove MD PCP - General 06/25/11 06/24/19 documented as of this encounter
--- OUTSIDE RECORDS SUMMARY | 2024-07-29 05:46 | XMS_ITS | Encounter Summary ---
Author Organization [facility] Healthcare Address [address] [place] [address] Care Team Providers Care Food Assembler Kitchen Name Role Phone Unavailable Primary Care Provider Unavailabl e Encounter Details Date Type Department Care Team (Late st Contact Info) Description 01/18/2007 6:00 PM CDT - 01/18/2007 11:59 PM CDT Hospital Encounter [facility] CLINYari Lazaro MD [address] [place] [id number] Social History Tobacco Use Types Packs/Day Years Used Date Smoking Tobacco: Never Assessed Comments Unknown Sex and Gender Information Value Date Recorded Sex Assigned at Not on file 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 ACADEMIC SUPPORT ASSISTANT Gender Identity Not on file Sexual Orientation Not on file documented as of this encounter Plan of Treatment Not on file documented as of this encounter Visit Diagnoses Not on filedocumented in this encounter
--- OUTSIDE RECORDS SUMMARY | 2024-07-29 05:46 | XMS_ITS | Encounter Summary ---
Author Organization [facility] Medical Group Address [address] [place] [address] Care Team Providers Care Linux Unix System Administrator Name Role Phone Shari Coley DO Primary Care Provider +1- [phone] Stuart Li Unavailable +1- [phone] Reason for Visit * Reason Onset Date Comments After Hours 07/17/2019 Encounter Details Date Type Department Care Team (Late st Contact Info) Description 07/17/2019 Telephone [facility] [address] [place] [address] Shari Coley DO [address] [facility] [address] [place] [address] [address] After Hours Social History Tobacco Use Types Packs/Day Years Used Date Smoking Tobacco: Never Smokeless Tobacco: Never Alcohol Use Standard Drinks/Week Comments Yes 0 (1 standard drink = 0.6 oz pur e alcohol) PHQ-2 Answer Date Recorded PHQ-2 Score 0 06/25/2019 Comments No Sex and Gender Information Value Date Recorded Sex Assigned at Not on file 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 CAR ESCORT Gender Identity Not on file Sexual Orientation Not on file documented as of this encounter Miscellaneous Notes * Telephone Encounter - Shari Coley DO - 07/18/2019 4:23 PM CAR ESCORT Patient's mother instructed that all severe abd pain should go to the nearest ER. ESCORT * Telephone Encounter - Meena White 07/17/2019 9:03 AM CST [phone] Motehr is severe stomach pain, near belly button - [facility] [phone] ESCORT documented in this encounter Plan of Treatment Not on file documented as of this encounter Visit Diagnoses Not on filedocumented in this encounter Care Teams Linux Unix System Administrator Relationship Specialty Start Date End Date Shari Coley DO PCP - General Family Medicine 06/25/19 02/29/24 Stuart Li PA Physician Shake Cutter Physician Shake Cutter 06/25/19 documented as of this encounter
--- OUTSIDE RECORDS SUMMARY | 2024-07-29 05:46 | XMS_ITS | Encounter Summary ---
Author Organization [facility] Care Team Providers Care Plate Keeper Name Role Phone Shari Coley DO Primary Care Provider +1- [phone] Stuart Li Unavailable +1- [phone] Encounter Details Date Type Department Care Team (Latest Contact Info) Description 06/25/2019 Travel Social History Tobacco Use Types Packs/Day Years Used Date Smoking Tobacco: Never Smokeless Tobacco: Never Alcohol Use Standard Drinks/Week Comments No 0 (1 standard drink = 0.6 oz pur e alcohol) PHQ-2 Answer Date Recorded PHQ-2 Score 0 06/25/2019 Comments Unknown Sex and Gender Information Value Date Recorded Sex Assigned at Not on file 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 WORKERS COMPENSATION CLAIMS ASSISTANT Gender Identity Not on file Sexual Orientation Not on file documented as of this encounter Plan of Treatment Not on file documented as of this encounter Visit Diagnoses Not on filedocumented in this encounter Care Teams Plate Keeper Relationship Specialty Start Date End Date Shari oCley DO PCP - General Family Medicine 06/25/19 02/29/24 Stuart Li PA Physician Theater Technician Physician Theater Technician 06/25/19 documented as of this encounter
== END 2024-07-22 22:22 | disposition home or self-care (01) ==
PROVIDERS: Emergency Provider Physician Assistant; PCP Nurse Practitioner Family
DX: J10.1 Influenza due to other identified influenza virus with other respiratory manifestations (principal); J06.9 Acute upper respiratory infection, unspecified
CPT/HCPCS: 99281

== ENCOUNTER 2025-04-24 09:27 | Emergency (ER) | payer OTHER, SELFPAY ==
--- NOTE | 2025-04-24 09:32 | ED.URI ---
HPI - URI/Sore Throat General Chief Complaint: Upper Respiratory Infection Stated Complaint: Sore throat Time Seen by Provider: 04/24/25 09:34 Source: patient Mode of arrival: ambulatory Limitations: no limitations History of Present Illness HPI Narrative: Wendy is a 29-year-old female patient presenting to the clinic today with complaints sore throat x1 week. She reports she has had left-sided sore throat for 1 week. Was recently prescribed doxycycline for a sinus infection. Does not feel like her sinus infection went away as she has a lot of sinus congestion still. Denies any fevers, chills,or body aches. 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 Rates her pain 01/23. Painful swallowing. Has been taking Zyrtec for her sinus congestion. Related Data Home Medications ?Medication ?Instructions ?Recorded ?Confirmed ?Last Taken ?Type escitalopram oxalate 10 mg tablet 10 mg PO DAILY 06/09/21 06/09/21 Unknown History norgestimate 0.25 mg-ethinyl 1 tablet PO DAILY 06/09/21 06/09/21 Unknown History estradiol 0.035 mg tablet (Sue) spironolactone 50 mg tablet 75 mg PO DAILY 06/09/21 06/09/21 Unknown History clonazepam 0.5 mg tablet mg 07/06/24 Unknown History levonorgestrel-ethinyl estradiol tablet 07/06/24 Unknown History 0.1 mg-20 mcg tablet (Vienva) phentermine 37.5 mg capsule mg 07/06/24 Unknown History Allergies Allergy/AdvReac Type Severity Reaction Status Date / Time No Known Allergies Allergy Verified 07/22/24 18:49 Review of Systems Review of Systems: Pertinent positives per HPI. Patient denies any fever, chills, rash, visual changes, dizziness, cough, shortness of breath, chest pain, palpitations, nausea, vomiting, diarrhea, constipation, abdominal pain, or any urinary issues. [facility] Past Medical History Medical History Acne Surgical History Surgical History Hx of appendectomy Social History Social History Smoking status: Never smoker Alcohol intake: current Living arrangements: with family Gender identity (if verbalized by the patient): Female Comments At the time of my signature, I reviewed and agree with the nursing past medical, surgical, social, and family history. There is no relevant family history pertinent to the patient complaint. Exam Narrative: General: Well-developed, well nourished, in no apparent distress Head: Normocephalic, atraumatic Eyes: Pupils equally round and reactive to light bilaterally, EOM intact, sclera and conjunctive clear, no discharge, lids normal Ears: TMs intact and congested, ear canals clear, no drainage, grossly hearing normal. Nose: Nares patent, yellow nasal discharge, moderate inflammation, maxillary sinus tenderness. Mouth: Oral pharynx left side oropharynx redness/swelling with exudate/vesicular lesions without masses, good dentition, MMM. Even rise and fall of the uvula-uvula midline Neck: Supple, trachea midline, no enlargement of anterior or posterior cervical nodes, no thyroid masses or goiter palpable. Cardio: Regular rate and rhythm, s1 and s2 normal, no murmur appreciated. Resp: Clear to auscultation bilaterally, no rhonchi, rales, wheezing or rubs Course Course Emergency Course: Portions of this record may have been created with voice recognition software. Level of Care: Express Care Visit Vital Signs Vital signs: Vital signs reviewed MDM - URI/Sore Throat MDM Narrative Medical decision making narrative: At the time of visit patient is resting comfortably on the exam table. Patient appears to be nontoxic. Strep test was ordered. Morehouse test was ordered. Complaints sore throat x1 week. She reports she has had left-sided sore throat for 1 week. Was recently prescribed doxycycline for a sinus infection. Does not feel like her sinus infection went away as she has a lot of sinus congestion still. Denies any fevers, chills,or body aches. 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 Rates her pain 7/10. Painful swallowing. Has been taking Zyrtec for her sinus congestion. Strep and mono test was ordered. Labs: Strep and mono test are negative in the clinic today. Plan: I suspect patient has sinusitis/exudative pharyngitis. Prescription for Augmentin and Zofran was sent to the pharmacy. Work note was given. Supportive measures were discussed with the patient and they voiced understanding discharge instructions and agrees to treatment plan. Return precautions reviewed Differential Diagnosis Differential diagnosis: Likely upper respiratory infection, otitis media, sinusitis, viral infection, bronchitis, influenza, pharyngitis and other (COVID) Discharge Plan Discharge Clinical Impression: Exudative pharyngitis Sinusitis Qualifiers: Sinusitis location: maxillary Chronicity: acute Recurrence: non-recurrent Qualified Code(s): J01.00 - Acute maxillary sinusitis, unspecified Patient Disposition: Home Condition: Stable Instructions: Antibiotic Form, Pharyngitis (ED), Rhinosinusitis (ED) Additional Instructions: Strep and mono testing was negative in the clinic today. Take prescription medications only as prescribed-Augmentin and ondansetron Increase fluids and stay well hydrated May take Tylenol or motrin as directed on bottle for pain/fever May use Flonase 1 spray in each nare daily May take OTC antihistamines such as Zyrtec or Claritin daily as directed on bottle May apply Vicks vapor rub to chest to open sinuses Sinus rinses for congestion Cepacol spray, cough drops, throat lozenges, warm tea with honey/lemon, gargle salt water to soothe throat BRAT diet for diarrhea Clear liquids x 24 hours then advance as tolerated for nausea/vomiting Go to the ED if you develop a worsening in your condition- high fever not controlled by Tylenol or Motrin, dehydration, weakness, lethargy, shortness of breath, or chest pain. Follow up with your PCP in 3-5 days if symptoms persist. Patient Language: Vietnamese Prescriptions: New amoxicillin-pot clavulanate 875-125 mg tablet 1 tablet PO Q12H 10 Days Qty: 20 0RF ondansetron 8 mg tablet,disintegrating 8 mg PO Q8H PRN (Reason: nausea and vomiting) 10 Days Qty: 30 0RF No Action norgestimate-ethinyl estradiol [Sue] 0.25-35 mg-mcg tablet 1 tablet PO DAILY spironolactone 50 mg tablet 75 mg PO DAILY escitalopram oxalate 10 mg tablet 10 mg PO DAILY fluticasone propionate [Flonase Allergy Relief] 50 mcg/actuation spray,suspension 2 spray NASAL DAILY Qty: 15.8 0RF Rx Instructions: administer into each nostril levonorgestrel-ethinyl estrad [Vienva] 0.1-20 mg-mcg tablet clonazepam 0.5 mg tablet phentermine 37.5 mg capsule methylprednisolone [Medrol (Carlos)] 4 mg tablets,dose pack See Rx Instructions .ROUTE .COMPLEX Qty: 21 0RF Rx Instructions: orally per package directions meclizine 25 mg tablet 25 mg PO BID PRN (Reason: dizziness) Qty: 10 0RF Follow-up/Referrals: Kalia,REBECCA SegundoP [Primary Care Provider, Unknown] Stand Alone Forms: Work/School Release IP Time of Disposition: 10:11 Quality NIHSS Nursing Documentation ED NIHSS nursing documentation: reviewed/agree
[2025-04-24 09:37] VITALS: BP 126/82; PULSE 70; RESP 18; TEMP 36.3; O2SAT 100
[2025-04-24 10:10] LABS: EDMONONEGPOS Negative (Negative); EDSTREPNEGPOS1 Negative (Negative)
== END 2025-04-24 10:16 | disposition home or self-care (01) ==
PROVIDERS: Emergency Provider Nurse Practitioner Family; PCP Nurse Practitioner Family
DX: J02.9 Acute pharyngitis, unspecified (principal); J01.00 Acute maxillary sinusitis, unspecified
CPT/HCPCS: 36416; 86308; 87880; 99213; G0463